=== PATIENT | female | born 1945 | race Caucasian/White ===

== ENCOUNTER → 2016-10-14 | Outpatient (CLI) | payer OTHER ==
[~2016-10-14] MED LIST: ASCO1CAP3 PO; ASPI-435 PO; BUPR200T2 PO; CHOL400C7 PO; MELA3TAB PO; METO-157 PO; OMEG12006 PO; OXYB5TAB74 PO; PANT40TA PO; SIMV10TA5 PO; VITA100C4 PO
--- NOTE | 2016-10-14 16:38 | MAMMOGRAPHY REPORT ---
BILATERAL DIGITAL SCREENING MAMMOGRAM WITH CAD: 10/14/2016 CLINICAL HISTORY: Routine screening. Patient has no complaints. TECHNIQUE: Bilateral CC and MLO views were obtained. Current study was also evaluated with a Comput er Aided Detection (CAD) system. COMPARISON: Comparison is made to exams dated: 10/10/2015 mammogram, 10/07/2014 mammogram, 10/06/2013 mammogram, 10/05/2012 mammogram, 10/02/2011 mammogram, and 10/01/2010 mammogram - [facility] enter. BREAST COMPOSITION: There are scattered areas of fibroglandular density in both breasts. FINDINGS: There are minimal vascular calcifications in the breasts. The parenchymal pattern is unch anged. No developing mass, architectural distortion or cluster of suspicious microcalcifications is seen in either breast. IMPRESSION: ACR BI-RADS CATEGORY 2: BENIGN There is no mammographic evidence of malignancy. A 1 year screening mammogram is recommended. The p atient will receive written notification of the results. Approximately 10% of breast cancers are not detected with mammography. A negative mammographic repor t should not delay biopsy if a clinically suggestive mass is present. Joann Martinez M.D. ay/:10/14/2016 15:32:57 Electric [employer]cker: Sindy Oshea, [facility] letter sent: Normal 1/2 BI-RADS Code: ACR BI-RADS Category 2: Benign
== END | disposition home or self-care (01) ==
LOC: C.MAMM 09:19
PROVIDERS: ATTEND Family Medicine
DX: Z12.31 Encounter for screening mammogram for malignant neoplasm of breast (principal)

== ENCOUNTER → 2017-10-16 | Outpatient (CLI) | payer OTHER ==
[~2017-10-16] MED LIST changes: +DTR/5 PO; -OXYB5TAB74 PO
--- NOTE | 2017-10-16 15:09 | MAMMOGRAPHY REPORT ---
BILATERAL DIGITAL SCREENING MAMMOGRAM TOMOSYNTHESIS WITH CAD: 10/16/2017 CLINICAL HISTORY: Routine screening. Patient has no complaints. TECHNIQUE: Breast tomosynthesis in addition to standard 2D mammography was performed. Current study was also evaluated with a Computer Aided Detection (CAD) system. COMPARISON: Comparison is made to exams dated: 10/10/2015 mammogram, 10/14/2016 mammogram, 10/07/2014 m ammogram, 10/06/2013 mammogram, 10/05/2012 mammogram, and 10/02/2011 mammogram - [facility]ter. BREAST COMPOSITION: There are scattered areas of fibroglandular density in both breasts. FINDINGS: No suspicious masses, calcifications, or areas of architectural distortion are noted in ei ther breast. There has been no significant interval change compared to prior exams. IMPRESSION: ACR BI-RADS CATEGORY 1: NEGATIVE There is no mammographic evidence of malignancy. A 1 year screening mammogram is recommended. The pa tient will receive written notification of the results. Approximately 10% of breast cancers are not detected with mammography. A negative mammographic report should not delay biopsy if a clinically suggestive mass is present. Anali Reynolds M.D. ah/:10/16/2017 14:21:46 [employer]: Sindy CHE(R)(M), [facility] letter sent: Normal 1/2 BI-RADS Code: ACR BI-RADS Category 1: Negative
== END | disposition home or self-care (01) ==
LOC: C.MAMM 09:05
PROVIDERS: ATTEND Family Medicine
DX: Z12.31 Encounter for screening mammogram for malignant neoplasm of breast (principal)

== ENCOUNTER 2019-02-20 11:52 | Inpatient (IN) ==
--- OUTSIDE RECORDS SUMMARY | 2019-02-20 11:54 | External Medical Summary | Continuity of Care Document ---
:1945 Author Name Oliveir Castillo, Provider Address Unavailable Unavailable , Care Team Providers Name Role Phone Olivier Castillo, Urology Unavailable [email or web address] [email or web address], UNKNOWN Unavailable Unavailable Problems Active medical history not documented Allergies and Adverse Reactions Allergy history not documented Medications Medications not documented Procedures Procedures not documented Immunizations Immunizations not documented Plan of Treatment Planned Observations Planned Goals not documented Results No Known Results Results not documented
[2019-02-20] MEDS ORDERED: OPTIRAY 320 125ml IV PRN (12:16)
[2019-02-20 12:27] LABS: Basophils # (auto) 0.04 K/uL (0-0.2); Basophils % (auto) 0.6 %; Eosinophils # (auto) 0.08 K/uL (0-0.5); Eosinophils % (auto) 1.2 %; Hematocrit (blood only) 39.6 % (37-47); Hemoglobin 12.9 g/dL (12.0-16.0); Immature Granulocytes # (auto) 0.01 K/uL (0.00-0.02); Immature Granulocytes % (auto) 0.2 %; Lymphocytes # (auto) 2.25 K/uL (1.2-3.4); Lymphocytes % (auto) 34.5 %; Mean Corpuscular Hgb Conc 32.6 g/dL (32-36); Mean Corpuscular Volume 94.5 fL (80-100); Monocytes % (auto) 7.7 %; Neutrophils # (auto) 3.65 K/uL (1.4-6.5); Neutrophils % (auto) 55.8 %; Platelet Count 241 K/uL (130-400); RDW Coefficient of Variation 14.5 % (11.5-14.5); RDW Standard Deviation 49.8 fL (36.4-46.3); Red Blood Count 4.19 M/uL (4.2-5.4); White Blood Count 6.53 K/uL (4.8-10.8)
--- NOTE | 2019-02-20 12:29 | CT Scan Report ---
HEAD CT NONCONTRAST CT DOSE: HISTORY: stroke symptoms TECHNIQUE: Multiaxial CT images of the head were performed without the use of intravenous contrast. A utomated exposure control was utilized for this study. A dose lowering technique was utilized adheri ng to the principles of ALARA. Comparison: None. Findings: The paranasal sinuses and mastoid air cells are clear. The calvarium and skull base are int act. The ventricles and sulci are within normal limits. There is no mass, hematoma, midline shift, or acute infarct. Impression: No acute intracranial abnormality. Electronically signed by: Dannie Lockwood M.D. 02/20/2019 12:27 PM
--- NOTE | 2019-02-20 12:38 | CT Scan Report ---
HEAD & NECK CTA HISTORY: stroke symptoms TECHNIQUE: Multiaxial CT images of the head were performed following the intravenous administration o f contrast to evaluate the major cerebral vessels. Multiaxial CT images of the neck were also perform ed following the intravenous administration of contrast to evaluate the major cervical vessels. Maxim um intensity projection images were also obtained. A dose lowering technique was utilized adhering to the principles of ALARA. COMPARISON: None. FINDINGS: There is no mass, hematoma, midline shift, or acute infarct. Visualized intracranial internal carotid arteries, distal vertebral arteries, and basilar artery are widely patent. There is no significant s tenosis or occlusion seen within the bilateral ACAs, MCAs, or method consultant. Focal mild fusiform dilatation of the right NASIM at the level of the anterior communicating artery measuring 2.4 mm in diameter. This c ould represent a small fusiform aneurysm. This is best seen on image 100 of 234. The major dural veno us sinuses appear patent. The aortic arch and proximal great vessels are widely patent. There is no significant stenosis, occ lusion, or dissection identified within the bilateral common carotid, internal carotid, or vertebral arteries. IMPRESSION: 1. No significant stenosis or occlusion within the [place]. 2. Focal mild fusiform dilatation of the right NASIM at the level of the anterior communicating artery measuring 2.4 mm in diameter. This could represent a small fusiform aneurysm. Follow-up CTA in six-mo nths to one-year can be performed to ensure stability. 3. No significant stenosis, occlusion, or dissection identified within the carotid or vertebral arter ies. Electronically signed by: Dannie Lockwood M.D. 02/20/2019 12:36 PM
--- NOTE | 2019-02-20 12:38 | CT Scan Report ---
HEAD & NECK CTA HISTORY: stroke symptoms TECHNIQUE: Multiaxial CT images of the head were performed following the intravenous administration o f contrast to evaluate the major cerebral vessels. Multiaxial CT images of the neck were also perform ed following the intravenous administration of contrast to evaluate the major cervical vessels. Maxim um intensity projection images were also obtained. A dose lowering technique was utilized adhering to the principles of ALARA. COMPARISON: None. FINDINGS: There is no mass, hematoma, midline shift, or acute infarct. Visualized intracranial internal carotid arteries, distal vertebral arteries, and basilar artery are widely patent. There is no significant s tenosis or occlusion seen within the bilateral ACAs, MCAs, or dial lathe operator. Focal mild fusiform dilatation of the right NASIM at the level of the anterior communicating artery measuring 2.4 mm in diameter. This c ould represent a small fusiform aneurysm. This is best seen on image 100 of 234. The major dural veno us sinuses appear patent. The aortic arch and proximal great vessels are widely patent. There is no significant stenosis, occ lusion, or dissection identified within the bilateral common carotid, internal carotid, or vertebral arteries. IMPRESSION: 1. No significant stenosis or occlusion within the [place]. 2. Focal mild fusiform dilatation of the right NASIM at the level of the anterior communicating artery measuring 2.4 mm in diameter. This could represent a small fusiform aneurysm. Follow-up CTA in six-mo nths to one-year can be performed to ensure stability. 3. No significant stenosis, occlusion, or dissection identified within the carotid or vertebral arter ies. Electronically signed by: Dannie Lockwood M.D. 02/20/2019 12:36 PM
[2019-02-20 12:42] LABS: Partial Thromboplastin Ratio 0.9; Partial Thromboplastin Time 24.8 Seconds (21.0-31.0)
[2019-02-20 12:50] LABS: Alanine Aminotransferase 20 U/L (12-78); Albumin Globulin Ratio 0.9 (0.9-2); Albumin Level 3.6 gm/dl (3.4-5.0); Alkaline Phosphatase 88 U/L (45-117); Aspartate Aminotransferase 13 U/L (15-37); BUN Creatinine Ratio 25.2 (10-20); Bilirubin,Total 0.2 mg/dl (0.2-1); Blood Urea Nitrogen 22 mg/dl (7-18); Calcium 8.7 mg/dl (8.5-10.1); Carbon Dioxide 27 mmol/L (21-32); Chloride 111 mmol/L (98-107); Creatinine Clr Calc Pharmacy 64.6 ml/min; Est GFR (African American) 77.7; Globulin 3.8 gm/dl (2.5-4.0); Glucose 86 mg/dl (70-99); Magnesium 2.1 mg/dl (1.8-2.4); Potassium 3.6 mmol/L (3.5-5.1); Sodium 142 mmol/L (136-145); Total Protein 7.4 gm/dl (6.4-8.2); Troponin I < 0.015 ng/ml (0-0.045)
[2019-02-20] MEDS: SODIUM CHLORIDE 0.9% 1000ML 1,000 ML IV SCH (12:53)
[2019-02-20] MEDS ORDERED: ASPIRIN CHEW 324 MG PO STA (13:03)
[2019-02-20] MEDS ORDERED: PHARMACIST DISCHARGE MED REC CONSULT PRN (13:56)
[2019-02-20] MEDS ORDERED: ASPIRIN 81 MG ECTAB PO SCH (14:00)
[2019-02-20] MEDS ORDERED: ATORVASTATIN 40 MG TAB PO SCH (14:00)
--- NOTE | 2019-02-20 14:15 | History & Physical Report ---
Date of Service February 20, 2019 Assessment & Plan (1) CVA (cerebral vascular accident): (2) Left-sided weakness: (3) Stroke-like symptom: (4) GERD (gastroesophageal reflux disease): (5) Hyperlipidemia: (6) Lumbar back pain with radiculopathy affecting left lower extremity: Tele-stroke did not recommend TPA, recommends aspirin and fluids, if her symptoms get worse a Plavix load and give him a call back. And he recommends Aggrenox on discharge. I ordered an MRI MRA of the brain, MRA of the head and neck, aspirin, statin, permissive hypertension, IV fluids. Monitor daily labs and continue outpatient medications where appropriate. We will also order MRI of the cervical spine as well. ROS-No Headache, No Visual Changes, No Nausea, No Vomiting, No Fever, No Chills, No Neck Pain or Stiffness, No Chest Pain, No Palpitations, No SOB, No BALLESTEROS, No Cough, No Sputum, No Wheezing, No Abdominal Pain, No Diarrhea, No Hematemesis, No Hemoptysis, No Unexpected Weight Loss, No Flank pain, No Melena, No Hematochezia, No Frequency, No Urgency, No Burning, No Hematuria, No Rashes, No Diaphoresis. Appetite is Normal, complains of left-sided weakness. Physical Exam Gen-AAO x 3, NAD, Afebrile, obese Head-NCAT, EOMI, PERRLA, Anicteric Sclera, No Posterior Pharyngeal Erythema Neck-Supple, No JVD, No Thyromegaly, No Masses, No LAD, No Bruits Lungs-Clear to Auscultation Bilaterally, No Rales, No Rhonchi, No Wheezing, No Crepitus Chest-No S4, +S1, +S2, No S3, No Murmurs, No Rubs, No Gallops, No Ectopy Abdomen-Soft, Bowel Sounds Present, Non Tender, Non Distended, No Hepatomegaly, No Splenomegaly, No Palpable Masses, No Rebound, No Rigidity, No Guarding Musculoskeletal-Full Range of Motion Bilaterally, No CVAT Extremities-No Cyanosis, No Clubbing, No Edema Nuero-Cranial Nerves II-XII grossly intact, decreased motor on the left, DTRs WNL, decreased strength strength on the left, decreased sensation on the left Psych-Normal Mood History of Present Illness 74-year-old female with a past medical history of gastroesophageal reflux disease, hyperlipidemia and chronic leg pain. She had a recent epidural on 02/17 from the neuropathic pain in the left lower extremity. Today she said she woke up at 9:30 AM and was weak on the left side much greater than the right side and she was numb in both arms. She said this is never happened her before. She did not feel quite right so was brought to the emergency room. Past medical historyGERD, hyperlipidemia, leg pain Past surgical historyepidural for left lower extremity pain, hysterectomy, hernia repair, appendectomy Family historymother of old age, Father of diabetes complications, she has 1 brother who is alive and healthy, she has a sister of leukemia, she has 2 sons 1 of which is healthy the other has diabetes, she is a healthy daughter. 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, she is and her is at the bedside Primary Care Provider: Myron Cristobal MD Allergies Allergy/AdvReac Type Severity Reaction Status Date / Time No Known Allergies Allergy Unverified 02/20/19 12:39 Home Medications Home Medications Medication Instructions Recorded Confirmed Type ascorbic acid (vitamin C) [Vitamin 500 mg PO DAILY 02/20/19 02/20/19 History C] aspirin 81 mg PO DAILY 02/20/19 02/20/19 History baclofen 10 mg PO HS 02/20/19 02/20/19 History cholecalciferol (vitamin D3) 5,000 unit PO DAILY 02/20/19 02/20/19 History [Vitamin D3] omega [id number]-fish oil [[place]-3] 1 cap PO DAILY 02/20/19 02/20/19 History pantoprazole [Protonix] 40 mg PO DAILY 02/20/19 02/20/19 History phentermine 37.5 mg PO DAILY 02/20/19 02/20/19 History simvastatin 10 mg PO HS 02/20/19 02/20/19 History Past Med/Surg History Family History Other Family history non-contributory Social History Preferred Language: [place] Communication Ability: Effective Beliefs That Will Affect Care: None Current Living Situation: Spouse Other Information That Helps Us Care for You: No Feels Safe at Home: Yes Safety Concerns: Feels Safe At This Time Smoking Status: Former smoker Hx Alcohol Use: No Hx Substance Use: No Results & Data Vital Signs (Past 12 Hours) Vital Signs Temp Pulse Resp BP Pulse Ox 02/20/19 12:41 77 161/108 H 02/20/19 12:37 91 H 02/20/19 12:34 75 152/98 H 02/20/19 12:27 98 02/20/19 11:54 36.7 C 86 16 98 Allergies No Known Allergies Allergy (Unverified 02/20/19 12:39) Height/Weight/Isolation Height 5 ft 5 in Weight 90.2 kg Chemistry 02/20/19 12:11 Sodium 142 Potassium 3.6 Chloride 111 H Carbon Dioxide 27 Anion Gap 4.0 BUN 22 H Creatinine 0.86 Glucose 86 Code Status & VTE Plan Code Status Full VTE Prophylaxis Plan VTE Prophylaxis will be ordered: Yes
--- NOTE | 2019-02-20 14:43 | Emergency Department Note ---
Entered by Lissette Gardner acting as a scribe for History of Present Illness General Chief complaint: Neuro Symptoms/Deficit Stated complaint: LEFT ARM/NECK NUMBNESS Time Seen by Provider: 02/20/19 11:59 Source: patient History of Present Illness Provider complaint: Neuro symptoms Onset (ago): hour(s) (2.5) Location: upper extremity Pain Consistency: + constant Quality: + constant Associated symptoms: + weakness and + other (Numbness in both arms. thick speech) The patient is a 74 year old female who presents to the ED with complaints of constant neuro symptoms that started 2 and a half hours ago. The patient reports she was having breakfast and both her arms became numb all of a sudden. She notes the numbness radiates to her neck and is worse in the left arm. The patient states she has left arm weakness and her speech was thick when the numbness started. She reports she had a similar episode a month ago and called her doctor who told her if it happened again then she should go to the ED. The patient states she currently does not have any leg pain; however, 2 days ago she received an injection in her spine for leg pain. The patient reports she does not have a history of stroke. Home Medications Home Medications Medication Instructions Recorded Confirmed Type ascorbic acid (vitamin C) [Vitamin 500 mg PO DAILY 02/20/19 02/20/19 History C] aspirin 81 mg PO DAILY 02/20/19 02/20/19 History baclofen 10 mg PO HS 02/20/19 02/20/19 History cholecalciferol (vitamin D3) 5,000 unit PO DAILY 02/20/19 02/20/19 History [Vitamin D3] omega [id number] oil [Savage-3] 1 cap PO DAILY 02/20/19 02/20/19 History pantoprazole [Protonix] 40 mg PO DAILY 02/20/19 02/20/19 History phentermine 37.5 mg PO DAILY 02/20/19 02/20/19 History simvastatin 10 mg PO HS 02/20/19 02/20/19 History Allergies Allergy/AdvReac Type Severity Reaction Status Date / Time No Known Allergies Allergy Unverified 02/20/19 12:39 Past Med/Surg History Medical History Pharyngitis (Acute) Uvulitis (Acute) Family History Other Family history non-contributory Social History Preferred Language: Ch[place] Communication Ability: Effective Beliefs That Will Affect Care: None Current Living Situation: Spouse Other Information That Helps Us Care for You: No Feels Safe at Home: Yes Safety Concerns: Feels Safe At This Time Smoking Status: Former smoker Hx Alcohol Use: No Hx Substance Use: No Review of Systems See HPI for pertinent positives & negatives. and A total of 10 systems reviewed and were otherwise negative Physical Exam Vital Signs Vital Signs - 24 hr 02/20/19 11:54 02/20/19 12:27 02/20/19 12:34 Temperature 36.7 C Temperature Source Oral Sepsis Recent Fever Within 48 Hours No Sepsis Action Taken by Nursing No Action Required Pulse Rate 86 75 Pulse Rate from SpO2 Sensor Pulse Rhythm Regular Pulse Strength Normal Respiratory Rate 16 Respiratory Effort / Characteristics Non-Labored Normal for Patient Respiratory Depth Normal Respiratory Pattern Regular Blood Pressure 152/98 H Blood Pressure Mean 116 Pulse Oximetry 98 98 Oxygen Delivery Method Room Air Room Air 02/20/19 12:37 02/20/19 12:41 02/20/19 12:45 Temperature Temperature Source Sepsis Recent Fever Within 48 Hours Sepsis Action Taken by Nursing Pulse Rate 91 H 77 68 Pulse Rate from SpO2 Sensor Pulse Rhythm Pulse Strength Respiratory Rate Respiratory Effort / Characteristics Respiratory Depth Respiratory Pattern Blood Pressure 161/108 H Blood Pressure Mean 125 Pulse Oximetry Oxygen Delivery Method 02/20/19 12:50 02/20/19 13:00 02/20/19 13:01 Temperature Temperature Source Sepsis Recent Fever Within 48 Hours Sepsis Action Taken by Nursing Pulse Rate 67 67 Pulse Rate from SpO2 Sensor 68 65 Pulse Rhythm Pulse Strength Respiratory Rate Respiratory Effort / Characteristics Respiratory Depth Respiratory Pattern Blood Pressure 167/97 H 166/97 H Blood Pressure Mean 120 120 Pulse Oximetry 100 100 Oxygen Delivery Method Room Air 02/20/19 13:11 02/20/19 13:15 02/20/19 13:30 Temperature Temperature Source Sepsis Recent Fever Within 48 Hours Sepsis Action Taken by Nursing Pulse Rate 63 67 65 Pulse Rate from SpO2 Sensor 65 66 64 Pulse Rhythm Pulse Strength Respiratory Rate Respiratory Effort / Characteristics Respiratory Depth Respiratory Pattern Blood Pressure 159/89 H Blood Pressure Mean 112 Pulse Oximetry 100 99 99 Oxygen Delivery Method 02/20/19 13:31 02/20/19 13:45 02/20/19 14:00 Temperature Temperature Source Sepsis Recent Fever Within 48 Hours Sepsis Action Taken by Nursing Pulse Rate 61 63 62 Pulse Rate from SpO2 Sensor Pulse Rhythm Pulse Strength Respiratory Rate Respiratory Effort / Characteristics Respiratory Depth Respiratory Pattern Blood Pressure 147/85 H Blood Pressure Mean 105 Pulse Oximetry Oxygen Delivery Method 02/20/19 14:01 Temperature Temperature Source Sepsis Recent Fever Within 48 Hours Sepsis Action Taken by Nursing Pulse Rate 62 Pulse Rate from SpO2 Sensor Pulse Rhythm Pulse Strength Respiratory Rate Respiratory Effort / Characteristics Respiratory Depth Respiratory Pattern Blood Pressure 149/94 H Blood Pressure Mean 112 Pulse Oximetry Oxygen Delivery Method GENERAL: Patient is in no acute distress. HEENT: No acute trauma, normocephalic atraumatic, mucous membranes moist, no nasal congestion, no scleral icterus. NECK: No stridor, no adenopathy, no meningismus, trachea is midline. LUNGS: Clear to auscultation bilaterally, no wheeze, no rhonchi, breath sounds equal. HEART: Without murmurs gallops or rubs, regular rate and rhythm. ABDOMEN: Soft, nontender, bowel sounds positive, no hernias, no peritonitis. EXTREMITIES: No cyanosis or edema, full range of motion of all the joints witho ut pain or difficulty, no signs for acute trauma. NEUROLOGIC: Awake and alert. No speech slur. No facial droop. Mild to moderate left upper extremity cerebellar dysfunction. Subtle left upper extremity drift. Left lower extremity drift. Weakness in left arm and left leg noted. SKIN: No rash, no jaundice, no diaphoresis. Course 1200: The patient was evaluated in room A2. A complete history and physical exam was performed. 1213: I discussed the patient's case with Dr. Rodríguez, Stroke Neurology. 1225: I checked on the patient. 1244: I checked on the patient. 1255: I discussed the patient's case with Amaury Johnston PA-C. The patient will be evaluated by Dr. Mckeon for further management. 1257: I discussed the patient's case with Dr. Rodríguez, Stroke Neurology. He said no TPA and to give the patient aspirin and fluids. If the patient's symptoms become worse then he advises to start a load of Plavix and give them a call back at [place]. 1308: I checked on the patient and spoke with Dr. Mckeon about the recommendations. I reviewed old records from the procedure done two days ago on . It was a caudal epidural steroid injection. Administered Medications Atorvastatin Calcium (Lipitor) 40 mg PO QAM JAYLEEN Stop: 03/22/19 13:59 Last Admin: 02/20/19 16:52 Dose: 40 mg Documented by: [id number] Fish Oil (Savage-3 (Purified Fish Oil)) 1 gm PO DAILY JAYLEEN Stop: 03/22/19 17:14 Last Admin: 02/20/19 17:38 Dose: 1 gm Documented by: [id number] Gadobutrol (Gadavist 65ml) 9 ml IV ONCE PRN PRN Reason: Interaction Checking Stop: 02/24/19 16:03 Last Admin: 02/20/19 16:04 Dose: 9 ml Documented by: [id number] Sodium Chloride (Nss 1000ml) 1,000 mls @ 50 mls/hr IV .Q20H JAYLEEN Stop: 03/22/19 12:14 Last Infusion: 02/20/19 14:58 Dose: 0 mls/hr Documented by: [id number] Admin: 02/20/19 12:53 Dose: 50 mls/hr Documented by: [id number] Potassium Chloride/Sodium Chloride (Normal Saline W/20 Meq Kcl) 20 meq in 1,000 mls @ 100 mls/hr IV .Q10H JAYLEEN Stop: 03/22/19 16:59 Last Admin: 02/20/19 17:37 Dose: 100 mls/hr Documented by: [id number] Ioversol (Optiray 320 125ml) 118 ml IV ONCE PRN PRN Reason: Interaction Checking Stop: 02/24/19 12:15 Last Admin: 02/20/19 12:16 Dose: 118 ml Documented by: [id number] Pantoprazole Sodium (Protonix) 40 mg PO DAILY JAYLEEN Stop: 03/22/19 17:14 Last Admin: 02/20/19 17:46 Dose: Not Given Documented by: [id number] Vitamin D (Vitamin D3) 5,000 units PO DAILY JAYLEEN Stop: 03/22/19 17:14 Last Admin: 02/20/19 17:46 Dose: 5,000 units Documented by: [id number] Discontinued Medications Aspirin (Aspirin) 324 mg PO NOW STA Stop: 02/20/19 13:04 Last Admin: 02/20/19 13:22 Dose: 324 mg Documented by: [id number] Diphenhydramine HCl (Benadryl) Confirm Administered Dose 50 mg .ROUTE .STK-MED ONE Stop: 02/20/19 15:18 Last Admin: 02/20/19 15:22 Dose: 50 mg Documented by: [id number] Lorazepam (Ativan) 0.5 mg in 1 mls @ 1 mls/min IV NOW STA Stop: 02/20/19 15:10 Last Admin: 02/20/19 16:53 Dose: Not Given Documented by: [id number] Medical Decision Making Differential Diagnosis Differential Diagnosis: Stroke, intracranial bleeding, infection, dysrhythmia, electrolyte imbalance, anemia, [place], migraine Medical Records Attestation: I reviewed the patient's medical records. Home Medications Current Medication List: was personally reviewed by me Laboratory Data Attestation: I reviewed the patient's lab results. Result diagrams: 02/20/19 12:11 02/20/19 12:11 Lab Results 02/20/19 02/20/19 02/20/19 Range/Units 12:11 12:11 12:11 WBC 6.53 (4.8-10.8) K/uL RBC 4.19 L (4.2-5.4) M/uL Hgb 12.9 (12.0-16.0) g/dL Hct 39.6 (37-47) % MCV 94.5 (80-100) fL MCH 30.8 (25-34) pg MCHC 32.6 (32-36) g/dL RDW Std Deviation 49.8 H (36.4-46.3) fL RDW Coeff of Chen 14.5 (11.5-14.5) % Plt Count 241 (130-400) K/uL MPV 10.0 (7.4-10.4) fL Immature Gran % (Auto) 0.2 % Neut % (Auto) 55.8 % Lymph % (Auto) 34.5 % [place] % (Auto) 7.7 % Eos % (Auto) 1.2 % Baso % (Auto) 0.6 % Immature Gran # (Auto) 0.01 (0.00-0.02) K/uL Neut # (Auto) 3.65 (1.4-6.5) K/uL Lymph # (Auto) 2.25 (1.2-3.4) K/uL [place] # (Auto) 0.50 (0.11-0.59) K/uL Eos # (Auto) 0.08 (0-0.5) K/uL Baso # (Auto) 0.04 (0-0.2) K/uL PT 10.0 (9.0-12.0) Seconds INR 1.0 (0.9-1.1) APTT 24.8 (21.0-31.0) Seconds PTT Ratio 0.9 Sodium 142 (136-145) mmol/L Potassium 3.6 (3.5-5.1) mmol/L Chloride 111 H (98-107) mmol/L Carbon Dioxide 27 (21-32) mmol/L Anion Gap 4.0 (3-11) BUN 22 H (7-18) mg/dl Creatinine 0.86 (0.6-1.2) mg/dl Est Cr Clr Drug Dosing 64.6 ml/min Est GFR ( Amer) 77.7 Est GFR (Non-Af Amer) 67.0 BUN/Creatinine Ratio 25.2 H (10-20) Glucose 86 (70-99) mg/dl POC Glucose (70-99) Calcium 8.7 (8.5-10.1) mg/dl Magnesium 2.1 (1.8-2.4) mg/dl Total Bilirubin 0.2 (0.2-1) mg/dl AST 13 L (15-37) U/L ALT 20 (12-78) U/L Alkaline Phosphatase 88 (45-117) U/L Troponin I < 0.015 (0-0.045) ng/ml Total Protein 7.4 (6.4-8.2) gm/dl Albumin 3.6 (3.4-5.0) gm/dl Globulin 3.8 (2.5-4.0) gm/dl Albumin/Globulin Ratio 0.9 (0.9-2) Blood Type Antibody Screen 02/20/19 02/20/19 Range/Units 12:11 12:31 WBC (4.8-10.8) K/uL RBC (4.2-5.4) M/uL Hgb (12.0-16.0) g/dL Hct (37-47) % MCV (80-100) fL MCH (25-34) pg MCHC (32-36) g/dL RDW Std Deviation (36.4-46.3) fL RDW Coeff of Chen (11.5-14.5) % Plt Count (130-400) K/uL MPV (7.4-10.4) fL Immature Gran % (Auto) % Neut % (Auto) % Lymph % (Auto) % [place] % (Auto) % Eos % (Auto) % Baso % (Auto) % Immature Gran # (Auto) (0.00-0.02) K/uL Neut # (Auto) (1.4-6.5) K/uL Lymph # (Auto) (1.2-3.4) K/uL [place] # (Auto) (0.11-0.59) K/uL Eos # (Auto) (0-0.5) K/uL Baso # (Auto) (0-0.2) K/uL PT (9.0-12.0) Seconds INR (0.9-1.1) APTT (21.0-31.0) Seconds PTT Ratio Sodium (136-145) mmol/L Potassium (3.5-5.1) mmol/L Chloride (98-107) mmol/L Carbon Dioxide (21-32) mmol/L Anion Gap (3-11) BUN (7-18) mg/dl Creatinine (0.6-1.2) mg/dl Est Cr Clr Drug Dosing ml/min Est GFR ( Amer) Est GFR (Non-Af Amer) BUN/Creatinine Ratio (10-20) Glucose (70-99) mg/dl POC Glucose 89 (70-99) Calcium (8.5-10.1) mg/dl Magnesium (1.8-2.4) mg/dl Total Bilirubin (0.2-1) mg/dl AST (15-37) U/L ALT (12-78) U/L Alkaline Phosphatase (45-117) U/L Troponin I (0-0.045) ng/ml Total Protein (6.4-8.2) gm/dl Albumin (3.4-5.0) gm/dl Globulin (2.5-4.0) gm/dl Albumin/Globulin Ratio (0.9-2) Blood Type AB Positive Antibody Screen NEGATIVE Imaging Data Radiologist's Impression: Radiology results as stated below per my review and the radiologist's interpretation: HEAD & NECK CTA HISTORY: stroke symptoms TECHNIQUE: Multiaxial CT images of the head were performed following the intravenous administration of contrast to evaluate the major cerebral vessels. Multiaxial CT images of the neck were also performed following the intravenous administration of contrast to evaluate the major cervical vessels. Maximum intensity projection images were also obtained. A dose lowering technique was utilized adhering to the principles of ALARA. COMPARISON: None. FINDINGS: There is no mass, hematoma, midline shift, or acute infarct. Visualized intracranial internal carotid arteries, distal vertebral arteries, and basilar artery are widely patent. There is no significant stenosis or occlusion seen within the bilateral ACAs, MCAs, or automation clerk. Focal mild fusiform dilatation of the right NASIM at the level of the anterior communicating artery measuring 2.4 mm in diameter. This could represent a small fusiform aneurysm. This is best seen on image 100 of 234. The major dural venous sinuses appear patent. The aortic arch and proximal great vessels are widely patent. There is no significant stenosis, occlusion, or dissection identified within the bilateral common carotid, internal carotid, or vertebral arteries. IMPRESSION: 1. No significant stenosis or occlusion within the [place]. 2. Focal mild fusiform dilatation of the right NASIM at the level of the anterior communicating artery measuring 2.4 mm in diameter. This could represent a small fusiform aneurysm. Follow-up CTA in six-months to one-year can be performed to ensure stability. 3. No significant stenosis, occlusion, or dissection identified within the carotid or vertebral arteries. Electronically signed by: Dannie Lockwood M.D. 02/20/2019 12:36 PM HEAD & NECK CTA HISTORY: stroke symptoms TECHNIQUE: Multiaxial CT images of the head were performed following the intravenous administration of contrast to evaluate the major cerebral vessels. Multiaxial CT images of the neck were also performed following the intravenous administration of contrast to evaluate the major cervical vessels. Maximum intensity projection images were also obtained. A dose lowering technique was utilized adhering to the principles of ALARA. COMPARISON: None. FINDINGS: There is no mass, hematoma, midline shift, or acute infarct. Visualized intracranial internal carotid arteries, distal vertebral arteries, and basilar artery are widely patent. There is no significant stenosis or occlusion seen within the bilateral ACAs, MCAs, or automation clerk. Focal mild fusiform dilatation of the right NASIM at the level of the anterior communicating artery measuring 2.4 mm in diameter. This could represent a small fusiform aneurysm. This is best seen on image 100 of 234. The major dural venous sinuses appear patent. The aortic arch and proximal great vessels are widely patent. There is no significant stenosis, occlusion, or dissection identified within the bilateral common carotid, internal carotid, or vertebral arteries. IMPRESSION: 1. No significant stenosis or occlusion within the [place]. 2. Focal mild fusiform dilatation of the right NASIM at the level of the anterior communicating artery measuring 2.4 mm in diameter. This could represent a small fusiform aneurysm. Follow-up CTA in six-months to one-year can be performed to ensure stability. 3. No significant stenosis, occlusion, or dissection identified within the carotid or vertebral arteries. Electronically signed by: Dannie Lockwood M.D. 02/20/2019 12:[address]AST CT DOSE: HISTORY: stroke symptoms TECHNIQUE: Multiaxial CT images of the head were performed without the use of intravenous contrast. Automated exposure control was utilized for this study. A dose lowering technique was utilized adhering to the principles of ALARA. Comparison: None. Findings: The paranasal sinuses and mastoid air cells are clear. The calvarium and skull base are intact. The ventricles and sulci are within normal limits. There is no mass, hematoma, midline shift, or acute infarct. Impression: No acute intracranial abnormality. Electronically signed by: Dannie Lockwood M.D. 02/20/2019 12:27 PM ECG Data Attestation: I personally reviewed and interpreted this ECG as follows: Indication: other (Neuro symptoms/ stroke symptoms ) Rate (beats per minute): 81 Rhythm: normal sinus Findings: no PVC and no ST elevation Blood Pressure Blood Pressure Findings: Elevated blood pressure Blood Pressure Disposition: further management by hospitalist RHYS Dietz There is no leukocytosis or concerning anemia. No coagulopathy. No significant electrolyte abnormality or kidney failure. No liver enzyme elevations. Blood type was AB+. Brain CT showed no acute bleed or mass-effect. CT angios of the brain and neck were done, a potential small aneurysm was noted, no large clot or significant stenosis was seen. On exam, the patient had some left upper extremity cerebellar dysfunction and some left leg weakness. No speech slur. EKG showed a sinus rhythm, no acute ischemia. The patient received IV saline. She was eventually given a dose of oral aspirin. Upon presentation, a stroke alert was called. The patient was aggressively managed. I spoke with the stroke neurologist straightaway, the patient was evaluated by stroke neurology via telemedicine. After her evaluation, after discussing things with the patient, after taking into account the patient's caudal spinal injection just a few days ago, the decision to hold on TPA was made. The patient did not feel she had any significant deficits and felt she could function well even if she did not continue to improve. The patient has likely had a small stroke. She has minimal deficits. TPA is not being administered. She will be hospitalized for further work-up. I spoke to the case management team, I talked to the patient at length. The on-call hospitalist was consulted. Impression & Plan CVA (cerebral vascular accident), Left-sided weakness, Stroke-like symptom Critical Care Time Critical Care Time: Yes Total Critical Care Time: 35 I have personally spent greater than 35 minutes of critical care time in the direct management of this patient. This includes bedside care, interpretation of diagnostic studies and testing, discussion with consultants, the patient, and family members, and other required patient management activities. This 35 minutes is in excess of all separately billable procedures. Discharge Plan Visit Data *Final* Discharge Date/Time: 02/20/19 15:03 Chief Complaint: Neuro Symptoms/Deficit Stated Complaint: LEFT ARM/NECK NUMBNESS ED Provider: Jose G Ziegler Discharge Problem: CVA (cerebral vascular accident), Left-sided weakness, Stroke-like symptom Patient Disposition: Still a Patient Discharge Instructions Interventions: ED Discharge Assessment Last Done: 02/20/19 15:03 The scribe's documentation has been prepared under my direction and personally reviewed by me in its entirety. I confirm that the note above accurately reflects all work, treatment, procedures, and medical decision making performed by me.
[2019-02-20] MEDS ORDERED: LORazepam 0.5 MG/1 ML VIAL IV STA (15:09)
[2019-02-20] MEDS ORDERED: DiphenhydrAMINE 25 MG in SYRINGE 1 ML IV SCH (15:15)
[2019-02-20] MEDS ORDERED: DiphenhydrAMINE HCL 50 MG/ML VIAL ONE (15:17)
[2019-02-20] MEDS ORDERED: GADOBUTROL 65ML VIAL IV PRN (16:04)
--- NOTE | 2019-02-20 16:26 | Magnetic Resonance Report ---
Brain MRI WITH AND WITHOUT CONTRAST HISTORY: Stroke symptoms. Bilateral upper extremity numbness. TECHNIQUE: Multiplanar multisequence MRI of the brain was performed both before and after the intrave nous administration of contrast. COMPARISON STUDY: None. FINDINGS: There are no areas of restricted diffusion to suggest acute infarction. The midline structu res are intact. The paranasal sinuses are clear. The mastoid air cells are clear. The ventricles and sulci are within normal limits for age. There is no mass, hematoma, midline shift. The major vascular flow-voids at the skull base are well maintained. Postcontrast sequences show no areas of abnormal e nhancement. IMPRESSION: No acute intracranial abnormality. Electronically signed by: Dannie Lockwood M.D. 02/20/2019 4:25 PM
--- NOTE | 2019-02-20 16:27 | Magnetic Resonance Report ---
Brain MRA HISTORY: Stroke symptoms. Bilateral upper extremity numbness. TECHNIQUE: 3-D [id number] MRA of the brain was performed without contrast. COMPARISON STUDY: Head CT 02/20/2019. FINDINGS: Visualized intracranial internal carotid arteries, distal vertebral arteries, and basilar a rtery are widely patent. There is no significant stenosis, occlusion, or aneurysm seen within the rama ateral ACAs, MCAs, or industry operations investigator. IMPRESSION: No significant stenosis, occlusion, or aneurysm within the [place]. Electronically signed by: Dannie Lockwood M.D. 02/20/2019 4:26 PM
[2019-02-20] MEDS ORDERED: POLYETHYLENE (MIRALAX) 17 GM PACK PO PRN (16:28)
[2019-02-20] MEDS ORDERED: ONDANSETRON INJ 2 MG/ML 2 ML VIAL IV PRN (16:28)
[2019-02-20] MEDS ORDERED: ACETAMINOPHEN 325 MG TAB PO PRN (16:28)
[2019-02-20] MEDS ORDERED: ASPIRIN CHEW 324 MG PO SCH (16:28)
--- NOTE | 2019-02-20 16:28 | Magnetic Resonance Report ---
NECK CTA HISTORY: Stroke symptoms. Bilateral upper extremity numbness. cva TECHNIQUE: Multiaxial CT images of the neck were performed following the intravenous administration o f contrast to evaluate the major cervical vessels. Maximum intensity projection images were also obta ined. All measurements were calculated based on NASCET criteria. A dose lowering technique was utili zed adhering to the principles of ALARA. COMPARISON STUDY: Neck CTA 02/20/2019. FINDINGS: The aortic arch and proximal great vessels are widely patent. There is no significant sten osis, occlusion, or dissection identified within the bilateral common carotid, internal carotid, or v ertebral arteries. IMPRESSION: No significant stenosis, occlusion, or dissection identified within the carotid or vertebral arteries . Electronically signed by: Dannie Lockwood M.D. 02/20/2019 4:27 PM
[2019-02-20] MEDS: NSS + 20MEQ KCL 20 MEQ/1,000 ML BAG IV SCH (17:37)
[2019-02-20] MEDS: OMEGA-3 (PURIFIED FISH OIL) 1 GM CAP PO SCH (17:38)
[2019-02-20] MEDS: PANTOprazole 40 MG TAB PO SCH (17:46)
[2019-02-20] MEDS: CHOLECALCIFEROL 1,000 UNITS TAB PO SCH (17:46)
[2019-02-20] MEDS: HEPARIN SOD 5,000 UNIT/0.5 ML VIAL SQ SCH (20:46)
[2019-02-20] MEDS: BACLOFEN 10 MG TAB PO SCH (20:46)
[2019-02-20 21:24] LABS: Appearance Urine Clear (Clear); Bilirubin Urine Negative (Negative); Color Urine Yellow; Glucose Urine UA Negative (Negative); Ketones Urine Negative (Negative); Leukocyte Esterase Urine Negative (Negative); Nitrite Urine Negative (Negative); Protein Urine Negative (Negative); Specific Gravity Urine 1.022 (1.000-1.030); Urobilinogen Urine Negative (Negative)
[2019-02-21] MEDS: NSS + 20MEQ KCL 20 MEQ/1,000 ML BAG IV SCH ×3 (03:39→23:39)
[2019-02-21] MEDS: HEPARIN SOD 5,000 UNIT/0.5 ML VIAL SQ SCH ×3 (06:21→20:39)
[2019-02-21 07:37] LABS: Basophils # (auto) 0.04 K/uL (0-0.2); Basophils % (auto) 0.7 %; Eosinophils # (auto) 0.09 K/uL (0-0.5); Eosinophils % (auto) 1.6 %; Hematocrit (blood only) 36.6 % (37-47); Hemoglobin 11.9 g/dL (12.0-16.0); Immature Granulocytes # (auto) 0.01 K/uL (0.00-0.02); Immature Granulocytes % (auto) 0.2 %; Lymphocytes % (auto) 38.8 %; Mean Corpuscular Hgb Conc 32.5 g/dL (32-36); Mean Corpuscular Volume 94.1 fL (80-100); Monocytes # (auto) 0.39 K/uL (0.11-0.59); Monocytes % (auto) 6.9 %; Neutrophils # (auto) 2.94 K/uL (1.4-6.5); Neutrophils % (auto) 51.8 %; Platelet Count 211 K/uL (130-400); RDW Coefficient of Variation 14.6 % (11.5-14.5); RDW Standard Deviation 49.7 fL (36.4-46.3); Red Blood Count 3.89 M/uL (4.2-5.4); White Blood Count 5.67 K/uL (4.8-10.8)
[2019-02-21 08:04] LABS: BUN Creatinine Ratio 25.2 (10-20); Calcium 8.5 mg/dl (8.5-10.1); Creatinine Clr Calc Pharmacy 83.7 ml/min; Est GFR (African American) 101.6; Est GFR (Non-African American) 87.6; Potassium 3.9 mmol/L (3.5-5.1)
[2019-02-21] MEDS: CHOLECALCIFEROL 1,000 UNITS TAB PO SCH (08:06)
[2019-02-21] MEDS: ASPIRIN 81 MG ECTAB PO SCH (08:06)
[2019-02-21] MEDS: ASCORBIC ACID 500 MG TAB PO SCH (08:06)
[2019-02-21] MEDS: OMEGA-3 (PURIFIED FISH OIL) 1 GM CAP PO SCH (08:06)
[2019-02-21] MEDS: PANTOprazole 40 MG TAB PO SCH (08:07)
[2019-02-21] MEDS ORDERED: Nursing to Pharmacy Communication ONE ×2 (08:10→11:44)
[2019-02-21] MEDS ORDERED: DiphenhydrAMINE HCL 50 MG/ML VIAL ONE (11:30)
[2019-02-21] MEDS: SODIUM CHLORIDE 0.9% 1000ML 1,000 ML IV SCH (11:43)
--- NOTE | 2019-02-21 13:02 | Magnetic Resonance Report ---
MRI OF THE CERVICAL SPINE WITHOUT IV CONTRAST CLINICAL HISTORY: Upper extremity numbness. COMPARISON STUDY: CT of the neck dated 02/20/2019. TECHNIQUE: MRI of the cervical spine is performed utilizing various T1 and T2-weighted sequences in t he axial and sagittal planes. IV contrast was not administered for this examination. FINDINGS: Cervical spine: Vertebral body height and alignment are maintained throughout the cervical spine. The atlantodental articulation appears maintained. The spinous processes appear intact. No destructive b mario alberto lesion is seen. A large hemangioma is noted in the body of T3. Small hemangiomas are seen within the body of T2 and the odontoid process. No destructive osseous lesion is identified. Intervertebral discs: Degenerative disc desiccation is noted throughout the cervical spine. Mild loss of height is noted at C6-C7. Spinal cord: The cervical spinal cord is normal in morphology and signal intensity. C2-C3: There is a small disc osteophyte complex eccentric to the right. The central canal is clear. F acet arthropathy causes minimal bilateral neural foraminal stenosis. C3-C4: Uncovertebral and facet arthropathy cause moderate left and minimal right neural foraminal donald nosis. The central canal is clear. C4-C5: A small posterior disc osteophyte complex abuts the ventral cord. Uncovertebral and facet arth ropathy cause moderate left neural foraminal stenosis. C5-C6: A posterior disc osteophyte complex abuts the ventral cord. Uncovertebral and facet arthropath y cause severe left and moderate right neural foraminal stenosis. C6-C7: A posterior disc osteophyte complex abuts the ventral cord. Uncovertebral and facet arthropath y cause moderate bilateral neural foraminal stenosis. C7-T1: Unremarkable. Soft tissues: The prevertebral and paraspinous soft tissues are normal in appearance. Brain parenchyma: The visualized brain parenchyma at the skull base is normal in appearance. Partiall y empty sella is incidentally noted. IMPRESSION: 1. Multilevel cervical spondylosis as above. See discussion for detailed level by level analysis. 2. The cervical spinal cord is normal in morphology and signal intensity. 3. No destructive bony lesion is seen. Dictated: 02/21/2019 12:24 PM Transcribed: 02/21/2019 12:59 PM Sandi [id number] [facility] Electronically signed by: Jose G Bradley M.D. 02/21/2019 1:01 PM
--- NOTE | 2019-02-21 15:13 | Consultation Report ---
DATE OF CONSULTATION: 02/21/2019 REASON FOR CONSULTATION: Weakness. HISTORY OF PRESENT ILLNESS: The patient is a 74-year-old right-handed female. The patient underwent lumbar epidural steroids which was uncomplicated on 02/18/2019. Yesterday morning while seated, she developed tingling and weakness in the bilateral arms, left greater than right with some slurred speech. There was no accompanying neck pain, headache, change in vision, vertigo, nausea, vomiting, facial droop. The symptoms for the most part lasted approximately 30 minutes, but even today, there is a mild left arm weakness. There was categorically no headache, chest pain, palpitations, shortness of breath. She has not recently been ill. She had a similar episode about a month ago where the left arm felt weak and numb for 1 hour. There were no cranial nerve symptoms or neck pain. Today, there is some mild, nonradiating neck pain. The patient did not feel anxiety. There was no diaphoresis. MRI of the brain and MRA were noncontributory. I reviewed those images. A CTA of the head suggested a focal mild fusiform dilatation of the right NASIM at the level of the right anterior communicating artery measuring 2.4 mm in diameter, possibly representing a small fusiform aneurysm. Electrocardiogram: Normal sinus rhythm. PAST MEDICAL HISTORY: Reflux, hyperlipidemia, left sciatica. PAST SURGICAL HISTORY: Epidural 02/17/2019, hysterectomy, hernia repair, appendectomy. FAMILY HISTORY: Complications of diabetes and leukemia. SOCIAL HISTORY: Nonsmoker, nondrinker. 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 ALLERGIES: No allergies. MEDICATIONS: Prior to admission, ascorbic acid, aspirin 162 daily, baclofen 10 mg at bedtime, although she is rarely taking that, vitamin D3, fish oil, Protonix and simvastatin. PHYSICAL EXAMINATION: VITAL SIGNS: 143/90, 67, 18, 36.6, 100% O2 sat. GENERAL: The patient is awake and alert. There is normal speech and language. Affect is appropriate. She is oriented. NECK: There are no carotid, subclavian or supraclavicular bruits. EXTREMITIES: Radial pulses are intact and symmetric. No calf swelling or tenderness is noted. Posterior tibial pulses are intact. NEUROLOGIC: Pupils are postsurgical. Optic nerves are grossly normal. There are normal thacker, motility, facial symmetry, facial sensation. Tongue is midline. Motor: Normal bulk and tone. Strength is full in the right upper and bilateral lower. There is mild reduction of left ceramic coater machine and mild weakness of the left APB. Spurling's maneuver is negative. There is a drift on the left without pronation. Rapid alternating movements are symmetric. Reflexes are symmetric. Ankle jerks are absent. Toes are downgoing. There is intact light touch, temperature and vibration in bilateral upper and lowers. [id number] and [id number]-[id number] are normal. Gait and tandem are normal. IMPRESSION: Episode of dysarthria as well as numbness and tingling in the arms and weakness, residual left arm weakness, not explained by MRI brain. Would recommend an MRI of the cervical spine, although certainly nothing in the cervical spine would explain dysarthria. If the MRI of the cervical spine is noncontributory, would operate on the assumption that this represented a transient ischemic attack, poorly localized. Would add Plavix to 81 mg of aspirin, using dual antiplatelet therapy for 21 days and then discontinuing aspirin. Regarding the possible aneurysm seen on CTA, recommend followup CTA of the head in 6 months. If that was negative, I would not recommend any additional followup. Agree with cardiology workup including echo, telemetric monitoring. The patient will need a Zio patch as an outpatient. We will follow with you.
--- NOTE | 2019-02-21 15:31 | Hospitalist Progress Note ---
Date of Service February 21, 2019 Assessment & Plan (1) TIA (transient ischemic attack): 74-year-old who underwent lumbar epidural steroids which was uncomplicated on 02/18/2019. On 02/20/19 while seated, she developed tingling and weakness in the bilateral arms, left greater than right with some slurred speech. There was no accompanying neck pain, headache, change in vision, vertigo, nausea, vomiting, facial droop. The symptoms for the most part lasted approximately 30 minutes, but even today, there is a mild left arm weakness. TIA (transient ishemic attack) -stroke evaluation started in the ED on 02/20/19; Tele-stroke consult did not recommend TPA -Head CT without contrast/Brain and Head MRI/MRA: No acute intracranial abnormality -HEAD & NECK CTA: No significant stenosis or occlusion within the [place]. Focal mild fusiform dilatation of the right NASIM at the level of the anterior communicating artery measuring 2.4 mm in diameter. This could represent a small fusiform aneurysm. Follow-up CTA in six-months to one-year can be performed to ensure stability. No significant stenosis, occlusion, or dissection identified within the carotid or vertebral arteries. -Cervical spine MRI 02/21/19: Multilevel cervical spondylosis. The cervical spinal cord is normal in morphology and signal intensity. No destructive bony lesion is seen. -as per neurology 02/21/19 assessed that patient's initial episode prior to hospital presentation of dysarthria as well as numbness and tingling in the arms and weakness, residual left arm weakness, not explained by head imaging. and a noncontribuatory MRI of the cervical spine that patient's symptoms were from a transient ischemic attack that is poorly localized on head imaging -as per neurology 02/21/19 add Plavix to 81 mg of aspirin, using dual antiplatelet therapy for 21 days and then discontinuing aspirin Aneurysm of the anterior communicating artery -Focal mild fusiform dilatation of the right NASIM at the level of the anterior communicating artery measuring 2.4 mm in diameter. This could represent a small fusiform aneurysm. 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 The atrial septum is aneurysmal. EF 65 to 70% -antiplatelet therapy as above Lumbar back pain with radiculopathy affecting left lower extremity -The patient underwent lumbar epidural steroids which was uncomplicated on 02/18/2019 -PT/OT evaluations GERD (gastroesophageal reflux disease) -continue pantoprazole daily especially while on dual antiplatelets Hyperlipidemia -patient's lipid profiles appears controlled on 10 mg simvastatin. would continue current dose DVT ppx: heparin subc q8 hours Full Code Subjective Patient reports left arm still feels a little weak. otherwise patient is doing well and moving well. denies problems with eating. no chest pain. no palpitations. no dizziness. no lightheadedness. Physical Exam Constitutional: WD/WN, vitals as above Eyes: PERRL, conjunctivae normal, anicteric sclerae EOM intact bilaterally ENMT: external ear and nose normal, oropharynx normal Neck: normal visual inspection Respiratory: normal respiratory effort, lungs clear to auscultation Cardiovascular: RRR, no murmur, no edema Gastrointestinal (Abdomen): normal bowel sounds, soft, nontender, no hepatosplenomegaly Musculoskeletal: Head/Neck/Chest: normocephalic and head atraumatic Neurologic: PERRL, EOMI, accommodation nl, no face palsy, no dysarthria CN's II-XI intact bilaterally (mild left upper extremity weakness) Psychiatric: A+Ox3, euthymic affect Results & Data Vital Signs (Past 12 Hours) Vital Signs Temp Pulse Resp BP Pulse Ox 02/21/19 14:56 36.7 C 77 19 140/81 99 02/21/19 11:22 36.6 C 67 18 143/90 H 100 02/21/19 07:25 36.6 C 72 18 138/85 98
[2019-02-21] MEDS ORDERED: CLOPIDOGREL BISULFATE 75 MG TAB PO ONE (15:33)
[2019-02-21] MEDS: BACLOFEN 10 MG TAB PO SCH (20:39)
[2019-02-21] MEDS ORDERED: ATORVASTATIN 40 MG TAB PO SCH (21:00)
[2019-02-22] MEDS: HEPARIN SOD 5,000 UNIT/0.5 ML VIAL SQ SCH ×2 (06:14→13:53)
[2019-02-22 06:35] LABS: Estimated Average Glucose 108 mg/dl
[2019-02-22 07:27] LABS: Basophils # (auto) 0.03 K/uL (0-0.2); Basophils % (auto) 0.5 %; Eosinophils % (auto) 3.6 %; Hematocrit (blood only) 37.2 % (37-47); Hemoglobin 11.9 g/dL (12.0-16.0); Immature Granulocytes # (auto) 0.01 K/uL (0.00-0.02); Immature Granulocytes % (auto) 0.2 %; Lymphocytes # (auto) 2.33 K/uL (1.2-3.4); Lymphocytes % (auto) 41.5 %; Mean Corpuscular Volume 94.4 fL (80-100); Mean Platelet Volume 9.9 fL (7.4-10.4); Monocytes # (auto) 0.35 K/uL (0.11-0.59); Monocytes % (auto) 6.2 %; Platelet Count 217 K/uL (130-400); RDW Coefficient of Variation 14.5 % (11.5-14.5); RDW Standard Deviation 49.7 fL (36.4-46.3); Red Blood Count 3.94 M/uL (4.2-5.4); White Blood Count 5.62 K/uL (4.8-10.8)
[2019-02-22 07:55] LABS: BUN Creatinine Ratio 20.6 (10-20); Calcium 8.8 mg/dl (8.5-10.1); Creatinine Clr Calc Pharmacy 78.4 ml/min; Est GFR (African American) 97.9; Est GFR (Non-African American) 84.5; Potassium 4.1 mmol/L (3.5-5.1)
[2019-02-22] MEDS: PANTOprazole 40 MG TAB PO SCH (08:06)
[2019-02-22] MEDS: CHOLECALCIFEROL 1,000 UNITS TAB PO SCH (08:06)
[2019-02-22] MEDS: OMEGA-3 (PURIFIED FISH OIL) 1 GM CAP PO SCH (08:06)
[2019-02-22] MEDS: ASPIRIN 81 MG ECTAB PO SCH (08:06)
[2019-02-22] MEDS: ASCORBIC ACID 500 MG TAB PO SCH (08:06)
[2019-02-22] MEDS: NSS + 20MEQ KCL 20 MEQ/1,000 ML BAG IV SCH (08:10)
[2019-02-22] MEDS ORDERED: CLOPIDOGREL BISULFATE 75 MG TAB PO SCH (09:00)
[2019-02-22] MEDS ORDERED: DiphenhydrAMINE HCL 50 MG/ML VIAL IV SCH (09:30)
[2019-02-22] MEDS ORDERED: FUROSEMIDE 20 MG in SYRINGE 0 ML IV ONE (13:19)
[2019-02-22 13:49] LABS: BUN Creatinine Ratio 17.3 (10-20); Calcium 9.3 mg/dl (8.5-10.1); Creatinine Clr Calc Pharmacy 61.9 ml/min; Est GFR (African American) 73.5; Est GFR (Non-African American) 63.4; Potassium 4.1 mmol/L (3.5-5.1)
--- NOTE | 2019-02-22 13:57 | Neurology Progress Note ---
Date of Service February 22, 2019 Assessment & Plan (1) TIA (transient ischemic attack): 1. added plavix 75 mg daily to aspirin 81 mg daily will continue for 21 days then stop aspirin continue plavix for a lifetime 2. TTE- trivial PFO - should have cardiology opinion 3. PT/OT speech for any discharge needs 4. optimize HTN, DM, HLD LDL < 70 5. short run of afib - will order ZIO as outpatiient for assessment- cardiology if needed follow up with neurology 4-6 weeks Bre Bhat PAC, schedule Supervising Physician Co-Signing Physician Notes I have seen and discussed above patient with Dr Bre Wiggins, neurology. Pt seen and examined. Echo small PFO. Pt had a run of afib. MRI spine noncontributory in terms of pt sx. L arm weakness has resolved.. Exam is nonfocal. Presumed TIA related to afib. Agree with anticoagulation, defer to hospitalist team regarding agent. Continue risk factor mod. Pt should see us in follow-up post discharge. JEFE Wiggins MD Joceline Singh is a 74 year old female with a PMH-reflux, hyperlipidemia, TIA. She had a recent epidural on 02/17 from the neuropathic pain in the left lower extremity. She woke up at 9:30 AM and was weak on the left side much greater than the right side and she was numb in both arms. She said this is never happened her before. She did not feel quite right so was brought to the emergency room. Stroke alert was called but no tPa was given. She was already on aspirin 81 mg daily and plavix 75 mg was started. Over night she had a short run of afib. denies CP, SOB, abdominal pain, one sided weakness, numbness tingling N, V, vision changes, headaches. 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 biceps triceps 5/5 rises from bed with no assistance tandem gait normal arm swing Results & Data Vital Signs (Past 12 Hours) Vital Signs Temp Pulse Resp BP Pulse Ox 02/22/19 11:41 36.6 C 75 22 146/91 H 99 02/22/19 06:52 36.6 C 70 16 137/86 97 02/22/19 03:11 36.6 C 64 20 144/87 H 99 Laboratory Results Abnormal lab results 02/22/19 02/22/19 02/22/19 Range/Units 06:57 06:57 13:21 RBC 3.94 L (4.2-5.4) M/uL Hgb 11.9 L (12.0-16.0) g/dL RDW Std Deviation 49.7 H (36.4-46.3) fL Chloride 113 H 111 H (98-107) mmol/L BUN/Creatinine Ratio 20.6 H (10-20) Diagnostic Findings TTE- EF 65-70 % trival PFO R-L shunt
--- NOTE | 2019-02-22 14:09 | XRay Report ---
XR chest 1V portable CLINICAL HISTORY: rule out lung congestion dyspnea COMPARISON STUDY: No previous studies for comparison. FINDINGS: Minimal atelectatic change left mid lung. Fixed hiatal hernia. Diaphragms are smooth. Lungs otherwise appear clear. IMPRESSION: 1. Minimal atelectatic changes left mid lung. 2. Fixed hiatal hernia. 3. Otherwise negative study. The above report was generated using voice recognition software. It may contain grammatical, syntax or spelling errors. Electronically signed by: David Capellan M.D. 02/22/2019 2:08 PM
--- NOTE | 2019-02-22 15:00 | Hospitalist Progress Note ---
Date of Service February 22, 2019 Assessment & Plan (1) TIA (transient ischemic attack): 74-year-old who underwent lumbar epidural steroids which was uncomplicated on 02/18/2019. On 02/20/19 while seated, she developed tingling and weakness in the bilateral arms, left greater than right with some slurred speech. There was no accompanying neck pain, headache, change in vision, vertigo, nausea, vomiting, facial droop. The symptoms for the most part lasted approximately 30 minutes, but even today, there is a mild left arm weakness. TIA (transient ishemic attack) -stroke evaluation started in the ED on 02/20/19; Tele-stroke consult did not recommend TPA -Head CT without contrast/Brain and Head MRI/MRA: No acute intracranial abnormality -HEAD & NECK CTA: No significant stenosis or occlusion within the [place]. Focal mild fusiform dilatation of the right NASIM at the level of the anterior communicating artery measuring 2.4 mm in diameter. This could represent a small fusiform aneurysm. Follow-up CTA in six-months to one-year can be performed to ensure stability. No significant stenosis, occlusion, or dissection identified within the carotid or vertebral arteries. -Cervical spine MRI 02/21/19: Multilevel cervical spondylosis. The cervical spinal cord is normal in morphology and signal intensity. No destructive bony lesion is seen. -as per neurology 02/21/19 assessed that patient's initial episode prior to hospital presentation of dysarthria as well as numbness and tingling in the arms and weakness, residual left arm weakness, not explained by head imaging. and a noncontribuatory MRI of the cervical spine that patient's symptoms were from a transient ischemic attack that is poorly localized on head imaging -as per neurology recommendations 02/21/19 add clopidogrel to 81 mg of aspirin, using dual antiplatelet therapy for 21 days and then discontinuing aspirin -However since patient has foramen ovale with right to left shunt even though this was only a trivial flow and because patient had an episode of 7 seconds of atrial fibrillation recorded at night of 02/21/19, patient agrees to start coumadin (warfarin) 5 mg on 02/22/19 and advised to be on both aspirin 81 mg daily and clopidogrel 75 mg daily for now until coumadin level is therapeutic between INR level of 2 to 3. Patient has primary care appointment with 02/25/2019 9:40 AM Provider Obey Basurto MD [facility] and should have INR checked. When INR level is between 2 to 3, the aspirin and clopidogrel can be stopped and patient should continue coumadin. Primary care can coordinate Zio patch as an outpatient as recommended by neurology. [facility] appointment line was called to help patient obtain neurology clinic follow up in 4 to 6 weeks at [facility] Address: [address] [place] [address], [place] [address] . Patient has generally good lipid and cholesterol profiles but to better prevent stroke, patient should stop home dose simvastatin and take 40 mg atorvastatin daily. 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 The atrial septum is aneurysmal. EF 65 to 70% -antiplatelet therapy as above Aneurysm of the anterior communicating artery -Focal mild fusiform dilatation of the right NASIM at the level of the anterior communicating artery measuring 2.4 mm in diameter. This could represent a small fusiform aneurysm. -followup CTA of the head in 6 months as per neurology Lumbar back pain with radiculopathy affecting left lower extremity -The patient underwent lumbar epidural steroids which was uncomplicated on 02/18/2019 -PT/OT evaluations GERD (gastroesophageal reflux disease) -continue pantoprazole daily especially while on dual antiplatelets dyslipidemia - Patient has generally good lipid and cholesterol profiles but to better prevent stroke, patient should stop home dose simvastatin and take 40 mg atorvastatin daily. 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 continues to be in sinus rhythm. Patient doing well. she feels she is moving her arms and legs at baseline. She denies chest pain. no palpitations. no abdomen pain. no vomiting Physical Exam Constitutional: WD/WN, vitals as above Eyes: PERRL, conjunctivae normal, anicteric sclerae EOM intact bilaterally ENMT: external ear and nose normal, oropharynx normal Neck: normal visual inspection Respiratory: normal respiratory effort, lungs clear to auscultation Cardiovascular: RRR, no murmur, no edema Gastrointestinal (Abdomen): normal bowel sounds, soft, nontender, no hepatosplenomegaly Musculoskeletal: Head/Neck/Chest: normocephalic and head atraumatic Neurologic: PERRL, EOMI, accommodation nl, no face palsy, no dysarthria CN's II-XI intact bilaterally Psychiatric: A+Ox3, euthymic affect Results & Data Vital Signs (Past 12 Hours) Vital Signs Temp Pulse Resp BP Pulse Ox 02/22/19 11:41 36.6 C 75 22 146/91 H 99 02/22/19 06:52 36.6 C 70 16 137/86 97 02/22/19 03:11 36.6 C 64 20 144/87 H 99
[2019-02-22] MEDS ORDERED: WARFARIN SOD 5 MG TAB PO ONE (15:30)
[2019-02-22] MEDS ORDERED: STROKE PATIENT DISCHARGE STA (15:43)
--- NOTE | 2019-02-22 15:44 | Discharge Summary ---
Date of Service February 22, 2019 Admission HPI Per Admitting Provider 74-year-old female with a past medical history of gastroesophageal reflux disease, hyperlipidemia and chronic leg pain. She had a recent epidural on 02/17 from the neuropathic pain in the left lower extremity. Today she said she woke up at 9:30 AM and was weak on the left side much greater than the right side and she was numb in both arms. She said this is never happened her before. She did not feel quite right so was brought to the emergency room. Past medical historyGERD, hyperlipidemia, leg pain Past surgical historyepidural for left lower extremity pain, hysterectomy, hernia repair, appendectomy Family historymother of old age, Father of diabetes complications, she has 1 brother who is alive and healthy, she has a sister of leukemia, she has 2 sons 1 of which is healthy the other has diabetes, she is a healthy daughter. 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, she is and her is at the bedside Admission Exam Per Admitting Provider Physical Exam Gen-AAO x 3, NAD, Afebrile, obese Head-NCAT, EOMI, PERRLA, Anicteric Sclera, No Posterior Pharyngeal Erythema Neck-Supple, No JVD, No Thyromegaly, No Masses, No LAD, No Bruits Lungs-Clear to Auscultation Bilaterally, No Rales, No Rhonchi, No Wheezing, No Crepitus Chest-No S4, +S1, +S2, No S3, No Murmurs, No Rubs, No Gallops, No Ectopy Abdomen-Soft, Bowel Sounds Present, Non Tender, Non Distended, No Hepatomegaly, No Splenomegaly, No Palpable Masses, No Rebound, No Rigidity, No Guarding Musculoskeletal-Full Range of Motion Bilaterally, No CVAT Extremities-No Cyanosis, No Clubbing, No Edema Nuero-Cranial Nerves II-XII grossly intact, decreased motor on the left, DTRs WNL, decreased strength strength on the left, decreased sensation on the left Psych-Normal Mood Principal Diagnosis TIA (transient ischemic attack); Aneurysm of the anterior communicating artery, 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), Paroxysmal Atrial Fibrillation Discharge Exam Constitutional WD/WN, vitals as above Eyes PERRL, conjunctivae normal, anicteric sclerae EOM intact bilaterally ENMT external ear and nose normal, oropharynx normal Neck normal visual inspection Respiratory normal respiratory effort, lungs clear to auscultation Cardiovascular RRR, no murmur, no edema Gastrointestinal (Abdomen) normal bowel sounds, soft, nontender, no hepatosplenomegaly Musculoskeletal Head/Neck/Chest: normocephalic and head atraumatic Neurologic PERRL, EOMI, accommodation nl, no face palsy, no dysarthria CN's II-XI intact bilaterally Psychiatric A+Ox3, euthymic affect Discharge Data Allergies Allergy/AdvReac Type Severity Reaction Status Date / Time No Known Allergies Allergy Unverified 02/20/19 12:39 Consultations 02/20/19 13:01 ED Decision to Admit Stat 02/20/19 13:56 Consult Case Management - Discharge Planning Routine Consult Neurology Routine Ordered Studies 02/20/19 12:07 CT angio head w con Stat CT angio neck with con Stat CT head/brain wo con Stat 02/20/19 13:56 MR angio neck wo/w con Routine MR brain wo/w con Routine 02/20/19 13:59 MR angio head wo con Urgent 02/21/19 09:12 MR cervical spine wo con Stat Hospital Course (1) TIA (transient ischemic attack): 74-year-old who underwent lumbar epidural steroids which was uncomplicated on 02/18/2019. On 02/20/19 while seated, she developed tingling and weakness in the bilateral arms, left greater than right with some slurred speech. There was no accompanying neck pain, headache, change in vision, vertigo, nausea, vomiting, facial droop. The symptoms for the most part lasted approximately 30 minutes, but even today, there is a mild left arm weakness. TIA (transient ishemic attack) -stroke evaluation started in the ED on 02/20/19; Tele-stroke consult did not recommend TPA -Head CT without contrast/Brain and Head MRI/MRA: No acute intracranial abnormality -HEAD & NECK CTA: No significant stenosis or occlusion within the che[place]ga of [place]. Focal mild fusiform dilatation of the right NASIM at the level of the anterior communicating artery measuring 2.4 mm in diameter. This could represent a small fusiform aneurysm. Follow-up CTA in six-months to one-year can be performed to ensure stability. No significant stenosis, occlusion, or dissection identified within the carotid or vertebral arteries. -Cervical spine MRI 02/21/19: Multilevel cervical spondylosis. The cervical spinal cord is normal in morphology and signal intensity. No destructive bony lesion is seen. -as per neurology 02/21/19 assessed that patient's initial episode prior to hospital presentation of dysarthria as well as numbness and tingling in the arms and weakness, residual left arm weakness, not explained by head imaging. and a noncontribuatory MRI of the cervical spine that patient's symptoms were from a transient ischemic attack that is poorly localized on head imaging -as per neurology recommendations 02/21/19 add clopidogrel to 81 mg of aspirin, using dual antiplatelet therapy for 21 days and then discontinuing aspirin -However since patient has foramen ovale with right to left shunt even though this was only a trivial flow and because patient had an episode of 7 seconds of atrial fibrillation recorded at night of 02/21/19, patient agrees to start coumadin (warfarin) 5 mg on 02/22/19 and advised to be on both aspirin 81 mg daily and clopidogrel 75 mg daily for now until coumadin level is therapeutic between INR level of 2 to 3. Patient has primary care appointment with 02/25/2019 9:40 AM Provider Obey Basurto MD Department [facility] and should have INR checked. When INR level is between 2 to 3, the aspirin and clopidogrel can be stopped and patient should continue coumadin. Primary care can coordinate Zio patch as an outpatient as recommended by neurology. [facility] appointment line was called to help patient obtain neurology clinic follow up in 4 to 6 weeks at [facility] Address: [address] [place] [address] , [place] [address] . Patient has generally good lipid and cholesterol profiles but to better prevent stroke, patient should stop home dose simvastatin and take 40 mg atorvastatin daily. Discharge medications sent electronically to [facility] pharmacy on [address] [place] [address] Paroxysmal Atrial Fibrillation -an episode of 7 seconds of atrial fibrillation recorded at night of 02/21/19 but generally patient has been in sinus rhythm -management as above Patent Schreiber Ovale with right to left shunt -echocardiogram: Valsalva maneuver demonstrated a TRIVIAL patent schreiber ovale with right to left shunt. The atrial septum is aneurysmal. EF 65 to 70% -antiplatelet therapy as above Aneurysm of the anterior communicating artery -Focal mild fusiform dilatation of the right NASIM at the level of the anterior communicating artery measuring 2.4 mm in diameter. This could represent a small fusiform aneurysm. -followup CTA of the head in 6 months as per neurology Lumbar back pain with radiculopathy affecting left lower extremity -The patient underwent lumbar epidural steroids which was uncomplicated on 02/18/2019 -PT/OT evaluations GERD (gastroesophageal reflux disease) -continue pantoprazole daily especially while on dual antiplatelets dyslipidemia - Patient has generally good lipid and cholesterol profiles but to better prevent stroke, patient should stop home dose simvastatin and take 40 mg atorvastatin daily. DVT ppx: heparin subc q8 hours Full Code Discharge Diagnosis TIA (transient ischemic attack); Aneurysm of the anterior communicating artery, 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), Paroxysmal Atrial Fibrillation Total Time Total Time Spent Total Time Spent (In Minutes): 40 minutes Total Time Includes: Examination of the Patient, Discharge Planning, Medication Reconciliation and Communication With Other Providers Discharge Plan Discharge Items Patient Disposition: Home - Self-Care Reason For Visit: CVA Discharge Diagnosis: TIA (transient ischemic attack); Aneurysm of the anterior communicating artery, 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), Paroxysmal atrial fibrillation Condition: Good Discharge Goals: Improve disease control Activity: Resume your previous activity Non-emergency contact: Primary Care Provider and Neurologist Call non-emergency contact if: you have any medication questions Follow-up/Referrals: Myron Cristobal MD [Primary Care Provider] - Diet: Regular Addtl Provider Instructions: patient's symptoms were from a transient ischemic attack that is poorly localized on head imaging given patient has foramen ovale with right to left shunt even though this was only a trivial flow and because patient had an episode of 7 seconds of atrial fibrillation recorded at night of 02/21/19, patient agrees to start coumadin (warfarin) 5 mg on 02/22/19 and advised to be on both aspirin 81 mg daily and clopidogrel 75 mg daily for now until coumadin level is therapeutic between INR level of 2 to 3. Patient has primary care appointment with 02/25/2019 9:40 AM Provider Obey Basurto MD [facility] and should have INR checked. When INR level is between 2 to 3, the aspirin and clopidogrel can be stopped and patient should continue coumadin. Primary care can coordinate Zio patch as an outpatient as recommended by neurology. [facility] appointment line was called to help patient obtain neurology clinic follow up in 4 to 6 weeks at [facility] Address: [address] , [place] [address] . Patient has generally good lipid and cholesterol profiles but to better prevent stroke, patient should stop home dose simvastatin and take 40 mg atorvastatin daily. Discharge medications sent electronically to [facility] pharmacy on [address] [place] [address] Focal mild fusiform dilatation of the right NASIM at the level of the anterior communicating artery measuring 2.4 mm in diameter. This could represent a small fusiform aneurysm. -followup CTA of the head in 6 months as per neurology Prescriptions: New clopidogrel 75 mg Tablet 75 mg PO QAM 30 Days Qty: 30 RF: 0 atorvastatin 40 mg Tablet 40 mg PO PM 30 Days Qty: 30 RF: 0 warfarin [Coumadin] 5 mg Tablet 5 mg PO DAILY@1600 30 Days Qty: 30 RF: 0 Continued Protonix [address] For Susp In Packet 40 mg PO DAILY RF: 0 phentermine 37.5 mg tablet 37.5 mg PO DAILY RF: 0 baclofen 10 mg Tablet 10 mg PO HS RF: 0 ascorbic acid (vitamin C) [Vitamin C] 500 mg Capsule, Extended Release 500 mg PO DAILY RF: 0 aspirin 81 mg Tablet,Chewable 81 mg PO DAILY RF: 0 cholecalciferol (vitamin D3) [Vitamin D3] 5,000 unit Tablet 5,000 unit PO DAILY RF: 0 [place]-3 350 mg-235 mg- 90 mg-597 mg Capsule,Delayed Release(Dr/Ec) 1 cap PO DAILY RF: 0 Discontinued simvastatin 10 mg Tablet 10 mg PO HS RF: 0 Stand-Alone Forms: [facility] Discharge Orders: Discharge Order (Routine); Ordered 02/22/19 Ordered By: Jason Perales Admission Data Admit Date/Time: 02/20/19 14:06 Attending Provider: Jason Perales Admit Provider: Breezy Schuster Primary Care Provider: Myron Cristobal Other Providers: Jason Mckeon ; Denny Hendricks Service: Telemetry
--- NOTE | 2019-02-22 16:14 | Pharmacy Report ---
Pharmacist Stroke Counseling - Date of Service February 22, 2019 - Scope: Pharmacy has been consulted to provide medication discharge counseling for this patient admitted with ischemic stroke as per the Pharmacist Discharge Counseling for Stroke Patients Protocol. - Medications on Discharge: Home Medications Medication Instructions Recorded Confirmed [place]-3 1 cap PO DAILY 02/20/19 02/20/19 Protonix 40 mg PO DAILY 02/20/19 02/20/19 ascorbic acid (vitamin C) [Vitamin 500 mg PO DAILY 02/20/19 02/20/19 C] aspirin 81 mg PO DAILY 02/20/19 02/20/19 baclofen 10 mg PO HS 02/20/19 02/20/19 cholecalciferol (vitamin D3) 5,000 unit PO DAILY 02/20/19 02/20/19 [Vitamin D3] (patient no longer takes) New Rx's Medication Instructions Recorded atorvastatin 40 mg PO PM 30 Days #30 tab 02/22/19 clopidogrel 75 mg PO QAM 30 Days #30 tab 02/22/19 warfarin [Coumadin] 5 mg PO DAILY@1600 30 Days #30 tab 02/22/19 - Action: The above medications, specifically ones for stroke treatment/prophylaxis, have been reviewed in detail with the patient and/or patient textile designs sales representative(s) prior to discharge. This includes indication, common adverse reactions, drug interactions, and medication administration. Medication counseling has been employed using the teach-back method to ensure understanding. - Outcome: The patient and/or patient textile designs sales representative(s) have demonstrated understanding of the medications. Please note, they are aware that the pharmacist will call them within 72 hours post-discharge to confirm that the appropriate medications are being taken and answer any further medication related questions the patient might have at that time. Contact information Individual to be contacted: Patient Relationship to patient (if applicable): Phone number: [phone] Best time to call: anytime Additional comments: * 74 y/o female with discharge diagnosis of TIA, PFO and paroxysmal A fib * Patient was going to be discharged on dual antiplatelet therapy but with PFO and run of A fib, warfarin is now being initiated. * Reviewed new medications in detail. Also provided Coumadin booklet and reviewed goal INR, drug interactions, importance of consistency with greens and important side effects to watch out for. * Patient aware that INR to be checked at [facility] on 02/25. She'll receive her 1st dose of warfarin 5 mg prior to discharge today. * Patient also aware that ASA and Plavix will be continued only until INR therapeutic * I asked her to discuss w/ PCP about continued need for fish oil since this can increase bleeding risk. She will f/u. * She has not taken phentermine for quite some time so I have removed this from her med list. * Samantha also noted that the baclofen was started just recently for her legs but this was prior to the epidural injection. She will f/u with PCP to see if this is necessary to continue. Thank you for allowing pharmacy to be involved in the care of this patient. Nelly mata call [phone] or [phone] with any additional questions
[2019-02-23] MEDS ORDERED: WARFARIN SOD 5 MG TAB PO SCH (16:00)
--- NOTE | 2019-02-26 13:48 | Pharmacy Report ---
Pharmacist Post D/C Phone Note - Phone Note: Date of phone call: February 26, 2019. The patient and/or patient access services representative(s) were unable to be reached for a follow-up phone call within the 72 hour time frame. Answering machine 02/24, 02/25, 02/26. Discharge counseling pharmacist contact information has already been provided to the patient should questions arise. Thank you for allowing us to be involved in the care of this patient. - Home Medications: Home Medications Medication Instructions Recorded Confirmed [place]-3 1 cap PO DAILY 02/20/19 02/20/19 Protonix 40 mg PO DAILY 02/20/19 02/20/19 ascorbic acid (vitamin C) [Vitamin 500 mg PO DAILY 02/20/19 02/20/19 C] aspirin 81 mg PO DAILY 02/20/19 02/20/19 baclofen 10 mg PO HS 02/20/19 02/20/19 cholecalciferol (vitamin D3) 5,000 unit PO DAILY 02/20/19 02/20/19 [Vitamin D3] New Rx's Medication Instructions Recorded atorvastatin 40 mg PO PM 30 Days #30 tab 02/22/19 clopidogrel 75 mg PO QAM 30 Days #30 tab 02/22/19 warfarin [Coumadin] 5 mg PO DAILY@1600 30 Days #30 tab 02/22/19
== END 2019-02-22 17:53 | disposition home or self-care (01) | DRG 69 ==
LOC: ED 11:52 → 2S 14:06 → SUATTDRO 14:06 → 2S 15:03

== ENCOUNTER 2021-05-07 14:56 | Inpatient (IN) ==
[2021-05-07] MEDS ORDERED: SODIUM CHLORIDE 0.9% 500 ML IV STA (19:45)
[2021-05-07] MEDS ORDERED: MoRPHine SULFATE 4 MG/ML 1 ML CARP\\VIAL IV PRN (19:45)
[2021-05-07] MEDS ORDERED: ONDANSETRON INJ 2 MG/ML 2 ML VIAL IV STA (19:45)
--- NOTE | 2021-05-07 19:50 | Emergency Department Note ---
Impression & Plan Lumbar back pain with radiculopathy affecting right lower extremity ED Provider Note NAME: MATT VARGAS AGE: 76 SEX: F : 1945 ARRIVES VIA: Walk-In INFORMANT: Patient, ED PROVIDER(S): Rodolfo Bartholomew DO CHIEF COMPLAINT: Leg pain HPI: The patient is a 76-year-old female who presented to emergency department for an evaluation of leg pain. The patient has had ongoing leg pain over the course the last several months. She was seen and evaluated for the leg pain and had an MRI which revealed lumbar disc disease which could be explaining the patient's pain. She had injections. The patient had uncontrollable pain and was sent to see Dr. Infante. She was established with Dr. Infante with orthopedic spine before. She had to have a change in her appointment that was scheduled for tomorrow and she became very unhappy. She was instructed to go to the emergency department and have the ER contact Dr. Infante. She denies having any new trauma. She denies having any fever. She has been compliant with all of her usual outpatient medications. She did have an MRI in March. She denies having any recent imaging. The patient states her pain is moderate to severe. She has been taking her usual outpatient medication without relief. ROS: See above HPI for pertinent positives & negatives. A total of 10 systems reviewed and were otherwise negative. PAST MEDICAL HISTORY: See Below PAST SURGICAL HISTORY: See Below FAMILY HISTORY: See Below SOCIAL HISTORY: See Below HOME MEDICATIONS: See Below ALLERGIES: See Below VITALS: See Below PHYSICAL EXAMINATION: GENERAL: Patient is awake alert in no acute distress patient is resting comfortably and showing no signs of anxiety EYES: The conjunctivae are clear. The pupils are round and reactive. EARS, NOSE, MOUTH AND THROAT: The nose is without any evidence of any deformity. NECK: The neck is nontender and supple. RESPIRATORY: Normal respiratory effort is noted there is no evidence of wheezing rhonchi or rales CARDIOVASCULAR: Regular rate and rhythm noted there no murmurs rubs or gallops normal S1 normal S2. GASTROINTESTINAL: The abdomen is soft. Abdomen is nontender. PELVIS: The Pelvis is stable. No tenderness to palpation is noted. BACK: No midline tenderness or or step-off noted range of motion in flexion extension as well as rotation no signs of muscle spasm noted MUSCULOSKELETAL/EXTREMITIES: There is no evidence of gross deformity full range of motion is noted in the hips and shoulders. SKIN: There is no obvious evidence of any rash. There are no petechiae, pallor or cyanosis noted. NEUROLOGIC: Patient is awake alert and oriented x3 strength is symmetric patellar reflexes are 2+ bilaterally MEDICAL DECISION MAKING: The patient is a 76-year-old female who presented to the emergency department for an evaluation of lower extremity pain. The patient has known lumbar disc disease which has been giving her radicular symptoms into her right leg. The pain is slowly been worsening. She tried to see her outpatient orthopedic spinal specialist. She was unable to but was felt to be a good candidate for inpatient management so she was sent to the emergency department for further evaluation. I discussed her condition with the patient's primary orthopedic spinal specialist. At this time he would prefer to keep the patient in the hospital to do further work-up and treatment given the patient's degree of pain. The patient was agreeable to this plan. Triage Nursing notes reviewed. Prior medical records reviewed Vital Signs: reviewed and remarkable for elevated blood pressure. Differential diagnosis: Musculoskeletal, disc herniation, fracture, metastatic disease, cord compression, discitis, sciatica, cauda equina, infection, aortic disease, renal colic, gastrointestinal, as well as other pathologies. ER treatment provided: See below Diagnostics interpreted by me: ECG: none Laboratory studies: As stated above and show below. Imaging studies: See below Consultation(s): I discussed this case with Dr. Infante who is on-call for his own practice. He is agreed to evaluate the patient for inpatient management. Past Med/Surg History Medical History Anxiety Arthritis Atrial fibrillation Follows with [facility] cardio, on coumadin GERD (gastroesophageal reflux disease) History of COVID-19 Dx 07/2020, no current issues History of depression Hyperlipidemia Overactive bladder hx botox injections (not successful) TIA (transient ischemic attack) 2018 Surgical History H/O foot surgery Left x2 History of appendectomy History of cataract surgery R/L History of colonoscopy History of esophagogastroduodenoscopy (EGD) History of herniorrhaphy History of hysterectomy History of tooth extraction Family History Father Family history of diabetes mellitus Brother Family history of diabetes mellitus Other Family history non-contributory No family history of adverse response to anesthesia Social History Smoking Status: Never smoker Tobacco Type: Cigarettes Second Hand Exposure: Yes (IN THE PAST); Hx Alcohol Use: Yes Hx Substance Use: No Preferred Language: Comoran Communication Ability: Effective Shovel Logger Required: No Beliefs That Will Affect Care: None Current Living Situation: Spouse Feels Safe at Home: Yes Assistive Devices: Glasses Allergies Allergies Allergy/AdvReac Type Severity Reaction Status Date / Time Sulfa (Sulfonamide Allergy Unknown Unknown Verified 05/07/21 20:00 Antibiotics) buspirone [From BuSpar] AdvReac Mild Vomiting Verified 05/07/21 20:00 Home Meds Home Medications Medication Instructions Recorded Confirmed baclofen 10 mg tablet 10 mg PO HS PRN 02/20/19 05/07/21 cholecalciferol (vitamin D3) 125 5,000 unit PO QAM 02/20/19 05/07/21 mcg (5,000 unit) tablet (Vitamin D3) acetaminophen 500 mg tablet 1,000 mg PO Q8H PRN 05/01/20 05/07/21 (Tylenol Extra Strength) aspirin 81 mg tablet,delayed 162 mg PO QAM 05/01/20 05/07/21 release (Aspirin Low Dose) atorvastatin 40 mg tablet 40 mg PO HS 05/01/20 05/07/21 ferrous sulfate 325 mg (65 mg 325 mg PO QAM 05/01/20 05/07/21 iron) tablet fluticasone propionate 50 2 spray INTRANASAL DAILY PRN 05/01/20 05/07/21 mcg/actuation nasal spray,suspension warfarin 5 mg tablet 2.5 - 5 mg PO UD 05/01/20 05/07/21 furosemide 20 mg tablet 20 mg PO BID 07/30/20 05/07/21 pantoprazole 40 mg tablet,delayed 40 mg PO QAM 07/30/20 05/07/21 release naltrexone 50 mg tablet 25 mg PO BID 02/25/21 05/07/21 bupropion HCl 150 mg tablet,12 hr 150 mg PO BID 03/18/21 05/07/21 sustained-release gabapentin 300 mg capsule 300 mg PO TID 04/19/21 05/07/21 ascorbic acid (vitamin C) 500 mg 500 mg PO DAILY 05/07/21 05/07/21 tablet (Vitamin C) enoxaparin 100 mg/mL subcutaneous 0 mg SUBCUT BID 05/07/21 05/07/21 syringe lorazepam 0.5 mg tablet 0.5 mg PO DIRECTED PRN 05/07/21 05/07/21 vitamin E 100 unit capsule 100 unit PO DAILY 05/07/21 05/07/21 Previous Rx's Medication Instructions Recorded dicyclomine 10 mg capsule 10 mg PO TID PRN #30 cap 01/25/21 Results & Data (ED) Vital Signs Vital Signs - 24 hr 05/07/21 15:01 05/07/21 20:11 05/07/21 20:13 Temperature 36.8 C Temperature Source Temporal Artery Scan Pulse Rate 89 69 Pulse Rate from SpO2 Sensor Pulse Rhythm Regular Respiratory Rate 20 19 Respiratory Effort / Characteristics Non-Labored Spontaneous Respiratory Depth Normal Respiratory Pattern Regular Blood Pressure 166/100 H Blood Pressure Mean 122 Pulse Oximetry 96 Oxygen Delivery Method Room Air Room Air Sepsis Recent Fever Within 48 Hours No Sepsis New/Unexplained Change in Mental Status No Sepsis Action Taken by Nursing No Action Required 05/07/21 20:20 05/07/21 20:30 05/07/21 20:40 Temperature Temperature Source Pulse Rate 66 78 72 Pulse Rate from SpO2 Sensor 62 73 71 Pulse Rhythm Respiratory Rate 19 16 24 Respiratory Effort / Characteristics Respiratory Depth Respiratory Pattern Blood Pressure 148/111 H Blood Pressure Mean 123 Pulse Oximetry 87 L 96 98 Oxygen Delivery Method Sepsis Recent Fever Within 48 Hours Sepsis New/Unexplained Change in Mental Status Sepsis Action Taken by Nursing 05/07/21 20:50 05/07/21 21:00 05/07/21 21:10 Temperature Temperature Source Pulse Rate 69 66 100 H Pulse Rate from SpO2 Sensor 69 71 Pulse Rhythm Respiratory Rate 31 H 15 24 Respiratory Effort / Characteristics Respiratory Depth Respiratory Pattern Blood Pressure Blood Pressure Mean Pulse Oximetry 99 99 Oxygen Delivery Method Sepsis Recent Fever Within 48 Hours Sepsis New/Unexplained Change in Mental Status Sepsis Action Taken by Nursing 05/07/21 21:20 05/07/21 21:30 Temperature Temperature Source Pulse Rate 62 Pulse Rate from SpO2 Sensor 79 63 Pulse Rhythm Respiratory Rate 18 18 Respiratory Effort / Characteristics Respiratory Depth Respiratory Pattern Blood Pressure Blood Pressure Mean Pulse Oximetry 93 96 Oxygen Delivery Method Sepsis Recent Fever Within 48 Hours Sepsis New/Unexplained Change in Mental Status Sepsis Action Taken by [facility] Medications Current Medication List: was personally reviewed by me Laboratory Data Attestation: I reviewed the patient's lab results. Result diagrams: 05/07/21 21:33 05/07/21 21:33 Lab Results 05/07/21 05/07/21 05/07/21 Range/Units 20:04 20:04 20:05 WBC (4.8-10.8) K/uL RBC (4.2-5.4) M/uL Hgb (12.0-16.0) g/dL Hct (37-47) % MCV (80-100) fL MCH (25-34) pg MCHC (32-36) g/dL RDW Std Deviation (36.4-46.3) fL RDW Coeff of Chen (11.5-14.5) % Plt Count (130-400) K/uL MPV (7.4-10.4) fL Immature Gran % (Auto) % Neut % (Auto) % Lymph % (Auto) % [place] % (Auto) % Eos % (Auto) % Baso % (Auto) % Neut # (Auto) (1.4-6.5) K/uL Lymph # (Auto) (1.2-3.4) K/uL [place] # (Auto) (0.11-0.59) K/uL Eos # (Auto) (0-0.5) K/uL Baso # (Auto) (0-0.2) K/uL Immature Gran # (Auto) (0.00-0.02) K/uL PT (9.0-12.0) Seconds INR (0.9-1.1) APTT (21.0-31.0) Seconds PTT Ratio Sodium (136-145) mmol/L Potassium (3.5-5.1) mmol/L Chloride (98-107) mmol/L Carbon Dioxide (21-32) mmol/L Anion Gap (3-11) BUN (7-18) mg/dl Creatinine (0.6-1.2) mg/dl Est Cr Clr Drug Dosing Est GFR ( Amer) ml/min Est GFR (Non-Af Amer) ml/min BUN/Creatinine Ratio (10-20) Glucose (70-99) mg/dl Calcium (8.5-10.1) mg/dl Total Bilirubin (0.2-1) mg/dl AST (15-37) U/L ALT (12-78) U/L Alkaline Phosphatase (45-117) U/L Total Protein (6.4-8.2) gm/dl Albumin (3.4-5.0) gm/dl Globulin (2.5-4.0) gm/dl Albumin/Globulin Ratio (0.9-2) Lipase (73-393) U/L Urine Color Yellow Urine Appearance Clear (Clear) Urine pH 5.5 (4.5-7.5) Ur Specific [place] 1.018 (1.000-1.030) Urine Protein Negative (Negative) Urine Glucose (UA) Negative (Negative) Urine Ketones Negative (Negative) Urine Blood Negative (Negative) Urine Nitrite Negative (Negative) Urine Bilirubin Negative (Negative) Urine Urobilinogen Negative (Negative) Ur Leukocyte Esterase Negative (Negative) COVID-19 Eval Order Covid19 at [facility] SARS-CoV-2 (PCR) NEGATIVE (Negative) 05/07/21 05/07/21 05/07/21 Range/Units 21:33 21:33 21:33 WBC 3.97 L (4.8-10.8) K/uL RBC 4.11 L (4.2-5.4) M/uL Hgb 13.2 (12.0-16.0) g/dL Hct 40.2 (37-47) % MCV 97.8 (80-100) fL MCH 32.1 (25-34) pg MCHC 32.8 (32-36) g/dL RDW Std Deviation 52.3 H (36.4-46.3) fL RDW Coeff of Chen 14.7 H (11.5-14.5) % Plt Count 215 (130-400) K/uL MPV 9.0 (7.4-10.4) fL Immature Gran % (Auto) 0.3 % Neut % (Auto) 51.3 % Lymph % (Auto) 35.5 % [place] % (Auto) 10.1 % Eos % (Auto) 2.5 % Baso % (Auto) 0.3 % Neut # (Auto) 2.04 (1.4-6.5) K/uL Lymph # (Auto) 1.41 (1.2-3.4) K/uL [place] # (Auto) 0.40 (0.11-0.59) K/uL Eos # (Auto) 0.10 (0-0.5) K/uL Baso # (Auto) 0.01 (0-0.2) K/uL Immature Gran # (Auto) 0.01 (0.00-0.02) K/uL PT 10.3 (9.0-12.0) Seconds INR 1.0 (0.9-1.1) APTT 34.1 H (21.0-31.0) Seconds PTT Ratio 1.3 Sodium 144 (136-145) mmol/L Potassium 3.8 (3.5-5.1) mmol/L Chloride 112 H (98-107) mmol/L Carbon Dioxide 26 (21-32) mmol/L Anion Gap 6.0 (3-11) BUN 16 (7-18) mg/dl Creatinine 0.72 (0.6-1.2) mg/dl Est Cr Clr Drug Dosing Not Reportable Est GFR ( Amer) 94.9 ml/min Est GFR (Non-Af Amer) 81.9 ml/min BUN/Creatinine Ratio 21.6 H (10-20) Glucose 88 (70-99) mg/dl Calcium 8.9 (8.5-10.1) mg/dl Total Bilirubin 0.3 (0.2-1) mg/dl AST 21 (15-37) U/L ALT 31 (12-78) U/L Alkaline Phosphatase 96 (45-117) U/L Total Protein 6.9 (6.4-8.2) gm/dl Albumin 3.4 (3.4-5.0) gm/dl Globulin 3.5 (2.5-4.0) gm/dl Albumin/Globulin Ratio 1.0 (0.9-2) Lipase 139 (73-393) U/L Urine Color Urine Appearance (Clear) Urine pH (4.5-7.5) Ur Specific [place] (1.000-1.030) Urine Protein (Negative) Urine Glucose (UA) (Negative) Urine Ketones (Negative) Urine Blood (Negative) Urine Nitrite (Negative) Urine Bilirubin (Negative) Urine Urobilinogen (Negative) Ur Leukocyte Esterase (Negative) COVID-19 Eval Order SARS-CoV-2 (PCR) (Negative) Administered Medications Morphine Sulfate (Morphine Sulfate 4 Mg/Ml 1 Ml Carp\Vial) 4 mg IV Q15M PRN PRN Reason: Pain Stop: 05/21/21 19:44 Last Admin: 05/07/21 20:44 Dose: 4 mg Documented by: [id number] Discontinued Medications Sodium Chloride (Nss) 500 mls @ 999 mls/hr IV .Q31M STA Stop: 05/07/21 20:15 Last Infusion: 05/07/21 21:52 Dose: 0 mls/hr Documented by: [id number] Admin: 05/07/21 20:44 Dose: 999 mls/hr Documented by: [id number] Ondansetron HCl (Ondansetron Inj 2 Mg/Ml 2 Ml Vial) 4 mg IV NOW STA Stop: 05/07/21 19:46 Last Admin: 05/07/21 20:44 Dose: 4 mg Documented by: [id number] Discharge Plan Visit Data Chief Complaint: Leg Injury/Pain Stated Complaint: SEVERE LEG PAIN,RIGHT THIGH ED Provider: Rodolfo Bartholomew Discharge Problem: Lumbar back pain with radiculopathy affecting right lower extremity Patient Disposition: Being Evaluated by Surgeon Forms Stand Alone Forms: [facility] [place] [facility] Prescriptions Prescriptions: No Action pantoprazole 40 mg tablet,delayed release (DR/EC) 40 mg PO QAM RF: 0 furosemide 20 mg tablet 20 mg PO BID RF: 0 baclofen 10 mg Tablet 10 mg PO HS PRN (Reason: Pain) RF: 0 cholecalciferol (vitamin D3) [Vitamin D3] 5,000 unit Tablet 5,000 unit PO QAM RF: 0 atorvastatin 40 mg tablet 40 mg PO HS RF: 0 aspirin [Aspirin Low Dose] 81 mg Tablet,Delayed Release (Dr/Ec) 162 mg PO QAM RF: 0 acetaminophen [Tylenol Extra Strength] 500 mg Tablet 1,000 mg PO Q8H PRN (Reason: FEVER/PAIN) RF: 0 ferrous sulfate 325 mg (65 mg iron) tablet 325 mg PO QAM RF: 0 warfarin 5 mg tablet 2.5 - 5 mg PO UD RF: 0 fluticasone propionate 50 mcg/actuation spray,suspension 2 spray INTRANASAL DAILY PRN (Reason: Allergy Symptoms) RF: 0 dicyclomine 10 mg capsule 10 mg PO TID PRN (Reason: abdominal cramping) Qty: 30 RF: 0 naltrexone 50 mg tablet 25 mg PO BID RF: 0 bupropion HCl 150 mg tablet sustained-release 12 hr 150 mg PO BID RF: 0 gabapentin 300 mg Capsule 300 mg PO TID RF: 0 vitamin E 100 unit Capsule 100 unit PO DAILY RF: 0 lorazepam 0.5 mg tablet 0.5 mg PO DIRECTED PRN (Reason: PRIOR TO PROCEDURES) RF: 0 ascorbic acid (vitamin C) [Vitamin C] 500 mg Tablet 500 mg PO DAILY RF: 0 enoxaparin 100 mg/mL syringe 0 mg subcut BID RF: 0 Referrals Referrals: Myron Cristobal MD [Primary Care Provider] -
[2021-05-07 20:27] LABS: Appearance Urine Clear (Clear); Bilirubin Urine Negative (Negative); Blood Urine Negative (Negative); Color Urine Yellow; Glucose Urine UA Negative (Negative); Ketones Urine Negative (Negative); Leukocyte Esterase Urine Negative (Negative); Nitrite Urine Negative (Negative); Protein Urine Negative (Negative); Specific Gravity Urine 1.018 (1.000-1.030); Urobilinogen Urine Negative (Negative); pH Urine 5.5 (4.5-7.5)
[2021-05-07 21:44] LABS: Basophils # (auto) 0.01 K/uL (0-0.2); Basophils % (auto) 0.3 %; Eosinophils % (auto) 2.5 %; Hematocrit (blood only) 40.2 % (37-47); Hemoglobin 13.2 g/dL (12.0-16.0); Immature Granulocytes # (auto) 0.01 K/uL (0.00-0.02); Immature Granulocytes % (auto) 0.3 %; Lymphocytes # (auto) 1.41 K/uL (1.2-3.4); Lymphocytes % (auto) 35.5 %; Mean Corpuscular Hemoglobin 32.1 pg (25-34); Mean Corpuscular Hgb Conc 32.8 g/dL (32-36); Mean Corpuscular Volume 97.8 fL (80-100); Monocytes % (auto) 10.1 %; Neutrophils # (auto) 2.04 K/uL (1.4-6.5); Neutrophils % (auto) 51.3 %; Platelet Count 215 K/uL (130-400); RDW Coefficient of Variation 14.7 % (11.5-14.5); RDW Standard Deviation 52.3 fL (36.4-46.3); Red Blood Count 4.11 M/uL (4.2-5.4); White Blood Count 3.97 K/uL (4.8-10.8)
[2021-05-07 22:00] LABS: Partial Thromboplastin Ratio 1.3; Partial Thromboplastin Time 34.1 Seconds (21.0-31.0); Prothrombin Time 10.3 Seconds (9.0-12.0)
[2021-05-07 22:10] LABS: Alanine Aminotransferase 31 U/L (12-78); Albumin Level 3.4 gm/dl (3.4-5.0); Aspartate Aminotransferase 21 U/L (15-37); BUN Creatinine Ratio 21.6 (10-20); Blood Urea Nitrogen 16 mg/dl (7-18); Calcium 8.9 mg/dl (8.5-10.1); Carbon Dioxide 26 mmol/L (21-32); Chloride 112 mmol/L (98-107); Est GFR (African American) 94.9 ml/min; Est GFR (Non-African American) 81.9 ml/min; Glucose 88 mg/dl (70-99); Lipase 139 U/L (73-393); Potassium 3.8 mmol/L (3.5-5.1); Sodium 144 mmol/L (136-145)
[2021-05-07 22:13] LABS: Alkaline Phosphatase 96 U/L (45-117); Bilirubin,Total 0.3 mg/dl (0.2-1); Globulin 3.5 gm/dl (2.5-4.0); Total Protein 6.9 gm/dl (6.4-8.2)
[2021-05-08] MEDS ORDERED: NALOXONE HCL 0.4 MG/1 ML VIAL/CARP IV PRN (00:45)
[2021-05-08] MEDS ORDERED: ONDANSETRON 4 MG OD TAB PO PRN (00:45)
[2021-05-08] MEDS ORDERED: ONDANSETRON INJ 2 MG/ML 2 ML VIAL IV PRN (00:45)
[2021-05-08] MEDS ORDERED: LORazepam 0.5 MG TAB PO PRN (00:45)
[2021-05-08] MEDS ORDERED: METOCLOPRAMIDE HCL INJ 5 MG/ML 2 ML VIAL IV PRN (00:45)
[2021-05-08] MEDS ORDERED: LORazepam 0.5 MG/1 ML VIAL IV PRN (00:45)
[2021-05-08] MEDS ORDERED: traMADol HCL 50 MG TABLET PO PRN (00:45)
[2021-05-08] MEDS ORDERED: HYDROmorphone INJ 1 MG/ML SYRINGE IV PRN (00:45)
[2021-05-08] MEDS ORDERED: DICYCLOMINE HCL 10 MG CAP PO PRN (00:45)
[2021-05-08] MEDS ORDERED: ALUMINUM/MAGNESIUM SUSP 30 ML UDC PO PRN (00:45)
[2021-05-08] MEDS ORDERED: PROMETHAZINE HCL 12.5 MG in SODIUM CHLORIDE 0.9% 50 ML IV PRN (00:45)
[2021-05-08] MEDS ORDERED: HYDROmorphone INJ 0.5 MG/0.5 ML SYR IV PRN (00:45)
[2021-05-08] MEDS ORDERED: hydrOXYzine HCl 25 MG TAB PO PRN (00:45)
[2021-05-08] MEDS ORDERED: diphenhydrAMINE Capsule 25 MG CAP PO PRN (00:45)
[2021-05-08] MEDS: FUROSEMIDE 20 MG TAB PO SCH ×3 (03:01→17:41)
[2021-05-08] MEDS: LACTATED RINGER'S 1,000 ML IV SCH ×2 (03:01→14:39)
[2021-05-08] MEDS: GABAPENTIN 300 MG CAP PO SCH ×4 (03:02→19:50)
[2021-05-08] MEDS: buPROPion SR 150 MG TABCR PO SCH ×3 (03:02→17:41)
[2021-05-08] MEDS: ATORVASTATIN 40 MG TAB PO SCH ×2 (03:02→19:50)
--- NOTE | 2021-05-08 04:24 | Consultation Report ---
DATE OF CONSULTATION: 05/08/2021. CHIEF COMPLAINT: Back pain and right lower extremity pain. Plan for L3-L4 decompression. HISTORY OF PRESENT ILLNESS: The patient is currently resting comfortably and hemodynamically stable. Denies any headache, no blurred visions, no earache, no runny nose, no sore throat, no cough, no dysphagia. No chest pain. Once in a while, she gets short of breath. Once in a while, she gets cough. No fevers, no nausea, no abdominal pain, normal bowel and bladder movements. Ambulates okay. She says she can walk a block, has some difficulty climbing steps. She has planned for elective lumbar decompression surgery. She says she is on Coumadin, which is held for the last several days. Currently, she is on Lovenox shots for bridging therapy. ALLERGIES: SULFA ANTIBIOTICS, BUSPIRONE PAST MEDICAL HISTORY: As mentioned above. PAST SURGICAL HISTORY: Arthrocentesis, colonoscopy, EGD, EGD with transendoscopic dilatation, ventral hernia repair, lumbosacral spinal injections, total hysterectomy. MEDICATIONS: The patient is on Tylenol Extra Strength 1000 mg p.o. q. 8 hours p.r.n., vitamin C 500 mg p.o. daily, aspirin 162 mg p.o. a.m., atorvastatin 40 mg p.o. at bedtime, baclofen 10 mg p.o. at bedtime p.r.n., bupropion 150 mg p.o. b.i.d., vitamin D 5000 units p.o. a.m., dicyclomine 10 mg p.o. t.i.d. p.r.n., Lovenox 100 mg subcutaneous b.i.d., ferrous sulfate 325 mg p.o. a.m., Flonase 2 sprays intranasal daily p.r.n., furosemide 20 mg p.o. b.i.d., gabapentin 300 mg p.o. t.i.d., Ativan 0.5 mg p.o. p.r.n., naltrexone 25 mg p.o. b.i.d., Protonix 40 mg p.o. a.m., vitamin E 100 units p.o. daily, warfarin 2.5-5 mg as directed. FAMILY HISTORY: Significant for family history of diabetes. SOCIAL HISTORY: No smoking. No drug use. REVIEW OF SYSTEMS: As per HPI. Rest of the review of systems is negative. PHYSICAL EXAMINATION: GENERAL: The patient is of moderate build, not in acute distress. VITAL SIGNS: Temperature 36.8, pulse 68, respiratory rate 18, blood pressure 115/100, oxygen 95% on room air. HEENT: Pupils equal and reactive to light. Oral mucosa moist. NECK: No JVD or neck masses. CARDIOVASCULAR: S1 and S2 heard, regular rate and rhythm. No murmur, no gallop. RESPIRATORY SYSTEM: Normal AP diameter. No accessory muscle use. No wheezing, no crackles. ABDOMEN: Soft, bowel sounds present, nontender, no distention. CENTRAL NERVOUS SYSTEM: Cranial nerves II-XII grossly intact, nonfocal. MUSCULOSKELETAL: Bilateral straight leg raise test negative. EXTREMITIES: No edema, no erythema. LABORATORY DATA: WBC 3.9, hemoglobin 13.2, hematocrit 40.2, platelets 215. PT 10.3, INR 1, APTT 34.1. Sodium 144, potassium 3.8, chloride 112, bicarbonate 26, BUN 16, creatinine 0.7, serum glucose 88, calcium 8.9, total bilirubin 0.3, AST 21, ALT 31, alkaline phosphatase 96, total protein 6.9. Lipase 139. Urinalysis negative. SARS-CoV-2 PCR negative. ASSESSMENT AND PLAN: This is a 76-year-old female who presents with elective surgery for right lower extremity pain, for lumbar decompression. 1. Right lower extremity pain: Plan for lumbar decompressive surgery, elective, cleared for surgery. Preoperative and postoperative management as per orthopedics. 2. History of paroxysmal atrial fibrillation: Currently Coumadin on hold. Last shot of Lovenox was received yesterday morning. Restart Coumadin as soon as possible after surgery. The patient is not on any rate controlling medication. 3. Hyperlipidemia: On statin. 4. Depression: On bupropion. 5. Gastroesophageal reflux disease: On Protonix. 6. Deep venous thrombosis prophylaxis and disposition as per orthopedics. Job ID: [id number] [facility]
[2021-05-08] MEDS ORDERED: ceFAZolin 2000MG 2,000 MG/15 ML SYR IV SCH (06:00)
--- NOTE | 2021-05-08 07:45 | Orthopedic Consultation ---
Date of Consultation May 08, 2021 Assessment & Plan (1) Lumbar back pain with radiculopathy affecting right lower extremity: Assessment right leg lumbar radiculopathy with motor deficit. Plan at this time patient has evidence of severe spinal stenosis with facet cyst at L3- L4 on the right with significant neural compression. She is declined progressively over the past several weeks exhibiting neurologic deficit. Subsequently recommending urgent decompression fusion L3-4 L4-L5 to avoid permanent neurologic deficit. Response was consulted on his bilateral detail. History of Present Illness Reason for Consultation: Back and right leg pain Attending Physician: Minh Infante DO History of Present Illness This is a 76-year-old female presents with significant decline in status precluded from the right leg with progressive weakness and inability to ambulate and pain uncontrolled with oral medications. Allergies Allergy/AdvReac Type Severity Reaction Status Date / Time Sulfa (Sulfonamide Allergy Unknown Unknown Verified 05/07/21 20:00 Antibiotics) buspirone [From BuSpar] AdvReac Mild Vomiting Verified 05/07/21 20:00 Home Medications Medication Instructions Recorded Confirmed Type baclofen 10 mg tablet 10 mg PO HS PRN 02/20/19 05/07/21 History cholecalciferol (vitamin D3) 125 5,000 unit PO QAM 02/20/19 05/07/21 History mcg (5,000 unit) tablet (Vitamin D3) acetaminophen 500 mg tablet 1,000 mg PO Q8H PRN 05/01/20 05/07/21 History (Tylenol Extra Strength) aspirin 81 mg tablet,delayed 162 mg PO QAM 05/01/20 05/07/21 History release (Aspirin Low Dose) atorvastatin 40 mg tablet 40 mg PO HS 05/01/20 05/07/21 History ferrous sulfate 325 mg (65 mg 325 mg PO QAM 05/01/20 05/07/21 History iron) tablet fluticasone propionate 50 2 spray INTRANASAL DAILY PRN 05/01/20 05/07/21 History mcg/actuation nasal spray,suspension warfarin 5 mg tablet 2.5 - 5 mg PO UD 05/01/20 05/07/21 History furosemide 20 mg tablet 20 mg PO BID 07/30/20 05/07/21 History pantoprazole 40 mg tablet,delayed 40 mg PO QAM 07/30/20 05/07/21 History release dicyclomine 10 mg capsule 10 mg PO TID PRN #30 cap 01/25/21 05/07/21 Rx naltrexone 50 mg tablet 25 mg PO BID 02/25/21 05/07/21 History bupropion HCl 150 mg tablet,12 hr 150 mg PO BID 03/18/21 05/07/21 History sustained-release gabapentin 300 mg capsule 300 mg PO TID 04/19/21 05/07/21 History ascorbic acid (vitamin C) 500 mg 500 mg PO DAILY 05/07/21 05/07/21 History tablet (Vitamin C) enoxaparin 100 mg/mL subcutaneous 0 mg SUBCUT BID 05/07/21 05/07/21 History syringe lorazepam 0.5 mg tablet 0.5 mg PO DIRECTED PRN 05/07/21 05/07/21 History vitamin E 100 unit capsule 100 unit PO DAILY 05/07/21 05/07/21 History Patient History Medical History Anxiety Arthritis Atrial fibrillation Follows with [facility], on coumadin GERD (gastroesophageal reflux disease) History of COVID-19 Dx 07/2020, no current issues History of depression Hyperlipidemia Overactive bladder hx botox injections (not successful) TIA (transient ischemic attack) 2018 Surgical History H/O foot surgery Left x2 History of appendectomy History of cataract surgery R/L History of colonoscopy History of esophagogastroduodenoscopy (EGD) History of herniorrhaphy History of hysterectomy History of tooth extraction Family History Father Family history of diabetes mellitus Brother Family history of diabetes mellitus Other Family history non-contributory No family history of adverse response to anesthesia Social History Smoking Status: Former smoker Tobacco Type: Cigarettes Second Hand Exposure: No; Do You Dip or Chew Tobacco: No; Tobacco Cessation Education Requested by Patient: No Hx Alcohol Use: No Hx Substance Use: No Preferred Language: Moldovan Communication Ability: Effective Fountain Roller Assembler Required: No Beliefs That Will Affect Care: None Current Living Situation: Spouse Other Information That Helps Us Care for You: No Feels Safe at Home: Yes Safety Concerns: Feels Safe At This Time Assistive Devices: None Physical Exam Physical Exam: Patient is alert and oriented in obvious distress Heart regular in rhythm Lungs clear She exhibits significant quad deficit at 3+/5 on the right 2055 on the left. Dorsiflexion is a 4-/5 on the right 5 or 5 on the left. There is hypersensitivity to the right lower extremity. Deep tendon reflexes absent. Results & Data ([facility]) Vital Signs (Past 12 Hours) Vital Signs Temp Pulse Pulse Resp BP BP Pulse Ox 05/08/21 03:20 61 16 133/84 05/08/21 03:10 68 21 05/08/21 03:00 74 19 05/08/21 02:50 72 16 05/08/21 02:40 62 15 05/08/21 02:30 63 15 05/08/21 02:20 63 17 05/08/21 02:10 64 17 05/08/21 02:00 73 20 05/08/21 01:50 73 20 05/08/21 01:40 81 24 05/08/21 01:30 91 H 26 H 05/08/21 01:20 70 20 05/08/21 01:12 36.8 C 68 18 159/100 H 95 05/08/21 01:10 76 14 05/08/21 01:02 76 26 H 05/08/21 00:50 82 21 97 05/08/21 00:40 74 23 95 05/08/21 00:37 71 13 98 05/08/21 00:20 75 19 98 05/08/21 00:10 89 20 94 05/08/21 00:00 60 24 129/88 98 05/07/21 23:50 62 18 90 05/07/21 23:40 27 H 98 05/07/21 23:30 72 21 96 05/07/21 23:20 97 H 24 96 05/07/21 21:30 62 18 96 05/07/21 21:20 18 93 05/07/21 21:10 100 H 24 99 05/07/21 21:00 66 15 05/07/21 20:50 69 31 H 99 05/07/21 20:40 72 24 98 05/07/21 20:30 78 16 148/111 H 96 05/07/21 20:20 66 19 87 L 05/07/21 20:11 69 19
[2021-05-08] MEDS: ASPIRIN 81 MG ECTAB PO SCH (08:49)
[2021-05-08] MEDS: PANTOprazole 40 MG TAB PO SCH (08:49)
[2021-05-08] MEDS: FERROUS SULFATE 325 MG TAB PO SCH (08:49)
[2021-05-08] MEDS: ASCORBIC ACID 500 MG TAB PO SCH (08:50)
[2021-05-08] MEDS: ACETAMINOPHEN 1,000 MG/100 ML VIAL IV PRN (08:50)
[2021-05-08] MEDS ORDERED: ENOXAPARIN INJ 60 MG/0.6 ML SYR SQ ONE (12:55)
--- NOTE | 2021-05-08 12:59 | Orthopedic Progress Note ---
Date of Service May 08, 2021 Assessment & Plan (1) Lumbar back pain with radiculopathy affecting right lower extremity: Plan: Assessment lumbar spinal stenosis with facet cyst and radiculopathy. Plan at this time we are still waiting authorization for surgery. I will give her a dose of Lovenox now make her n.p.o. after midnight and plan for surgery tomorrow morning. Patient understands agrees with this plan. Admission and Anticipated Discharge Date Admission Date: May 07, 2021 Subjective Patient continues to have severe right leg pain with any standing and ambulation. Physical Exam Physical Exam: On exam she has to lean towards left side of her bed. She continues to Exhibit 3+/5 right quadricep compared to 5 or 5 on the left. Plantar flexion is symmetric and intact bilaterally. She is hypersensitive to palpation of the right thigh. She is unable to stand without the right leg giving way. Results & Data ([facility]) Vital Signs (Past 12 Hours) Vital Signs Temp Pulse Pulse Resp BP BP Pulse Ox 05/08/21 03:20 61 16 133/84 05/08/21 03:10 68 21 05/08/21 03:00 74 19 05/08/21 02:50 72 16 05/08/21 02:40 62 15 05/08/21 02:30 63 15 05/08/21 02:20 63 17 05/08/21 02:10 64 17 05/08/21 02:00 73 20 05/08/21 01:50 73 20 05/08/21 01:40 81 24 05/08/21 01:30 91 H 26 H 05/08/21 01:20 70 20 05/08/21 01:12 36.8 C 68 18 159/100 H 95 05/08/21 01:10 76 14 05/08/21 01:02 76 26 H
--- NOTE | 2021-05-08 13:58 | Hospitalist Progress Note ---
Date of Service May 08, 2021 Assessment & Plan (1) Lumbar back pain with radiculopathy affecting right lower extremity: (2) Neurogenic claudication due to lumbar spinal stenosis: (3) Atrial fibrillation: (4) Chronic diastolic CHF (congestive heart failure): Plan: This is a 76-year-old female who has significant past medical history of PAF chronically anticoagulated on warfarin, chronic diastolic CHF, aortic valve sclerosis, ascending aortic enlargement, anterior communicating artery aneurysm, history of TIA, anxiety, GERD, RLS who presents to ED secondary to lumbar spinal stenosis with neurogenic claudication requiring urgent lumbar decompression fusi on at L3-L5. Lumbar spinal stenosis with neurogenic claudication Patient to be admitted to [facility] Patient to undergo a lumbar decompression fusion L3-L5 when insurance approval. NPO after midnight Lovenox ordered x1 today PAF warfarin on hold, home regimen 2.5mg MoWeThSa and 5mg all other day Lovenox x 1 today, will need to resume post op @ 100mg Q12hr when cleared by Dr. Infante She is not on any beta neha therapy Chronic Diastolic CHF/HFpEF Aortic Valve sclerosis daily weights, strict intake and output heart healthy, low sodium diet will hold lasix starting tomorrow, assess daily need to resume Elevated blood pressure reading BP 156/99, not on any antihypertensives labile continue to monitor, likely in setting of pain Hx of TIA continue ASA 162mg daily and statin DVT ppx: SCD/TEDs, lovenox x 1 today Dispo: med/surg PCP: Levar FULL CODE Pt was seen and examined in collaboration with Dr. Che, please see addendum Thank you for this consultation. We will follow the patient with you during their hospital stay. You can reach a member of the [facility] Hospitalist Team 17/02 via hospitalist role on tiger text. Admission and Anticipated Discharge Date Admission Date: May 07, 2021 Supervising Physician Co-Signing Physician Notes Patient is seen and examined at bedside. States having back pain radiating to right lower extremity. Offers no other complaints. Denies any chest pain, shortness of breath, dizziness, nausea, abdominal pain. On exam patient is moderately built and nourished, no apparent distress, normocephalic atraumatic, lungs are clear to auscultation, normal bowel sounds, soft and S2, no murmur, no pedal edema, abdomen soft, nontender, normal bowel sounds, alert, awake, oriented, grossly no focal deficits. Lumbar spinal stenosis with radiculopathy. Patient is admitted for management of intractable lower back pain with radiculopathy. Plan for lumbar decompression fusion surgery by Dr. Infante. Paroxysmal A. fib. Warfarin on hold for surgery. Pain control. History of CHF. Volume status seem to be at baseline. I personally reviewed the record. Patient is interviewed and examined at bedside. Patient's care is coordinated with Silvina Roger PA-C. Please refer to the documentation above for details of patient's presentation and for discussion of other issues. Subjective Patient was seen and examined in room C 11B as an ER hold at 8 AM. Follow-up low back pain with right lower extremity radiculopathy, PAF. Patient was admitted on 05/07/2021 secondary to lumbar spinal stenosis with neurogenic claudication of the right lower extremity. She was to undergo surgery today on 05/08 electively. However, due to uncontrolled symptoms presented to ER on 05/07. Overall last night she did not have a good night. She elicits this due to having a headache and unable to have anything to eat or drink. At rest she currently denies any radicular symptoms, but states even getting up to the bathroom is a difficult task. She currently denies any fever, chills, sweats, lightheadedness, dizziness, chest pain, shortness with, cough, nausea, vomiting, abdominal pain. She does have a mild headache, diffuse, described as throbbing, denies any change in vision or hearing or phono or photophobia. She denies any history of migraines. She is requesting analgesia. Review of Systems Review of Systems: All systems reviewed & are unremarkable except as noted in HPI & below Physical Exam Physical Exam: Gen: WD/WN, female, NAD, A&O x3 HEENT: Normocephalic, atraumatic, conjunctivae moist, sclerae anicteric, mucous membranes moist. Lung: Clear to Auscultation bilaterally, no wheezes/rales/rhonchi Heart: Regular rate, regular rhythm, no murmurs, rubs, or gallops Abdomen: Soft, NT, ND +BS x 4 Extremities: No edema Skin: Warm, no rash, negative turgor. Results & Data Results & Data ([facility]) Vital Signs (Past 12 Hours) Vital Signs Temp Pulse Pulse Resp BP BP Pulse Ox 05/08/21 03:20 61 16 133/84 05/08/21 03:10 68 21 05/08/21 03:00 74 19 05/08/21 02:50 72 16 05/08/21 02:40 62 15 05/08/21 02:30 63 15 05/08/21 02:20 63 17 05/08/21 02:10 64 17 05/08/21 02:00 73 20 05/08/21 01:50 73 20 05/08/21 01:40 81 24 05/08/21 01:30 91 H 26 H 05/08/21 01:20 70 20 05/08/21 01:12 36.8 C 68 18 159/100 H 95 05/08/21 01:10 76 14 05/08/21 01:02 76 26 H 05/08/21 00:50 82 21 97 05/08/21 00:40 74 23 95 05/08/21 00:37 71 13 98 05/08/21 00:20 75 19 98 05/08/21 00:10 89 20 94 Laboratory Results Short CBC 05/07/21 Range/Units 21:33 WBC 3.97 L (4.8-10.8) K/uL Hgb 13.2 (12.0-16.0) g/dL Hct 40.2 (37-47) % Plt Count 215 (130-400) K/uL BMP 05/07/21 21:33 Sodium 144 Potassium 3.8 Chloride 112 H Carbon Dioxide 26 BUN 16 Creatinine 0.72 Glucose 88 Calcium 8.9 Liver Function 05/07/21 Range/Units 21:33 Total Bilirubin 0.3 (0.2-1) mg/dl AST 21 (15-37) U/L ALT 31 (12-78) U/L Alkaline Phosphatase 96 (45-117) U/L Albumin 3.4 (3.4-5.0) gm/dl Urine 05/07/21 Range/Units 20:05 Urine Color Yellow Urine Appearance Clear (Clear) Urine pH 5.5 (4.5-7.5) Ur Specific [place] 1.018 (1.000-1.030) Urine Protein Negative (Negative) Urine Glucose (UA) Negative (Negative) Medications Administered Current Inpatient Medications Acetaminophen (Acetaminophen 500 Mg Tab) 1,000 mg PO Q8H PRN PRN Reason: MILD Pain Scale 1,2,3 & Pre PT Stop: 06/07/21 00:44 Al Hydrox/Mg Hydrox/Simethicone (Aluminum/Magnesium Susp 30 Ml Udc) 30 ml PO Q6H PRN PRN Reason: Dyspepsia Stop: 06/07/21 00:44 Ascorbic Acid (Ascorbic Acid 500 Mg Tab) 500 mg PO DAILY [facility] Stop: 06/07/21 08:59 Last Admin: 05/08/21 08:50 Dose: 500 mg Documented by: Aspirin (Aspirin 81 Mg Ectab) 162 mg PO QAM [facility] Stop: 06/07/21 08:59 Last Admin: 05/08/21 08:49 Dose: 162 mg Documented by: Atorvastatin Calcium (Atorvastatin 40 Mg Tab) 40 mg PO HS [facility] Stop: 06/07/21 00:44 Last Admin: 05/08/21 03:02 Dose: 40 mg Documented by: Bupropion HCl (Bupropion Sr 150 Mg Tabcr) 150 mg PO BID@0900,1600 [facility] Stop: 06/07/21 00:44 Last Admin: 05/08/21 08:48 Dose: 150 mg Documented by: Dicyclomine HCl (Dicyclomine Hcl 10 Mg Cap) 10 mg PO TID PRN PRN Reason: abdominal cramping Stop: 06/07/21 00:44 Diphenhydramine HCl (Diphenhydramine Capsule 25 Mg Cap) 25 mg PO Q6H PRN PRN Reason: Allergic Rhinitis/Insomnia Stop: 06/07/21 00:44 Ferrous Sulfate (Ferrous Sulfate 325 Mg Tab) 325 mg PO QAM [facility] Stop: 06/07/21 08:59 Last Admin: 05/08/21 08:49 Dose: 325 mg Documented by: Furosemide (Furosemide 20 Mg Tab) 20 mg PO BID17 [facility] Stop: 06/07/21 00:44 Last Admin: 05/08/21 08:49 Dose: 20 mg Documented by: Gabapentin (Gabapentin 300 Mg Cap) 300 mg PO TID [facility] Stop: 06/07/21 00:44 Last Admin: 05/08/21 08:48 Dose: 300 mg Documented by: Hydromorphone HCl (Hydromorphone Inj 0.5 Mg/0.5 Ml Syr) 0.5 mg IV Q3H PRN PRN Reason: MOD pain (scale 4-6) & Pre PT Stop: 05/22/21 00:44 Hydromorphone HCl (Hydromorphone Inj 1 Mg/Ml Syringe) 1 mg IV Q3H PRN PRN Reason: severe pain (scale 7-10) Stop: 05/22/21 00:44 Hydroxyzine HCl (Hydroxyzine Hcl 25 Mg Tab) 25 mg PO Q8H PRN PRN Reason: Anxiety Stop: 06/07/21 00:44 Cefazolin Sodium (Ancef 2000mg) 2,000 mg in 15 mls @ 3.75 mls/min IV PREOP JAYLEEN; Protocol Stop: 05/09/21 05:59 Lactated Ringer's (Lr) 1,000 mls @ 75 mls/hr IV .[id number] JAYLEEN Stop: 06/07/21 00:44 Last Admin: 05/08/21 03:01 Dose: 75 mls/hr Documented by: Promethazine HCl 12.5 mg/ (Sodium Chloride) 50.5 mls @ 202 mls/hr IV Q6H PRN PRN Reason: Nausea &/or Vomiting Stop: 06/07/21 00:44 Acetaminophen (Ofirmev) 1,000 mg in 100 mls @ 400 mls/hr IV Q8H PRN PRN Reason: Pain Rating 1-3 & Pre PT Stop: 05/11/21 00:44 Last Infusion: 05/08/21 09:59 Dose: Infused Documented by: Lorazepam (Ativan) 0.5 mg in 1 mls @ 1 mls/min IV Q8H PRN PRN Reason: Sedation/Anxiety Stop: 06/07/21 00:44 Lorazepam (Lorazepam 0.5 Mg Tab) 0.5 mg PO Q8H PRN PRN Reason: sedation/anxiety Stop: 06/07/21 00:44 Metoclopramide HCl (Metoclopramide Hcl Inj 5 Mg/Ml 2 Ml Vial) 10 mg IV Q6H PRN PRN Reason: Nausea &/or Vomiting Stop: 06/07/21 00:44 Naloxone HCl (Naloxone Hcl 0.4 Mg/1 Ml Vial/Carp) 0.1 mg IV Q5M PRN PRN Reason: Oversedation/respiratory dep Stop: 06/07/21 00:44 Ondansetron HCl (Ondansetron Inj 2 Mg/Ml 2 Ml Vial) 4 mg IV Q6H PRN PRN Reason: Nausea &/or Vomiting Stop: 06/07/21 00:44 Ondansetron HCl (Ondansetron 4 Mg Od Tab) 4 mg PO Q6H PRN PRN Reason: Nausea Stop: 06/07/21 00:44 Oxycodone HCl (Oxycodone Hcl Ir 5 Mg Tab (Immediate Release)) 5 - 10 mg PO Q4H PRN PRN Reason: mod to severe pain Stop: 05/22/21 00:44 Pantoprazole Sodium (Pantoprazole 40 Mg Tab) [facility] Stop: 06/07/21 08:59 Last Admin: 05/08/21 08:49 Dose: 40 mg Documented by: Tramadol HCl (Tramadol Hcl 50 Mg Tablet) 50 - 100 mg PO Q4H PRN PRN Reason: Moderate-Severe pain & Pre PT Stop: 06/07/21 00:44 ECG Indication: other (pre op) Rate (beats per minute): 70 Rhythm: normal sinus
[2021-05-08] MEDS: ACETAMINOPHEN 500 MG TAB PO PRN (21:16)
[2021-05-09] MEDS: LACTATED RINGER'S 1,000 ML IV SCH ×3 (03:10→22:50)
[2021-05-09] MEDS ORDERED: ceFAZolin 2000MG 2,000 MG/15 ML SYR IV SCH (06:00)
[2021-05-09 06:17] LABS: Basophils # (auto) 0.03 K/uL (0-0.2); Basophils % (auto) 0.7 %; Eosinophils # (auto) 0.17 K/uL (0-0.5); Eosinophils % (auto) 4.2 %; Hematocrit (blood only) 40.8 % (37-47); Hemoglobin 13.5 g/dL (12.0-16.0); Lymphocytes # (auto) 1.49 K/uL (1.2-3.4); Lymphocytes % (auto) 36.8 %; Mean Corpuscular Hgb Conc 33.1 g/dL (32-36); Mean Corpuscular Volume 96.7 fL (80-100); Mean Platelet Volume 9.2 fL (7.4-10.4); Monocytes # (auto) 0.35 K/uL (0.11-0.59); Monocytes % (auto) 8.6 %; Neutrophils # (auto) 2.01 K/uL (1.4-6.5); Neutrophils % (auto) 49.7 %; Platelet Count 226 K/uL (130-400); RDW Coefficient of Variation 14.6 % (11.5-14.5); RDW Standard Deviation 52.6 fL (36.4-46.3); Red Blood Count 4.22 M/uL (4.2-5.4); White Blood Count 4.05 K/uL (4.8-10.8)
[2021-05-09 06:54] LABS: BUN Creatinine Ratio 17.3 (10-20); Calcium 9.2 mg/dl (8.5-10.1); Creatinine Clr Calc Pharmacy 77.8 ml/min; Est GFR (African American) 93.4 ml/min; Est GFR (Non-African American) 80.6 ml/min; Magnesium 2.2 mg/dl (1.8-2.4); Potassium 4.1 mmol/L (3.5-5.1)
[2021-05-09] MEDS: ASPIRIN 81 MG ECTAB PO SCH (07:27)
[2021-05-09] MEDS: ASCORBIC ACID 500 MG TAB PO SCH (07:27)
[2021-05-09] MEDS: GABAPENTIN 300 MG CAP PO SCH ×3 (07:27→20:11)
[2021-05-09] MEDS: FERROUS SULFATE 325 MG TAB PO SCH (07:27)
[2021-05-09] MEDS: PANTOprazole 40 MG TAB PO SCH (07:27)
[2021-05-09] MEDS: buPROPion SR 150 MG TABCR PO SCH ×2 (07:27→15:57)
[2021-05-09] MEDS ORDERED: EPINEPHrine INJ 1 MG/ML AMP ONE (08:44)
[2021-05-09] MEDS ORDERED: BUPIVACAINE 0.5 % 5 MG/1 ML MPF 30ML VIAL ONE (08:44)
--- NOTE | 2021-05-09 09:07 | Anesthesiology Consultation ---
Date of Service May 09, 2021 Assessment & Plan (1) Encounter for pre-operative examination: Chart Review Chart Review: Acceptable Risk for Surgery History Surgery Operation Date: 05/09/21 07:00 Proposed Procedures p L3-L5 Decompression Fusion, SPINAL CORD MONITORING - Minh Infante DO Addendum - Nuclear stress test (09/26/20): Myocardial perfusion imaging is normal. LVEF greater than 70%. Overall left ventricular systolic function was normal without regional wall motion abnormalities. 106% MPHR. - Cardiology office visit (04/25/21): "She is considered moderate risk for perioperative cardiac complications based on her history and comorbidities. Further cardiac testing would not improve/reduce her surgical risks. She is understanding of her surgical risks and wishing to proceed. However she is questioning that her symptoms have improved over the last few days, and I encouraged her to reach out to orthopedic surgeon regarding her surgery/pain issues. She will hold coumadin and use Lovenox bridge due to history of PAF and CVA. CHF tools discussed including daily weights, salt/sodium/fluid restriction, and use of diuretic protocol." Height/Weight Height: 5 ft 6 in Weight: 96 kg Allergies Allergy/AdvReac Type Severity Reaction Status Date / Time Sulfa (Sulfonamide Allergy Unknown Unknown Verified 05/07/21 20:00 Antibiotics) buspirone [From BuSpar] AdvReac Mild Vomiting Verified 05/07/21 20:00 Medications Home Medications Medication Instructions Recorded Confirmed Last Taken baclofen 10 mg tablet 10 mg PO HS PRN 02/20/19 05/07/21 12/19/20 cholecalciferol (vitamin D3) 125 5,000 unit PO QAM 02/20/19 05/07/21 05/07/21 mcg (5,000 unit) tablet (Vitamin D3) acetaminophen 500 mg tablet 1,000 mg PO Q8H PRN 05/01/20 05/07/21 03/17/21 (Tylenol Extra Strength) aspirin 81 mg tablet,delayed 162 mg PO QAM 05/01/20 05/07/21 05/07/21 release (Aspirin Low Dose) atorvastatin 40 mg tablet 40 mg PO HS 05/01/20 05/07/21 05/06/21 ferrous sulfate 325 mg (65 mg 325 mg PO QAM 05/01/20 05/07/21 05/07/21 iron) tablet fluticasone propionate 50 2 spray INTRANASAL DAILY PRN 05/01/20 05/07/21 07/29/20 mcg/actuation nasal spray,suspension warfarin 5 mg tablet 2.5 - 5 mg PO UD 05/01/20 05/07/21 05/03/21 furosemide 20 mg tablet 20 mg PO BID 07/30/20 05/07/21 05/07/21 08:00 pantoprazole 40 mg tablet,delayed 40 mg PO QAM 07/30/20 05/07/21 05/07/21 release dicyclomine 10 mg capsule 10 mg PO TID PRN #30 cap 01/25/21 05/07/21 Unknown naltrexone 50 mg tablet 25 mg PO BID 02/25/21 05/07/21 05/07/21 08:00 bupropion HCl 150 mg tablet,12 hr 150 mg PO BID 03/18/21 05/07/21 05/07/21 sustained-release gabapentin 300 mg capsule 300 mg PO TID 04/19/21 05/07/21 05/07/21 12:00 ascorbic acid (vitamin C) 500 mg 500 mg PO DAILY 05/07/21 05/07/21 05/07/21 tablet (Vitamin C) enoxaparin 100 mg/mL subcutaneous 0 mg SUBCUT BID 05/07/21 05/07/21 05/07/21 08:00 syringe lorazepam 0.5 mg tablet 0.5 mg PO DIRECTED PRN 05/07/21 05/07/21 Unknown vitamin E 100 unit capsule 100 unit PO DAILY 05/07/21 05/07/21 05/07/21 Active Medications Generic Name Dose Route Start Last Admin Trade Name Cecilia PRN Reason Stop Dose Admin Acetaminophen 1,000 mg 05/08/21 00:45 05/08/21 21:16 Acetaminophen 500 Mg Tab PO 06/07/21 00:44 1,000 mg Q8H PRN Administration MILD Pain Scale 1,2,3 & Pre PT Ascorbic Acid 500 mg 05/08/21 09:00 05/09/21 07:27 Ascorbic Acid 500 Mg Tab PO 06/07/21 08:59 Not Given DAILY JAYLEEN Aspirin 162 mg 05/08/21 09:00 05/09/21 07:27 Aspirin 81 Mg Ectab PO 06/07/21 08:59 Not Given QAM [facility] Atorvastatin Calcium 40 mg 05/08/21 00:45 05/08/21 19:50 Atorvastatin 40 Mg Tab PO 06/07/21 00:44 40 mg HS JAYLEEN Administration Bupropion HCl 150 mg 05/08/21 00:45 05/09/21 07:27 Bupropion Sr 150 Mg Tabcr PO 06/07/21 00:44 150 mg BID@0900,1600 JAYLEEN Administration Ferrous Sulfate 325 mg 05/08/21 09:00 05/09/21 07:27 Ferrous Sulfate 325 Mg Tab PO 06/07/21 08:59 Not Given QAM JAYLEEN Furosemide 20 mg 05/08/21 00:45 05/08/21 17:41 Furosemide 20 Mg Tab PO 06/07/21 00:44 Not Given BID17 JAYLEEN Gabapentin 300 mg 05/08/21 00:45 05/09/21 07:27 Gabapentin 300 Mg Cap PO 06/07/21 00:44 300 mg TID JAYLEEN Administration Lactated Ringer's 1,000 mls @ 75 mls/hr 05/08/21 00:45 05/09/21 03:10 Lr IV 06/07/21 00:44 75 mls/hr .[id number] JAYLEEN Administration Acetaminophen 1,000 mg in 100 mls @ 400 mls/hr 05/08/21 00:45 05/08/21 09:59 Ofirmev IV 05/11/21 00:44 Infused Q8H PRN Infusion Pain Rating 1-3 & Pre PT Pantoprazole Sodium 40 mg 05/08/21 09:00 05/09/21 07:27 Pantoprazole 40 Mg Tab PO 06/07/21 08:59 40 mg QAM JAYLEEN Administration NPO Date Last Intake of Fluids: 05/08/21 Time Last Intake of Fluids: 21:00 Last Intake of Fluids Comment: sip of water 0730 w/meds Date Last Intake of Solids: 05/08/21 Time Last Intake of Solids: 18:00 Past Medical History Medical History Anxiety Arthritis Atrial fibrillation Follows with S cardio, on coumadin Chronic diastolic CHF (congestive heart failure) GERD (gastroesophageal reflux disease) History of COVID-19 Dx 07/2020, no current issues History of depression Hyperlipidemia Overactive bladder hx botox injections (not successful) TIA (transient ischemic attack) 2019 Past Family History Family History Father Family history of diabetes mellitus Brother Family history of diabetes mellitus Other Family history non-contributory No family history of adverse response to anesthesia Past Surgical History Surgical History H/O foot surgery Left x2 History of appendectomy History of cataract surgery R/L History of colonoscopy History of esophagogastroduodenoscopy (EGD) History of herniorrhaphy History of hysterectomy History of tooth extraction Social History Smoking Status: Former smoker Do You Dip or Chew Tobacco: No Hx Alcohol Use: No alcohol intake frequency: holidays/special occasions only Hx Substance Use: No substance use type: does not use Physical Exam Vital Signs Last Vital Signs Temp 36.9 C 05/09/21 08:53 Pulse 96 H 05/09/21 08:53 Resp 24 05/09/21 08:53 BP 164/92 H 05/09/21 08:53 Pulse Ox 95 05/09/21 08:53 Testing Laboratory Results 05/09/21 05:57 05/09/21 05:57 PT 10.3 Seconds (9.0-12.0) 05/07/21 21:33 INR 1.0 (0.9-1.1) 05/07/21 21:33 APTT 34.1 Seconds (21.0-31.0) H 05/07/21 21:33 Urine Color Yellow 05/07/21 20:05 Urine Appearance Clear (Clear) 05/07/21 20:05 Urine pH 5.5 (4.5-7.5) 05/07/21 20:05 Ur Specific [place] 1.018 (1.000-1.030) 05/07/21 20:05 Urine Protein Negative (Negative) 05/07/21 20:05 Urine Glucose (UA) Negative (Negative) 05/07/21 20:05 Urine Ketones Negative (Negative) 05/07/21 20:05 Urine Nitrite Negative (Negative) 05/07/21 20:05 Ur Leukocyte Esterase Negative (Negative) 05/07/21 20:05 Blood Type AB Positive 05/08/21 16:26 Antibody Screen NEGATIVE 05/08/21 16:26 Electrocardiogram Date: 02/25/21 Findings: + NSR @ (82) and + poor R wave progression Chest X-Ray Date: 04/20/21 Findings: + NAD Echocardiogram Date: 01/10/21 EF: 65% LV Function: normal Other Findings: + diastolic dysfunction moderate TR mild AR
[2021-05-09] MEDS ORDERED: ONDANSETRON INJ 2 MG/ML 2 ML VIAL IV PRN ×2 (09:09→14:00)
[2021-05-09] MEDS ORDERED: HYDROmorphone INJ 1 MG/ML SYRINGE IV PRN (09:09)
[2021-05-09] MEDS ORDERED: ATROPINE SULFATE 0.1 MG/ML 10ML SYR IV PRN (09:09)
[2021-05-09] MEDS ORDERED: PROMETHAZINE HCL 6.25 MG in SODIUM CHLORIDE 0.9% 50 ML IV PRN (09:09)
[2021-05-09] MEDS ORDERED: LABETALOL HCL IV 5 MG/ML 20ML IV PRN (09:09)
--- NOTE | 2021-05-09 09:24 | History & Physical Bridge Note ---
Date of Service May 09, 2021 History & Physical Bridge Note I have examined the patient, reviewed the History & Physical and in the interval since the performance of the History & Physical I have noted the following changes of clinical significance: no changes noted L3-L5 decompression fusion
--- NOTE | 2021-05-09 11:11 | Hospitalist Progress Note ---
Date of Service May 09, 2021 Assessment & Plan (1) Lumbar back pain with radiculopathy affecting right lower extremity: (2) Neurogenic claudication due to lumbar spinal stenosis: (3) Atrial fibrillation: (4) Chronic diastolic CHF (congestive heart failure): Plan: This is a 76-year-old female who has significant past medical history of PAF chronically anticoagulated on warfarin, chronic diastolic CHF, aortic valve sclerosis, ascending aortic enlargement, anterior communicating artery aneurysm, history of TIA, anxiety, GERD, RLS who presents to ED secondary to lumbar spinal stenosis with neurogenic claudication requiring urgent lumbar decompression fusi on at L3-L5. Lumbar spinal stenosis with neurogenic claudication Patient to be admitted to [facility] Patient to undergo a lumbar decompression fusion L3-L5 today PAF warfarin on hold, home regimen 2.5mg MoWeThSa and 5mg all other day Lovenox x 1 on 05/08, will need to resume post op @ 100mg Q12hr when cleared by Dr. Infante Will discuss with MTM clinic regarding post op bridging instructions She is not on any beta neha therapy Chronic Diastolic CHF/HFpEF Aortic Valve sclerosis daily weights, strict intake and output heart healthy, low sodium diet will hold lasix starting tomorrow, assess daily need to resume Elevated blood pressure reading BP 164/92, not on any antihypertensives labile, clinic readings controlled continue to monitor, likely in setting of pain, anxiety, situation consider low dose lisinopril if continues Hx of TIA continue ASA 162mg daily and statin DVT ppx: SCD/TEDs await for post op clearance to resume warfarin Dispo: med/surg PCP: Levar FULL CODE Pt was seen and examined in collaboration with Dr. Milian, please see addendum Thank you for this consultation. We will follow the patient with you during their hospital stay. You can reach a member of the [facility] Hospitalist Team 17/02 via hospitalist role on tiger text. Admission and Anticipated Discharge Date Admission Date: May 07, 2021 Supervising Physician Co-Signing Physician Notes I have seen and examined the patient and have discussed the case with the provider above. I agree with the assessment and plan as stated. My physical exam reflects that noted above. Ms. Hendrickson experienced a resolution of her intense pain with the morphine she was given. Will cont this PRN for now. Will work with Ortho regarding anticoagulation which is contraindicated at this point post-operatively. Cont with other recommendations as above. Thank you for this consultation. We will continue to follow her throughout her hospital stay. DO Joceline Milian Patient was seen and examined in room 300-1 Follow-up low back pain with right lower extremity radiculopathy, PAF. Patient was admitted on 05/07/2021 secondary to lumbar spinal stenosis with neurogenic claudication of the right lower extremity. Patient overall had a much better night. Currently pain is under control. She denies fever, chills, sweats, lightheadedness, dizziness, chest pain, shortness breath, cough, nausea, vomiting, abdominal pain. She tolerated her diet yesterday. She is currently n.p.o. and undergo surgery this morning. Spoke with nurse Sue who states that patient was very anxious this morning in setting of procedure and blood pressure was mildly elevated. Otherwise no concerns. Review of Systems Review of Systems: All systems reviewed & are unremarkable except as noted in HPI & below Physical Exam Physical Exam: Gen: WD/WN, female, NAD, A&O x3 HEENT: Normocephalic, atraumatic, conjunctivae moist, sclerae anicteric, mucous membranes moist. Lung: Clear to Auscultation bilaterally, no wheezes/rales/rhonchi Heart: Regular rate, regular rhythm, no murmurs, rubs, or gallops Abdomen: Soft, NT, ND +BS x 4 Extremities: No edema Skin: Warm, no rash, negative turgor. Results & Data Results & Data ([facility]) Vital Signs (Past 12 Hours) Vital Signs Temp Pulse Resp BP Pulse Ox 05/09/21 08:53 36.9 C 96 H 24 164/92 H 95 05/09/21 07:43 36.7 C 86 18 144/91 H 93 05/09/21 06:06 36.5 C 81 18 146/88 H 99 05/08/21 23:38 36 C L 81 20 147/89 H 96 Laboratory Results Short CBC 05/09/21 Range/Units 05:57 WBC 4.05 L (4.8-10.8) K/uL Hgb 13.5 (12.0-16.0) g/dL Hct 40.8 (37-47) % Plt Count 226 (130-400) K/uL BMP 05/09/21 05:57 Sodium 141 Potassium 4.1 Chloride 110 H Carbon Dioxide 27 BUN 13 Creatinine 0.73 Glucose 92 Calcium 9.2 Medications Administered Medication List Acetaminophen (Acetaminophen 500 Mg Tab) 1,000 mg PO Q8H PRN PRN Reason: MILD Pain Scale 1,2,3 & Pre PT Stop: 06/07/21 00:44 Last Admin: 05/08/21 21:16 Dose: 1,000 mg Documented by: [id number] Ascorbic Acid (Ascorbic Acid 500 Mg Tab) 500 mg PO DAILY [facility] Stop: 06/07/21 08:59 Last Admin: 05/09/21 07:27 Dose: Not Given Documented by: [id number] Admin: 05/08/21 08:50 Dose: 500 mg Documented by: [id number] Aspirin (Aspirin 81 Mg Ectab) 162 mg PO QAM [facility] Stop: 06/07/21 08:59 Last Admin: 05/09/21 07:27 Dose: Not Given Documented by: [id number] Admin: 05/08/21 08:49 Dose: 162 mg Documented by: [id number] Atorvastatin Calcium (Atorvastatin 40 Mg Tab) 40 mg PO HS [facility] Stop: 06/07/21 00:44 Last Admin: 05/08/21 19:50 Dose: 40 mg Documented by: [id number] Admin: 05/08/21 03:02 Dose: 40 mg Documented by: [id number] Bupropion HCl (Bupropion Sr 150 Mg Tabcr) 150 mg PO BID@0900,1600 [facility] Stop: 06/07/21 00:44 Last Admin: 05/09/21 07:27 Dose: 150 mg Documented by: [id number] Admin: 05/08/21 17:41 Dose: 150 mg Documented by: [id number] Admin: 05/08/21 08:48 Dose: 150 mg Documented by: [id number] Admin: 05/08/21 03:02 Dose: 150 mg Documented by: [id number] Ferrous Sulfate (Ferrous Sulfate 325 Mg Tab) 325 mg PO QAM [facility] Stop: 06/07/21 08:59 Last Admin: 05/09/21 07:27 Dose: Not Given Documented by: [id number] Admin: 05/08/21 08:49 Dose: 325 mg Documented by: [id number] Furosemide (Furosemide 20 Mg Tab) 20 mg PO [id number] [facility] Stop: 06/07/21 00:44 Last Admin: 05/08/21 17:41 Dose: Not Given Documented by: [id number] Admin: 05/08/21 08:49 Dose: 20 mg Documented by: [id number] Admin: 05/08/21 03:01 Dose: Not Given Documented by: [id number] Gabapentin (Gabapentin 300 Mg Cap) 300 mg PO TID [facility] Stop: 06/07/21 00:44 Last Admin: 05/09/21 07:27 Dose: 300 mg Documented by: [id number] Admin: 05/08/21 19:50 Dose: 300 mg Documented by: [id number] Admin: 05/08/21 14:52 Dose: 300 mg Documented by: [id number] Admin: 05/08/21 08:48 Dose: 300 mg Documented by: [id number] Admin: 05/08/21 03:02 Dose: 300 mg Documented by: [id number] Lactated Ringer's (Lr) 1,000 mls @ 75 mls/hr IV .[id number] [facility]AYLEEN Stop: 06/07/21 00:44 Last Admin: 05/09/21 03:10 Dose: 75 mls/hr Documented by: [id number] Infusion: 05/09/21 03:10 Dose: 75 mls/hr Documented by: [id number] Admin: 05/08/21 14:39 Dose: 75 mls/hr Documented by: [id number] Infusion: 05/08/21 14:39 Dose: 75 mls/hr Documented by: [id number] Admin: 05/08/21 03:01 Dose: 75 mls/hr Documented by: [id number] Acetaminophen (Ofirmev) 1,000 mg in 100 mls @ 400 mls/hr IV Q8H PRN PRN Reason: Pain Rating 1-3 & Pre PT Stop: 05/11/21 00:44 Last Infusion: 05/08/21 09:59 Dose: 0 mls/hr Documented by: [id number] Admin: 05/08/21 08:50 Dose: 400 mls/hr Documented by: [id number] Cefazolin Sodium (Ancef 2000mg) 2,000 mg in 15 mls @ 3.75 mls/min IV PREOP JAYLEEN; Protocol Stop: 05/10/21 05:59 Last Admin: 05/09/21 09:31 Dose: 3.75 mls/min Documented by: [id number] Pantoprazole Sodium (Pantoprazole 40 Mg Tab) 40 mg PO QAM [facility] Stop: 06/07/21 08:59 Last Admin: 05/09/21 07:27 Dose: 40 mg Documented by: [id number] Admin: 05/08/21 08:49 Dose: 40 mg Documented by: [id number] Discontinued Medications Bupivacaine HCl (Bupivacaine 0.5 % 5 Mg/1 Ml Mpf 30ml Vial) Confirm Administered Dose 30 ml .ROUTE .STK-MED ONE Stop: 05/09/21 08:45 Last Admin: 05/09/21 10:17 Dose: 30 ml Documented by: [id number] Cefazolin Sodium (Cefazolin 250 Mg/Ml 1 Gm Vial) Confirm Administered Dose 1,000 mg .ROUTE .STK-MED ONE Stop: 05/09/21 09:08 Last Admin: 05/09/21 10:18 Dose: 1,000 mg Documented by: [id number] Enoxaparin Sodium (Enoxaparin Inj 60 Mg/0.6 Ml Syr) 60 mg SQ NOW ONE Stop: 05/08/21 12:56 Last Admin: 05/08/21 14:52 Dose: 60 mg Documented by: [id number] Epinephrine HCl (Epinephrine Inj 1 Mg/Ml Amp) Confirm Administered Dose 1 mg .ROUTE .STK-MED ONE Stop: 05/09/21 08:45 Last Admin: 05/09/21 10:17 Dose: 0.15 mg Documented by: [id number] Sodium Chloride (Nss) 500 mls @ 999 mls/hr IV .Q31M STA Stop: 05/07/21 20:15 Last Infusion: 05/07/21 21:52 Dose: 0 mls/hr Documented by: [id number] Admin: 05/07/21 20:44 Dose: 999 mls/hr Documented by: [id number] Cefazolin Sodium (Ancef 2000mg) 2,000 mg in 15 mls @ 3.75 mls/min IV PREOP JAYLEEN; Protocol Stop: 05/09/21 05:59 Last Admin: 05/08/21 20:19 Dose: Not Given Documented by: [id number] Morphine Sulfate (Morphine Sulfate 4 Mg/Ml 1 Ml Carp\Vial) 4 mg IV Q15M PRN PRN Reason: Pain Stop: 05/21/21 19:44 Last Admin: 05/07/21 20:44 Dose: 4 mg Documented by: [id number] Ondansetron HCl (Ondansetron Inj 2 Mg/Ml 2 Ml Vial) 4 mg IV NOW STA Stop: 05/07/21 19:46 Last Admin: 05/07/21 20:44 Dose: 4 mg Documented by: [id number]
[2021-05-09] MEDS ORDERED: FLOSEAL HEMOSTATIC MATRIX 10ML TOP ONE (11:20)
--- NOTE | 2021-05-09 11:54 | Operative Report ---
Post Operative Report Pre & Post Diagnosis Operation Date: 05/09/21 07:00 Pre-Op Diagnosis: Lumbar spinal stenosis with radiculopathy Post-Op Diagnosis: Same I identified the patient and participated in the time-out.: Yes Procedure Operation Date: 05/09/21 07:00 Actual Procedures #1 lumbar decompression bilateral medial facetectomies and foraminotomies L2-L3, L3-L4 and L4-L5. #2 posterior spinal fusion L3-4 L4-L5. #3 placed posterior instrumentation L2-3 L4 L4-L5. #4 interbody fusion L3-L4 L4-L5. #5 placed a peek cage 10 x 22 mm at L3-L4 and 11 x 22 mm at all for L5. #6 placement locally harvested morselized autograft in the posterior gutters per #7 placement infuse collagen sponge master graft in the posterior gutters and I factor inter body space. Surgeon Minh Infante, DO Jeweler Apprentice None Estimated Blood Loss 100 Findings See Below Patient is 5 foot 6 weighing 96 kg with a BMI in excess of 34. The patient's body habitus did create significant technical difficulty requiring her to place retractors longus instruments in order to perform her procedure. This had at least 50% increase to the operative time. Specimens None Indications This is a 76-year-old female with a presents with marked decline in status and leg weakness and is here for urgent decompression fusion. Description of Procedure Patient was met with identified informed consent obtained patient was then taken to the operative suite underwent a patient placed in a prone position the Prospect table top Jose frame. All bony prominences well-padded eyes inspected to ensure no external pressure placed upon them. This point lumbar spine was prepped and draped in a sterile fashion. Sharp dissection with the assistance of Bovie cautery performed down to and exposing the lamina and transverse processes of L3-L4-L5. From caudal cephalad fashion complete laminectomy of L4 L3 and partial laminectomy L2 was performed occluding bilateral medial facetectomies and foraminotomies. I did identify massive bouts of facet cyst and facet hypertrophy at the 3 4 level on the right with severe compression of the exiting nerve root. After complete decompression pedicle screws were placed at L3-L4-L5 bilaterally with assistance of fluoroscopy and the proper sized carlos placed. By way of a transforaminal approach on the right complete discectomy of L4-5 was performed endplates curetted to subcortically bone and 11 x 22 mm peek cage filled I factor tapped in position. Then proceeded to L3-L4 and again by way of a transforaminal portion right complete discectomy performed endplates curetted to subcortically bone and a 10 x 22 mm peek cage filled with I factor tapped in position. The rods and locked in final position bilaterally. The transverse processes of L3 L4-5. To subcortically bone. Infuse collagen sponge master graft local autograft was placed in the posterior gutters. 15 round JOSE drain inserted. The incision was then closed with 1 Vicryl the fascia 2-0 Vicryl subcutaneously and 4 Monocryl for final skin closure. Steri-Strip sterile dressings placed. Patient will continue PACU stable condition. Please note spinal cord monitoring was utilized at the procedure no changes noted. I attest to the content of the Intraoperative Record and any orders documented therein. Any exceptions are noted below.
--- NOTE | 2021-05-09 12:22 | Fluoroscopy Report ---
FL lumbar spine 2-3V CLINICAL HISTORY: L3-L5 DECOMPRESSION AND FUSION COMPARISON STUDY: Lumbar spine MRI April 12, 2021. FLUOROSCOPY TIME: 32 seconds. FLUOROSCOPIC IMAGES: 2 FINDINGS: Note is made of L3-L4 and L4-L5 discectomies with interbody spacer placement. Posterior dec ompression is noted. There are bilateral pedicle screws at the L3, L4 and L5 levels. Interconnecting rods are present. Hardware is intact. IMPRESSION: Fluoroscopy provided during L3-L5 discectomies, posterior decompression and bilateral pe dicle screw fusion. ACT 112: Negative or not required by law. Electronically signed by: Nitin Bhagat M.D. 05/09/2021 12:21 PM
--- NOTE | 2021-05-09 13:32 | Anesthesiology Progress Note ---
Date of Service May 09, 2021 Anesthesia Post Procedure Vital Signs Vital Signs: Temp Pulse Pulse Resp BP BP Pulse Ox 05/09/21 13:15 72 24 122/73 98 05/09/21 13:05 68 21 106/90 98 05/09/21 12:55 70 21 134/88 94 05/09/21 12:45 86 21 124/75 98 05/09/21 12:35 72 20 141/87 H 93 05/09/21 12:25 85 24 122/75 95 05/09/21 12:15 71 19 128/62 100 05/09/21 12:05 76 23 123/86 99 05/09/21 11:58 36.1 C L 81 20 126/80 98 05/09/21 08:53 36.9 C 96 H 24 164/92 H 95 05/09/21 07:43 36.7 C 86 18 144/91 H 93 05/09/21 06:06 36.5 C 81 18 146/88 H 99 05/08/21 23:38 36 C L 81 20 147/89 H 96 05/08/21 13:57 36.8 C 95 H 18 156/99 H 95 Pain Intensity Right Hip: Pain Intensity: 3 Back: Pain Intensity: 5 Transfer of Care Handoff Completed per policy Notes Mental Status: alert / awake / arousable Patient Amnestic to Procedure: Yes Nausea / Vomiting: adequately controlled Pain: adequately controlled Airway Patency, RR, SpO2: stable & adequate BP & HR: stable & adequate Hydration State: stable & adequate Anesthetic Complications: no major complications apparent
[2021-05-09] MEDS ORDERED: ACETAMINOPHEN 500 MG TAB PO PRN (14:00)
[2021-05-09] MEDS ORDERED: NALOXONE HCL 0.4 MG/1 ML VIAL/CARP IV PRN (14:00)
[2021-05-09] MEDS ORDERED: LORazepam 0.5 MG TAB PO PRN (14:00)
[2021-05-09] MEDS ORDERED: FAMOTIDINE 20 MG TAB PO PRN (14:00)
[2021-05-09] MEDS ORDERED: ONDANSETRON 4 MG OD TAB PO PRN (14:00)
[2021-05-09] MEDS ORDERED: DO NOT ADMINISTER FLU VACCINE PRN (14:00)
[2021-05-09] MEDS ORDERED: ALUMINUM/MAGNESIUM SUSP 30 ML UDC PO PRN (14:00)
[2021-05-09] MEDS ORDERED: PROMETHAZINE HCL 12.5 MG in SODIUM CHLORIDE 0.9% 50 ML IV PRN (14:00)
[2021-05-09] MEDS ORDERED: DO NOT ADMINISTER PNEUMOCOCCAL VACCINE PRN (14:00)
[2021-05-09] MEDS ORDERED: LORazepam 0.5 MG/1 ML VIAL IV PRN (14:00)
[2021-05-09] MEDS ORDERED: diphenhydrAMINE Capsule 25 MG CAP PO PRN (14:00)
[2021-05-09] MEDS ORDERED: ACETAMINOPHEN 1,000 MG/100 ML VIAL IV PRN (14:00)
[2021-05-09] MEDS ORDERED: METOCLOPRAMIDE HCL INJ 5 MG/ML 2 ML VIAL IV PRN (14:00)
[2021-05-09] MEDS ORDERED: MAGNESIUM HYDROXIDE SUSP 30 ML UDC PO PRN (14:00)
[2021-05-09] MEDS ORDERED: LACTATED RINGER'S 1,000 ML IV SCH (14:00)
[2021-05-09] MEDS ORDERED: SOD PHOSPHATE/SOD BIPHOSPHATE ENEMA 132 ML BTL PR PRN (14:00)
[2021-05-09] MEDS ORDERED: hydrOXYzine HCl 25 MG TAB PO PRN (14:00)
[2021-05-09] MEDS ORDERED: bisacodyL 10 MG SUPP PR PRN (14:00)
[2021-05-09] MEDS: oxyCODONE HCL IR 5 MG TAB (IMMEDIATE RELEASE) PO PRN (14:25)
[2021-05-09] MEDS ORDERED: KETOROLAC TROMETHAMINE 15 MG/ML VIAL IV ONE (16:55)
[2021-05-09] MEDS: ceFAZolin 2000MG 2,000 MG/15 ML SYR IV SCH (17:39)
[2021-05-09] MEDS ORDERED: MoRPHine SULFATE 2 MG/ML CARP IV STA (18:18)
[2021-05-09] MEDS: ATORVASTATIN 40 MG TAB PO SCH (20:11)
[2021-05-09] MEDS: DOCUSATE SODIUM/SENNA 50/8.6MG TAB PO SCH (20:20)
[2021-05-09] MEDS: MoRPHine SULFATE 2 MG/ML CARP IV PRN (22:22)
[2021-05-09] MEDS ORDERED: MoRPHine SULFATE 4 MG/ML 1 ML CARP\\VIAL IV STA (22:59)
[2021-05-10] MEDS: ceFAZolin 2000MG 2,000 MG/15 ML SYR IV SCH (02:01)
[2021-05-10] MEDS: POLYETHYLENE (MIRALAX) 17 GM PACK PO SCH ×3 (06:13→17:37)
[2021-05-10 07:00] LABS: Basophils # (auto) 0.01 K/uL (0-0.2); Basophils % (auto) 0.1 %; Eosinophils # (auto) 0.01 K/uL (0-0.5); Eosinophils % (auto) 0.1 %; Hematocrit (blood only) 35.9 % (37-47); Hemoglobin 11.6 g/dL (12.0-16.0); Immature Granulocytes # (auto) 0.01 K/uL (0.00-0.02); Immature Granulocytes % (auto) 0.1 %; Lymphocytes % (auto) 16.3 %; Mean Corpuscular Hemoglobin 31.2 pg (25-34); Mean Corpuscular Hgb Conc 32.3 g/dL (32-36); Mean Corpuscular Volume 96.5 fL (80-100); Mean Platelet Volume 9.3 fL (7.4-10.4); Monocytes # (auto) 0.64 K/uL (0.11-0.59); Monocytes % (auto) 8.7 %; Neutrophils % (auto) 74.7 %; Platelet Count 227 K/uL (130-400); RDW Coefficient of Variation 14.9 % (11.5-14.5); RDW Standard Deviation 53.2 fL (36.4-46.3); Red Blood Count 3.72 M/uL (4.2-5.4); White Blood Count 7.37 K/uL (4.8-10.8)
[2021-05-10 07:37] LABS: BUN Creatinine Ratio 15.4 (10-20); Calcium 8.9 mg/dl (8.5-10.1); Creatinine Clr Calc Pharmacy 66.9 ml/min; Est GFR (African American) 79.9 ml/min; Potassium 3.9 mmol/L (3.5-5.1)
[2021-05-10] MEDS: MoRPHine SULFATE 2 MG/ML CARP IV PRN ×2 (07:50→12:13)
[2021-05-10] MEDS: ACETAMINOPHEN 1,000 MG/100 ML VIAL IV PRN (08:34)
[2021-05-10] MEDS: GABAPENTIN 300 MG CAP PO SCH ×2 (08:37→14:47)
[2021-05-10] MEDS: FERROUS SULFATE 325 MG TAB PO SCH (08:38)
[2021-05-10] MEDS: ASCORBIC ACID 500 MG TAB PO SCH (08:38)
[2021-05-10] MEDS: buPROPion SR 150 MG TABCR PO SCH ×2 (08:38→17:00)
[2021-05-10] MEDS: PANTOprazole 40 MG TAB PO SCH (08:38)
[2021-05-10] MEDS: ASPIRIN 81 MG ECTAB PO SCH (08:38)
[2021-05-10] MEDS ORDERED: MoRPHine SULFATE 2 MG/ML CARP IV STA (08:56)
--- NOTE | 2021-05-10 09:26 | Orthopedic Progress Note ---
Date of Service May 10, 2021 Assessment & Plan (1) Lumbar back pain with radiculopathy affecting right lower extremity: Plan: At this time initiate physical therapy monitor JOSE operatively discharge home next few days. Admission and Anticipated Discharge Date Admission Date: May 07, 2021 Subjective Back pain controlled leg symptoms markedly improved Physical Exam Physical Exam: On exam she is obvious distress with back pain. But she has ex cellent strength testing lower extremities. Results & Data ([facility]) Vital Signs (Past 12 Hours) Vital Signs Temp Pulse Resp BP Pulse Ox 05/10/21 03:56 36.7 C 88 20 105/74 96 05/10/21 03:39 36.6 C 76 17 116/75 97 05/09/21 23:03 36.5 C 81 20 128/86 99
--- NOTE | 2021-05-10 09:54 | Hospitalist Progress Note ---
Date of Service May 10, 2021 Assessment & Plan (1) Lumbar back pain with radiculopathy affecting right lower extremity: (2) Neurogenic claudication due to lumbar spinal stenosis: (3) Atrial fibrillation: (4) Chronic diastolic CHF (congestive heart failure): Plan: This is a 76-year-old female who has significant past medical history of PAF chronically anticoagulated on warfarin, chronic diastolic CHF, aortic valve sclerosis, ascending aortic enlargement, anterior communicating artery aneurysm, history of TIA, anxiety, GERD, RLS who presents to ED secondary to lumbar spinal stenosis with neurogenic claudication requiring urgent lumbar decompression fusi on at L3-L5. POD # 1 lumbar decompression fusion L3-L5 by Dr. Infante Per ortho for pain control, wound care, anticoagulation and activities Monitor H&H (hgb 11.6 today, 13.5 pre-op) Continue incentive spirometry, PT/OT when appropriate PAF Warfarin on hold, home regimen 2.5mg MoWeThSa and 5mg all other day Lovenox x 1 on 05/08, will need to resume post op @ 100mg Q12hr when cleared by Dr. Infante Chadvasc2 score of 6, with history of PAF and TIA so will plan on bridging post procedure Will discuss with MTM clinic tomorrow regarding specific post op bridging instructions Not on any beta neha therapy Chronic Diastolic CHF/HFpEF Aortic Valve sclerosis daily weights, strict intake and output heart healthy, low sodium diet will hold lasix starting tomorrow, assess daily need to resume Elevated blood pressure reading Initially elevated likely situational, now normotensive Continue to monitor Hx of TIA continue ASA 162mg daily and statin DVT ppx: SCD/TEDs await for post op clearance to resume warfarin Dispo: med/surg PCP: Levar FULL CODE Pt was seen and examined in collaboration with Dr. Milian, please see addendum Thank you for this consultation. We will follow the patient with you during their hospital stay. You can reach a member of the [facility] Hospitalist Team 17/02 via hospitalist role on tiger text. Admission and Anticipated Discharge Date Admission Date: May 07, 2021 Supervising Physician Co-Signing Physician Notes I have seen and examined the patient and have discussed the case with the provider above. I agree with the assessment and plan as stated with the following exception. When I went to see her she had just eaten dinner and got a bolus of food stuck mid esophagus. She reported substernal chest pain. An EKG was performed by the nurses revealing NSR without evidence of ischemia. She received a bryson galdino and was sat up. She received Ativan. We then tried glucagon, however, this didn't help and she required disimpaction of the food bolus by Dr. Nguyễn in the OR. Physical at the time I saw her revealed a woman in moderate distress who had clear lungs to ausculatation and who was slightly tachycardic. Agree with management as above. dO Maicol Subjective Seen and examined in 300-1. In increased pain this morning despite 1gm tylenol and given dose of morphine. Tolerating diet without issue. No fever, chills, CP, SOB, N/V. No post op bowel movement yet. Review of Systems Review of Systems: At least ten systems reviewed and negative except as noted in the HPI. Physical Exam Physical Exam: General Appearance: WD/WN, vitals as above, sitting up in bed, in distress from pain, conversing without issue Head: normocephalic, atraumatic Eyes: normal inspection, PERRL, conjunctivae normal, anicteric sclerae ENT: external ear and nose normal, oropharynx normal Neck: normal visual inspection, trachea midline, no thyromegaly Respiratory: normal respiratory effort, lungs clear to auscultation, no wheeze, rales, rhonchi. No accessory muscle use Cardiovascular: regular rate, rhythm, no murmur, normal peripheral pulses, no BLE edema. Vessels: no JVD Abdomen/GI: normal bowel sounds, soft, nontender, no hepatosplenomegaly Extremities/Musculoskeletal: Spinal dressing c/d/i. JOSE drain visualized. No cyanosis or clubbing, extremities motor strength 5/5 Neurologic: PERRL, CN's II-XI intact bilaterally and moves all extremities Psychiatric: A+Ox3, euthymic affect Skin: no rashes, normal color, warm/dry Results & Data Results & Data ([facility]) Vital Signs (Past 12 Hours) Vital Signs Temp Pulse Resp BP BP Pulse Ox 05/10/21 09:28 114/75 05/10/21 09:26 36.6 C 83 24 99/66 L 95 05/10/21 03:56 36.7 C 88 20 105/74 96 05/10/21 03:39 36.6 C 76 17 116/75 97 05/09/21 23:03 36.5 C 81 20 128/86 99 Laboratory Results Short CBC 05/10/21 Range/Units 06:11 WBC 7.37 (4.8-10.8) K/uL Hgb 11.6 L (12.0-16.0) g/dL Hct 35.9 L (37-47) % Plt Count 227 (130-400) K/uL BMP 05/10/21 06:11 Sodium 140 Potassium 3.9 Chloride 108 H Carbon Dioxide 25 BUN 13 Creatinine 0.83 Glucose 103 H Calcium 8.9 Diagnostic Findings Lumbar Spine X-Ray 05/09/21 00:00 FL lumbar spine 2-3V CLINICAL HISTORY: L3-L5 DECOMPRESSION AND FUSION COMPARISON STUDY: Lumbar spine MRI April 12, 2021. FLUOROSCOPY TIME: 32 seconds. FLUOROSCOPIC IMAGES: 2 FINDINGS: Note is made of L3-L4 and L4-L5 discectomies with interbody spacer placement. Posterior decompression is noted. There are bilateral pedicle screws at the L3, L4 and L5 levels. Interconnecting rods are present. Hardware is intact. IMPRESSION: Fluoroscopy provided during L3-L5 discectomies, posterior decompression and bilateral pedicle screw fusion. ACT 112: Negative or not required by law. Electronically signed by: Nitin Bhagat M.D. 05/09/2021 12:21 PM
[2021-05-10] MEDS: dexAMETHasone 8 MG in SYRINGE 0 ML IV SCH (10:57)
[2021-05-10] MEDS ORDERED: GLUCAGON 1 MG in SYRINGE 0 ML IV ONE (20:30)
--- NOTE | 2021-05-10 21:17 | Gastrointestinal Consultation ---
Date of Consultation May 10, 2021 Assessment & Plan (1) Food impaction of esophagus: (2) Dysphagia: steak food impaction persistent despite glucagon and ativan recs: NPO EGD to remove obstruction supportive care Thank you for allowing me to participate in the care of this patient History of Present Illness Attending Physician: Minh Infante DO History of Present Illness 76 yo female here after elective back surgery with a food bolus. She was eating dinner upstairs in the hospital in her room and notes steak got stuck in her throat, and she has had persistent dysphagia since then. She was given glucagon and ativan with no improvement. labs reviewed. Allergies Allergy/AdvReac Type Severity Reaction Status Date / Time Sulfa (Sulfonamide Allergy Unknown Unknown Verified 05/07/21 20:00 Antibiotics) buspirone [From BuSpar] AdvReac Mild Vomiting Verified 05/07/21 20:00 Home Medications Medication Instructions Recorded Confirmed Type baclofen 10 mg tablet 10 mg PO HS PRN 02/20/19 05/07/21 History cholecalciferol (vitamin D3) 125 5,000 unit PO QAM 02/20/19 05/07/21 History mcg (5,000 unit) tablet (Vitamin D3) acetaminophen 500 mg tablet 1,000 mg PO Q8H PRN 05/01/20 05/07/21 History (Tylenol Extra Strength) aspirin 81 mg tablet,delayed 162 mg PO QAM 05/01/20 05/07/21 History release (Aspirin Low Dose) atorvastatin 40 mg tablet 40 mg PO HS 05/01/20 05/07/21 History ferrous sulfate 325 mg (65 mg 325 mg PO QAM 05/01/20 05/07/21 History iron) tablet fluticasone propionate 50 2 spray INTRANASAL DAILY PRN 05/01/20 05/07/21 History mcg/actuation nasal spray,suspension warfarin 5 mg tablet 2.5 - 5 mg PO UD 05/01/20 05/07/21 History furosemide 20 mg tablet 20 mg PO BID 07/30/20 05/07/21 History pantoprazole 40 mg tablet,delayed 40 mg PO QAM 07/30/20 05/07/21 History release dicyclomine 10 mg capsule 10 mg PO TID PRN #30 cap 01/25/21 05/07/21 Rx naltrexone 50 mg tablet 25 mg PO BID 02/25/21 05/07/21 History bupropion HCl 150 mg tablet,12 hr 150 mg PO BID 03/18/21 05/07/21 History sustained-release gabapentin 300 mg capsule 300 mg PO TID 04/19/21 05/07/21 History ascorbic acid (vitamin C) 500 mg 500 mg PO DAILY 05/07/21 05/07/21 History tablet (Vitamin C) enoxaparin 100 mg/mL subcutaneous 0 mg SUBCUT BID 05/07/21 05/07/21 History syringe lorazepam 0.5 mg tablet 0.5 mg PO DIRECTED PRN 05/07/21 05/07/21 History vitamin E 100 unit capsule 100 unit PO DAILY 05/07/21 05/07/21 History oxycodone 5 mg tablet 5 mg PO Q6H PRN #30 tab 05/10/21 Rx tramadol 50 mg tablet 50 mg PO Q6H PRN #30 tab 05/10/21 Rx Patient History Medical History Anxiety Arthritis Atrial fibrillation Follows with [facility] cardio, on coumadin Chronic diastolic CHF (congestive heart failure) GERD (gastroesophageal reflux disease) History of COVID-19 Dx 07/2020, no current issues History of depression Hyperlipidemia Overactive bladder hx botox injections (not successful) TIA (transient ischemic attack) 2018 Surgical History H/O foot surgery Left x2 History of appendectomy History of cataract surgery R/L History of colonoscopy History of esophagogastroduodenoscopy (EGD) History of herniorrhaphy History of hysterectomy History of tooth extraction Family History Father Family history of diabetes mellitus Brother Family history of diabetes mellitus Other Family history non-contributory No family history of adverse response to anesthesia Social History Smoking Status: Former smoker Tobacco Type: Cigarettes Second Hand Exposure: No; Do You Dip or Chew Tobacco: No; Tobacco Cessation Education Requested by Patient: No Hx Alcohol Use: No Hx Substance Use: No Preferred Language: Mosotho Communication Ability: Effective General Inspector Required: No Beliefs That Will Affect Care: None Current Living Situation: Spouse Other Information That Helps Us Care for You: No Feels Safe at Home: Yes Safety Concerns: Feels Safe At This Time Assistive Devices: Denture - Upper, Denture - Lower, Glasses and Walker Review of Systems Constitutional: no fever, no chills and no weight loss Eyes: as per Subjective / HPI Ear, Nose, Mouth, Throat: as per Subjective / HPI Respiratory: no dyspnea and no dyspnea on exertion Cardiovascular: no chest pain and no palpitations Gastrointestinal: as per Subjective / HPI Musculoskeletal: no joint pain and no swelling Integumentary: no rash and no lesions Neurologic: no numbness and no paresthesia Psychiatric: no depression and no anxiety Endocrine: no fatigue Hematologic / Lymphatic: no easy bleeding and no easy bruising Physical Exam Constitutional: WD/WN, vitals as above Eyes: EOM intact bilaterally Neck: normal visual inspection Respiratory: normal respiratory effort, lungs clear to auscultation Cardiovascular: RRR, no murmur, no edema Gastrointestinal (Abdomen): Inspection/Auscultation: abdomen normal to inspection; abdomen not distended Percussion/Palpation: abdomen soft; abdomen nontender and no hepatosplenomegaly Musculoskeletal: Head/Neck/Chest: head normal to inspection Extremities: no cyanosis Skin: no rashes, warm and dry Neurologic: moves all extremities Psychiatric: A+Ox3, euthymic affect Results & Data ([facility]) Vital Signs (Past 12 Hours) Vital Signs Temp Pulse Resp BP BP Pulse Ox Pulse Ox 05/10/21 19:03 104 H 160/93 H 05/10/21 18:55 97 H 18 142/90 H 94 05/10/21 14:33 36.7 C 79 16 101/76 97 05/10/21 11:30 100 05/10/21 09:28 114/75 05/10/21 09:26 36.6 C 83 24 99/66 L 95 PG Care Time/CCT Total # of Minutes Spent Total Time Spent with Patient: Total time spent is greater than 50% in coordination of care (as documented) at patient's floor/unit and/or counseling patient: Coding Level of Care Code 22380 Initial Inpt Care Lvl 3 Diagnoses Food impaction of esophagus T18.128A Dysphagia R13.10
[2021-05-10] MEDS ORDERED: SUCCINYLCHOLINE CHLORIDE 20 MG/ML 10 ML VIAL IV ONE (21:28)
[2021-05-10] MEDS ORDERED: PROPOFOL IV EMULSION 10 MG/ML 20 ML VIAL IV ONE (21:28)
[2021-05-10] MEDS ORDERED: fentaNYL citrate 100 MCG/2 ML VIAL ONE (21:30)
[2021-05-10] MEDS ORDERED: ePHEDrine sulfate 50 MG/ML AMP IV PRN (21:46)
[2021-05-10] MEDS ORDERED: ATROPINE SULFATE 0.1 MG/ML 10ML SYR IV PRN (21:46)
[2021-05-10] MEDS ORDERED: fentaNYL citrate 100 MCG/2 ML VIAL IV PRN (21:46)
[2021-05-10] MEDS ORDERED: ONDANSETRON INJ 2 MG/ML 2 ML VIAL IV PRN (21:46)
--- NOTE | 2021-05-10 21:46 | Anesthesiology Consultation ---
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 History Surgery Operation Date: 05/09/21 07:00 Proposed Procedures p L3-L5 Decompression Fusion, SPINAL CORD MONITORING - Minh Infante DO Operation Date: 05/10/21 22:00 Proposed Procedures p Esophagogastroduodenoscopy, Food Bolus(Not Applicable) - Yousif Nguyễn MD Height/Weight Height: 5 ft 6 in Weight: 92 kg Allergies Allergy/AdvReac Type Severity Reaction Status Date / Time Sulfa (Sulfonamide Allergy Unknown Unknown Verified 05/07/21 20:00 Antibiotics) buspirone [From BuSpar] AdvReac Mild Vomiting Verified 05/07/21 20:00 Medications Home Medications Medication Instructions Recorded Confirmed Last Taken baclofen 10 mg tablet 10 mg PO HS PRN 02/20/19 05/07/21 12/19/20 cholecalciferol (vitamin D3) 125 5,000 unit PO QAM 02/20/19 05/07/21 05/07/21 mcg (5,000 unit) tablet (Vitamin D3) acetaminophen 500 mg tablet 1,000 mg PO Q8H PRN 05/01/20 05/07/21 03/17/21 (Tylenol Extra Strength) aspirin 81 mg tablet,delayed 162 mg PO QAM 05/01/20 05/07/21 05/07/21 release (Aspirin Low Dose) atorvastatin 40 mg tablet 40 mg PO HS 05/01/20 05/07/21 05/06/21 ferrous sulfate 325 mg (65 mg 325 mg PO QAM 05/01/20 05/07/21 05/07/21 iron) tablet fluticasone propionate 50 2 spray INTRANASAL DAILY PRN 05/01/20 05/07/21 07/29/20 mcg/actuation nasal spray,suspension warfarin 5 mg tablet 2.5 - 5 mg PO UD 05/01/20 05/07/21 05/03/21 furosemide 20 mg tablet 20 mg PO BID 07/30/20 05/07/21 05/07/21 08:00 pantoprazole 40 mg tablet,delayed 40 mg PO QAM 07/30/20 05/07/21 05/07/21 release dicyclomine 10 mg capsule 10 mg PO TID PRN #30 cap 01/25/21 05/07/21 Unknown naltrexone 50 mg tablet 25 mg PO BID 02/25/21 05/07/21 05/07/21 08:00 bupropion HCl 150 mg tablet,12 hr 150 mg PO BID 03/18/21 05/07/21 05/07/21 sustained-release gabapentin 300 mg capsule 300 mg PO TID 04/19/21 05/07/21 05/07/21 12:00 ascorbic acid (vitamin C) 500 mg 500 mg PO DAILY 05/07/21 05/07/21 05/07/21 tablet (Vitamin C) enoxaparin 100 mg/mL subcutaneous 0 mg SUBCUT BID 05/07/21 05/07/21 05/07/21 08:00 syringe lorazepam 0.5 mg tablet 0.5 mg PO DIRECTED PRN 05/07/21 05/07/21 Unknown vitamin E 100 unit capsule 100 unit PO DAILY 05/07/21 05/07/21 05/07/21 oxycodone 5 mg tablet 5 mg PO Q6H PRN #30 tab 05/10/21 Unknown tramadol 50 mg tablet 50 mg PO Q6H PRN #30 tab 05/10/21 Unknown Active Medications Generic Name Dose Route Start Last Admin Trade Name Freq PRN Reason Stop Dose Admin Acetaminophen 1,000 mg 05/08/21 00:45 05/08/21 21:16 Acetaminophen 500 Mg Tab PO 06/07/21 00:44 1,000 mg Q8H PRN Administration MILD Pain Scale 1,2,3 & Pre PT Ascorbic Acid 500 mg 05/08/21 09:00 05/10/21 08:38 Ascorbic Acid 500 Mg Tab PO 06/07/21 08:59 500 mg DAILY JAYLEEN Administration Aspirin 162 mg 05/08/21 09:00 05/10/21 08:38 Aspirin 81 Mg Ectab PO 06/07/21 08:59 162 mg QAM JAYLEEN Administration Atorvastatin Calcium 40 mg 05/08/21 00:45 05/09/21 20:11 Atorvastatin 40 Mg Tab PO 06/07/21 00:44 40 mg HS JAYLEEN Administration Bupropion HCl 150 mg 05/08/21 00:45 05/10/21 17:00 Bupropion Sr 150 Mg Tabcr PO 06/07/21 00:44 150 mg BID@0900,1600 JAYLEEN Administration Ferrous Sulfate 325 mg 05/08/21 09:00 05/10/21 08:38 Ferrous Sulfate 325 Mg Tab PO 06/07/21 08:59 325 mg QAM JAYLEEN Administration Gabapentin 300 mg 05/08/21 00:45 05/10/21 14:47 Gabapentin 300 Mg Cap PO 06/07/21 00:44 300 mg TID JAYLEEN Administration Acetaminophen 1,000 mg in 100 mls @ 400 mls/hr 05/08/21 00:45 05/10/21 08:55 Ofirmev IV 05/11/21 00:44 Infused Q8H PRN Infusion Pain Rating 1-3 & Pre PT Lorazepam 0.5 mg in 1 mls @ 1 mls/min 05/08/21 00:45 05/10/21 19:13 Ativan IV 06/07/21 00:44 1 mls/min Q8H PRN Administration Sedation/Anxiety Dexamethasone 8 mg/ Syringe 2 mls @ 1 mls/min 05/10/21 10:00 05/10/21 10:57 IV 06/09/21 09:59 1 mls/min DAILY JAYLEEN Administration Morphine Sulfate 2 mg 05/09/21 22:05 05/10/21 12:13 Morphine Sulfate 2 Mg/Ml Carp IV 05/23/21 22:04 2 mg Q4H PRN Administration Pain Ondansetron HCl 4 mg 05/08/21 00:45 05/09/21 14:12 Ondansetron Inj 2 Mg/Ml 2 Ml Vial IV 06/07/21 00:44 4 mg Q6H PRN Administration Nausea &/or Vomiting Oxycodone HCl 5 - 10 mg 05/08/21 00:45 05/09/21 14:25 Oxycodone Hcl Ir 5 Mg Tab (Immediate Release) PO 05/22/21 00:44 5 mg Q4H PRN Administration mod to severe pain Pantoprazole Sodium 40 mg 05/08/21 09:00 05/10/21 08:38 Pantoprazole 40 Mg Tab PO 06/07/21 08:59 40 mg QAM JAYLEEN Administration Polyethylene Glycol 17 gm 05/10/21 06:00 05/10/21 17:37 Polyethylene (Miralax) 17 Gm Pack PO 06/09/21 05:59 17 gm Q6 JAYLEEN Administration Senna/Docusate Sodium 2 tab 05/09/21 21:00 05/09/21 20:20 Docusate Sodium/Senna 50/8.6mg Tab PO 06/08/21 20:59 2 tab HS JAYLEEN Administration Tramadol HCl 50 - 100 mg 05/08/21 00:45 05/09/21 15:57 Tramadol Hcl 50 Mg Tablet PO 06/07/21 00:44 100 mg Q4H PRN Administration Moderate-Severe pain & Pre PT NPO Date Last Intake of Fluids: 05/08/21 Time Last Intake of Fluids: 21:00 Last Intake of Fluids Comment: sip of water 0730 w/meds Date Last Intake of Solids: 05/08/21 Time Last Intake of Solids: 18:00 Past Medical History Medical History Anxiety Arthritis Atrial fibrillation Follows with [facility], on coumadin Chronic diastolic CHF (congestive heart failure) GERD (gastroesophageal reflux disease) History of COVID-19 Dx 07/2020, no current issues History of depression Hyperlipidemia Overactive bladder hx botox injections (not successful) TIA (transient ischemic attack) 2018 Past Family History Family History Father Family history of diabetes mellitus Brother Family history of diabetes mellitus Other Family history non-contributory No family history of adverse response to anesthesia Past Surgical History Surgical History H/O foot surgery Left x2 History of appendectomy History of cataract surgery R/L History of colonoscopy History of esophagogastroduodenoscopy (EGD) History of herniorrhaphy History of hysterectomy History of tooth extraction Social History Smoking Status: Former smoker Do You Dip or Chew Tobacco: No Hx Alcohol Use: No alcohol intake frequency: holidays/special occasions only Hx Substance Use: No substance use type: does not use Physical Exam Vital Signs Last Vital Signs Temp 98.1 F 05/10/21 14:33 Pulse 104 H 05/10/21 19:03 Resp 18 05/10/21 18:55 BP 160/93 H 05/10/21 19:03 Pulse Ox 94 05/10/21 18:55 Testing Laboratory Results 05/10/21 06:11 05/10/21 06:11 PT 10.3 Seconds (9.0-12.0) 05/07/21 21:33 INR 1.0 (0.9-1.1) 05/07/21 21:33 APTT 34.1 Seconds (21.0-31.0) H 05/07/21 21:33 Urine Color Yellow 05/07/21 20: Urine Appearance Clear (Clear) 05/07/21 20: Urine pH 5.5 (4.5-7.5) 05/07/21 20:05 Ur Specific [place] 1.018 (1.000-1.030) 05/07/21 20:05 Urine Protein Negative (Negative) 05/07/21 20:05 Urine Glucose (UA) Negative (Negative) 05/07/21 20: Urine Ketones Negative (Negative) 05/07/21 20:05 Urine Nitrite Negative (Negative) 05/07/21 20:05 Ur Leukocyte Esterase Negative (Negative) 05/07/21 20:05 Blood Type AB Positive 05/08/21 16:26 Antibody Screen NEGATIVE 05/08/21 16:26 Electrocardiogram Date: 02/25/21 Findings: + NSR @ (82) and + poor R wave progression Chest X-Ray Date: 04/20/21 Findings: + NAD Echocardiogram Date: 01/10/21 EF: 65% LV Function: normal Other Findings: + diastolic dysfunction moderate TR mild AR
[2021-05-10] MEDS ORDERED: ONDANSETRON INJ 2 MG/ML 2 ML VIAL ONE (22:17)
--- NOTE | 2021-05-10 23:19 | GI REPORT ---
Patient Name: Samantha Hendrickson Procedure Date: 05/10/2021 10:00 PM Date of : 1945 Admit Type: Inpatient Age: 76 Gender: Female Attending MD: Yousif Nguyễn MD Procedure: Upper GI endoscopy Providers: Yousif Nguyễn MD Referring MD: Minh Infante Indications: Dysphagia, Foreign body in the esophagus Medicines: Monitored Anesthesia Care Complications: No immediate complications. Estimated blood loss: None. Estimated Blood Loss: Estimated blood loss: none. Procedure: Pre-Anesthesia Assessment: - Prior Anticoagulants: The patient has taken no previous anticoagulant or antiplatelet agents. - ASA Grade Assessment: II - A patient with mild systemic disease. After obtaining informed consent, the endoscope was passed under direct vision. Throughout the procedure, the patient's blood pressure, pulse, and oxygen saturations were monitored continuously. The Endoscope was introduced through the mouth, and advanced to the second part of duodenum. The upper GI endoscopy was accomplished without difficulty. The patient tolerated the procedure well. Findings: Food was found in the entire esophagus including steak and potatoes. Removal of food was accomplished using cap suction. Estimated blood loss: none. The mid esophagus and distal esophagus were moderately tortuous. A TTS dilator was passed through the scope. Dilation with a 15-16.5-18 mm balloon dilator was performed to 18 mm with improved narrowing post dilation. Estimated blood loss: none. A large amount of food (residue) was found in the gastric fundus and in the gastric body. The duodenal bulb and second portion of the duodenum were normal. Impression: - Food in the esophagus. Removal was successful. - Tortuous esophagus. - A large amount of food (residue) in the stomach. - Normal duodenal bulb and second portion of the duodenum. Recommendation: - Return patient to hospital [facility] for ongoing care. - NPO today. -speech and swallow evaluation tomorrow morning to further evaluate -barium swallow tomorrow to further evaluate -supportive care, IVFs Yousif Nguyễn MD 05/10/2021 11:18:43 PM This report has been signed electronically. Note Initiated On: 05/10/2021 10:00 PM Number of Addenda: 0 I attest to the content of the Intraoperative Record and orders documented therein, exceptions below {[id number]}
--- NOTE | 2021-05-10 23:23 | Procedure Note ---
Procedure Note Date of Service May 10, 2021 Note GI procedure note/ post op note EGD findings: large amounts of steak and potatoes in the entire esophagus, removed with cap suction. Esophagus was tortuous in mid and distal esophagus moderately, dilated with balloon dilator to 18 mm with improved narrowing. large amount of food in stomach, normal duodenum. Recs: NPO tonight speech and swallow eval in the morning barium swallow xray tomorrow morning supportive care, IVFs rest as per primary team Yousif Nguyễn MD Gastroenterology Coding
--- NOTE | 2021-05-10 23:25 | Anesthesiology Progress Note ---
Date of Service May 10, 2021 Anesthesia Post Procedure Vital Signs Vital Signs: Temp Pulse Resp BP BP Pulse Ox Pulse Ox 05/10/21 19:03 104 H 160/93 H 05/10/21 18:55 97 H 18 142/90 H 94 05/10/21 14:33 98.1 F 79 16 101/76 97 05/10/21 11:30 100 05/10/21 09:28 114/75 05/10/21 09:26 97.9 F 83 24 99/66 L 95 05/10/21 03:56 98.1 F 88 20 105/74 96 05/10/21 03:39 97.9 F 76 17 116/75 97 Pain Intensity Right Hip: Pain Intensity: 3 Back: Pain Intensity: 6 Transfer of Care Handoff Completed per policy Notes Mental Status: alert / awake / arousable and participated in evaluation Patient Amnestic to Procedure: Yes Nausea / Vomiting: adequately controlled Pain: adequately controlled Airway Patency, RR, SpO2: stable & adequate BP & HR: stable & adequate Hydration State: stable & adequate Anesthetic Complications: no major complications apparent and Pt Satisfied with anesthetic care
[2021-05-11] MEDS: GABAPENTIN 300 MG CAP PO SCH ×4 (00:28→20:22)
[2021-05-11] MEDS: POLYETHYLENE (MIRALAX) 17 GM PACK PO SCH ×5 (00:28→22:17)
[2021-05-11] MEDS: ATORVASTATIN 40 MG TAB PO SCH ×2 (00:28→20:21)
[2021-05-11] MEDS: DOCUSATE SODIUM/SENNA 50/8.6MG TAB PO SCH ×2 (00:28→20:21)
[2021-05-11 05:34] LABS: Hematocrit (blood only) 31.7 % (37-47); Hemoglobin 10.5 g/dL (12.0-16.0); Mean Corpuscular Hemoglobin 31.9 pg (25-34); Mean Corpuscular Hgb Conc 33.1 g/dL (32-36); Mean Corpuscular Volume 96.4 fL (80-100); Platelet Count 197 K/uL (130-400); RDW Coefficient of Variation 15.1 % (11.5-14.5); RDW Standard Deviation 53.1 fL (36.4-46.3); Red Blood Count 3.29 M/uL (4.2-5.4); White Blood Count 7.59 K/uL (4.8-10.8)
[2021-05-11 05:43] LABS: Prothrombin Time 10.2 Seconds (9.0-12.0)
[2021-05-11 06:08] LABS: BUN Creatinine Ratio 18.8 (10-20); Calcium 8.5 mg/dl (8.5-10.1); Creatinine Clr Calc Pharmacy 76.1 ml/min; Est GFR (African American) 93.4 ml/min; Est GFR (Non-African American) 80.6 ml/min; Potassium 3.8 mmol/L (3.5-5.1)
--- NOTE | 2021-05-11 09:13 | Orthopedic Progress Note ---
Date of Service May 11, 2021 Assessment & Plan (1) Lumbar back pain with radiculopathy affecting right lower extremity: Plan: At this time we will continue with physical therapy occupational therapy assess her progress of the week and hopefully she will be fit to return home Friday or Friday. Admission and Anticipated Discharge Date Admission Date: May 07, 2021 Subjective Patient is having some discomfort with swallowing. Her throat is still sore after the scope but is overall is improved. Her back pain is controlled. Leg symptoms are markedly improved. Physical Exam Physical Exam: On exam she is resting comfortably. She does exhibit good strength testing to the lower extremities. Results & Data ([facility]) Vital Signs (Past 12 Hours) Vital Signs Temp Pulse Pulse Resp BP Pulse Ox Pulse Ox 05/11/21 06:19 37.3 C 101 H 20 105/66 95 05/11/21 02:22 36.8 C 94 H 14 122/78 99 05/11/21 01:20 36.8 C 89 16 105/72 97 05/11/21 00:50 37 C 87 18 127/84 99 05/11/21 00:20 36.8 C 91 H 20 123/81 93 99 05/11/21 00:10 89 20 110/80 99 05/11/21 00:00 36.7 C 73 20 111/74 98 05/10/21 23:50 81 16 117/76 99 05/10/21 23:40 89 20 118/69 99 05/10/21 23:30 83 18 111/75 99 05/10/21 23:20 94 H 22 123/86 99 05/10/21 23:19 36.2 C L 98 H 18 126/86 98
[2021-05-11] MEDS: dexAMETHasone 8 MG in SYRINGE 0 ML IV SCH (09:35)
[2021-05-11] MEDS: ASCORBIC ACID 500 MG TAB PO SCH (09:35)
[2021-05-11] MEDS: PANTOprazole 40 MG TAB PO SCH (09:35)
[2021-05-11] MEDS: FERROUS SULFATE 325 MG TAB PO SCH (09:35)
[2021-05-11] MEDS: ASPIRIN 81 MG ECTAB PO SCH (09:35)
[2021-05-11] MEDS: buPROPion SR 150 MG TABCR PO SCH ×2 (09:35→16:54)
[2021-05-11] MEDS: MoRPHine SULFATE 2 MG/ML CARP IV PRN ×2 (09:46→13:59)
--- NOTE | 2021-05-11 10:00 | Gastroenterology Progress Note ---
Date of Service May 11, 2021 Assessment & Plan (1) Food impaction of esophagus: (2) Dysphagia: Plan: steak food impaction persistent despite glucagon and Ativan recs: NPO until video swallow/CLAIM PROCESSOR evaluation. If no aspiration, recommend barium swallow as well. Continue supportive care. Thank you for allowing me to participate in the care of this patient Admission and Anticipated Discharge Date Admission Date: May 07, 2021 Subjective Patient remains NPO. Reports she is very thirsty. She has been ordered CLAIM PROCESSOR evaluation. No chest pain but reports mild sore throat since procedure last night. Review of Systems Cardiovascular: as per Subjective / HPI Gastrointestinal: no abdominal pain, no nausea, no vomiting, no blood in stools and no melena Physical Exam Constitutional: well developed and well nourished Eyes: EOM intact bilaterally Neck: normal visual inspection Respiratory: normal respiratory effort Skin: normal color Psychiatric: A+Ox3, euthymic affect Results & Data Results & Data ([facility]) Vital Signs (Past 12 Hours) Vital Signs Temp Pulse Pulse Resp BP Pulse Ox Pulse Ox 05/11/21 06:19 37.3 C 101 H 20 105/66 95 05/11/21 02:22 36.8 C 94 H 14 122/78 99 05/11/21 01:20 36.8 C 89 16 105/72 97 05/11/21 00:50 37 C 87 18 127/84 99 05/11/21 00:20 36.8 C 91 H 20 123/81 93 99 05/11/21 00:10 89 20 110/80 99 05/11/21 00:00 36.7 C 73 20 111/74 98 05/10/21 23:50 81 16 117/76 99 05/10/21 23:40 89 20 118/69 99 05/10/21 23:30 83 18 111/75 99 05/10/21 23:20 94 H 22 123/86 99 05/10/21 23:19 36.2 C L 98 H 18 126/86 98 PG Care Time/CCT Total # of Minutes Spent Total Time Spent with Patient: Total time spent is greater than 50% in coordination of care (as documented) at patient's floor/unit and/or counseling patient: Coding Level of Care Code 10746 Subseq Hosp Care Lvl 3 Diagnoses Food impaction of esophagus T18.128A Dysphagia R13.10
--- NOTE | 2021-05-11 13:36 | Fluoroscopy Report ---
FL barium swallow CLINICAL HISTORY: 76 years-old Female with food bolus. Hiatal hernia with food bolus TECHNIQUE: Barium contrast and effervescent crystals were administered to the patient under fluorosco pic examination. Barium tablet also administered. Multiple images were obtained and submitted for rev iew. FLUOROSCOPY TIME: 1.0 minutes COMPARISON: CT abdomen and pelvis 01/25/2021 FINDINGS: During deglutition, contrast material flowed freely through the cervical esophagus. No filling defec t or mucosal abnormality is identified. No abnormal stricturing or mass effect is seen. The mid to distal esophagus is well coated and distended. No abnormal stricturing or mucosal abnormality is pio ntified. The barium tablet passed from the esophagus into the stomach. No significant reflux. Mild to moderate distal esophageal tertiary contractions. Large hiatal hernia redemonstrated. Limited study secondary to patient condition with limited mobility. IMPRESSION: 1. Large hiatal hernia with distal esophageal dysmotility. 2. No gastroesophageal reflux. ACT 112: Negative or not required by law. The above report was generated using voice recognition software. It may contain grammatical, syntax o r spelling errors. Electronically signed by: Arya German M.D. 05/11/2021 1:35 PM
--- NOTE | 2021-05-11 17:13 | Hospitalist Progress Note ---
Date of Service May 11, 2021 Assessment & Plan (1) Lumbar back pain with radiculopathy affecting right lower extremity: (2) Neurogenic claudication due to lumbar spinal stenosis: (3) Atrial fibrillation: (4) Chronic diastolic CHF (congestive heart failure): Plan: This is a 76-year-old female who has significant past medical history of PAF chronically anticoagulated on warfarin, chronic diastolic CHF, aortic valve sclerosis, ascending aortic enlargement, anterior communicating artery aneurysm, history of TIA, anxiety, GERD, RLS who presents to ED secondary to lumbar spinal stenosis with neurogenic claudication requiring urgent lumbar decompression fusi on at L3-L5. POD # 2 lumbar decompression fusion L3-L5 by Dr. Infante Per ortho for pain control, wound care, anticoagulation and activities Monitor H&H (hgb 10.5 today, 11.6 yesterday) Continue incentive spirometry, PT/OT when appropriate Food impaction s/p EGD removal Impaction of steak in esophagus during dinner last evening causing difficulty swallowing despite glucagon and ativan Underwent EGD by Dr. Nguyễn to remove obstruction Remained NPO today until barium swallow study by speech therapy with recommendations to resume easy to chew diet with slippery liquids, HOB at or above 30 degrees at all times PAF Warfarin on hold, home regimen 2.5mg MoWeThSa and 5mg all other day Lovenox x 1 on 05/08, will need to resume post op @ 100mg Q12hr when cleared by Dr. Infante Chadvasc2 score of 6, with history of PAF and TIA so will plan on bridging post procedure Dr. Infante okay to resume coumadin and Lovenox bridge today - will resume this evening Not on any beta neha therapy Chronic Diastolic CHF/HFpEF Aortic Valve sclerosis daily weights, strict intake and output heart healthy, low sodium diet will hold lasix starting tomorrow, assess daily need to resume Elevated blood pressure reading Initially elevated likely situational, now normotensive Continue to monitor Hx of TIA continue ASA 162mg daily and statin DVT ppx: Resuming coumadin and lovenox bridge this evening Dispo: med/surg PCP: Levar FULL CODE Pt was seen and examined in collaboration with Dr. Milian, please see addendum Thank you for this consultation. We will follow the patient with you during their hospital stay. You can reach a member of the [facility] Hospitalist Team 17/02 via hospitalist role on tiger text. Admission and Anticipated Discharge Date Admission Date: May 07, 2021 Supervising Physician Co-Signing Physician Notes I have seen and examined the patient and have discussed the case with the provider above. I agree with the assessment and plan as stated. She is improved today s/p EGD overnight. Some hesitation to eat food but feeling well overall. Physical exam as above, drain in place, álvarez still in place-will remove now. Starting bridging therapy with anticoagulation tonight. Otherwise, agree with recommendations listed above. Maicol, Subjective Patient seen and examined in 300-1. Last evening, patient was eating dinner and had impaction of steak in esophagus causing difficulty swallowing despite glucagon and ativan. Underwent EGD by Dr. Nguyễn to remove obstruction. Remained NPO today until barium swallow study by speech therapy with recommendations to resume easy to chew diet with slippery liquids. Otherwise patient is doing well. Surgical site pain controlled. No fever, chills, CP, SOB, N/V/D. Review of Systems Review of Systems: At least ten systems reviewed and negative except as noted in the HPI. Physical Exam Physical Exam: Gen: WD/WN, NAD, sitting in bed, A&Ox3 HEENT: Normocephalic, atraumatic, conjunctivae moist, sclerae anicteric Lung: Clear to Auscultation bilaterally, no wheezes/rales/rhonchi Heart: Regular rate, regular rhythm, no murmurs, rubs, or gallops Abdomen: Soft, NT, ND +BS x 4 Extremities: + spinal dressing c/d/i. JOSE drain with minimal output. No edema Skin: Warm, no rash Results & Data Results & Data ([facility]) Vital Signs (Past 12 Hours) Vital Signs Temp Pulse Resp BP Pulse Ox 05/11/21 14:07 36.7 C 83 18 105/71 98 05/11/21 06:19 37.3 C 101 H 20 105/66 95 Laboratory Results Short CBC 05/11/21 Range/Units 05:23 WBC 7.59 (4.8-10.8) K/uL Hgb 10.5 L (12.0-16.0) g/dL Hct 31.7 L (37-47) % Plt Count 197 (130-400) K/uL BMP 05/11/21 05:23 Sodium 140 Potassium 3.8 Chloride 112 H Carbon Dioxide 26 BUN 14 Creatinine 0.73 Glucose 98 Calcium 8.5 Diagnostic Findings Lumbar Spine X-Ray 05/09/21 00:00 FL lumbar spine 2-3V CLINICAL HISTORY: L3-L5 DECOMPRESSION AND FUSION COMPARISON STUDY: Lumbar spine MRI April 12, 2021. FLUOROSCOPY TIME: 32 seconds. FLUOROSCOPIC IMAGES: 2 FINDINGS: Note is made of L3-L4 and L4-L5 discectomies with interbody spacer placement. Posterior decompression is noted. There are bilateral pedicle screws at the L3, L4 and L5 levels. Interconnecting rods are present. Hardware is intact. IMPRESSION: Fluoroscopy provided during L3-L5 discectomies, posterior decompression and bilateral pedicle screw fusion. ACT 112: Negative or not required by law. Electronically signed by: Nitin Bhagat M.D. 05/09/2021 12:21 PM Barium Swallow X-Ray 05/11/21 08:49 FL barium swallow CLINICAL HISTORY: 76 years-old Female with food bolus. Hiatal hernia with food bolus TECHNIQUE: Barium contrast and effervescent crystals were administered to the patient under fluoroscopic examination. Barium tablet also administered. Multiple images were obtained and submitted for review. FLUOROSCOPY TIME: 1.0 minutes COMPARISON: CT abdomen and pelvis 01/25/2021 FINDINGS: During deglutition, contrast material flowed freely through the cervical esophagus. No filling defect or mucosal abnormality is identified. No abnormal stricturing or mass effect is seen. The mid to distal esophagus is well coated and distended. No abnormal stricturing or mucosal abnormality is identified. The barium tablet passed from the esophagus into the stomach. No significant reflux. Mild to moderate distal esophageal tertiary contractions. Large hiatal hernia redemonstrated. Limited study secondary to patient condition with limited mobility. IMPRESSION: 1. Large hiatal hernia with distal esophageal dysmotility. 2. No gastroesophageal reflux. ACT 112: Negative or not required by law. The above report was generated using voice recognition software. It may contain grammatical, syntax or spelling errors. Electronically signed by: Arya German M.D. 05/11/2021 1:35 PM
[2021-05-11] MEDS ORDERED: WARFARIN SOD 5 MG TAB PO STA (17:14)
[2021-05-11] MEDS: ENOXAPARIN 100 MG/1ML SYR SQ SCH (21:03)
[2021-05-11] MEDS: oxyCODONE HCL IR 5 MG TAB (IMMEDIATE RELEASE) PO PRN (22:16)
[2021-05-12] MEDS: oxyCODONE HCL IR 5 MG TAB (IMMEDIATE RELEASE) PO PRN ×3 (02:52→20:02)
[2021-05-12 06:14] LABS: Hematocrit (blood only) 31.2 % (37-47); Hemoglobin 10.1 g/dL (12.0-16.0); Mean Corpuscular Hemoglobin 31.9 pg (25-34); Mean Corpuscular Hgb Conc 32.4 g/dL (32-36); Mean Corpuscular Volume 98.4 fL (80-100); Mean Platelet Volume 9.4 fL (7.4-10.4); Platelet Count 218 K/uL (130-400); RDW Coefficient of Variation 14.8 % (11.5-14.5); RDW Standard Deviation 53.2 fL (36.4-46.3); Red Blood Count 3.17 M/uL (4.2-5.4); White Blood Count 7.02 K/uL (4.8-10.8)
[2021-05-12 06:27] LABS: INR 1.1 (0.9-1.1); Prothrombin Time 10.7 Seconds (9.0-12.0)
[2021-05-12] MEDS: POLYETHYLENE (MIRALAX) 17 GM PACK PO SCH ×5 (06:33→23:12)
[2021-05-12 06:53] LABS: BUN Creatinine Ratio 23.3 (10-20); Calcium 8.8 mg/dl (8.5-10.1); Creatinine Clr Calc Pharmacy 89.6 ml/min; Est GFR (African American) 102.2 ml/min; Est GFR (Non-African American) 88.2 ml/min; Potassium 3.8 mmol/L (3.5-5.1)
[2021-05-12] MEDS ORDERED: GLYCERIN ADULT 12 SUPP/BOX SUPP PR ONE (07:13)
[2021-05-12] MEDS ORDERED: ALUMINUM/MAGNESIUM SUSP 72 ML, LIDOCAINE VISCOUS 2% SOLN 24 ML, BARCODE IDENTIFIER 1 EA PO PRN (07:13)
[2021-05-12] MEDS: ASPIRIN 81 MG ECTAB PO SCH (07:56)
[2021-05-12] MEDS: GABAPENTIN 300 MG CAP PO SCH ×3 (07:56→21:21)
[2021-05-12] MEDS: ASCORBIC ACID 500 MG TAB PO SCH (07:56)
[2021-05-12] MEDS: dexAMETHasone 8 MG in SYRINGE 0 ML IV SCH (07:56)
[2021-05-12] MEDS: FERROUS SULFATE 325 MG TAB PO SCH (07:56)
[2021-05-12] MEDS: buPROPion SR 150 MG TABCR PO SCH ×2 (07:56→17:07)
[2021-05-12] MEDS: PANTOprazole 40 MG TAB PO SCH (07:56)
[2021-05-12] MEDS: ENOXAPARIN 100 MG/1ML SYR SQ SCH ×2 (07:58→21:21)
--- NOTE | 2021-05-12 08:25 | Hospitalist Progress Note ---
Date of Service May 12, 2021 Assessment & Plan (1) Lumbar back pain with radiculopathy affecting right lower extremity: (2) Neurogenic claudication due to lumbar spinal stenosis: (3) Atrial fibrillation: (4) Chronic diastolic CHF (congestive heart failure): (5) Post-operative state: Plan: This is a 76-year-old female who has significant past medical history of PAF chronically anticoagulated on warfarin, chronic diastolic CHF, aortic valve sclerosis, ascending aortic enlargement, anterior communicating artery aneurysm, history of TIA, anxiety, GERD, RLS who presents to ED secondary to lumbar spinal stenosis with neurogenic claudication requiring urgent lumbar decompression fusion at L3-L5. POD # 3 lumbar decompression fusion L3-L5 by Dr. Infante Per ortho for pain control, wound care, anticoagulation and activities Monitor H&H (hgb 10.5 today, 11.6 yesterday) Continue incentive spirometry, PT/OT when appropriate Food impaction s/p EGD removal Impaction of steak in esophagus during dinner causing difficulty swallowing despite glucagon and ativan Underwent EGD by Dr. Nguyễn to remove obstruction on 05/10 Remained NPO until barium swallow study by speech therapy with recommendations to resume easy to chew diet with slippery liquids, HOB at or above 30 degrees at all times Did well with food but some nausea today. Possible etiologies include but not limited to constipation, ileus, post-op state, medications. PAF Warfarin on hold, home regimen 2.5mg MoWeThSa and 5mg all other day Chadvasc2 score of 6, with history of PAF and TIA so will plan on bridging post procedure Resumed coumadin and Lovenox bridge 05/11 Not on any beta neha therapy at baseline. Chronic Diastolic CHF/HFpEF Aortic Valve sclerosis daily weights, strict intake and output heart healthy, low sodium diet will hold lasix starting tomorrow, assess daily need to resume Hx of TIA continue ASA 162mg daily and statin DVT ppx: Lovenox, coumadin Dispo: med/surg PCP: Levar FULL CODE Admission and Anticipated Discharge Date Admission Date: May 07, 2021 Subjective 76 yo F s/p back surgery and s/p EGD for food bolus extraction after accidental impaction post-operatively. Today she woke up very nauseous. She also states she hasn't had a BM in several days and this may be contributing in her opinion. Throat is sore-she is concerned about vomiting as she doesn't want this to hurt more with recent events. Back pain is manageable Drain in place No bleeding, chest pain or SOB Review of Systems Review of Systems: At least ten systems were reviewed and negative except as indicated in HPI above. Physical Exam Physical Exam: CONSTITUTIONAL: WNWD, vitals as above, generally ill-appearing EYES: normal conjunctivae, no scleral icterus ENT: external ear and nose normal, MMM NECK: trachea midline RESPIRATORY: clear to auscultation bilaterally, no crackles, rales or wheezes, normal respiratory effort CARDIOVASCULAR: regular rate and rhythm, S1 and 2 heard without murmurs, gallops or rubs, no JVD, no peripheral edema GASTROINTESTINAL: soft, nontender, ND, no guarding. MUSCULOSKELETAL: strength 5/5 throughout, head is normocephalic and atraumatic SKIN: warm and dry NEUROLOGIC: CN 2-12 grossly intact, normal cognition, normal speech, no tremor. No gross focal deficits. PSYCHIATRIC: alert cooperative and oriented to person, place and time. Results & Data Results & Data ([facility]) Vital Signs (Past 12 Hours) Vital Signs Temp Pulse Resp BP Pulse Ox 05/12/21 07:54 36.7 C 72 18 108/74 97 05/11/21 22:18 36.7 C 86 18 128/84 94 Laboratory Results Short CBC 05/12/21 Range/Units 05:45 WBC 7.02 (4.8-10.8) K/uL Hgb 10.1 L (12.0-16.0) g/dL Hct 31.2 L (37-47) % Plt Count 218 (130-400) K/uL BMP 05/12/21 05:45 Sodium 140 Potassium 3.8 Chloride 110 H Carbon Dioxide 25 BUN 14 Creatinine 0.62 Glucose 101 H Calcium 8.8 Medications Administered Current Inpatient Medications Acetaminophen (Acetaminophen 500 Mg Tab) 1,000 mg PO Q8H PRN PRN Reason: MILD Pain Scale 1,2,3 & Pre PT Stop: 06/07/21 00:44 Last Admin: 05/08/21 21:16 Dose: 1,000 mg Documented by: Al Hydrox/Mg Hydrox/Simethicone (Aluminum/Magnesium Susp 30 Ml Udc) 30 ml PO Q6H PRN PRN Reason: Dyspepsia Stop: 06/08/21 13:59 Ascorbic Acid (Ascorbic Acid 500 Mg Tab) 500 mg PO DAILY [facility] Stop: 06/07/21 08:59 Last Admin: 05/12/21 07:56 Dose: 500 mg Documented by: Aspirin (Aspirin 81 Mg Ectab) 162 mg PO QAM [facility] Stop: 06/07/21 08:59 Last Admin: 05/12/21 07:56 Dose: 162 mg Documented by: Atorvastatin Calcium (Atorvastatin 40 Mg Tab) 40 mg PO HS [facility] Stop: 06/07/21 00:44 Last Admin: 05/11/21 20:21 Dose: 40 mg Documented by: Bisacodyl (Bisacodyl 10 Mg Supp) 10 mg NM DAILY PRN PRN Reason: Constipation Stop: 06/08/21 13:59 Bupropion HCl (Bupropion Sr 150 Mg Tabcr) 150 mg PO BID@0900,1600 [facility] Stop: 06/07/21 00:44 Last Admin: 05/12/21 07:56 Dose: 150 mg Documented by: Al Hydrox/Mg Hydrox/Simethicone 72 ml/ Lidocaine HCl 24 ml/ BARCODE IDENTIFIER 1 ea 0 ml PO Q12H PRN PRN Reason: upset stomach Stop: 06/11/21 07:12 Dicyclomine HCl (Dicyclomine Hcl 10 Mg Cap) 10 mg PO TID PRN PRN Reason: abdominal cramping Stop: 06/07/21 00:44 Diphenhydramine HCl (Diphenhydramine Capsule 25 Mg Cap) 25 mg PO Q6H PRN PRN Reason: Allergic Rhinitis/Insomnia Stop: 06/07/21 00:44 Enoxaparin Sodium (Enoxaparin 100 Mg/1ml Syr) 100 mg SQ BID [facility] Stop: 06/10/21 20:59 Last Admin: 05/12/21 07:58 Dose: 100 mg Documented by: Famotidine (Famotidine 20 Mg Tab) 20 mg PO Q12H PRN PRN Reason: Dyspepsia Stop: 06/08/21 13:59 Ferrous Sulfate (Ferrous Sulfate 325 Mg Tab) 325 mg PO QAM [facility] Stop: 06/07/21 08:59 Last Admin: 05/12/21 07:56 Dose: 325 mg Documented by: Gabapentin (Gabapentin 300 Mg Cap) 300 mg PO TID [facility] Stop: 06/07/21 00:44 Last Admin: 05/12/21 07:56 Dose: 300 mg Documented by: Hydroxyzine HCl (Hydroxyzine Hcl 25 Mg Tab) 25 mg PO Q8H PRN PRN Reason: Anxiety Stop: 06/07/21 00:44 Promethazine HCl 12.5 mg/ (Sodium Chloride) 50.5 mls @ 202 mls/hr IV Q6H PRN PRN Reason: Nausea &/or Vomiting Stop: 06/07/21 00:44 Last Infusion: 05/12/21 07:06 Dose: Infused Documented by: Lorazepam (Ativan) 0.5 mg in 1 mls @ 1 mls/min IV Q8H PRN PRN Reason: Sedation/Anxiety Stop: 06/07/21 00:44 Last Admin: 05/10/21 19:13 Dose: 1 mls/min Documented by: Dexamethasone 8 mg/ Syringe 2 mls @ 1 mls/min IV DAILY JAYLEEN Stop: 06/09/21 09:59 Last Admin: 05/12/21 07:56 Dose: 1 mls/min Documented by: Influenza Virus Vaccine Quadrival (Do Not Administer Flu Vaccine) 1 ea N/A PRN PRN PRN Reason: Notification Stop: 06/08/21 13:59 Lorazepam (Lorazepam 0.5 Mg Tab) 0.5 mg PO Q8H PRN PRN Reason: sedation/anxiety Stop: 06/07/21 00:44 Magnesium Hydroxide (Magnesium Hydroxide Susp 30 Ml Udc) 30 ml PO Q24H PRN PRN Reason: Constipation Stop: 06/08/21 13:59 Metoclopramide HCl (Metoclopramide Hcl Inj 5 Mg/Ml 2 Ml Vial) 10 mg IV Q6H PRN PRN Reason: Nausea &/or Vomiting Stop: 06/07/21 00:44 Morphine Sulfate (Morphine Sulfate 2 Mg/Ml Carp) 2 mg IV Q4H PRN PRN Reason: Pain Stop: 05/23/21 22:04 Last Admin: 05/11/21 13:59 Dose: 2 mg Documented by: Naloxone HCl (Naloxone Hcl 0.4 Mg/1 Ml Vial/Carp) 0.1 mg IV Q5M PRN PRN Reason: Oversedation/respiratory dep Stop: 06/07/21 00:44 Ondansetron HCl (Ondansetron Inj 2 Mg/Ml 2 Ml Vial) 4 mg IV Q6H PRN PRN Reason: Nausea &/or Vomiting Stop: 06/07/21 00:44 Last Admin: 05/09/21 14:12 Dose: 4 mg Documented by: Ondansetron HCl (Ondansetron 4 Mg Od Tab) 4 mg PO Q6H PRN PRN Reason: Nausea Stop: 06/07/21 00:44 Last Admin: 05/12/21 05:51 Dose: 4 mg Documented by: Oxycodone HCl (Oxycodone Hcl Ir 5 Mg Tab (Immediate Release)) 5 - 10 mg PO Q4H PRN PRN Reason: mod to severe pain Stop: 05/22/21 00:44 Last Admin: 05/12/21 02:52 Dose: 10 mg Documented by: Pantoprazole Sodium (Pantoprazole 40 Mg Tab) 40 mg PO QAM [facility] Stop: 06/07/21 08:59 Last Admin: 05/12/21 07:56 Dose: 40 mg Documented by: Pneumococcal Polyvalent Vaccine (Do Not Administer Pneumococcal Vaccine) 1 ea N/A PRN PRN PRN Reason: Notification Stop: 06/08/21 13:59 Polyethylene Glycol (Polyethylene (Miralax) 17 Gm Pack) 17 gm PO Q6 JAYLEEN Stop: 06/09/21 05:59 Last Admin: 05/12/21 06:33 Dose: Not Given Documented by: Senna/Docusate Sodium (Docusate Sodium/Senna 50/8.6mg Tab) 2 tab PO HS JAYLEEN Stop: 06/08/21 20:59 Last Admin: 05/11/21 20:21 Dose: 2 tab Documented by: Sodium Biphosphate/Sodium Phosphate (Sod Phosphate/Sod Biphosphate Enema 132 Ml Btl) 132 ml NM ONE PRN PRN Reason: Constipation Stop: 06/08/21 13:59 Tramadol HCl (Tramadol Hcl 50 Mg Tablet) 50 - 100 mg PO Q4H PRN PRN Reason: Moderate-Severe pain & Pre PT Stop: 06/07/21 00:44 Last Admin: 05/09/21 15:57 Dose: 100 mg Documented by: Warfarin Sodium (Warfarin Sod 5 Mg Tab) 5 mg PO DAILY@1600 JAYLEEN Stop: 06/11/21 15:59
--- NOTE | 2021-05-12 09:52 | Orthopedic Progress Note ---
Date of Service May 12, 2021 Assessment & Plan (1) Lumbar back pain with radiculopathy affecting right lower extremity: Plan: This time continue physical therapy. We will have social worker clinical see if we can arrange rehab placement Friday or Friday. Most likely be able to discontinue her drain in the a.m. Admission and Anticipated Discharge Date Admission Date: May 07, 2021 Subjective Patient is noting steady improvement. Has complete resolution of her leg pain. Back pain is controlled. Swallowing steadily improving. She is tolerating therapy. Physical Exam Physical Exam: Patient is sitting up at bedside. Has good strength testing. Results & Data ([facility]) Vital Signs (Past 12 Hours) Vital Signs Temp Pulse Resp BP Pulse Ox 05/12/21 07:54 36.7 C 72 18 108/74 97 05/11/21 22:18 36.7 C 86 18 128/84 94
[2021-05-12] MEDS ORDERED: WARFARIN SOD 2.5 MG TAB PO SCH (16:00)
[2021-05-12] MEDS: WARFARIN SOD 5 MG TAB PO SCH (17:07)
[2021-05-12] MEDS: DOCUSATE SODIUM/SENNA 50/8.6MG TAB PO SCH (20:04)
[2021-05-12] MEDS: ATORVASTATIN 40 MG TAB PO SCH (21:21)
[2021-05-12] MEDS: ACETAMINOPHEN 500 MG TAB PO PRN (21:22)
[2021-05-13] MEDS: oxyCODONE HCL IR 5 MG TAB (IMMEDIATE RELEASE) PO PRN ×5 (01:13→19:39)
[2021-05-13] MEDS: MoRPHine SULFATE 2 MG/ML CARP IV PRN ×2 (01:17→23:04)
[2021-05-13 06:08] LABS: INR 1.2 (0.9-1.1); Prothrombin Time 12.4 Seconds (9.0-12.0)
[2021-05-13] MEDS: PANTOprazole 40 MG TAB PO SCH (07:28)
[2021-05-13] MEDS: dexAMETHasone 8 MG in SYRINGE 0 ML IV SCH (07:28)
[2021-05-13] MEDS: buPROPion SR 150 MG TABCR PO SCH ×2 (07:28→15:14)
[2021-05-13] MEDS: ASPIRIN 81 MG ECTAB PO SCH (07:28)
[2021-05-13] MEDS: ASCORBIC ACID 500 MG TAB PO SCH (07:28)
[2021-05-13] MEDS: ENOXAPARIN 100 MG/1ML SYR SQ SCH ×2 (07:28→19:39)
[2021-05-13] MEDS: FERROUS SULFATE 325 MG TAB PO SCH (07:28)
[2021-05-13] MEDS: GABAPENTIN 300 MG CAP PO SCH ×3 (07:29→19:39)
--- NOTE | 2021-05-13 10:49 | Orthopedic Progress Note ---
Date of Service May 13, 2021 Assessment & Plan (1) Lumbar back pain with radiculopathy affecting right lower extremity: Plan: We will continue physical therapy today. We will DC her drain today. We will consider possible rehab versus home with home health tomorrow. Admission and Anticipated Discharge Date Admission Date: May 07, 2021 Subjective Patient feeling much better today. Back pain controlled. Leg pain markedly improved. Physical Exam Physical Exam: Patient appears comfortable. She has good strength testing. Results & Data ([facility]) Vital Signs (Past 12 Hours) Vital Signs Temp Pulse Resp BP Pulse Ox 05/13/21 06:56 36.8 C 63 16 106/70 94
--- NOTE | 2021-05-13 12:03 | Hospitalist Progress Note ---
Date of Service May 13, 2021 Assessment & Plan (1) Lumbar back pain with radiculopathy affecting right lower extremity: (2) Neurogenic claudication due to lumbar spinal stenosis: (3) Atrial fibrillation: (4) Chronic diastolic CHF (congestive heart failure): (5) Post-operative state: Plan: This is a 76-year-old female who has significant past medical history of PAF chronically anticoagulated on warfarin, chronic diastolic CHF, aortic valve sclerosis, ascending aortic enlargement, anterior communicating artery aneurysm, history of TIA, anxiety, GERD, RLS who presents to ED secondary to lumbar spinal stenosis with neurogenic claudication requiring urgent lumbar decompression fusion at L3-L5. POD # 4 lumbar decompression fusion L3-L5 by Dr. Infante Per ortho for pain control, wound care, anticoagulation and activities H/H stable Continue incentive spirometry, PT/OT Food impaction s/p EGD removal on 05/10 Impaction of steak in esophagus during dinner causing difficulty swallowing despite glucagon and ativan Underwent EGD by Dr. Nguyễn to remove obstruction on 05/10 Remained NPO until barium swallow study by speech therapy with recommendations to resume easy to chew diet with slippery liquids Nausea yesterday but this resolved., Doing well PAF Resumed coumadin and Lovenox bridge 05/11 Not on any beta neha therapy at baseline. Chronic Diastolic CHF/HFpEF Aortic Valve sclerosis daily weights, strict intake and output heart healthy, low sodium diet will hold lasix starting tomorrow, assess daily need to resume Hx of TIA continue ASA 162mg daily and statin DVT ppx: Lovenox, coumadin Dispo: med/surg PCP: Levar FULL CODE Rena Milian DO [facility] Hospitalist Admission and Anticipated Discharge Date Admission Date: May 07, 2021 Subjective 76 yo F s/p back surgery and s/p EGD for food bolus extraction after accidental impaction post-operatively. Nausea resolved yesterday afternoon, tolerating PO and no issues since removal of food bolus lower back pain managed with current medications. Drain in place No bleeding, chest pain or SOB Doing well overall-questioning rehab Review of Systems Review of Systems: At least ten systems were reviewed and negative except as indicated in HPI above. Physical Exam Physical Exam: CONSTITUTIONAL: WNWD, vitals as above, NAD EYES: normal conjunctivae, no scleral icterus ENT: external ear and nose normal, MMM NECK: trachea midline RESPIRATORY: clear to auscultation bilaterally, no crackles, rales or wheezes, normal respiratory effort CARDIOVASCULAR: regular rate and rhythm, S1 and 2 heard without murmurs, gallops or rubs, no JVD, no peripheral edema GASTROINTESTINAL: soft, nontender, ND, no guarding. MUSCULOSKELETAL: strength 5/5 throughout, head is normocephalic and atraumatic SKIN: warm and dry, +JOSE drain in place NEUROLOGIC: CN 2-12 grossly intact, normal cognition, normal speech, no tremor. No gross focal deficits. PSYCHIATRIC: alert cooperative and oriented to person, place and time. Results & Data Results & Data ([facility]) Vital Signs (Past 12 Hours) Vital Signs Temp Pulse Resp BP Pulse Ox 05/13/21 06:56 36.8 C 63 16 106/70 94 Medications Administered Current Inpatient Medications Acetaminophen (Acetaminophen 500 Mg Tab) 1,000 mg PO Q8H PRN PRN Reason: MILD Pain Scale 1,2,3 & Pre PT Stop: 06/07/21 00:44 Last Admin: 05/12/21 21:22 Dose: 1,000 mg Documented by: Al Hydrox/Mg Hydrox/Simethicone (Aluminum/Magnesium Susp 30 Ml Udc) 30 ml PO Q6H PRN PRN Reason: Dyspepsia Stop: 06/08/21 13:59 Ascorbic Acid (Ascorbic Acid 500 Mg Tab) 500 mg PO DAILY [facility] Stop: 06/07/21 08:59 Last Admin: 05/13/21 07:28 Dose: 500 mg Documented by: Aspirin (Aspirin 81 Mg Ectab) 162 mg PO QAM [facility] Stop: 06/07/21 08:59 Last Admin: 05/13/21 07:28 Dose: 162 mg Documented by: Atorvastatin Calcium (Atorvastatin 40 Mg Tab) 40 mg PO HS [facility] Stop: 06/07/21 00:44 Last Admin: 05/12/21 21:21 Dose: 40 mg Documented by: Bisacodyl (Bisacodyl 10 Mg Supp) 10 mg MA DAILY PRN PRN Reason: Constipation Stop: 06/08/21 13:59 Bupropion HCl (Bupropion Sr 150 Mg Tabcr) 150 mg PO BID@0900,1600 [facility] Stop: 06/07/21 00:44 Last Admin: 05/13/21 07:28 Dose: 150 mg Documented by: Al Hydrox/Mg Hydrox/Simethicone 72 ml/ Lidocaine HCl 24 ml/ BARCODE IDENTIFIER 1 ea 0 ml PO Q12H PRN PRN Reason: upset stomach Stop: 06/11/21 07:12 Dicyclomine HCl (Dicyclomine Hcl 10 Mg Cap) 10 mg PO TID PRN PRN Reason: abdominal cramping Stop: 06/07/21 00:44 Diphenhydramine HCl (Diphenhydramine Capsule 25 Mg Cap) 25 mg PO Q6H PRN PRN Reason: Allergic Rhinitis/Insomnia Stop: 06/07/21 00:44 Enoxaparin Sodium (Enoxaparin 100 Mg/1ml Syr) 90 mg SQ BID [facility] Stop: 06/11/21 20:59 Last Admin: 05/13/21 07:28 Dose: 90 mg Documented by: Famotidine (Famotidine 20 Mg Tab) 20 mg PO Q12H PRN PRN Reason: Dyspepsia Stop: 06/08/21 13:59 Ferrous Sulfate (Ferrous Sulfate 325 Mg Tab) 325 mg PO QAM [facility] Stop: 06/07/21 08:59 Last Admin: 05/13/21 07:28 Dose: 325 mg Documented by: Gabapentin (Gabapentin 300 Mg Cap) 300 mg PO TID [facility] Stop: 06/07/21 00:44 Last Admin: 05/13/21 07:29 Dose: 300 mg Documented by: Hydroxyzine HCl (Hydroxyzine Hcl 25 Mg Tab) 25 mg PO Q8H PRN PRN Reason: Anxiety Stop: 06/07/21 00:44 Promethazine HCl 12.5 mg/ (Sodium Chloride) 50.5 mls @ 202 mls/hr IV Q6H PRN PRN Reason: Nausea &/or Vomiting Stop: 06/07/21 00:44 Last Infusion: 05/12/21 07:06 Dose: Infused Documented by: Lorazepam (Ativan) 0.5 mg in 1 mls @ 1 mls/min IV Q8H PRN PRN Reason: Sedation/Anxiety Stop: 06/07/21 00:44 Last Admin: 05/10/21 19:13 Dose: 1 mls/min Documented by: Dexamethasone 8 mg/ Syringe 2 mls @ 1 mls/min IV DAILY [facility] Stop: 06/09/21 09:59 Last Admin: 05/13/21 07:28 Dose: 1 mls/min Documented by: Influenza Virus Vaccine Quadrival (Do Not Administer Flu Vaccine) 1 ea N/A PRN PRN PRN Reason: Notification Stop: 06/08/21 13:59 Lorazepam (Lorazepam 0.5 Mg Tab) 0.5 mg PO Q8H PRN PRN Reason: sedation/anxiety Stop: 06/07/21 00:44 Magnesium Hydroxide (Magnesium Hydroxide Susp 30 Ml Udc) 30 ml PO Q24H PRN PRN Reason: Constipation Stop: 06/08/21 13:59 Metoclopramide HCl (Metoclopramide Hcl Inj 5 Mg/Ml 2 Ml Vial) 10 mg IV Q6H PRN PRN Reason: Nausea &/or Vomiting Stop: 06/07/21 00:44 Morphine Sulfate (Morphine Sulfate 2 Mg/Ml Carp) 2 mg IV Q4H PRN PRN Reason: Pain Stop: 05/23/21 22:04 Last Admin: 05/13/21 01:17 Dose: 2 mg Documented by: Naloxone HCl (Naloxone Hcl 0.4 Mg/1 Ml Vial/Carp) 0.1 mg IV Q5M PRN PRN Reason: Oversedation/respiratory dep Stop: 06/07/21 00:44 Ondansetron HCl (Ondansetron Inj 2 Mg/Ml 2 Ml Vial) 4 mg IV Q6H PRN PRN Reason: Nausea &/or Vomiting Stop: 06/07/21 00:44 Last Admin: 05/09/21 14:12 Dose: 4 mg Documented by: Ondansetron HCl (Ondansetron 4 Mg Od Tab) 4 mg PO Q6H PRN PRN Reason: Nausea Stop: 06/07/21 00:44 Last Admin: 05/12/21 05:51 Dose: 4 mg Documented by: Oxycodone HCl (Oxycodone Hcl Ir 5 Mg Tab (Immediate Release)) 5 - 10 mg PO Q4H PRN PRN Reason: mod to severe pain Stop: 05/22/21 00:44 Last Admin: 05/13/21 10:46 Dose: 10 mg Documented by: Pantoprazole Sodium (Pantoprazole 40 Mg Tab) 40 mg PO QAM [facility] Stop: 06/07/21 08:59 Last Admin: 05/13/21 07:28 Dose: 40 mg Documented by: Pneumococcal Polyvalent Vaccine (Do Not Administer Pneumococcal Vaccine) 1 ea N/A PRN PRN PRN Reason: Notification Stop: 06/08/21 13:59 Senna/Docusate Sodium (Docusate Sodium/Senna 50/8.6mg Tab) 2 tab PO HS [facility] Stop: 06/08/21 20:59 Last Admin: 05/12/21 20:04 Dose: Not Given Documented by: Sodium Biphosphate/Sodium Phosphate (Sod Phosphate/Sod Biphosphate Enema 132 Ml Btl) 132 ml MA ONE PRN PRN Reason: Constipation Stop: 06/08/21 13:59 Tramadol HCl (Tramadol Hcl 50 Mg Tablet) 50 - 100 mg PO Q4H PRN PRN Reason: Moderate-Severe pain & Pre PT Stop: 06/07/21 00:44 Last Admin: 05/09/21 15:57 Dose: 100 mg Documented by: Warfarin Sodium (Warfarin Sod 5 Mg Tab) 5 mg PO DAILY@1600 [facility] Stop: 06/11/21 15:59 Last Admin: 05/12/21 17:07 Dose: 5 mg Documented by:
[2021-05-13] MEDS: WARFARIN SOD 5 MG TAB PO SCH (15:14)
[2021-05-13] MEDS: DOCUSATE SODIUM/SENNA 50/8.6MG TAB PO SCH (19:39)
[2021-05-13] MEDS: ATORVASTATIN 40 MG TAB PO SCH (19:39)
[2021-05-14] MEDS: ACETAMINOPHEN 500 MG TAB PO PRN ×2 (03:54→07:47)
[2021-05-14] MEDS: dexAMETHasone 8 MG in SYRINGE 0 ML IV SCH (07:49)
[2021-05-14] MEDS: ASCORBIC ACID 500 MG TAB PO SCH (08:56)
[2021-05-14] MEDS: ASPIRIN 81 MG ECTAB PO SCH (08:56)
[2021-05-14] MEDS: buPROPion SR 150 MG TABCR PO SCH (08:56)
[2021-05-14] MEDS: ENOXAPARIN 100 MG/1ML SYR SQ SCH (08:57)
[2021-05-14] MEDS: PANTOprazole 40 MG TAB PO SCH (08:58)
[2021-05-14] MEDS: FERROUS SULFATE 325 MG TAB PO SCH (08:58)
[2021-05-14] MEDS: GABAPENTIN 300 MG CAP PO SCH ×2 (08:58→13:13)
--- NOTE | 2021-05-14 08:58 | Hospitalist Progress Note ---
Date of Service May 14, 2021 Assessment & Plan (1) Lumbar back pain with radiculopathy affecting right lower extremity: (2) Neurogenic claudication due to lumbar spinal stenosis: (3) Atrial fibrillation: (4) Chronic diastolic CHF (congestive heart failure): (5) Post-operative state: Plan: This is a 76-year-old female who has significant past medical history of PAF chronically anticoagulated on warfarin, chronic diastolic CHF, aortic valve sclerosis, ascending aortic enlargement, anterior communicating artery aneurysm, history of TIA, anxiety, GERD, RLS who presents to ED secondary to lumbar spinal stenosis with neurogenic claudication requiring urgent lumbar decompression fusion at L3-L5. POD # 5 lumbar decompression fusion L3-L5 by Dr. Infante Per ortho for pain control, wound care, anticoagulation and activities H/H stable at 05/01 Continue incentive spirometry, PT/OT Food impaction s/p EGD removal on 05/10 Impaction of steak in esophagus during dinner causing difficulty swallowing despite glucagon and ativan Underwent EGD by Dr. Nguyễn to remove obstruction on 05/10 Remained NPO until barium swallow study by speech therapy with recommendations to resume easy to chew diet with slippery liquids PAF Resumed coumadin and Lovenox bridge 05/11 INR 1.8 - patient to continue Lovenox 100mg BID and Couamdin 2.5 mg MoWeFr, 5mg SuTuTh. [facility] pharmacist notified and will be reaching out to the patient for follow up. Patient comfortable with doing home Lovenox injections for bridge. Not on any beta neha therapy at baseline. Chronic Diastolic CHF/HFpEF Aortic Valve sclerosis daily weights, strict intake and output heart healthy, low sodium diet Lasix initially held and has been resumed. Appears euvolemic. Hx of TIA continue ASA 162mg daily and statin Lovenox/Coumadin as above DVT ppx: Lovenox, coumadin Dispo: d/c home today by ortho PCP: Levar FULL CODE Admission and Anticipated Discharge Date Admission Date: May 07, 2021 Supervising Physician Co-Signing Physician Notes I have seen and examined the patient and have discussed the case with the provider above. I agree with the assessment and plan as stated. Pt feeling well today. Ready to go home. INR 1.8, recommend continuing with Lovenox bridge today and repeat INR tomorrow with her anticoagulation clinic. She needs walker with wheels-script for DME prior to discharge. My physical exam reflects that above. Follow-up in one week with PCP recommended. DO Maicol Subjective Patient seen and examined. Sitting up in the chair, offers no complaints. Eager to be discharged. Reports pain is well controlled with Tylenol. Last BM 2 days ago. Denies abdominal pain and nausea. No urinary symptoms. Ambulating in her room and serrano without difficulty. Physical Exam Constitutional: WD/WN, vitals as above no acute distress sitting up in the chair Respiratory: normal respiratory effort, lungs clear to auscultation Cardiovascular: Rate/Rhythm: regular rate and regular rhythm Vessels: normal peripheral pulses Extremities: + edema (trace edema BLE) Gastrointestinal (Abdomen): Percussion/Palpation: abdomen soft; abdomen nont sam Musculoskeletal: s/p back surgery, dressing CDI, strength strong and equal BLE Skin: no rashes, warm and dry Psychiatric: Orientation: alert and oriented x 3 Results & Data Results & Data ([facility]) Vital Signs (Past 12 Hours) Vital Signs Temp Pulse Resp BP Pulse Ox 05/14/21 07:12 36.7 C 65 16 113/76 96 05/13/21 22:06 36.7 C 79 18 113/74 95
[2021-05-14] MEDS ORDERED: FUROSEMIDE 20 MG TAB PO SCH (09:00)
[2021-05-14 09:34] LABS: Hematocrit (blood only) 32.3 % (37-47); Hemoglobin 10.5 g/dL (12.0-16.0); Mean Corpuscular Hemoglobin 32.1 pg (25-34); Mean Corpuscular Hgb Conc 32.5 g/dL (32-36); Mean Corpuscular Volume 98.8 fL (80-100); Mean Platelet Volume 9.7 fL (7.4-10.4); Platelet Count 278 K/uL (130-400); RDW Coefficient of Variation 14.7 % (11.5-14.5); Red Blood Count 3.27 M/uL (4.2-5.4); White Blood Count 5.72 K/uL (4.8-10.8)
[2021-05-14 09:35] LABS: INR 1.8 (0.9-1.1); Prothrombin Time 17.5 Seconds (9.0-12.0)
[2021-05-14 09:57] LABS: BUN Creatinine Ratio 22.1 (10-20); Calcium 9.1 mg/dl (8.5-10.1); Creatinine Clr Calc Pharmacy 66.9 ml/min; Est GFR (African American) 79.9 ml/min; Potassium 3.8 mmol/L (3.5-5.1)
--- NOTE | 2021-05-14 10:29 | Discharge Summary ---
Date of Service May 14, 2021 Principal Diagnosis Lumbar spinal stenosis with radiculopathy Discharge Data Allergies Allergy/AdvReac Type Severity Reaction Status Date / Time Sulfa (Sulfonamide Allergy Unknown Unknown Verified 05/07/21 20:00 Antibiotics) buspirone [From BuSpar] AdvReac Mild Vomiting Verified 05/07/21 20:00 Consultations 05/07/21 19:45 ED Decision to Admit Stat 05/08/21 00:45 Consult Internal Medicine Routine Procedures Performed Operation Date: 05/09/21 07:00 Actual Procedures p L3-L5 Decompression and Fusion with Interbody Cages, Spinal Cord Monitoring, Application of Bone Morphogenetic Protein(Not Applicable) - Minh Infante DO Operation Date: 05/10/21 22:00 Actual Procedures p Esophagogastroduodenoscopy, Food Bolus; Foreign body removal(Not Applicable) - Yousif Nguyễn MD Ordered Studies 05/09/21 FL lumbar spine 2-3V Routine 05/11/21 08:49 FL barium swallow Urgent Hospital Course (1) Lumbar back pain with radiculopathy affecting right lower extremity: Patient was admitted to the hospital with severe right leg pain weakness underwent surgery the following day. Postoperatively she progressed daily on a steady consistent fashion. We did consider possible rehab but she continue to improve become more more independent. She demonstrates excellent strength and subsequently discharged home. Discharge orders instructions from the chart for further review. Total Time Total Time Spent Total Time Spent (In Minutes): 20 minutes Discharge Plan Discharge Items Patient Disposition: Home - Self-Care Reason For Visit: LUMBAR STENOSIS Discharge Diagnosis: Lumbar spinal stenosis with radiculopathy Activity: As commented below Non-emergency contact: Primary Care Provider Call non-emergency contact if: you have any medication questions Follow-up/Referrals: Myron Cristobal MD [Primary Care Provider] - Diet: Regular Addtl Attending Provider Instructions: ACTIVITY RECOMMENDATIONS: SELF CARE INSTRUCTIONS AFTER THORACIC/LUMBAR FUSIONS 1. You may walk to your tolerance. It is good exercise for your legs and back. Expect some back and intermittent leg aches and pains. 2. You may perform "counter-top" level activities (make a sandwich, wei with a project, etc.). 3. No bending or lifting of more than 10 pounds or back twisting of any nature (roll like a log when turning in bed). 4. You may ride in a car for 20-30 minutes at a time. No driving until after your first visit with your doctor. 5. Frequent changes of position and restricting sitting to 30 minutes at a time will help limit the amount of back spasms and stiffness you may experience. 6. You may discontinue the use of ambulatory aids (cane, crutches, etc.) once your strength and confidence allow. 7. You may hospice admitting clerk the shower and let water strike your incision when you arrive home at least once daily. Do not take a tub bath, sit in a hot tub or go into a swimming pool until after your first recheck in the office. SPECIAL CARE INSTRUCTIONS: VERY IMPORTANT TO READ AND REVIEW A. Your surgical incision has been closed with a cosmetic suture under the skin that will dissolve in about 6 weeks. In 14 days, you can use a pair of clean scissors and cut the suture that is left outside of the skin at the ends of your incision. 1. The small skin tapes can be removed 7 days after surgery if they have not fallen off by that point. 2. You may keep the wound open to air as much as possible to promote healing after post-op day number 5 unless told otherwise by your doctor. 3. If you think the wound looks like it is becoming infected (redness or worsening drainage) and/or you are experiencing fever, chill or worsening back pain and muscle spasms, contact the office so that we may evaluate you as soon as possible. B. Complications are uncommon, but please contact us if you have any signs or symptoms of: 1. wound infection (fever higher than 102.5 degrees F, redness, separation of wound, drainage, or increasing pain from the incision) 2. blood clots in legs (pain, swelling, redness and warmth in legs) 3. urinary tract infection (fever higher than 102.5 degrees F, burning upon urination or increased frequency of urination) 4. nerve problems (inability to walk on your toes or heels, numbness, loss of bowel or bladder control) 5. any other symptoms that concern you C. Please call the office at if you have any concerns or questions about your operation or recovery. D. No smoking! Smoking drastically decreases the chance of a solid fusion. E. Do not take any anti-inflammatory medications (Indocin, Advil, Motrin, Aspirin, Naprosyn, etc.) as these may inhibit the chance of a solid fusion. Tylenol is okay to take for pain. MANAGING PAIN AFTER SPINAL SURGERY 1. Narcotic medication is intended for short-term use and will be provided for surgical pain. Surgical pain usually lasts for a period of 4-6 weeks. Narcotic medication includes Percocet, Vicodin, Darvocet, Tylenol #3 or Lortab. 2. Longer-term pain is more appropriately treated with non-narcotic medication such as Tylenol ES. 3. Muscle spasm is not appropriately treated with narcotics. Muscle relaxers such as Soma, Flexeril or Skelaxin can be used along with Tylenol ES. 4. Remember that we all live with some "aches and pains". This is not unusual or uncommon after an injury or as we get older. a. Back pain is expected and may include muscle spasms for 4 to 6 weeks after surgery. The pain should gradually improve. If the pain worsens for no apparent reason, please contact the office. b. Intermittent leg pain may also be experienced and should not be concerned about unless it worsens for no apparent reason. If so, please contact the office. 5. We will provide appropriate medication within the normal guidelines of their prescribed use. We will also be very cautious and aware of potential abuse and extended duration of patients' medication needs. a. Pain medications are for your comfort and to assist with sleep and rest so that the tissue can heal. They are not provided in order to return to normal activity and should not be used through the day. To do so or worsening pain at night can result from ongoing tissue damage and development of tolerance to the prescribed medicine. 6. Please allow 2-3 days to process refills. Prescriptions will not be mailed but must be picked up at the office. FOLLOW UP VISIT: Keep your scheduled follow-up appointment. Any questions, please call the office at . Pending Studies at Discharge: No Stand-Alone Forms: My Postcard & Tag, Smoking Cessation Medications and DC Order Prescriptions: New tramadol 50 mg tablet 50 mg PO Q6H PRN (Reason: pain, moderate) Qty: 30 RF: 0 oxycodone 5 mg tablet 5 mg PO Q6H PRN (Reason: pain, severe) Qty: 30 RF: 0 Continued pantoprazole 40 mg tablet,delayed release (DR/EC) 40 mg PO QAM RF: 0 furosemide 20 mg tablet 20 mg PO BID RF: 0 baclofen 10 mg Tablet 10 mg PO HS PRN (Reason: Pain) RF: 0 cholecalciferol (vitamin D3) [Vitamin D3] 5,000 unit Tablet 5,000 unit PO QAM RF: 0 atorvastatin 40 mg tablet 40 mg PO HS RF: 0 aspirin [Aspirin Low Dose] 81 mg Tablet,Delayed Release (Dr/Ec) 162 mg PO QAM RF: 0 acetaminophen [Tylenol Extra Strength] 500 mg Tablet 1,000 mg PO Q8H PRN (Reason: FEVER/PAIN) RF: 0 ferrous sulfate 325 mg (65 mg iron) tablet 325 mg PO QAM RF: 0 warfarin 5 mg tablet 5 mg PO SUTUFR@1600 RF: 0 fluticasone propionate 50 mcg/actuation spray,suspension 2 spray INTRANASAL DAILY PRN (Reason: Allergy Symptoms) RF: 0 dicyclomine 10 mg capsule 10 mg PO TID PRN (Reason: abdominal cramping) Qty: 30 RF: 0 naltrexone 50 mg tablet 25 mg PO BID RF: 0 bupropion HCl 150 mg tablet sustained-release 12 hr 150 mg PO BID RF: 0 gabapentin 300 mg Capsule 300 mg PO TID RF: 0 vitamin E 100 unit Capsule 100 unit PO DAILY RF: 0 lorazepam 0.5 mg tablet 0.5 mg PO DIRECTED PRN (Reason: PRIOR TO PROCEDURES) RF: 0 ascorbic acid (vitamin C) [Vitamin C] 500 mg Tablet 500 mg PO DAILY RF: 0 enoxaparin 100 mg/mL syringe 0 mg subcut BID RF: 0 warfarin 5 mg Tablet 2.5 mg PO MOWETHSA@1600 RF: 0 Discharge Orders: Discharge Order (Routine); Ordered 05/14/21 Ordered By: Minh Infante Admission Data Admit Date/Time: 05/07/21 19:53 Attending Provider: Minh Infante Admit Provider: Minh Infante Primary Care Provider: Myron Cristobal Other Providers: Teo Che ; Silvina Roger ; Viktoria Mcnair ; Minh Infante ; Rena Milian ; [facility]
== END 2021-05-14 14:47 | disposition home or self-care (01) | DRG 454 ==
LOC: ED 14:56 → EDINP 19:53 → 3E 05-08 13:55

== ENCOUNTER 2021-06-21 20:04 | Observation (INO) ==
[2021-06-21] MEDS ORDERED: GLUCAGON 1 ML IV ONE (21:06)
[2021-06-21] MEDS ORDERED: ONDANSETRON INJ 2 MG/ML 2 ML VIAL IV STA (21:10)
[2021-06-21] MEDS ORDERED: SODIUM CHLORIDE 0.9% 250 ML IV ONE (21:12)
[2021-06-21] MEDS ORDERED: ACETAMINOPHEN 1,000 MG/100 ML VIAL IV STA (21:27)
[2021-06-21 21:33] LABS: Basophils # (auto) 0.04 K/uL (0-0.2); Basophils % (auto) 0.6 %; Eosinophils # (auto) 0.13 K/uL (0-0.5); Hematocrit (blood only) 38.5 % (37-47); Hemoglobin 12.2 g/dL (12.0-16.0); Immature Granulocytes # (auto) 0.02 K/uL (0.00-0.02); Immature Granulocytes % (auto) 0.3 %; Lymphocytes # (auto) 1.26 K/uL (1.2-3.4); Mean Corpuscular Hgb Conc 31.7 g/dL (32-36); Mean Corpuscular Volume 97.7 fL (80-100); Monocytes # (auto) 0.52 K/uL (0.11-0.59); Monocytes % (auto) 7.9 %; Neutrophils # (auto) 4.65 K/uL (1.4-6.5); Neutrophils % (auto) 70.2 %; Platelet Count 305 K/uL (130-400); RDW Coefficient of Variation 14.3 % (11.5-14.5); RDW Standard Deviation 51.5 fL (36.4-46.3); Red Blood Count 3.94 M/uL (4.2-5.4); White Blood Count 6.62 K/uL (4.8-10.8)
--- NOTE | 2021-06-21 21:50 | Communication Note ---
Date of Service: June 21, 2021 Yvette Victor M.D. personally saw and evaluated this patient, and participated in their management and care under the supervision of Dr. Ziegler. Resident Activity Tracking Resident Involvement: Resident Care Provided Care Provided: Adult ED
[2021-06-21 21:55] LABS: Alanine Aminotransferase 28 U/L (12-78); Albumin Level 3.5 gm/dl (3.4-5.0); Aspartate Aminotransferase 21 U/L (15-37); BUN Creatinine Ratio 21.9 (10-20); Blood Urea Nitrogen 19 mg/dl (7-18); Carbon Dioxide 28 mmol/L (21-32); Chloride 108 mmol/L (98-107); Est GFR (African American) 75.5 ml/min; Est GFR (Non-African American) 65.2 ml/min; Glucose 113 mg/dl (70-99); Potassium 4.1 mmol/L (3.5-5.1); Sodium 142 mmol/L (136-145)
[2021-06-21] MEDS ORDERED: GI COCKTAIL ED USE PO ONE (21:58)
[2021-06-21 21:59] LABS: Albumin Globulin Ratio 0.9 (0.9-2); Alkaline Phosphatase 201 U/L (45-117); Bilirubin,Total 0.2 mg/dl (0.2-1); Globulin 4.1 gm/dl (2.5-4.0); Total Protein 7.6 gm/dl (6.4-8.2); Troponin I < 0.015 ng/ml (0-0.045)
--- NOTE | 2021-06-21 22:14 | Emergency Department Note ---
Impression & Plan Precordial chest pain, Hypertension, Vomiting, Hiatal hernia ED Provider Note NAME: MATT VARGAS AGE: 76 SEX: F : 1945 ARRIVES VIA: Walk-In INFORMANT: [Patient] ED PROVIDER(S): [Jose G Ziegler MD] CHIEF COMPLAINT: Food bolus HISTORY OF PRESENT ILLNESS: The patient is a 76-year-old female who has had some difficulty with swallowing. She does have a large hiatal hernia. She states that 4 hours ago, just after Thanksgiving dinner, she was eating some fruit when something got caught in her esophagus. She vomited a few times. She developed some pain in the lower sternum/chest that went to her left shoulder. The pain was a 7/10. The patient presents for evaluation. The patient states that she thinks the object may have passed. She is now able to swallow her secretions. There has been no shortness of breath or cough. She has not suffered any recent trauma. There has been no fever. She states that she has had to have an endoscopy before because of a food bolus. REVIEW OF SYSTEMS: See HPI for pertinent positives and negatives. A total of ten systems were reviewed and were otherwise negative. PMHx/PSHx: See Below SOCIAL HISTORY: See Below. PHYSICAL EXAM: GENERAL: Patient is in no acute distress. HEENT: No acute trauma, normocephalic atraumatic, mucous membranes moist, no nasal congestion, no scleral icterus. NECK: No stridor, no adenopathy, no meningismus, trachea is midline. LUNGS: Clear to auscultation bilaterally, no wheeze, no rhonchi, breath sounds equal. HEART: Without murmurs gallops or rubs, regular rate and rhythm. ABDOMEN: Soft, moderately tender in the epigastrium, bowel sounds positive, no hernias, no peritonitis. EXTREMITIES: No cyanosis or edema, full range of motion of all the joints without pain or difficulty, no signs for acute trauma. NEUROLOGIC: Oriented x 3, no acute motor or sensory deficits, no focal weakness. SKIN: No rash, no jaundice, no diaphoresis. DIFFERENTIAL DIAGNOSIS: Cardiac ischemia, food bolus, esophageal perforation or rupture, aortic dissection, pulmonary embolism, pneumothorax, pneumonia, pericarditis, myocarditis, esophageal rupture, GERD, cholecystitis, pancreatitis, musculoskeletal, as well as other pathologies. EMERGENCY DEPARTMENT COURSE/PROCEDURES: ECG: Indication was chest pain. The ECG shows a normal sinus rhythm with a rate of 93. There is no ST elevation, no PVCs. There is some baseline artifact. The QTc is 440. Continuous Cardiac Monitoring: An order was placed for continuous cardiac monitoring. The monitor shows a rate of 86 with normal sinus rhythm. Observation Note: The patient has a family history of diabetes. Patient was fi rst seen at 2120 and observation began at 2120 and was necessary in order to evaluate for cardiac ischemia. Upon reevaluation, around 4 hours of observation revealed that the patient should be admitted. Admitted at 06/22/2021, 0125. MEDICAL DECISION MAKING: There is no leukocytosis or concerning anemia. There is a normal platelet count. No significant electrolyte abnormality or kidney failure. Alk phos slightly elevated, the remaining liver enzymes were unremarkable. ECG shows a sinus rhythm, no acute ischemia. Cardiac enzyme testing x2 is not not consistent with acute cardiac injury. Chest x-ray shows a large hiatal hernia with some left lung infiltrate or atelectasis. No pneumothorax, no free air. Chest CT does not show any esophageal rupture. A large hiatal hernia with some atelectasis was noted. On exam, the patient was hypertensive and appeared unco mfortable. The patient received IV saline, 500 cc. She received IV Zofran, IV hydralazine and IV glucagon. She was given IV Tylenol. She eventually received a GI cocktail. She received a dose of IV labetalol and then a second dose of IV hydralazine. The patient is now able to swallow her secretions. The chest discomfort seems to be dissipating. The shoulder discomfort is gone. She remains hypertensive though despite numerous IV meds to control her blood pressure. Given the presentation, given her chest pain and left shoulder pain, given the persistent hypertension, given the large hiatal hernia and the possibility of esophageal damage, I do think a hospital stay is warranted. I spoke to the patient and case management. The on-call hospitalist was consulted. Past Med/Surg History Medical History Anxiety Arthritis Atrial fibrillation Follows with [facility] cardio, on coumadin Chronic diastolic CHF (congestive heart failure) GERD (gastroesophageal reflux disease) History of COVID-19 Dx 07/2020, no current issues History of depression Hyperlipidemia Overactive bladder hx botox injections (not successful) TIA (transient ischemic attack) 2019 Surgical History H/O foot surgery Left x2 History of appendectomy History of cataract surgery R/L History of colonoscopy History of esophagogastroduodenoscopy (EGD) History of herniorrhaphy History of hysterectomy History of tooth extraction Family History Father Family history of diabetes mellitus Brother Family history of diabetes mellitus Other Family history non-contributory No family history of adverse response to anesthesia Social History Smoking Status: Never smoker Tobacco Type: Cigarettes Second Hand Exposure: No; Hx Alcohol Use: No Hx Substance Use: No Preferred Language: Martiniquais Communication Ability: Effective Physical Therapy Supervisor Required: No Beliefs That Will Affect Care: None Current Living Situation: Spouse Feels Safe at Home: Yes Assistive Devices: Walker Allergies Allergies Allergy/AdvReac Type Severity Reaction Status Date / Time Sulfa (Sulfonamide Allergy Unknown Unknown Verified 06/21/21 22:10 Antibiotics) buspirone [From BuSpar] AdvReac Mild Vomiting Verified 06/21/21 22:10 Home Meds Home Medications Medication Instructions Recorded Confirmed baclofen 10 mg tablet 10 mg PO HS PRN 02/20/19 06/21/21 cholecalciferol (vitamin D3) 125 5,000 unit PO QAM 02/20/19 06/21/21 mcg (5,000 unit) tablet (Vitamin D3) acetaminophen 500 mg tablet 1,000 mg PO Q8H PRN 05/01/20 06/21/21 (Tylenol Extra Strength) aspirin 81 mg tablet,delayed 162 mg PO QAM 05/01/20 06/21/21 release (Aspirin Low Dose) atorvastatin 40 mg tablet 40 mg PO HS 05/01/20 06/21/21 fluticasone propionate 50 2 spray INTRANASAL DAILY PRN 05/01/20 06/21/21 mcg/actuation nasal spray,suspension furosemide 20 mg tablet 20 mg PO BID 07/30/20 06/21/21 pantoprazole 40 mg tablet,delayed 40 mg PO QAM 07/30/20 06/21/21 release gabapentin 300 mg capsule 300 mg PO TID 04/19/21 06/21/21 ascorbic acid (vitamin C) 500 mg 500 mg PO DAILY 05/07/21 06/21/21 tablet (Vitamin C) lorazepam 0.5 mg tablet 0.5 mg PO UD PRN 05/07/21 06/21/21 vitamin E 100 unit capsule 100 unit PO DAILY 05/07/21 06/21/21 Previous Rx's Medication Instructions Recorded tramadol 50 mg tablet 50 mg PO Q6H PRN #30 tab 05/10/21 warfarin 5 mg tablet 2.5 mg PO MOWEFRSA #0 tab 05/14/21 warfarin 5 mg tablet 5 mg PO SUTUTH #0 tab 05/14/21 Results & Data (ED) Vital Signs Vital Signs - 24 hr 06/21/21 20:05 06/21/21 20:07 06/21/21 22:05 Temperature 36.8 C Temperature Source Temporal Artery Scan Pulse Rate 86 Pulse Rate [Right Finger] 80 91 H Pulse Rhythm Regular Pulse Rhythm [Right Finger] Regular Regular Pulse Strength Normal Pulse Strength [Right Finger] Normal Normal Respiratory Rate 20 21 18 Respiratory Effort / Characteristics Spontaneous Non-Labored Spontaneous Non-Labored Respiratory Depth Normal Normal Normal Respiratory Pattern Regular Regular Blood Pressure 189/118 H Blood Pressure [Right Arm] 190/118 H 190/104 H Blood Pressure Mean 141 Blood Pressure Mean [Right Arm] 142 132 Blood Pressure Position Sitting Blood Pressure Position [Right Arm] Lying Lying Pulse Oximetry 98 90 96 Oxygen Delivery Method Room Air Room Air Room Air Sepsis Recent Fever Within 48 Hours No Sepsis New/Unexplained Change in Mental Status N/A Sepsis Action Taken by Nursing No Action Required 06/22/21 00:07 06/22/21 01:00 Temperature Temperature Source Pulse Rate Pulse Rate [Right Finger] 79 84 Pulse Rhythm Pulse Rhythm [Right Finger] Regular Pulse Strength Pulse Strength [Right Finger] Normal Respiratory Rate 21 18 Respiratory Effort / Characteristics Non-Labored Respiratory Depth Normal Normal Respiratory Pattern Regular Blood Pressure Blood Pressure [Right Arm] 170/110 H 174/105 H Blood Pressure Mean Blood Pressure Mean [Right Arm] 130 128 Blood Pressure Position Blood Pressure Position [Right Arm] Lying Pulse Oximetry 97 95 Oxygen Delivery Method Room Air Room Air Sepsis Recent Fever Within 48 Hours Sepsis New/Unexplained Change in Mental Status Sepsis Action Taken by Half-Way Medications Current Medication List: was personally reviewed by me Laboratory Data Attestation: I reviewed the patient's lab results. Result diagrams: 06/21/21 21:25 06/21/21 21:25 Lab Results 06/21/21 06/21/21 06/21/21 Range/Units 21:25 21:25 23:12 WBC 6.62 (4.8-10.8) K/uL RBC 3.94 L (4.2-5.4) M/uL Hgb 12.2 (12.0-16.0) g/dL Hct 38.5 (37-47) % MCV 97.7 (80-100) fL MCH 31.0 (25-34) pg MCHC 31.7 L (32-36) g/dL RDW Std Deviation 51.5 H (36.4-46.3) fL RDW Coeff of Chen 14.3 (11.5-14.5) % Plt Count 305 (130-400) K/uL MPV 9.0 (7.4-10.4) fL Immature Gran % (Auto) 0.3 % Neut % (Auto) 70.2 % Lymph % (Auto) 19.0 % [place] % (Auto) 7.9 % Eos % (Auto) 2.0 % Baso % (Auto) 0.6 % Neut # (Auto) 4.65 (1.4-6.5) K/uL Lymph # (Auto) 1.26 (1.2-3.4) K/uL [place] # (Auto) 0.52 (0.11-0.59) K/uL Eos # (Auto) 0.13 (0-0.5) K/uL Baso # (Auto) 0.04 (0-0.2) K/uL Immature Gran # (Auto) 0.02 (0.00-0.02) K/uL Sodium 142 (136-145) mmol/L Potassium 4.1 (3.5-5.1) mmol/L Chloride 108 H (98-107) mmol/L Carbon Dioxide 28 (21-32) mmol/L Anion Gap 6.0 (3-11) BUN 19 H (7-18) mg/dl Creatinine 0.87 (0.6-1.2) mg/dl Est Cr Clr Drug Dosing 67.0 ml/min Est GFR ( Amer) 75.5 ml/min Est GFR (Non-Af Amer) 65.2 ml/min BUN/Creatinine Ratio 21.9 H (10-20) Glucose 113 H (70-99) mg/dl POC Glucose 140 H (70-99) mg/dl Calcium 9.0 (8.5-10.1) mg/dl Total Bilirubin 0.2 (0.2-1) mg/dl AST 21 (15-37) U/L ALT 28 (12-78) U/L Alkaline Phosphatase 201 H (45-117) U/L Troponin I < 0.015 (0-0.045) ng/ml Total Protein 7.6 (6.4-8.2) gm/dl Albumin 3.5 (3.4-5.0) gm/dl Globulin 4.1 H (2.5-4.0) gm/dl Albumin/Globulin Ratio 0.9 (0.9-2) 06/22/21 Range/Units 00:09 WBC (4.8-10.8) K/uL RBC (4.2-5.4) M/uL Hgb (12.0-16.0) g/dL Hct (37-47) % MCV (80-100) fL MCH (25-34) pg MCHC (32-36) g/dL RDW Std Deviation (36.4-46.3) fL RDW Coeff of Chen (11.5-14.5) % Plt Count (130-400) K/uL MPV (7.4-10.4) fL Immature Gran % (Auto) % Neut % (Auto) % Lymph % (Auto) % [place] % (Auto) % Eos % (Auto) % Baso % (Auto) % Neut # (Auto) (1.4-6.5) K/uL Lymph # (Auto) (1.2-3.4) K/uL [place] # (Auto) (0.11-0.59) K/uL Eos # (Auto) (0-0.5) K/uL Baso # (Auto) (0-0.2) K/uL Immature Gran # (Auto) (0.00-0.02) K/uL Sodium (136-145) mmol/L Potassium (3.5-5.1) mmol/L Chloride (98-107) mmol/L Carbon Dioxide (21-32) mmol/L Anion Gap (3-11) BUN (7-18) mg/dl Creatinine (0.6-1.2) mg/dl Est Cr Clr Drug Dosing ml/min Est GFR ( Amer) ml/min Est GFR (Non-Af Amer) ml/min BUN/Creatinine Ratio (10-20) Glucose (70-99) mg/dl POC Glucose (70-99) mg/dl Calcium (8.5-10.1) mg/dl Total Bilirubin (0.2-1) mg/dl AST (15-37) U/L ALT (12-78) U/L Alkaline Phosphatase (45-117) U/L Troponin I < 0.015 (0-0.045) ng/ml Total Protein (6.4-8.2) gm/dl Albumin (3.4-5.0) gm/dl Globulin (2.5-4.0) gm/dl Albumin/Globulin Ratio (0.9-2) Administered Medications Discontinued Medications Al Hydrox/Mg Hydrox/Simethicone (Gi Cocktail Ed Use) 1 dose PO ONE ONE Stop: 06/21/21 21:59 Last Admin: 06/21/21 22:11 Dose: 1 dose Documented by: [id number] Hydralazine HCl (Hydralazine Hcl 20 Mg/Ml Vial) 5 mg IV NOW ONE Stop: 06/21/21 22:41 Last Admin: 06/21/21 23:14 Dose: 5 mg Documented by: [id number] Hydralazine HCl (Hydralazine Hcl 20 Mg/Ml Vial) 10 mg IV NOW STA Stop: 06/22/21 01:04 Last Admin: 06/22/21 01:17 Dose: 10 mg Documented by: [id number] Glucagon (Glucagen) 1 mls @ 2 mls/min IV ONE ONE Stop: 06/21/21 21:07 Last Admin: 06/21/21 21:32 Dose: 2 mls/min Documented by: [id number] Sodium Chloride (Nss) 250 mls @ 999 mls/hr IV .Q16M ONE Stop: 06/21/21 21:27 Last Infusion: 06/21/21 22:03 Dose: 0 mls/hr Documented by: [id number] Admin: 06/21/21 21:32 Dose: 999 mls/hr Documented by: [id number] Acetaminophen (Ofirmev) 1,000 mg in 100 mls @ 400 mls/hr IV NOW STA Stop: 06/21/21 21:41 Last Infusion: 06/21/21 22:02 Dose: 0 mls/hr Documented by: [id number] Admin: 06/21/21 21:32 Dose: 400 mls/hr Documented by: [id number] Labetalol HCl (Labetalol Hcl Iv 5 Mg/Ml 20ml) 10 mg IV NOW STA Stop: 06/22/21 00:00 Last Admin: 06/22/21 00:06 Dose: 10 mg Documented by: [id number] Cosigned by: [id number] Ondansetron HCl (Ondansetron Inj 2 Mg/Ml 2 Ml Vial) 4 mg IV NOW STA Stop: 06/21/21 21:11 Last Admin: 06/21/21 21:31 Dose: 4 mg Documented by: [id number] Imaging Data Attestation: I personally reviewed and interpreted this imaging study as follows: My Impression: Chest x-ray: There is a large hiatal hernia. There appears to be some potential atelectasis versus infiltrate to the left lower lung. There is no pneumothorax. No free air. Radiologist's Impression: Chest CT without contrast: There is a large hiatal hernia measuring 14.4 cm. Most of the stomach is actually the hiatal hernia. The esophagus is nondilated. No mediastinum seen. The thoracic aorta is mildly calcified but not dilated. Mild coronary calcifications were seen. The lungs are well-inflated. There was compressive atelectasis adjacent to the hiatal hernia. No airspace infiltrate or pneumothorax or effusion was seen. Discharge Plan Visit Data Chief Complaint: Food Bolus Stated Complaint: FOOD STUCK IN THROAT - CHEST PAIN - VOMITING ED Provider: Jose G Ziegler ED Midlevel Provider: Yvette Calvin Discharge Problem: Precordial chest pain, Hypertension, Vomiting, Hiatal hernia Patient Disposition: Admitted As Inpatient Condition: Fair Forms Stand Alone Forms: My [facility] Prescriptions Prescriptions: No Action pantoprazole 40 mg tablet,delayed release (DR/EC) 40 mg PO QAM RF: 0 furosemide 20 mg tablet 20 mg PO BID RF: 0 baclofen 10 mg Tablet 10 mg PO HS PRN (Reason: Pain) RF: 0 cholecalciferol (vitamin D3) [Vitamin D3] 5,000 unit Tablet 5,000 unit PO QAM RF: 0 atorvastatin 40 mg tablet 40 mg PO HS RF: 0 aspirin [Aspirin Low Dose] 81 mg Tablet,Delayed Release (Dr/Ec) 162 mg PO QAM RF: 0 acetaminophen [Tylenol Extra Strength] 500 mg Tablet 1,000 mg PO Q8H PRN (Reason: FEVER/PAIN) RF: 0 fluticasone propionate 50 mcg/actuation spray,suspension 2 spray INTRANASAL DAILY PRN (Reason: Allergy Symptoms) RF: 0 gabapentin 300 mg Capsule 300 mg PO TID RF: 0 vitamin E 100 unit Capsule 100 unit PO DAILY RF: 0 lorazepam 0.5 mg tablet 0.5 mg PO UD PRN (Reason: Anxiety) RF: 0 ascorbic acid (vitamin C) [Vitamin C] 500 mg Tablet 500 mg PO DAILY RF: 0 tramadol 50 mg tablet 50 mg PO Q6H PRN (Reason: pain, moderate) Qty: 30 RF: 0 warfarin 5 mg Tablet 2.5 mg PO MOWEFRSA Qty: 0 RF: 0 warfarin 5 mg tablet 5 mg PO SUTUTH Qty: 0 RF: 0 Referrals Referrals: Myron Cristobal MD [Primary Care Provider] -
[2021-06-21] MEDS ORDERED: hydrALAZINE HCL 20 MG/ML VIAL IV ONE (22:40)
[2021-06-21] MEDS ORDERED: LABETALOL HCL IV 5 MG/ML 20ML IV STA (23:59)
[2021-06-22] MEDS ORDERED: hydrALAZINE HCL 20 MG/ML VIAL IV STA (01:03)
[2021-06-22] MEDS ORDERED: ONDANSETRON INJ 2 MG/ML 2 ML VIAL IV PRN (03:16)
[2021-06-22] MEDS ORDERED: ACETAMINOPHEN 325 MG TAB PO PRN (03:16)
[2021-06-22] MEDS ORDERED: BACLOFEN 10 MG TAB PO PRN (03:16)
[2021-06-22] MEDS ORDERED: LORazepam 0.5 MG TAB PO PRN (03:16)
[2021-06-22] MEDS ORDERED: FLUTICASONE PROPIONATE NA SPR 16 GM BTL PRN (03:16)
[2021-06-22] MEDS ORDERED: hydrALAZINE HCL 20 MG/ML VIAL IV PRN (03:16)
[2021-06-22] MEDS: D5W AND NSS 1,000 ML IV SCH ×2 (03:27→14:34)
[2021-06-22] MEDS ORDERED: traMADol HCL 50 MG TABLET ONE (03:30)
[2021-06-22] MEDS: traMADol HCL 50 MG TABLET PO PRN ×2 (03:33→11:03)
--- NOTE | 2021-06-22 04:52 | History and Physical Report ---
DATE OF ADMISSION: 06/22/2021. CHIEF COMPLAINT: Food bolus. HISTORY OF PRESENT ILLNESS: This is a 76-year-old female with past medical history significant for hyperlipidemia, paroxysmal atrial fibrillation, history of ascending aortic enlargement, chronic diastolic CHF, aortic valve sclerosis, history of anterior communicating artery aneurysm, history of non-rheumatic mitral valve regurgitation, tricuspid valve regurgitation and mitral valve insufficiency, GERD, Schatzki ring , B12 deficiency, urge incontinence of urine, stress incontinence, restless legs syndrome, generalized osteoarthrosis, degenerative disk disease, generalized anxiety, insomnia, history of TIA, who lives at home with her , comes because of food bolus. The patient after eating Thanksgiving dinner and after eating a fruit, fruit got stuck in her esophagus. She vomited a lot and in the ER also she vomited a lot, now patient thinks food obstruction has passed. She is able to swallow water in the ER okay. On presentation she had chest pain radiating to left shoulder that is resolved now and her blood pressure was high in the ER, received couple a dose of hydralazine and a dose of labetalol. Currently blood pressure is okay. Currently, resting comfortably and hemodynamically stable. CAT scan of the chest was done in the ER showing on preliminary report, no acute findings. Shows large hiatal hernia measuring 4.4 cm and her esophagus is nondilated. No pneumomediastinum seen. Denies any headache. No blurred vision, no earache, no runny nose, no sore throat, no cough, no abdominal pain, normal bowel and bladder movements. Ambulates okay at home. She was in the hospital for back surgery in April. At that time, she had food bolus and was removed by the EGD. She is supposed to be on slipper diet diet and patient says she is following the recommendations. Recently she was also started on Reglan. She states she is taking it. ALLERGIES: SULFA ANTIBIOTICS, BUSPIRONE. PAST MEDICAL HISTORY: As mentioned above. PAST SURGICAL HISTORY: Arthrocentesis, colonoscopy, EGD, lumbosacral spine injection, ventral hernia repair, total hysterectomy. MEDICATIONS: The patient is on Tylenol 1000 mg p.o. q. 8 hours p.r.n., vitamin C 500 mg p.o. daily, aspirin 162 mg p.o. a.m., atorvastatin 40 mg p.o. at bedtime, baclofen 10 mg p.o. at bedtime p.r.n., bupropion 150 mg p.o. b.i.d., vitamin D 5000 units p.o. a.m., Flonase 2 sprays intranasal daily p.r.n., Lasix 20 mg p.o. b.i.d., gabapentin 300 mg p.o. t.i.d., Ativan 0.5 mg p.r.n., Reglan 10 mg p.o. b.i.d., Protonix 40 mg p.o. a.m., tramadol 50 mg p.o. 6 hours p.r.n., Coumadin 2.5 mg on Mondays, Wednesdays, Fridays and Saturdays and 5 mg on Sundays, Tuesdays and . FAMILY HISTORY: Significant for mother has arthritis and lung cancer; father has diabetes. Aunt has diabetes; maternal grandmother had ovarian cancer. Sister has leukemia. SOCIAL HISTORY: , no smoking, no alcohol, no drug use. REVIEW OF SYSTEMS: As per HPI. Rest of the review of systems is negative. PHYSICAL EXAMINATION: GENERAL: The patient is of moderate build, not in acute distress. VITAL SIGNS: Temperature 36.8, pulse 84, respiratory rate 18, blood pressure 174/105, oxygen 95% on room air. HEENT: Pupils equal, round and reactive to light. Oral mucosa moist. NECK: No JVD or neck masses. CARDIOVASCULAR: S1 and S2 heard. Regular rate and rhythm. No murmur, no gallop. RESPIRATORY SYSTEM: Normal AP diameter. No accessory muscle use. No wheezing, no crackles. ABDOMEN: Soft, bowel sounds present, nontender, no distention. CENTRAL NERVOUS SYSTEM: Cranial nerves II-XII grossly intact, nonfocal. EXTREMITIES: No edema, no erythema. LABORATORY DATA: WBC 6.6, hemoglobin 12.2, hematocrit 38.5, platelets 305. Sodium 142, potassium 4.1, chloride 108, bicarbonate 28, BUN 19, creatinine 0.8, serum glucose 113, calcium 9, total bilirubin 0.2, AST 21, ALT 28, alkaline phosphatase 201. Troponin I less than 0.015. SARS-CoV-[address], preliminary report unremarkable. Chest x-ray, no acute findings. EKG: Normal sinus rhythm at a rate of 93, nonspecific T-wave abnormality, no significant change was found. ASSESSMENT AND PLAN: This is a 76-year-old female who presents with food bolus. 1. Food bolus: The patient has a large hiatal hernia, history of food bolus in the past. Happened after Thanksgiving dinner and after eating fruit. She has food stuck in the esophagus, but she is able to vomit out. Currently, she is able to drink water, she is feeling better. We are going to observe in the hospital. GI to see her, keep her n.p.o. until seen by GI. Continue home Reglan. Found to have some chest discomfort radiating to left shoulder, possibly from the food bolus, currently resolved. EKG and troponins is negative x2. We will follow the repeat troponin in a.m. 2. Hypertension, situational. The patient has no history of hypertension. Blood pressure was high in the ER given couple of dose of hydralazine and labetalol, currently improved. We will place on IV hydralazine p.r.n. and monitor. 3. History of generalized anxiety. Continue home medication. 4. History of transient ischemic attack on aspirin and statin. 5. History of paroxysmal atrial fibrillation, on Coumadin. Follow INR. Hold Coumadin for now. Restart if no procedures planned. The patient is not on any rate-limiting medications. 6. Gastroesophageal reflux disease: Continue PPI. 7. Chronic diastolic congestive heart failure, chronic valvular heart disease: Continue home Lasix. Getting fluids. Monitor for any volume overload. 8. Hyperlipidemia, on statin. 9. Deep venous thrombosis prophylaxis: On Coumadin. Follow PT/INR. If INR is low will place her on heparin subcutaneous. DISPOSITION: Admit to medical floor. PT/OT prior to discharge. Social service to help with discharge planning. Level 1 full code. Job ID: [id number] MTDD
--- NOTE | 2021-06-22 07:43 | Electrocardiogram Report ---
Test Reason : Blood Pressure : / mmHG Vent. Rate : 093 BPM Atrial Rate : 093 BPM P-R Int : 120 ms QRS Dur : 074 ms QT Int : 354 ms P-R-T Axes : 007 011 040 degrees QTc Int : 440 ms Poor data quality, interpretation may be adversely affected Normal sinus rhythm Nonspecific T wave abnormality Abnormal ECG When compared with ECG of 10-MAY-2021 19:07, No significant change was found Confirmed by Abisai Pereyra ([id number]) on 06/22/2021 7:42:40 AM Referred By: REFERRED SELF Confirmed By:Keyon Pereyra
[2021-06-22 08:31] LABS: Basophils # (auto) 0.03 K/uL (0-0.2); Basophils % (auto) 0.5 %; Eosinophils # (auto) 0.17 K/uL (0-0.5); Eosinophils % (auto) 2.9 %; Hematocrit (blood only) 34.8 % (37-47); Immature Granulocytes # (auto) 0.01 K/uL (0.00-0.02); Immature Granulocytes % (auto) 0.2 %; Lymphocytes # (auto) 1.45 K/uL (1.2-3.4); Lymphocytes % (auto) 24.6 %; Mean Corpuscular Hemoglobin 30.8 pg (25-34); Mean Corpuscular Hgb Conc 31.6 g/dL (32-36); Mean Corpuscular Volume 97.5 fL (80-100); Mean Platelet Volume 8.9 fL (7.4-10.4); Monocytes # (auto) 0.51 K/uL (0.11-0.59); Monocytes % (auto) 8.7 %; Neutrophils # (auto) 3.72 K/uL (1.4-6.5); Neutrophils % (auto) 63.1 %; Platelet Count 309 K/uL (130-400); RDW Coefficient of Variation 14.7 % (11.5-14.5); RDW Standard Deviation 52.8 fL (36.4-46.3); Red Blood Count 3.57 M/uL (4.2-5.4); White Blood Count 5.89 K/uL (4.8-10.8)
[2021-06-22 08:38] LABS: Prothrombin Time 19.2 Seconds (9.0-12.0)
--- NOTE | 2021-06-22 08:57 | XRay Report ---
XR chest 1V portable HISTORY: Midsternal chest pain COMPARISON: Chest 04/20/2021. FINDINGS: No pneumothorax. No pleural effusions. The heart is normal in size. As a large hiatus herni a which is slightly increased in size. No new focal lung consolidations to suggest pneumonia. No evid ence for pulmonary edema. IMPRESSION: Large hiatus hernia which has slightly increased in size. ACT 112: Negative or not required by law. Electronically signed by: Dannie Lockwood M.D. 06/22/2021 8:55 AM
[2021-06-22] MEDS ORDERED: CHOLECALCIFEROL 1,000 UNITS 25 MCG TAB PO SCH (09:00)
[2021-06-22] MEDS ORDERED: PANTOprazole 40 MG TAB PO SCH ×2 (09:00→21:00)
[2021-06-22] MEDS ORDERED: METOCLOPRAMIDE HCL 10 MG TABLET PO SCH (09:00)
[2021-06-22] MEDS ORDERED: FUROSEMIDE 20 MG TAB PO SCH (09:00)
[2021-06-22] MEDS ORDERED: ASPIRIN 81 MG ECTAB PO SCH (09:00)
[2021-06-22] MEDS ORDERED: buPROPion SR 150 MG TABCR PO SCH (09:00)
--- NOTE | 2021-06-22 09:08 | CT Scan Report ---
CT chest diagnostic wo con CT DOSE: 519.40 mGy.cm CLINICAL HISTORY: 76 years-old Female with poss esoph perforation. Acute chest pain with possible es ophageal perforation TECHNIQUE: Multiaxial CT images of the chest were performed without contrast. A dose lowering techni que was utilized adhering to the principles of ALARA. COMPARISON: Barium swallow 05/11/2021, CT abdomen and pelvis 01/25/2021, chest CT 04/30/2020 FINDINGS: The heart is upper limits of normal in size. Mild coronary artery calcifications. Mild fusi form dilation of the ascending thoracic aorta measures 4.1 x 4.1 cm. Calcified left hilar lymph nodes . Calcified granuloma of the basal left lower lobe. Trace left pleural effusion. No pneumothorax or o vert pulmonary edema. Subsegmental bibasilar atelectasis/scarring. 4 mm solid nodule of the right low er lobe on image 161 of series 4 is unchanged and likely benign. Mild intralobular septal thickening. The central airways are patent. Large hiatal hernia with majority of the stomach present present wit hin the thorax. Calcified granulomata of the spleen. Unchanged thickening of the adrenal glands sugge sts hyperplasia. Probable cyst of the left hepatic lobe measures 8 mm. Unremarkable soft tissues. The re is no acute fracture. Degenerative changes of the shoulders and spine. T3 vertebral body hemangiom a. Mid thoracic dextroscoliosis. IMPRESSION: 1. No acute intrathoracic abnormality. 2. Large hiatal hernia within the majority of the stomach present within the thoracic cavity redemons trated. 3. Unchanged trace left pleural effusion. 4. Prior granulomatous disease 5. Fusiform dilation of the ascending thoracic aorta, 4.1 x 4.1 cm. ACT 112: Negative or not required by law. Electronically signed by: Arya German M.D. 06/22/2021 9:07 AM
[2021-06-22 09:12] LABS: BUN Creatinine Ratio 23.4 (10-20); Blood Urea Nitrogen 15 mg/dl (7-18); Calcium 8.9 mg/dl (8.5-10.1); Carbon Dioxide 22 mmol/L (21-32); Chloride 114 mmol/L (98-107); Creatinine Clr Calc Pharmacy 91.5 ml/min; Est GFR (African American) 101.7 ml/min; Est GFR (Non-African American) 87.7 ml/min; Glucose 97 mg/dl (70-99); Magnesium 2.4 mg/dl (1.8-2.4); Potassium 4.2 mmol/L (3.5-5.1); Sodium 145 mmol/L (136-145); Troponin I < 0.015 ng/ml (0-0.045)
--- NOTE | 2021-06-22 09:26 | Gastrointestinal Consultation ---
Date of Consultation June 22, 2021 Assessment & Plan (1) Food impaction of esophagus: Pt is a 76 y/o female w hx of GERD, gastroparesis, large hiatal hernia (majority of stomach in thoracic cavity), who presented with food impaction in esophagus last night, seems to have resolved after she vomited the food. On exam today she denies esophageal pain, and able to drink water well. She would like to be DC'd home today - CL diet - PPI PO BID - Outpt GI surgery referral for possible hernia repair - Soft, slippery diet - GI to sign off; pls recall prn Supervising Physician Co-Signing Physician Notes I have personally seen and examined the patient with CHINO Barillas. Her note reflects my exam and findings. I agree with her impression and plan. Tolerating PO. Patient needs to chew food well and eat slowly. Jesus Padilla M.D. History of Present Illness Reason for Consultation: Food bolus Requesting Physician: Dr. Shay Bell Attending Physician: Dr. Jesus Padilla History of Present Illness Pt is a 76 y/o female w hx of GERD, hiatal hernia, gastroparesis, who presented yesterday w food impaction in esophagus last night after having thanksgiving dinner. She had hx of food bolus about 1 month ago needing disimpaction via endoscopy and dilation. She reports after arrival to hospital she had vomited large amount of the food. She wasn't able to swallow any water before but able to now. Her CXR and CT chest showed large hiatal hernia with majority of stomach in thoracic cavity Allergies Allergy/AdvReac Type Severity Reaction Status Date / Time Sulfa (Sulfonamide Allergy Unknown Unknown Verified 06/21/21 22:10 Antibiotics) buspirone [From BuSpar] AdvReac Mild Vomiting Verified 06/21/21 22:10 Home Medications Medication Instructions Recorded Confirmed Type baclofen 10 mg tablet 10 mg PO HS PRN 02/20/19 06/21/21 History cholecalciferol (vitamin D3) 125 5,000 unit PO QAM 02/20/19 06/21/21 History mcg (5,000 unit) tablet (Vitamin D3) acetaminophen 500 mg tablet 1,000 mg PO Q8H PRN 05/01/20 06/21/21 History (Tylenol Extra Strength) aspirin 81 mg tablet,delayed 162 mg PO QAM 05/01/20 06/21/21 History release (Aspirin Low Dose) atorvastatin 40 mg tablet 40 mg PO HS 05/01/20 06/21/21 History fluticasone propionate 50 2 spray INTRANASAL DAILY PRN 05/01/20 06/21/21 History mcg/actuation nasal spray,suspension furosemide 20 mg tablet 20 mg PO BID 07/30/20 06/21/21 History pantoprazole 40 mg tablet,delayed 40 mg PO QAM 07/30/20 06/21/21 History release gabapentin 300 mg capsule 300 mg PO TID 04/19/21 06/21/21 History ascorbic acid (vitamin C) 500 mg 500 mg PO DAILY 05/07/21 06/21/21 History tablet (Vitamin C) lorazepam 0.5 mg tablet 0.5 mg PO UD PRN 05/07/21 06/21/21 History vitamin E 100 unit capsule 100 unit PO DAILY 05/07/21 06/21/21 History tramadol 50 mg tablet 50 mg PO Q6H PRN #30 tab 05/10/21 06/21/21 Rx warfarin 5 mg tablet 2.5 mg PO MOWEFRSA #0 tab 05/14/21 06/21/21 Rx warfarin 5 mg tablet 5 mg PO SUTUTH #0 tab 05/14/21 06/21/21 Rx bupropion HCl 150 mg tablet,12 hr 150 mg PO BID 06/22/21 06/22/21 History sustained-release metoclopramide HCl 10 mg tablet 10 mg PO BID 06/22/21 06/22/21 History Patient History Medical History Anxiety Arthritis Atrial fibrillation Follows with [facility] cardio, on coumadin Chronic diastolic CHF (congestive heart failure) GERD (gastroesophageal reflux disease) History of COVID-19 Dx 07/2020, no current issues History of depression Hyperlipidemia Overactive bladder hx botox injections (not successful) TIA (transient ischemic attack) 2019 Surgical History H/O foot surgery Left x2 History of appendectomy History of cataract surgery R/L History of colonoscopy History of esophagogastroduodenoscopy (EGD) History of herniorrhaphy History of hysterectomy History of tooth extraction Family History Father Family history of diabetes mellitus Brother Family history of diabetes mellitus Other Family history non-contributory No family history of adverse response to anesthesia Social History Smoking Status: Former smoker Tobacco Type: Cigarettes Second Hand Exposure: No; Do You Dip or Chew Tobacco: No; Tobacco Cessation Education Requested by Patient: No Hx Alcohol Use: No Hx Substance Use: No Preferred Language: Ethiopian Communication Ability: Effective Multisensor Intelligence Officer Required: No Beliefs That Will Affect Care: None Current Living Situation: Spouse Other Information That Helps Us Care for You: No Feels Safe at Home: Yes Safety Concerns: Feels Safe At This Time Assistive Devices: Cane Review of Systems Review of Systems: All systems reviewed & are unremarkable except as noted in HPI & below Physical Exam Constitutional: WD/WN, vitals as above well groomed, cooperative and comfortable Eyes: PERRL, conjunctivae normal, anicteric sclerae ENMT: external ear and nose normal, oropharynx normal Respiratory: normal respiratory effort, lungs clear to auscultation Cardiovascular: RRR, no murmur, no edema Gastrointestinal (Abdomen): normal bowel sounds, soft, nontender, no hepatosplenomegaly Skin: no rashes, warm and dry no jaundice Psychiatric: A+Ox3, euthymic affect Lymphatic: no lymphedema Results & Data ([facility]) Vital Signs (Past 12 Hours) Vital Signs Temp Pulse Pulse Resp BP BP BP 06/22/21 07:46 36.9 C 86 16 134/76 06/22/21 03:39 36.4 C L 88 18 132/84 06/22/21 02:46 36.8 C 80 20 128/80 06/22/21 01:00 84 18 174/105 H 06/22/21 00:07 79 21 170/110 H 06/21/21 22:05 91 H 18 190/104 H Pulse Ox 06/22/21 07:46 97 06/22/21 03:39 97 06/22/21 02:46 94 06/22/21 01:00 95 06/22/21 00:07 97 06/21/21 22:05 96
[2021-06-22] MEDS: GABAPENTIN 300 MG CAP PO SCH ×2 (09:48→14:34)
[2021-06-22] MEDS ORDERED: PANTOprazole 40 MG TAB PO ONE (10:45)
--- NOTE | 2021-06-22 14:27 | Discharge Summary ---
Date of Service June 22, 2021 Admission HPI Per Admitting Provider HISTORY OF PRESENT ILLNESS: This is a 76-year-old female with past medical history significant for hyperlipidemia, paroxysmal atrial fibrillation, history of ascending aortic enlargement, chronic diastolic CHF, aortic valve sclerosis, history of anterior communicating artery aneurysm, history of non-rheumatic mitral valve regurgitation, tricuspid valve regurgitation and mitral valve insufficiency, GERD, Schatzki ring , B12 deficiency, urge incontinence of urine, stress incontinence, restless legs syndrome, generalized osteoarthrosis, degenerative disk disease, generalized anxiety, insomnia, history of TIA, who lives at home with her , comes because of food bolus. The patient after eating Thanksgiving dinner and after eating a fruit, fruit got stuck in her esophagus. She vomited a lot and in the ER also she vomited a lot, now patient thinks food obstruction has passed. She is able to swallow water in the ER okay. On presentation she had chest pain radiating to left shoulder that is resolved now and her blood pressure was high in the ER, received couple a dose of hydralazine and a dose of labetalol. Currently blood pressure is okay. Currently, resting comfortably and hemodynamically stable. CAT scan of the chest was done in the ER showing on preliminary report, no acute findings. Shows large hiatal hernia measuring 4.4 cm and her esophagus is nondilated. No pneumomediastinum seen. Denies any headache. No blurred vision, no earache, no runny nose, no sore throat, no cough, no abdominal pain, normal bowel and bladder movements. Ambulates okay at home. She was in the hospital for back surgery in April. At that time, she had food bolus and was removed by the EGD. She is supposed to be on slipper diet diet and patient says she is following the recommendations. Recently she was also started on Reglan. She states she is taking it. Admission Exam Per Admitting Provider PHYSICAL EXAMINATION: GENERAL: The patient is of moderate build, not in acute distress. VITAL SIGNS: Temperature 36.8, pulse 84, respiratory rate 18, blood pressure 174/105, oxygen 95% on room air. HEENT: Pupils equal, round and reactive to light. Oral mucosa moist. NECK: No JVD or neck masses. CARDIOVASCULAR: S1 and S2 heard. Regular rate and rhythm. No murmur, no gallop. RESPIRATORY SYSTEM: Normal AP diameter. No accessory muscle use. No wheezing, no crackles. ABDOMEN: Soft, bowel sounds present, nontender, no distention. CENTRAL NERVOUS SYSTEM: Cranial nerves II-XII grossly intact, nonfocal. EXTREMITIES: No edema, no erythema. Principal Diagnosis Food impaction in esophagus Hiatal hernia Discharge Exam CONSTITUTIONAL: WNWD, VSS, generally well-appearing EYES: normal conjunctivae, no scleral icterus ENT: external ear and nose normal NECK: trachea midline RESPIRATORY: clear to auscultation bilaterally, no crackles, rales or wheezes, normal respiratory effort CARDIOVASCULAR: regular rate and rhythm, S1 and 2 heard without murmurs, gallops or rubs, no JVD, no peripheral edema GASTROINTESTINAL: soft, nontender, no guarding, ND. MUSCULOSKELETAL: strength 5/5 throughout, head is normocephalic and atraumatic,ambulating independently SKIN: warm and dry NEUROLOGIC: CN 2-12 grossly intact, normal cognition, normal speech, no tremor, no gross focal deficits. PSYCHIATRIC: alert cooperative and oriented to person, place and time. Discharge Data Allergies Allergy/AdvReac Type Severity Reaction Status Date / Time Sulfa (Sulfonamide Allergy Unknown Unknown Verified 06/21/21 22:10 Antibiotics) buspirone [From BuSpar] AdvReac Mild Vomiting Verified 06/21/21 22:10 Consultations 06/22/21 01:08 ED Decision to Admit Stat 06/22/21 08:00 Consult Gastroenterology Routine Ordered Studies Laboratory Results WBC 5.89 K/uL (4.8-10.8) 06/22/21 08:09 RBC 3.57 M/uL (4.2-5.4) L 06/22/21 08:09 Hgb 11.0 g/dL (12.0-16.0) L 06/22/21 08:09 Hct 34.8 % (37-47) L 06/22/21 08:09 MCV 97.5 fL (80-100) 06/22/21 08:09 MCH 30.8 pg (25-34) 06/22/21 08:09 MCHC 31.6 g/dL (32-36) L 06/22/21 08:09 RDW Std Deviation 52.8 fL (36.4-46.3) H 06/22/21 08:09 RDW Coeff of Chen 14.7 % (11.5-14.5) H 06/22/21 08:09 Plt Count 309 K/uL (130-400) 06/22/21 08:09 MPV 8.9 fL (7.4-10.4) 06/22/21 08:09 Immature Gran % (Auto) 0.2 % 06/22/21 08:09 Neut % (Auto) 63.1 % 06/22/21 08:09 Lymph % (Auto) 24.6 % 06/22/21 08:09 [place] % (Auto) 8.7 % 06/22/21 08:09 Eos % (Auto) 2.9 % 06/22/21 08:09 Baso % (Auto) 0.5 % 06/22/21 08:09 Neut # (Auto) 3.72 K/uL (1.4-6.5) 06/22/21 08:09 Lymph # (Auto) 1.45 K/uL (1.2-3.4) 06/22/21 08:09 [place] # (Auto) 0.51 K/uL (0.11-0.59) 06/22/21 08:09 Eos # (Auto) 0.17 K/uL (0-0.5) 06/22/21 08:09 Baso # (Auto) 0.03 K/uL (0-0.2) 06/22/21 08:09 Immature Gran # (Auto) 0.01 K/uL (0.00-0.02) 06/22/21 08:09 PT 19.2 Seconds (9.0-12.0) H 06/22/21 08:09 INR 2.0 (0.9-1.1) H 06/22/21 08:09 Sodium 145 mmol/L (136-145) 06/22/21 08:09 Potassium 4.2 mmol/L (3.5-5.1) 06/22/21 08:09 Chloride 114 mmol/L (98-107) H 06/22/21 08:09 Carbon Dioxide 22 mmol/L (21-32) 06/22/21 08:09 Anion Gap 9.0 (3-11) 06/22/21 08:09 BUN 15 mg/dl (7-18) 06/22/21 08:09 Creatinine 0.63 mg/dl (0.6-1.2) 06/22/21 08:09 Est Cr Clr Drug Dosing 91.5 ml/min 06/22/21 08:09 Est GFR ( Amer) 101.7 ml/min 06/22/21 08:09 Est GFR (Non-Af Amer) 87.7 ml/min 06/22/21 08:09 BUN/Creatinine Ratio 23.4 (10-20) H 06/22/21 08:09 Glucose 97 mg/dl (70-99) 06/22/21 08:09 POC Glucose 140 mg/dl (70-99) H 06/21/21 23:12 Calcium 8.9 mg/dl (8.5-10.1) 06/22/21 08:09 Magnesium 2.4 mg/dl (1.8-2.4) 06/22/21 08:09 Total Bilirubin 0.2 mg/dl (0.2-1) 06/21/21 21:25 AST 21 U/L (15-37) 06/21/21 21:25 ALT 28 U/L (12-78) 06/21/21 21:25 Alkaline Phosphatase 201 U/L (45-117) H 06/21/21 21:25 Troponin I < 0.015 ng/ml (0-0.045) 06/22/21 08:09 Total Protein 7.6 gm/dl (6.4-8.2) 06/21/21 21:25 Albumin 3.5 gm/dl (3.4-5.0) 06/21/21 21:25 Globulin 4.1 gm/dl (2.5-4.0) H 06/21/21 21:25 Albumin/Globulin Ratio 0.9 (0.9-2) 06/21/21 21:25 SARS-CoV-2, RNA, NAAT NEGATIVE (NEGATIVE) 06/22/21 01:33 Impressions Chest X-Ray 06/21/21 21:06 XR chest 1V portable HISTORY: Midsternal chest pain COMPARISON: Chest 04/20/2021. FINDINGS: No pneumothorax. No pleural effusions. The heart is normal in size. As a large hiatus hernia which is slightly increased in size. No new focal lung consolidations to suggest pneumonia. No evidence for pulmonary edema. IMPRESSION: Large hiatus hernia which has slightly increased in size. ACT 112: Negative or not required by law. Electronically signed by: Dannie Lockwood M.D. 06/22/2021 8:[address] 06/21/21 22:35 CT chest diagnostic wo con CT DOSE: 519.40 mGy.cm CLINICAL HISTORY: 76 years-old Female with poss esoph perforation. Acute chest pain with possible esophageal perforation TECHNIQUE: Multiaxial CT images of the chest were performed without contrast. A dose lowering technique was utilized adhering to the principles of ALARA. COMPARISON: Barium swallow 05/11/2021, CT abdomen and pelvis 01/25/2021, chest CT 04/30/2020 FINDINGS: The heart is upper limits of normal in size. Mild coronary artery calcifications. Mild fusiform dilation of the ascending thoracic aorta measures 4.1 x 4.1 cm. Calcified left hilar lymph nodes. Calcified granuloma of the basal left lower lobe. Trace left pleural effusion. No pneumothorax or overt pulmonary edema. Subsegmental bibasilar atelectasis/scarring. 4 mm solid nodule of the right lower lobe on image 161 of series 4 is unchanged and likely benign. Mild intralobular septal thickening. The central airways are patent. Large hiatal hernia with majority of the stomach present present within the thorax. Calcified granulomata of the spleen. Unchanged thickening of the adrenal glands suggests hyperplasia. Probable cyst of the left hepatic lobe measures 8 mm. Unremarkable soft tissues. There is no acute fracture. Degenerative changes of the shoulders and spine. T3 vertebral body hemangioma. Mid thoracic dextroscoliosis. IMPRESSION: 1. No acute intrathoracic abnormality. 2. Large hiatal hernia within the majority of the stomach present within the thoracic cavity redemonstrated. 3. Unchanged trace left pleural effusion. 4. Prior granulomatous disease 5. Fusiform dilation of the ascending thoracic aorta, 4.1 x 4.1 cm. ACT 112: Negative or not required by law. Electronically signed by: Arya German M.D. 06/22/2021 9:07 AM Hospital Course (1) Food impaction of esophagus: (2) Hiatal hernia: 76 yo F with a history of esophageal food impaction and a large hiatal hernia presented with another food bolus impaction in her esophagus. Shortly after arriving to the hospital, she vomited up the food. She was admitted for observation and gastroenterology was consulted. She did well with a clear liquid diet and was placed on BID oral PPI therapy. Her diet was advanced witho ut issue and she was sent home in stable condition the following day. An outpatient GI surgery evaluation was recommended with the recurrent food impaction. Total Time Total Time Spent Total Time Spent (In Minutes): 60 Discharge Plan Discharge Items Patient Disposition: Home - Self-Care Reason For Visit: FOOD BOLUS Discharge Diagnosis: Food bolus impaction Condition on Discharge: Good Activity: Resume your previous activity Non-emergency contact: Primary Care Provider Call non-emergency contact if: you have any medication questions and your symptoms worsen Follow-up/Referrals: Myron Cristobal MD [Primary Care Provider] - Diet: Regular Diet Texture: Dental soft (bite-sized) Addtl Attending Provider Instructions: Please take Protonix twice daily per GI recommendations and consider discussing repair of your hiatal hernia with a specialist. A soft diet with easy to chew foods is recommended. It was a pleasure taking care of you! Please call if you have any questions or problems. You can reach a [facility] [address] hospitalist on duty at [facility] 24 hours a day by calling [phone]. Take care of yourself. Rena Milian, [facility] Center[facility] Pending Studies at Discharge: No Stand-Alone Forms: My [facility] Medications and DC Order Prescriptions: Continued pantoprazole 40 mg tablet,delayed release (DR/EC) 40 mg PO QAM RF: 0 furosemide 20 mg tablet 20 mg PO BID RF: 0 baclofen 10 mg Tablet 10 mg PO HS PRN (Reason: Pain) RF: 0 cholecalciferol (vitamin D3) [Vitamin D3] 5,000 unit Tablet 5,000 unit PO QAM RF: 0 atorvastatin 40 mg tablet 40 mg PO HS RF: 0 aspirin [Aspirin Low Dose] 81 mg Tablet,Delayed Release (Dr/Ec) 162 mg PO QAM RF: 0 acetaminophen [Tylenol Extra Strength] 500 mg Tablet 1,000 mg PO Q8H PRN (Reason: FEVER/PAIN) RF: 0 fluticasone propionate 50 mcg/actuation spray,suspension 2 spray INTRANASAL DAILY PRN (Reason: Allergy Symptoms) RF: 0 gabapentin 300 mg Capsule 300 mg PO TID RF: 0 vitamin E 100 unit Capsule 100 unit PO DAILY RF: 0 lorazepam 0.5 mg tablet 0.5 mg PO UD PRN (Reason: Anxiety) RF: 0 ascorbic acid (vitamin C) [Vitamin C] 500 mg Tablet 500 mg PO DAILY RF: 0 tramadol 50 mg tablet 50 mg PO Q6H PRN (Reason: pain, moderate) Qty: 30 RF: 0 warfarin 5 mg Tablet 2.5 mg PO MOWEFRSA Qty: 0 RF: 0 warfarin 5 mg tablet 5 mg PO SUTUTH Qty: 0 RF: 0 bupropion HCl 150 mg tablet sustained-release 12 hr 150 mg PO BID RF: 0 metoclopramide HCl 10 mg tablet 10 mg PO BID RF: 0 Discharge Orders: Discharge Order (Routine); Ordered 06/22/21 Ordered By: Rena Milian Admission Data Admit Date/Time: 06/22/21 02:14 Attending Provider: Rena Milian Admit Provider: Shay Bell Primary Care Provider: Myron Cristobal Other Providers: Shay Bell ; Douglas Caraballo Other Interventions: Discharge Summary Assessment (RN) Last Done: 06/22/21 14:54
--- NOTE | 2021-06-22 17:19 | Electrocardiogram Report ---
Test Reason : Blood Pressure : / mmHG Vent. Rate : 082 BPM Atrial Rate : 082 BPM P-R Int : 150 ms QRS Dur : 078 ms QT Int : 392 ms P-R-T Axes : 038 028 057 degrees QTc Int : 457 ms Normal sinus rhythm Normal ECG When compared with ECG of 21-JUN-2021 20:24, No significant change was found Confirmed by Abisai Pereyra ([id number]) on 06/22/2021 5:19:37 PM Referred By: REFERRED SELF Confirmed By:Keyon Pereyra
[2021-06-22] MEDS ORDERED: ATORVASTATIN 40 MG TAB PO SCH (21:00)
== END 2021-06-22 15:44 | disposition home or self-care (01) ==
LOC: 3W 20:04 → ED 20:04 → SUATTDRO 06-22 02:14 → 3W 06-22 02:46

== ENCOUNTER 2022-07-28 10:30 | Observation (INO) ==
[2022-07-28] MEDS ORDERED: OPTIRAY 320 500ml IV ONE ×2 (11:09→20:40)
[2022-07-28 11:16] LABS: Basophils # (auto) 0.05 K/uL (0-0.2); Basophils % (auto) 0.9 %; Eosinophils # (auto) 0.12 K/uL (0-0.50); Eosinophils % (auto) 2.2 %; Hematocrit (blood only) 36.8 % (34.1-44.9); Hemoglobin 11.6 g/dl (12.0-16.0); Immature Granulocytes # (auto) 0.01 K/uL (0.00-0.02); Immature Granulocytes % (auto) 0.2 %; Lymphocytes # (auto) 1.08 K/uL (1.2-3.4); Lymphocytes % (auto) 19.8 %; Mean Corpuscular Hemoglobin 26.9 pg (25.0-34.0); Mean Corpuscular Hgb Conc 31.5 g/dL (32.0-36.0); Mean Corpuscular Volume 85.4 fL (80.0-100.0); Mean Platelet Volume 9.9 fL (9.4-12.3); Monocytes % (auto) 7.3 %; Neutrophils % (auto) 69.6 %; Platelet Count 282 K/uL (130-400); RDW Coefficient of Variation 15.5 % (11.5-14.5); RDW Standard Deviation 48.6 fL (36.4-46.3); Red Blood Count 4.31 M/uL (3.93-5.22); White Blood Count 5.46 K/ul (4.8-10.8)
[2022-07-28 11:37] LABS: Albumin Globulin Ratio 1.3 (0.9-2); Albumin Level 4.2 gm/dl (3.4-5.0); BUN Creatinine Ratio 34.6 (10-20); Bilirubin,Total 0.3 mg/dl (0.2-1.0); Calcium 9.6 mg/dl (8.5-10.1); Creatinine Clr Calc Pharmacy 75.1 ml/min; Est GFR (African American) 81.8 ml/min; Est GFR (Non-African American) 70.5 ml/min; Globulin 3.2 gm/dl (2.5-4.0); INR 1.6 (0.9-1.1); Magnesium 2.2 mg/dl (1.7-2.4); Partial Thromboplastin Ratio 1.1; Partial Thromboplastin Time 29.9 Seconds (21.0-31.0); Potassium 4.3 mmol/L (3.5-5.1); Prothrombin Time 16.3 Seconds (9.0-12.0); Total Protein 7.4 gm/dl (6.0-8.3)
[2022-07-28 11:43] LABS: Troponin I High Sensitivity 4.3 pg/ml (0-14)
--- NOTE | 2022-07-28 11:49 | CT Scan Report ---
HEAD CT NONCONTRAST CT DOSE: HISTORY: Left arm weakness. neuro deficit, acute stroke suspected TECHNIQUE: Multiaxial CT images of the head were performed without the use of intravenous contrast. A utomated exposure control was utilized for this study. A dose lowering technique was utilized adheri ng to the principles of ALARA. Comparison: Brain MRI 02/20/2019. Findings: The paranasal sinuses and mastoid air cells are clear. The calvarium and skull base are int act. The ventricles and sulci are within normal limits. There is no mass, hematoma, midline shift, or acute infarct. Impression: No acute intracranial abnormality. ACT 112: Negative or not required by law. Electronically signed by: Dannie Lockwood M.D. 07/28/2022 11:47 AM
--- NOTE | 2022-07-28 11:54 | CT Scan Report ---
HEAD & NECK CTA HISTORY: Left arm weakness. neuro deficit, acute stroke suspected TECHNIQUE: Multiaxial CT images of the head were performed following the intravenous administration o f contrast to evaluate the major cerebral vessels. Multiaxial CT images of the neck were also perform ed following the intravenous administration of contrast to evaluate the major cervical vessels. Maxim um intensity projection images were also obtained. A dose lowering technique was utilized adhering to the principles of ALARA. COMPARISON: MRA head and neck 02/20/2019. FINDINGS: There is no mass, hematoma, midline shift, or acute infarct. Visualized intracranial internal carotid arteries, distal vertebral arteries, and basilar artery are widely patent. There is no significant s tenosis, occlusion, or aneurysm seen within the bilateral ACAs, MCAs, or title clerk. The major dural venous sinuses are patent. The aortic arch and proximal great vessels are widely patent. There is no significant stenosis, occ lusion, or dissection identified within the bilateral common carotid, internal carotid, or vertebral arteries. IMPRESSION: 1. No significant stenosis, occlusion, or aneurysm within the [place]. 2. No significant stenosis, occlusion, or dissection identified within the carotid or vertebral arter ies. ACT 112: Negative or not required by law. Electronically signed by: Dannie Lockwood M.D. 07/28/2022 11:52 AM
--- NOTE | 2022-07-28 11:54 | CT Scan Report ---
HEAD & NECK CTA HISTORY: Left arm weakness. neuro deficit, acute stroke suspected TECHNIQUE: Multiaxial CT images of the head were performed following the intravenous administration o f contrast to evaluate the major cerebral vessels. Multiaxial CT images of the neck were also perform ed following the intravenous administration of contrast to evaluate the major cervical vessels. Maxim um intensity projection images were also obtained. A dose lowering technique was utilized adhering to the principles of ALARA. COMPARISON: MRA head and neck 02/20/2019. FINDINGS: There is no mass, hematoma, midline shift, or acute infarct. Visualized intracranial internal carotid arteries, distal vertebral arteries, and basilar artery are widely patent. There is no significant s tenosis, occlusion, or aneurysm seen within the bilateral ACAs, MCAs, or implementation specialist. The major dural venous sinuses are patent. The aortic arch and proximal great vessels are widely patent. There is no significant stenosis, occ lusion, or dissection identified within the bilateral common carotid, internal carotid, or vertebral arteries. IMPRESSION: 1. No significant stenosis, occlusion, or aneurysm within the [place]. 2. No significant stenosis, occlusion, or dissection identified within the carotid or vertebral arter ies. ACT 112: Negative or not required by law. Electronically signed by: Dannie Lockwood M.D. 07/28/2022 11:52 AM
--- NOTE | 2022-07-28 11:59 | XRay Report ---
XR chest 1V portable HISTORY: Left arm weakness. neuro deficit, acute stroke suspected COMPARISON: Chest 10/28/2021. FINDINGS: The lungs are clear. Cardiac silhouette is normal in size. No pleural effusions. No pneumot horax. IMPRESSION: No acute process. ACT 112: Negative or not required by law. Electronically signed by: Dannie Lockwood M.D. 07/28/2022 11:57 AM
--- NOTE | 2022-07-28 12:21 | Emergency Department Note ---
Impression & Plan Stroke-like symptoms, Generalized weakness, Near syncope ED Provider Note INFORMANT: Patient and ED PROVIDER(S): Denny Baez MD CHIEF COMPLAINT: Strokelike symptoms PLAN: Disposition: Admitted Condition: Good Outpatient prescription management: none Referral: None MEDICAL DECISION MAKING: Patient presented to emergency department because of strokelike symptoms. She was made a stroke alert after I evaluated her given her history and symptoms. She was already improving which was ideal. Telestroke was not initially contacted given the patient's anticoagulation and contraindication for thrombolytics. Patient was sent emergently for CT and CT angiography. Thankfully these did not reveal any acute problems. The patient returned she was reassessed and was actually feeling much better with resolution of her strokelike symptoms, however she was still generally weak. She was nonfocal. Patient's twelve-lead ECG showing sinus rhythm. Her CBC and chemistry panels were unremarkable. Patient's INR is slightly subtherapeutic. In light of her strokelike symptoms further management in the hospital will be necessary. [facility] and discussed the case with Dr. Milian. Patient's history, presentation diagnostics were reviewed. Patient was evaluated in the emergency department and admitted for further management Triage Nursing notes reviewed and agree them. Vital Signs: reviewed and remarkable for no significant abnormalities Prior /Outside records reviewed: none Differential diagnosis: CVA, TIA, infection, dehydration, metabolic abnormality, hypo/hyperglycemia, electrolyte disturbance, anemia, cardiac sources, intracerebral event, toxicologic, as well as other pathologies. Diagnostics, as interpreted by me: EC Lead ECG performed and revealed Normal sinus rhythm at 75, normal Sage, QRS normal. No elevation or depression. No PACs or PVCs Cardiac Monitoring: Cardiac monitoring ordered by me: The patient was placed on continuous cardiac monitoring and observed. It revealed a normal sinus rhythm at 66 beats per minute without ectopy or evidence of dysrhythmia. Medical decision rules: none Imaging studies: Chest x-ray. Findings: A chest x-ray was performed and revealed no pneumothorax, effusion, infiltrate, pulmonary edema, free air under the diaphragm, or wide mediastinum. Impression: No acute disease. CT head and CT angiography of head and neck were negative for acute process. I refer you to the EMR for further details. HPI: The patient is a 77 year old female who presents to the Emergency Room with complaints of strokelike symptoms. This started around 930 this morning and is improving. The patient also notes the following associated symptoms, generalized weakness, heaviness and numbness in the left upper extremity which has improved, near syncope. The patient has taken no medication for relieving factors. Current pain is rated as 0/10. Patient has a history of TIA. Patient does note she is on Coumadin because of A. fib. Pt denies LOC, headache, fevers, chills, diaphoresis, visual changes, neck pain, chest pain, breathing difficulties, nausea, vomiting, abdominal pain, back pain, melena, hematochezia, urinary symptoms, lymphadenopathy, rash, or other complaints. PAST MEDICAL HISTORY: See Below, anticoagulated, A. fib, GERD PAST SURGICAL HISTORY: See Below, SOCIAL HISTORY:, see below HOME MEDICATIONS: See Below ALLERGIES: See Below VITALS: See Below PHYSICAL EXAMINATION: GENERAL: Awake, alert, anxious-appearing, in no distress HENT: Normocephalic, atraumatic. Oropharynx unremarkable. EYES: Normal conjunctiva. Sclera non-icteric. NECK: Inspection normal. Non-tender. Supple. No nuchal rigidity. FROM. No masses. RESPIRATORY: Clear to auscultation. No wheezes. No rales. Normal respiratory effort. CARDIAC: Normal rate. Normal rhythm. No murmurs. No rubs. Extremities warm and well perfused. Pulses equal. No JVD. GI: Soft, non-distended. No tenderness to palpation. No rebound or guarding. No masses. RECTAL: Deferred. MUSCULOSKELETAL: Atraumatic. Chest examination reveals no tenderness. The back is symmetrical on inspection without obvious abnormality. There is no CVA tenderness to palpation. No joint edema. LOWER EXTREMITIES: Calves are equal size bilaterally and non-tender. No edema. No discoloration. NEURO: Normal sensorium. No sensory or motor deficits noted except for subjective tingling in the left upper extremity. Speech normal. Cranial nerves II through XII intact. SKIN: No rash or jaundice noted. Past Med/Surg History Medical History Anterior communicating artery aneurysm Anxiety Aortic valve sclerosis Arthritis Ascending aorta enlargement Atrial fibrillation Follows with S cardio, on coumadin B12 deficiency Chronic diastolic CHF (congestive heart failure) GERD (gastroesophageal reflux disease) Hiatal hernia History of COVID-19 Dx 07/2020, no current issues History of depression Hyperlipidemia Hypertension Nonrheumatic aortic (valve) insufficiency Nonrheumatic mitral valve regurgitation Nonrheumatic tricuspid (valve) insufficiency Overactive bladder hx botox injections (not successful) PAF (paroxysmal atrial fibrillation) Precordial chest pain RLS (restless legs syndrome) Schatzki's ring Senile osteoporosis Stress incontinence TIA (transient ischemic attack) 2019 Urge incontinence of urine Warfarin anticoagulation Surgical History H/O foot surgery Left x2 History of appendectomy History of cataract surgery R/L History of colonoscopy History of esophagogastroduodenoscopy (EGD) History of herniorrhaphy History of hysterectomy History of tooth extraction Family History Father Family history of diabetes mellitus Brother Family history of diabetes mellitus Other Family history non-contributory No family history of adverse response to anesthesia Social History Smoking Status: Never smoker Tobacco Type: Cigarettes Second Hand Exposure: No; Hx Alcohol Use: No Hx Substance Use: No Preferred Language: Indonesian Communication Ability: Effective Representative Personal Service Required: No Beliefs That Will Affect Care: None marital status: Current Living Situation: Spouse How many Children do You have: 1 Feels Safe at Home: Yes Safety Concerns: Feels Safe At This Time Assistive Devices: None Allergies Allergies Allergy/AdvReac Type Severity Reaction Status Date / Time Sulfa (Sulfonamide Allergy Unknown CAN'T Verified 10/28/21 18:51 Antibiotics) REMEMBER-LONG AGO. buspirone [From BuSpar] AdvReac Mild Vomiting Verified 10/28/21 18:51 Home Meds Home Medications Medication Instructions Recorded Confirmed acetaminophen 500 mg tablet 1,000 mg PO Q8H PRN Pain 07/28/22 07/28/22 (Acetaminophen Extra Strength) ascorbic acid (vitamin C) 500 mg 500 mg PO DAILY 07/28/22 07/28/22 tablet aspirin 162 mg tablet,delayed 162 mg PO DAILY 07/28/22 07/28/22 release atorvastatin 40 mg tablet 40 mg PO DAILY 07/28/22 07/28/22 cholecalciferol (vitamin D3) 125 125 mcg PO DAILY 07/28/22 07/28/22 mcg (5,000 unit) tablet ferrous sulfate 324 mg (65 mg 324 mg PO DAILY 07/28/22 07/28/22 iron) tablet,delayed release fluticasone propionate 50 2 spray intranasal DAILY PRN 07/28/22 07/28/22 mcg/actuation nasal Allergy Symptoms spray,suspension furosemide 20 mg tablet (Lasix) 20 mg PO BID 07/28/22 07/28/22 metoclopramide HCl 10 mg tablet 10 mg PO BID 07/28/22 07/28/22 metoprolol succinate 25 mg 25 mg PO QAM 07/28/22 07/28/22 tablet,extended release 24 hr pantoprazole 40 mg tablet,delayed 40 mg PO QAM 07/28/22 07/28/22 release sucralfate 1 gram tablet 1 g PO TID 07/28/22 07/28/22 topiramate 25 mg tablet 25 mg PO DAILY 07/28/22 07/28/22 warfarin 5 mg tablet 2.5 mg PO MOWEFRSA@1600 07/28/22 07/28/22 warfarin 5 mg tablet 5 mg PO SUTUTH@1600 07/28/22 07/28/22 Results & Data (ED) Vital Signs Vital Signs - 24 hr 07/28/22 10:39 07/28/22 11:32 07/28/22 11:42 Temperature 36.8 C Temperature Source Temporal Artery Scan Pulse Rate 78 Pulse Rate [Left Apical] 71 Pulse Rate from SpO2 Sensor Pulse Rhythm Regular Pulse Rhythm [Left Apical] Pulse Strength Normal Pulse Strength [Left Apical] Respiratory Rate 20 20 Respiratory Effort / Characteristics Non-Labored Spontaneous Non-Labored Spontaneous Respiratory Depth Normal Normal Respiratory Pattern Regular Blood Pressure 139/95 Blood Pressure [Right Arm] 156/87 H Blood Pressure Mean 109 Blood Pressure Mean [Right Arm] 110 Blood Pressure Position Sitting Pulse Oximetry 98 97 Oxygen Delivery Method Room Air Room Air Room Air Sepsis Recent Fever Within 48 Hours No Sepsis New/Unexplained Change in Mental Status No Sepsis Action Taken by Nursing No Action Required 07/28/22 11:22 07/28/22 11:30 07/28/22 11:31 Temperature Temperature Source Pulse Rate 76 69 83 Pulse Rate [Left Apical] Pulse Rate from SpO2 Sensor Pulse Rhythm Pulse Rhythm [Left Apical] Pulse Strength Pulse Strength [Left Apical] Respiratory Rate 23 20 22 Respiratory Effort / Characteristics Respiratory Depth Respiratory Pattern Blood Pressure Blood Pressure [Right Arm] Blood Pressure Mean Blood Pressure Mean [Right Arm] Blood Pressure Position Pulse Oximetry 99 99 Oxygen Delivery Method Room Air Room Air Sepsis Recent Fever Within 48 Hours Sepsis New/Unexplained Change in Mental Status Sepsis Action Taken by Nursing 07/28/22 11:31 07/28/22 12:00 07/28/22 12:01 Temperature Temperature Source Pulse Rate 66 Pulse Rate [Left Apical] Pulse Rate from SpO2 Sensor Pulse Rhythm Pulse Rhythm [Left Apical] Pulse Strength Pulse Strength [Left Apical] Respiratory Rate 21 Respiratory Effort / Characteristics Respiratory Depth Respiratory Pattern Blood Pressure 165/92 H 141/85 H Blood Pressure [Right Arm] Blood Pressure Mean 116 103 Blood Pressure Mean [Right Arm] Blood Pressure Position Pulse Oximetry 99 Oxygen Delivery Method Room Air Sepsis Recent Fever Within 48 Hours Sepsis New/Unexplained Change in Mental Status Sepsis Action Taken by Nursing 07/28/22 12:01 07/28/22 12:30 07/28/22 12:31 Temperature Temperature Source Pulse Rate 71 73 Pulse Rate [Left Apical] Pulse Rate from SpO2 Sensor 64 69 Pulse Rhythm Pulse Rhythm [Left Apical] Pulse Strength Pulse Strength [Left Apical] Respiratory Rate 21 25 H Respiratory Effort / Characteristics Respiratory Depth Respiratory Pattern Blood Pressure 131/92 Blood Pressure [Right Arm] Blood Pressure Mean 105 Blood Pressure Mean [Right Arm] Blood Pressure Position Pulse Oximetry 100 99 Oxygen Delivery Method Sepsis Recent Fever Within 48 Hours Sepsis New/Unexplained Change in Mental Status Sepsis Action Taken by Nursing 07/28/22 12:31 07/28/22 13:00 07/28/22 13:01 Temperature Temperature Source Pulse Rate 67 69 72 Pulse Rate [Left Apical] Pulse Rate from SpO2 Sensor 66 Pulse Rhythm Pulse Rhythm [Left Apical] Pulse Strength Pulse Strength [Left Apical] Respiratory Rate 20 21 33 H Respiratory Effort / Characteristics Respiratory Depth Respiratory Pattern Blood Pressure Blood Pressure [Right Arm] Blood Pressure Mean Blood Pressure Mean [Right Arm] Blood Pressure Position Pulse Oximetry 100 Oxygen Delivery Method Sepsis Recent Fever Within 48 Hours Sepsis New/Unexplained Change in Mental Status Sepsis Action Taken by Nursing 07/28/22 13:01 07/28/22 13:00 Temperature Temperature Source Pulse Rate Pulse Rate [Left Apical] 78 Pulse Rate from SpO2 Sensor Pulse Rhythm Pulse Rhythm [Left Apical] Regular Pulse Strength Pulse Strength [Left Apical] Normal Respiratory Rate 16 Respiratory Effort / Characteristics Non-Labored Spontaneous Respiratory Depth Normal Respiratory Pattern Blood Pressure 190/112 H Blood Pressure [Right Arm] Blood Pressure Mean 138 Blood Pressure Mean [Right Arm] Blood Pressure Position Pulse Oximetry Oxygen Delivery Method Sepsis Recent Fever Within 48 Hours Sepsis New/Unexplained Change in Mental Status Sepsis Action Taken by Nursing Laboratory Data Result diagrams: 07/28/22 10:16 07/28/22 10:16 Lab Results 07/28/22 07/28/22 07/28/22 Range/Units 10:16 10:16 10:16 WBC 5.46 (4.8-10.8) K/ul RBC 4.31 (3.93-5.22) M/uL Hgb 11.6 L (12.0-16.0) g/dl Hct 36.8 (34.1-44.9) % MCV 85.4 (80.0-100.0) fL MCH 26.9 (25.0-34.0) pg MCHC 31.5 L (32.0-36.0) g/dL RDW Std Deviation 48.6 H (36.4-46.3) fL RDW Coeff of Chen 15.5 H (11.5-14.5) % Plt Count 282 (130-400) K/uL MPV 9.9 (9.4-12.3) fL Immature Gran % (Auto) 0.2 % Neut % (Auto) 69.6 % Lymph % (Auto) 19.8 % Steele % (Auto) 7.3 % Eos % (Auto) 2.2 % Baso % (Auto) 0.9 % Neut # (Auto) 3.80 (1.4-6.5) K/uL Lymph # (Auto) 1.08 L (1.2-3.4) K/uL Steele # (Auto) 0.40 (0.24-0.82) K/uL Eos # (Auto) 0.12 (0-0.50) K/uL Baso # (Auto) 0.05 (0-0.2) K/uL Immature Gran # (Auto) 0.01 (0.00-0.02) K/uL PT 16.3 H (9.0-12.0) Seconds INR 1.6 H (0.9-1.1) APTT 29.9 (21.0-31.0) Seconds PTT Ratio 1.1 Sodium 142 (136-145) mmol/L Potassium 4.3 (3.5-5.1) mmol/L Chloride 109 H (98-107) mmol/L Carbon Dioxide 24 (21-32) mmol/L Anion Gap 9 (3-11) BUN 28 H (6-23) mg/dl Creatinine 0.81 (0.6-1.2) mg/dl Est Cr Clr Drug Dosing 75.1 ml/min Est GFR ( Amer) 81.8 ml/min Est GFR (Non-Af Amer) 70.5 ml/min BUN/Creatinine Ratio 34.6 H (10-20) Glucose 122 H (70-99(Fasting)) mg/dl Calcium 9.6 (8.5-10.1) mg/dl Magnesium 2.2 (1.7-2.4) mg/dl Total Bilirubin 0.3 (0.2-1.0) mg/dl AST 19 (13-39) U/L ALT 19 (7-52) U/L Alkaline Phosphatase 170 H (34-104) U/L Troponin I High Sens 4.3 (0-14) pg/ml Total Protein 7.4 (6.0-8.3) gm/dl Albumin 4.2 (3.4-5.0) gm/dl Globulin 3.2 (2.5-4.0) gm/dl Albumin/Globulin Ratio 1.3 (0.9-2) Vitamin B12 (180-914) pg/ml TSH (0.300-4.500) uIu/ml SARS-CoV-2, RNA, NAAT (NEGATIVE) Blood Type Antibody Screen 07/28/22 07/28/22 07/28/22 Range/Units 10:56 10:56 11:22 WBC (4.8-10.8) K/ul RBC (3.93-5.22) M/uL Hgb (12.0-16.0) g/dl Hct (34.1-44.9) % MCV (80.0-100.0) fL MCH (25.0-34.0) pg MCHC (32.0-36.0) g/dL RDW Std Deviation (36.4-46.3) fL RDW Coeff of Chen (11.5-14.5) % Plt Count (130-400) K/uL MPV (9.4-12.3) fL Immature Gran % (Auto) % Neut % (Auto) % Lymph % (Auto) % Steele % (Auto) % Eos % (Auto) % Baso % (Auto) % Neut # (Auto) (1.4-6.5) K/uL Lymph # (Auto) (1.2-3.4) K/uL Steele # (Auto) (0.24-0.82) K/uL Eos # (Auto) (0-0.50) K/uL Baso # (Auto) (0-0.2) K/uL Immature Gran # (Auto) (0.00-0.02) K/uL PT (9.0-12.0) Seconds INR (0.9-1.1) APTT (21.0-31.0) Seconds PTT Ratio Sodium (136-145) mmol/L Potassium (3.5-5.1) mmol/L Chloride (98-107) mmol/L Carbon Dioxide (21-32) mmol/L Anion Gap (3-11) BUN (6-23) mg/dl Creatinine (0.6-1.2) mg/dl Est Cr Clr Drug Dosing ml/min Est GFR ( Amer) ml/min Est GFR (Non-Af Amer) ml/min BUN/Creatinine Ratio (10-20) Glucose (70-99(Fasting)) mg/dl Calcium (8.5-10.1) mg/dl Magnesium (1.7-2.4) mg/dl Total Bilirubin (0.2-1.0) mg/dl AST (13-39) U/L ALT (7-52) U/L Alkaline Phosphatase (34-104) U/L Troponin I High Sens (0-14) pg/ml Total Protein (6.0-8.3) gm/dl Albumin (3.4-5.0) gm/dl Globulin (2.5-4.0) gm/dl Albumin/Globulin Ratio (0.9-2) Vitamin B12 > 1500 H (180-914) pg/ml TSH 1.247 (0.300-4.500) uIu/ml SARS-CoV-2, RNA, NAAT (NEGATIVE) Blood Type AB Positive Antibody Screen NEGATIVE 07/28/22 Range/Units 12:30 WBC (4.8-10.8) K/ul RBC (3.93-5.22) M/uL Hgb (12.0-16.0) g/dl Hct (34.1-44.9) % MCV (80.0-100.0) fL MCH (25.0-34.0) pg MCHC (32.0-36.0) g/dL RDW Std Deviation (36.4-46.3) fL RDW Coeff of Chen (11.5-14.5) % Plt Count (130-400) K/uL MPV (9.4-12.3) fL Immature Gran % (Auto) % Neut % (Auto) % Lymph % (Auto) % Steele % (Auto) % Eos % (Auto) % Baso % (Auto) % Neut # (Auto) (1.4-6.5) K/uL Lymph # (Auto) (1.2-3.4) K/uL Steele # (Auto) (0.24-0.82) K/uL Eos # (Auto) (0-0.50) K/uL Baso # (Auto) (0-0.2) K/uL Immature Gran # (Auto) (0.00-0.02) K/uL PT (9.0-12.0) Seconds INR (0.9-1.1) APTT (21.0-31.0) Seconds PTT Ratio Sodium (136-145) mmol/L Potassium (3.5-5.1) mmol/L Chloride (98-107) mmol/L Carbon Dioxide (21-32) mmol/L Anion Gap (3-11) BUN (6-23) mg/dl Creatinine (0.6-1.2) mg/dl Est Cr Clr Drug Dosing ml/min Est GFR ( Amer) ml/min Est GFR (Non-Af Amer) ml/min BUN/Creatinine Ratio (10-20) Glucose (70-99(Fasting)) mg/dl Calcium (8.5-10.1) mg/dl Magnesium (1.7-2.4) mg/dl Total Bilirubin (0.2-1.0) mg/dl AST (13-39) U/L ALT (7-52) U/L Alkaline Phosphatase (34-104) U/L Troponin I High Sens (0-14) pg/ml Total Protein (6.0-8.3) gm/dl Albumin (3.4-5.0) gm/dl Globulin (2.5-4.0) gm/dl Albumin/Globulin Ratio (0.9-2) Vitamin B12 (180-914) pg/ml TSH (0.300-4.500) uIu/ml SARS-CoV-2, RNA, NAAT NEGATIVE (NEGATIVE) Blood Type Antibody Screen Administered Medications Warfarin Sodium (Warfarin Sod 5 Mg Tab) 5 mg PO SUTUTH@1600 JAYLEEN Stop: 08/27/22 15:59 Last Admin: 07/28/22 16:03 Dose: 5 mg Documented By: MARLY Discontinued Medications Ioversol (Optiray 320 500ml) 117 ml IV ONCE ONE Stop: 07/28/22 11:10 Last Admin: 07/28/22 11:10 Dose: 117 ml Documented By: STEFANO Lorazepam (Lorazepam 0.5 Mg Tab) 0.5 mg PO NOW STA Stop: 07/28/22 14:32 Last Admin: 07/28/22 16:03 Dose: 0.5 mg Documented By: MARLY Imaging Data Radiologist's Impression: Chest X-Ray 07/28/22 10:59 XR chest 1V portable HISTORY: Left arm weakness. neuro deficit, acute stroke suspected COMPARISON: Chest 10/28/2021. FINDINGS: The lungs are clear. Cardiac silhouette is normal in size. No pleural effusions. No pneumothorax. IMPRESSION: No acute process. ACT 112: Negative or not required by law. Electronically signed by: Dannie Lockwood M.D. 07/28/2022 11:[address] 07/28/22 10:[address] DOSE: HISTORY: Left arm weakness. neuro deficit, acute stroke suspected TECHNIQUE: Multiaxial CT images of the head were performed without the use of intravenous contrast. Automated exposure control was utilized for this study. A dose lowering technique was utilized adhering to the principles of ALARA. Comparison: Brain MRI 02/20/2019. Findings: The paranasal sinuses and mastoid air cells are clear. The calvarium and skull base are intact. The ventricles and sulci are within normal limits. Th ere is no mass, hematoma, midline shift, or acute infarct. Impression: No acute intracranial abnormality. ACT 112: Negative or not required by law. Electronically signed by: Dannie Lockwood M.D. 07/28/2022 11:47 AM Head CTA 07/28/22 10:59 HEAD & NECK CTA HISTORY: Left arm weakness. neuro deficit, acute stroke suspected TECHNIQUE: Multiaxial CT images of the head were performed following the intravenous administration of contrast to evaluate the major cerebral vessels. Multiaxial CT images of the neck were also performed following the intravenous administration of contrast to evaluate the major cervical vessels. Maximum intensity projection images were also obtained. A dose lowering technique was utilized adhering to the principles of ALARA. COMPARISON: MRA head and neck 02/20/2019. FINDINGS: There is no mass, hematoma, midline shift, or acute infarct. Visualized intracranial internal carotid arteries, distal vertebral arteries, and basilar artery are widely patent. There is no significant stenosis, occlusion, or aneurysm seen within the bilateral ACAs, MCAs, or manufacturing technologist. The major dural venous sinuses are patent. The aortic arch and proximal great vessels are widely patent. There is no significant stenosis, occlusion, or dissection identified within the bilateral common carotid, internal carotid, or vertebral arteries. IMPRESSION: 1. No significant stenosis, occlusion, or aneurysm within the [place]. 2. No significant stenosis, occlusion, or dissection identified within the carotid or vertebral arteries. ACT 112: Negative or not required by law. Electronically signed by: Dannie Lockwood M.D. 07/28/2022 11:52 AM Neck CTA 07/28/22 10:59 HEAD & NECK CTA HISTORY: Left arm weakness. neuro deficit, acute stroke suspected TECHNIQUE: Multiaxial CT images of the head were performed following the intravenous administration of contrast to evaluate the major cerebral vessels. Multiaxial CT images of the neck were also performed following the intravenous administration of contrast to evaluate the major cervical vessels. Maximum in tensity projection images were also obtained. A dose lowering technique was utilized adhering to the principles of ALARA. COMPARISON: MRA head and neck 02/20/2019. FINDINGS: There is no mass, hematoma, midline shift, or acute infarct. Visualized intracranial internal carotid arteries, distal vertebral arteries, and basilar artery are widely patent. There is no significant stenosis, occlusion, or aneurysm seen within the bilateral ACAs, MCAs, or manufacturing technologist. The major dural venous sinuses are patent. The aortic arch and proximal great vessels are widely patent. There is no significant stenosis, occlusion, or dissection identified within the bilateral common carotid, internal carotid, or vertebral arteries. IMPRESSION: 1. No significant stenosis, occlusion, or aneurysm within the [place]. 2. No significant stenosis, occlusion, or dissection identified within the carotid or vertebral arteries. ACT 112: Negative or not required by law. Electronically signed by: Dannie Lockwood M.D. 07/28/2022 11:52 AM Discharge Plan Visit Data Chief Complaint: Neuro Symptoms/Deficit Stated Complaint: NEAR SYNCOPE, NUMBNESS ON LEFT SIDE ED Provider: Denny Baez Discharge Problem: Stroke-like symptoms, Generalized weakness, Near syncope Patient Disposition: Admitted As Inpatient Discharge Instructions Interventions: ED Discharge Assessment Last Done: 07/28/22 14:29
--- NOTE | 2022-07-28 13:32 | History & Physical Report ---
Date of Service July 28, 2022 Assessment & Plan (1) TIA (transient ischemic attack): Plan: h/o TIA in 2019 and received DAPT with plavix and ASA x 21 days, then continued on aspirin. Given Zio patch results showing PAF, warfarin was added. Today her symptoms are not exactly like those previous symptoms, but she is describing feeling warm, flushed, presyncopal and with some numbness and weakness. Has also been describing worsening SOB with exertion as described above. Per record review, she has a history of valvular heart disease and ascending aortic enlargement. Worsening valvular disease may be present, order echo. Aortic dissection also possible, CTA for dissection rule out ordered. EKG is nonischemic and HS trop was negative. She does have some weight gain and noncompliance with diuretics noted in history. Cont workup based on findings and clinical progress. Neurology consulted. For now will cont ASA and warfarin. (2) Generalized weakness: Plan: Generalized fatigue and weakness associated with symptoms today. Uncertain cause with possibilities noted above and rule out B12/folate def, thyroid abnormalities (TSH in 03/18 was 1.16), UTI (no symptoms, UA pending), no respiratory infection and no current symptoms, will screen for vasculitis with ESR/CRP, should consider MS or other cause of neuromuscular weakness such as Guillain Brooks (latest vaccine was TdAP in Jun 18, no recent illnesses, unable to elicit knee reflexes on exam today), (3) Near syncope: Plan: no overt syncope, seems unusual for TIA. Rule out aortic dissection. Echo as above. (4) PAF (paroxysmal atrial fibrillation): Plan: In sinus rhythm today. cont warfarin, metoprolol, asa (5) Dyspnea on exertion: Plan: workup as above. (6) Obesity: Plan: lifestyle modifications recommended. DVT proph-warfarin Full Code Dispo-to telemetry Rena Milian DO [facility] Hospitalist History of Present Illness Chief Complaint: malaise, LUE numbness Primary Care Provider: Myron Cristobal MD 77 yo F with h/o TIA who is on coumadin for atrial fibrillation presents with new RUE numbness. Started feeling generalized malaise, then felt discomfort spread across her shoulders. Moved into her left arm with a sense of numbness-"it was not like I felt with my last TIA." Got nauseous when she went to the CT scan. No vomiting. Chandler overwhelmingly warm-better when removd coat and sweater while at [place] when symptoms began. [place] presyncopal, and "I just don't feel right." Chandler fine yesterday and last night Had a strange, horrible pain in her right head last night that was sharp and lasted only seconds. INR is 1.6 today +constipation new for over 1 week-has been taking miralax Had surgery in October for a hiatal hernia-had come to [facility] and was lifeflighted at that time. Follows with GI after this and for severe GERD, on carafate, protonix, etc. Today both legs feel very heavy and she is having trouble moving them around She had significant difficulty moving around, and became very winded with just moving to the bedside reports she gets very winded easily with just a few steps Pt states that just standing to apply her makeup will cause her to need to go lay down. Can barely climb a flight of stairs Very tough to walk into [place] today; she has modified her like so she doesn't have to walk very far these days. This has likely become worse since just after the surgery this spring. Allergies Allergy/AdvReac Type Severity Reaction Status Date / Time Sulfa (Sulfonamide Allergy Unknown CAN'T Verified 10/28/21 18:51 Antibiotics) REMEMBER-LONG AGO. buspirone [From BuSpar] AdvReac Mild Vomiting Verified 10/28/21 18:51 Home Medications Medication Instructions Recorded Confirmed Type acetaminophen 500 mg tablet 1,000 mg PO Q8H PRN Pain 07/28/22 07/28/22 History (Acetaminophen Extra Strength) ascorbic acid (vitamin C) 500 mg 500 mg PO DAILY 07/28/22 07/28/22 History tablet aspirin 162 mg tablet,delayed 162 mg PO DAILY 07/28/22 07/28/22 History release atorvastatin 40 mg tablet 40 mg PO DAILY 07/28/22 07/28/22 History cholecalciferol (vitamin D3) 125 125 mcg PO DAILY 07/28/22 07/28/22 History mcg (5,000 unit) tablet ferrous sulfate 324 mg (65 mg 324 mg PO DAILY 07/28/22 07/28/22 History iron) tablet,delayed release fluticasone propionate 50 2 spray intranasal DAILY PRN 07/28/22 07/28/22 History mcg/actuation nasal Allergy Symptoms spray,suspension furosemide 20 mg tablet (Lasix) 20 mg PO BID 07/28/22 07/28/22 History metoclopramide HCl 10 mg tablet 10 mg PO BID 07/28/22 07/28/22 History metoprolol succinate 25 mg 25 mg PO QAM 07/28/22 07/28/22 History tablet,extended release 24 hr pantoprazole 40 mg tablet,delayed 40 mg PO QAM 07/28/22 07/28/22 History release sucralfate 1 gram tablet 1 g PO TID 07/28/22 07/28/22 History topiramate 25 mg tablet 25 mg PO DAILY 07/28/22 07/28/22 History warfarin 5 mg tablet 2.5 mg PO MOWEFRSA@1600 07/28/22 07/28/22 History warfarin 5 mg tablet 5 mg PO SUTUTH@1600 07/28/22 07/28/22 History Past Med/Surg History Medical History Anterior communicating artery aneurysm Anxiety Aortic valve sclerosis Arthritis Ascending aorta enlargement Atrial fibrillation Follows with [facility] cardio, on coumadin B12 deficiency Chronic diastolic CHF (congestive heart failure) GERD (gastroesophageal reflux disease) Hiatal hernia History of COVID-19 Dx 07/2020, no current issues History of depression Hyperlipidemia Hypertension Nonrheumatic aortic (valve) insufficiency Nonrheumatic mitral valve regurgitation Nonrheumatic tricuspid (valve) insufficiency Overactive bladder hx botox injections (not successful) PAF (paroxysmal atrial fibrillation) Precordial chest pain RLS (restless legs syndrome) Schatzki's ring Senile osteoporosis Stress incontinence TIA (transient ischemic attack) 2019 Urge incontinence of urine Warfarin anticoagulation Surgical History H/O foot surgery Left x2 History of appendectomy History of cataract surgery R/L History of colonoscopy History of esophagogastroduodenoscopy (EGD) History of herniorrhaphy History of hysterectomy History of tooth extraction Family History Father Family history of diabetes mellitus Brother Family history of diabetes mellitus Other Family history non-contributory No family history of adverse response to anesthesia Social History Smoking Status: Never smoker Tobacco Type: Cigarettes Second Hand Exposure: No; Hx Alcohol Use: No Hx Substance Use: No Preferred Language: Tamazight Communication Ability: Effective Die Casting Supervisor Required: No Beliefs That Will Affect Care: None marital status: Current Living Situation: Spouse How many Children do You have: 1 Feels Safe at Home: Yes Safety Concerns: Feels Safe At This Time Assistive Devices: None Review of Systems Review of Systems: All systems were reviewed and negative except as indicated in HPI above. Physical Exam Physical Exam: CONSTITUTIONAL: WNWD, vitals as above, generally appears anxious/uncomfortable. EYES: normal conjunctivae, no scleral icterus ENT: external ear and nose normal, MMM NECK: trachea midline RESPIRATORY: clear to auscultation bilaterally, no crackles, rales or wheezes, normal respiratory effort CARDIOVASCULAR: regular rate and rhythm, S1 and 2 heard without murmurs, gallops or rubs, no JVD, no peripheral edema CHEST: inspection of chest was normal GASTROINTESTINAL: normal bowel sounds, soft, nontender, ND, no guarding MUSCULOSKELETAL: strength 5/5 throughout, head is normocephalic and atraumatic SKIN: warm and dry NEUROLOGIC: DTRs could not be elicited bilaterally in patellar tendons. CN 2- 12 grossly intact, no sensory deficit, normal cognition, normal speech, no tremor. She had some difficulty performing finger to nose test and Prasanna test with both hands. Did not walk her as she is a fall risk. Notably very winded when she maneuvered back into bed just after sitting on the bedside for a few moments. PSYCHIATRIC: alert cooperative and oriented to person, place and time. Results & Data Results & Data ([facility]) Vital Signs (Past 12 Hours) Vital Signs Temp Pulse Pulse Resp BP BP Pulse Ox 07/28/22 13:01 190/112 H 07/28/22 13:01 72 33 H 07/28/22 13:00 69 21 07/28/22 12:31 67 20 100 07/28/22 12:31 131/92 07/28/22 12:30 73 25 H 99 07/28/22 12:01 71 21 100 07/28/22 12:01 141/85 H 07/28/22 12:00 66 21 99 07/28/22 11:31 165/92 H 07/28/22 11:31 83 22 99 07/28/22 11:30 69 20 99 07/28/22 11:22 76 23 07/28/22 11:42 71 20 156/87 H 97 07/28/22 11:32 07/28/22 10:39 36.8 C 78 20 139/95 98 O2 Del Method 07/28/22 13:01 07/28/22 13:01 07/28/22 13:00 07/28/22 12:31 07/28/22 12:31 07/28/22 12:30 07/28/22 12:01 07/28/22 12:01 07/28/22 12:00 Room Air 07/28/22 11:31 07/28/22 11:31 Room Air 07/28/22 11:30 Room Air 07/28/22 11:22 07/28/22 11:42 Room Air 07/28/22 11:32 Room Air 07/28/22 10:39 Room Air Laboratory Results Short CBC 07/28/22 Range/Units 10:16 WBC 5.46 (4.8-10.8) K/ul Hgb 11.6 L (12.0-16.0) g/dl Hct 36.8 (34.1-44.9) % Plt Count 282 (130-400) K/uL BMP 07/28/22 10:16 Sodium 142 Potassium 4.3 Chloride 109 H Carbon Dioxide 24 BUN 28 H Creatinine 0.81 Glucose 122 H Calcium 9.6 Liver Function 07/28/22 Range/Units 10:16 Total Bilirubin 0.3 (0.2-1.0) mg/dl AST 19 (13-39) U/L ALT 19 (7-52) U/L Alkaline Phosphatase 170 H (34-104) U/L Albumin 4.2 (3.4-5.0) gm/dl Diagnostic Findings Chest X-Ray 07/28/22 10:59 XR chest 1V portable HISTORY: Left arm weakness. neuro deficit, acute stroke suspected COMPARISON: Chest 10/28/2021. FINDINGS: The lungs are clear. Cardiac silhouette is normal in size. No pleural effusions. No pneumothorax. IMPRESSION: No acute process. ACT 112: Negative or not required by law. Electronically signed by: Dannie Lockwood M.D. 07/28/2022 11:[address] 07/28/22 10:[address] DOSE: HISTORY: Left arm weakness. neuro deficit, acute stroke suspected TECHNIQUE: Multiaxial CT images of the head were performed without the use of intravenous contrast. Automated exposure control was utilized for this study. A dose lowering technique was utilized adhering to the principles of ALARA. Comparison: Brain MRI 02/20/2019. Findings: The paranasal sinuses and mastoid air cells are clear. The calvarium and skull base are intact. The ventricles and sulci are within normal limits. There is no mass, hematoma, midline shift, or acute infarct. Impression: No acute intracranial abnormality. ACT 112: Negative or not required by law. Electronically signed by: Dannie Lockwood M.D. 07/28/2022 11:47 AM Head CTA 07/28/22 10:59 HEAD & NECK CTA HISTORY: Left arm weakness. neuro deficit, acute stroke suspected TECHNIQUE: Multiaxial CT images of the head were performed following the intravenous administration of contrast to evaluate the major cerebral vessels. Multiaxial CT images of the neck were also performed following the intravenous administration of contrast to evaluate the major cervical vessels. Maximum intensity projection images were also obtained. A dose lowering technique was utilized adhering to the principles of ALARA. COMPARISON: MRA head and neck 02/20/2019. FINDINGS: There is no mass, hematoma, midline shift, or acute infarct. Visualized intracranial internal carotid arteries, distal vertebral arteries, and basilar a rtery are widely patent. There is no significant stenosis, occlusion, or aneurysm seen within the bilateral ACAs, MCAs, or sap bi developer. The major dural venous sinuses are patent. The aortic arch and proximal great vessels are widely patent. There is no significant stenosis, occlusion, or dissection identified within the bilateral common carotid, internal carotid, or vertebral arteries. IMPRESSION: 1. No significant stenosis, occlusion, or aneurysm within the [place] of [place]. 2. No significant stenosis, occlusion, or dissection identified within the carotid or vertebral arteries. ACT 112: Negative or not required by law. Electronically signed by: Dannie Lockwood M.D. 07/28/2022 11:52 AM Neck CTA 07/28/22 10:59 HEAD & NECK CTA HISTORY: Left arm weakness. neuro deficit, acute stroke suspected TECHNIQUE: Multiaxial CT images of the head were performed following the intravenous administration of contrast to evaluate the major cerebral vessels. Multiaxial CT images of the neck were also performed following the intravenous administration of contrast to evaluate the major cervical vessels. Maximum intensity projection images were also obtained. A dose lowering technique was utilized adhering to the principles of ALARA. COMPARISON: MRA head and neck 02/20/2019. FINDINGS: There is no mass, hematoma, midline shift, or acute infarct. Visualized intracranial internal carotid arteries, distal vertebral arteries, and basilar artery are widely patent. There is no significant stenosis, occlusion, or aneurysm seen within the bilateral ACAs, MCAs, or sap bi developer. The major dural venous sinuses are patent. The aortic arch and proximal great vessels are widely patent. There is no significant stenosis, occlusion, or dissection identified within the bilateral common carotid, internal carotid, or vertebral arteries. IMPRESSION: 1. No significant stenosis, occlusion, or aneurysm within the [place] of [place]. 2. No significant stenosis, occlusion, or dissection identified within the carotid or vertebral arteries. ACT 112: Negative or not required by law. Electronically signed by: Dannie Lockwood M.D. 07/28/2022 11:52 AM Code Status & VTE Plan VTE Prophylaxis Plan VTE Prophylaxis will be ordered: Yes
[2022-07-28] MEDS ORDERED: LORazepam 0.5 MG TAB PO STA (14:31)
[2022-07-28] MEDS ORDERED: PHARMACIST DISCHARGE MED REC CONSULT PRN (14:52)
[2022-07-28] MEDS ORDERED: ACETAMINOPHEN 325 MG TAB PO PRN (14:52)
[2022-07-28] MEDS ORDERED: POLYETHYLENE (MIRALAX) 17 GM PACK PO PRN (14:52)
[2022-07-28] MEDS ORDERED: WARFARIN SOD 5 MG TAB PO SCH (16:00)
[2022-07-28] MEDS: SUCRALFATE 1 GM TAB PO SCH (19:32)
[2022-07-28] MEDS: METOCLOPRAMIDE HCL 10 MG TABLET PO SCH (19:33)
[2022-07-28] MEDS ORDERED: PIPERACILLIN/TAZOBACTAM 4.5 GM in DEXTROSE 5% 100 ML IV STA (21:52)
[2022-07-28] MEDS ORDERED: LACTATED RINGER'S 1,000 ML IV SCH (22:00)
[2022-07-28] MEDS ORDERED: SODIUM CHLORIDE 0.9% 1000ML 1,000 ML IV SCH (22:15)
--- NOTE | 2022-07-28 22:23 | Communication Note ---
Date of Service: July 28, 2022 This 77-year-old lady with complicated abdominal surgical history was seen at bedside after I received message from RN [by radiology] that her CTA chest which was done to rule out aortic dissection came back positive for right upper belly free fluid and free air suggestive of perforation. Patient had hiatal hernia surgery repaired at [place] in October and left abdominal hernia repair in December of last year. Patient came in with bilateral shoulder discomfort and generalized feeling of not well. Patient denies any fever or abdominal pain. At bedside exam patient on room air, hemodynamically stable, patient denies abdominal pain, reports improvement in her bilateral shoulder discomfort. Patient was made strict n.p.o., stat surgical consult placed and discussed with Dr. Caraballo who will be seeing the patient, await further recommendation, currently patient put on n.p.o./IV fluids/broad-spectrum antibiotics/IV PPI. Patient is pain-free. On exam: On room air, vitals stable, no abdominal tenderness, heart and lungs examination fairly WNL. Patient already received today's dose of warfarin, will hold warfarin until further surgical evaluation. Patient was offered if she wants me to inform her family members, she stated that her might not understand completely and wanted to wait until surgery sees her and will let me know at that point if she wants me to call him. For now, she stated she will herself update him.
[2022-07-28 22:34] LABS: Appearance Urine Clear (Clear); Bacteria Urine Automated 1+ (Negative); Bilirubin Urine Negative (Negative); Blood Urine Negative (Negative); Color Urine Yellow; Epithelial Cell Urine Auto >30 /lpf (0-5); Glucose Urine UA Negative (Negative); Ketones Urine Negative (Negative); Leukocyte Esterase Urine Negative (Negative); Nitrite Urine Negative (Negative); Protein Urine Trace (Negative); Urobilinogen Urine Negative (Negative)
[2022-07-28 22:44] LABS: Specific Gravity Urine > 1.030 (1.000-1.030)
--- NOTE | 2022-07-28 22:48 | Surgery Consultation ---
Date of Consultation July 28, 2022 Assessment & Plan (1) Intra-abdominal free air of unknown etiology: 77 yr old woman with history of hiatal hernia repair for intrathoracic stomach now with free air above liver on chest CT. Limited eval of abdomen but no source seen. Given her history, symptoms, most likely source is upper GI - stomach or duodenum. She currently is very stable with no tachycardia, no leukocytosis, normal labs, minimal pain or tenderness on exam. As she has most likely a source in her stomach / duodenum and surgery may be more complicated given prior recent hernia repair, I would recommend considering transfer to [place]. She also would prefer to have her original surgeon if she requires operative intervention. In the interim, it would be helpful to obtain a CT abd/ pelvis with PO contrast to evaluate for leak. She should be kept npo, started on IVF and IV antibiotics. We discussed that some small perforations that have sealed with no further leakage can be managed nonoperatively at times. Yet she is at higher risk of needing surgical intervention given her chronic gastric dysmotility. Discussed with Dr. Ribeiro. Present on Admission?: Yes History of Present Illness Reason for Consultation: free air Requesting Physician: Agustina Ribeiro MD Attending Physician: Rena Milian, History of Present Illness 77 yr old woman s/p laparoscopic repair of large hiatal hernia with intrathoracic stomach by Dr. Christy at [place] in October 2021. Subsequently had an incisional hernia repaired by the same. Notes that she has felt weaker ever since surgery - gets very tired easily, has to rest after almost any activity. Has been able to eat but has to be careful with how she eats - feels food does not always go down easily, must be broken up well, sometimes feels the need to vomit to "empty". Today, while at [employer], felt very dizzy, almost fainted. [place] like there was a heaviness on her shoulders, left arm felt numb. Brought to ER to rule out stroke (has history of stroke and is on anticoagulation). CT chest d one to rule out aortic dissection and this shows free air above liver with some free fluid. Currently, she was standing by her bedside. Heaviness of the shoulders has resolved. No abdominal pain, no chest pain, no nausea. Notes a mild "something" in her left upper quadrant but this is not intense enough to call it pain. Had a normal supper. No change in bowel habits. Able to move from standing to sitting / laying without discomfort. Does still feel overall weak and not like her usual active self. Does take protonix and carafate at home for her stomach symptoms. Allergies Allergy/AdvReac Type Severity Reaction Status Date / Time Sulfa (Sulfonamide Allergy Unknown CAN'T Verified 10/28/21 18:51 Antibiotics) REMEMBER-LONG AGO. buspirone [From BuSpar] AdvReac Mild Vomiting Verified 10/28/21 18:51 Home Medications Medication Instructions Recorded Confirmed Type acetaminophen 500 mg tablet 1,000 mg PO Q8H PRN Pain 07/28/22 07/28/22 History (Acetaminophen Extra Strength) ascorbic acid (vitamin C) 500 mg 500 mg PO DAILY 07/28/22 07/28/22 History tablet aspirin 162 mg tablet,delayed 162 mg PO DAILY 07/28/22 07/28/22 History release atorvastatin 40 mg tablet 40 mg PO DAILY 07/28/22 07/28/22 History cholecalciferol (vitamin D3) 125 125 mcg PO DAILY 07/28/22 07/28/22 History mcg (5,000 unit) tablet ferrous sulfate 324 mg (65 mg 324 mg PO DAILY 07/28/22 07/28/22 History iron) tablet,delayed release fluticasone propionate 50 2 spray intranasal DAILY PRN 07/28/22 07/28/22 History mcg/actuation nasal Allergy Symptoms spray,suspension furosemide 20 mg tablet (Lasix) 20 mg PO BID 07/28/22 07/28/22 History metoclopramide HCl 10 mg tablet 10 mg PO BID 07/28/22 07/28/22 History metoprolol succinate 25 mg 25 mg PO QAM 07/28/22 07/28/22 History tablet,extended release 24 hr pantoprazole 40 mg tablet,delayed 40 mg PO QAM 07/28/22 07/28/22 History release sucralfate 1 gram tablet 1 g PO TID 07/28/22 07/28/22 History topiramate 25 mg tablet 25 mg PO DAILY 07/28/22 07/28/22 History warfarin 5 mg tablet 2.5 mg PO MOWEFRSA@1600 07/28/22 07/28/22 History warfarin 5 mg tablet 5 mg PO SUTUTH@1600 07/28/22 07/28/22 History Patient History Medical History (Updated 07/28/22 @ 22:43 by Zandra Caraballo MD) Anterior communicating artery aneurysm Anxiety Aortic valve sclerosis Arthritis Ascending aorta enlargement Atrial fibrillation Follows with [facility], on coumadin B12 deficiency Chronic diastolic CHF (congestive heart failure) GERD (gastroesophageal reflux disease) Hiatal hernia History of COVID-19 Dx 07/2020, no current issues History of depression Hyperlipidemia Hypertension Nonrheumatic aortic (valve) insufficiency Nonrheumatic mitral valve regurgitation Nonrheumatic tricuspid (valve) insufficiency Overactive bladder hx botox injections (not successful) PAF (paroxysmal atrial fibrillation) Precordial chest pain RLS (restless legs syndrome) Schatzki's ring Senile osteoporosis Stress incontinence TIA (transient ischemic attack) 2019 Urge incontinence of urine Warfarin anticoagulation Surgical History (Updated 07/28/22 @ 22:38 by Zandra Caraballo MD) H/O foot surgery Left x2 History of appendectomy History of cataract surgery R/L History of colonoscopy History of esophagogastroduodenoscopy (EGD) History of herniorrhaphy History of hysterectomy History of tooth extraction Family History Father Family history of diabetes mellitus Brother Family history of diabetes mellitus Other Family history non-contributory No family history of adverse response to anesthesia Social History Smoking Status: Never smoker Tobacco Type: Cigarettes Second Hand Exposure: No; Hx Alcohol Use: No Hx Substance Use: No Preferred Language: Khmer Communication Ability: Effective Heat Treating Bluer Required: No Beliefs That Will Affect Care: None marital status: Current Living Situation: Spouse How many Children do You have: 1 Feels Safe at Home: Yes Safety Concerns: Feels Safe At This Time Assistive Devices: None Review of Systems Constitutional: + weakness; no fever, no chills and no sweats Eyes: no problem reported Ear, Nose, Mouth, Throat: no problem reported Respiratory: + dyspnea on exertion (gets winded easily) Gastrointestinal: as per Subjective / HPI Genitourinary: no problem reported Musculoskeletal: + muscle weakness (left arm, now resolved) Neurologic: + generalized weakness Psychiatric: no problem reported Hematologic / Lymphatic: + problem reported (on coumadin, INR 1.6 subtherapeutic) Physical Exam Constitutional: WD/WN, vitals as above Eyes: PERRL, conjunctivae normal, anicteric sclerae ENMT: external ear and nose normal, oropharynx normal Respiratory: normal respiratory effort, lungs clear to auscultation Cardiovascular: Rate/Rhythm: regular rate and regular rhythm Gastrointestinal (Abdomen): Inspection/Auscultation: abdomen normal to inspection and normal bowel sounds; abdomen not distended and no visible herniation Percussion/Palpation: + abdomen tender (very mild in left upper quadrant) and abdomen soft; no guarding Musculoskeletal: Extremities: extremities normal to inspection Neurologic: awake; no focal motor deficits Psychiatric: A+Ox3, euthymic affect Results & Data ([facility]) Vital Signs (Past 12 Hours) Vital Signs Temp Pulse Pulse Resp BP BP Pulse Ox 07/28/22 19:52 36.9 C 63 18 117/78 98 07/28/22 15:55 66 07/28/22 15:15 07/28/22 14:52 36.6 C 80 18 138/85 95 07/28/22 13:00 78 16 07/28/22 13:01 190/112 H 07/28/22 13:01 72 33 H 07/28/22 13:00 69 21 07/28/22 12:31 67 20 100 07/28/22 12:31 131/92 07/28/22 12:30 73 25 H 99 07/28/22 12:01 71 21 100 07/28/22 12:01 141/85 H 07/28/22 12:00 66 21 99 07/28/22 11:31 165/92 H 07/28/22 11:31 83 22 99 07/28/22 11:30 69 20 99 07/28/22 11:22 76 23 07/28/22 11:42 71 20 156/87 H 97 07/28/22 11:32 07/28/22 10:39 36.8 C 78 20 139/95 98 O2 Del Method 07/28/22 19:52 Room Air 07/28/22 15:55 07/28/22 15:15 Room Air 07/28/22 14:52 Room Air 07/28/22 13:00 07/28/22 13:01 07/28/22 13:01 07/28/22 13:00 07/28/22 12:31 07/28/22 12:31 07/28/22 12:30 07/28/22 12:07/28/22 12:07/28/22 12:00 Room Air 07/28/22 11:31 07/28/22 11:31 Room Air 07/28/22 11:30 Room Air 07/28/22 11:22 07/28/22 11:42 Room Air 07/28/22 11:32 Room Air 07/28/22 10:39 Room Air Laboratory Results 07/28/22 07/28/22 07/28/22 Range/Units 22:20 15:43 12:30 WBC (4.8-10.8) K/ul RBC (3.93-5.22) M/uL Hgb (12.0-16.0) g/dl Hct (34.1-44.9) % MCV (80.0-100.0) fL MCH (25.0-34.0) pg MCHC (32.0-36.0) g/dL RDW Std Deviation (36.4-46.3) fL RDW Coeff of Chen (11.5-14.5) % Plt Count (130-400) K/uL MPV (9.4-12.3) fL Immature Gran % (Auto) % Neut % (Auto) % Lymph % (Auto) % [place] % (Auto) % Eos % (Auto) % Baso % (Auto) % Neut # (Auto) (1.4-6.5) K/uL Lymph # (Auto) (1.2-3.4) K/uL [place] # (Auto) (0.24-0.82) K/uL Eos # (Auto) (0-0.50) K/uL Baso # (Auto) (0-0.2) K/uL Immature Gran # (Auto) (0.00-0.02) K/uL PT (9.0-12.0) Seconds INR (0.9-1.1) APTT (21.0-31.0) Seconds PTT Ratio Sodium (136-145) mmol/L Potassium (3.5-5.1) mmol/L Chloride (98-107) mmol/L Carbon Dioxide (21-32) mmol/L Anion Gap (3-11) BUN (6-23) mg/dl Creatinine (0.6-1.2) mg/dl Est Cr Clr Drug Dosing ml/min Est GFR ( Amer) ml/min Est GFR (Non-Af Amer) ml/min BUN/Creatinine Ratio (10-20) Glucose (70-99(Fasting)) mg/dl Calcium (8.5-10.1) mg/dl Magnesium (1.7-2.4) mg/dl Total Bilirubin (0.2-1.0) mg/dl AST (13-39) U/L ALT (7-52) U/L Alkaline Phosphatase (34-104) U/L Troponin I High Sens (0-14) pg/ml B-Natriuretic Peptide 84 (0-100) pg/ml Total Protein (6.0-8.3) gm/dl Albumin (3.4-5.0) gm/dl Globulin (2.5-4.0) gm/dl Albumin/Globulin Ratio (0.9-2) Vitamin B12 (180-914) pg/ml TSH (0.300-4.500) uIu/ml Urine Color Pending Urine Appearance Pending Urine pH Pending Ur Specific [place] Pending Urine Protein Pending Urine Glucose (UA) Pending Urine Ketones Pending Urine Blood Pending Urine Nitrite Pending Urine Bilirubin Pending Urine Urobilinogen Pending Ur Leukocyte Esterase Pending SARS-CoV-2, RNA, NAAT NEGATIVE (NEGATIVE) Blood Type Antibody Screen 07/28/22 07/28/22 07/28/22 Range/Units 11:22 10:56 10:56 WBC (4.8-10.8) K/ul RBC (3.93-5.22) M/uL Hgb (12.0-16.0) g/dl Hct (34.1-44.9) % MCV (80.0-100.0) fL MCH (25.0-34.0) pg MCHC (32.0-36.0) g/dL RDW Std Deviation (36.4-46.3) fL RDW Coeff of Chen (11.5-14.5) % Plt Count (130-400) K/uL MPV (9.4-12.3) fL Immature Gran % (Auto) % Neut % (Auto) % Lymph % (Auto) % [place] % (Auto) % Eos % (Auto) % Baso % (Auto) % Neut # (Auto) (1.4-6.5) K/uL Lymph # (Auto) (1.2-3.4) K/uL [place] # (Auto) (0.24-0.82) K/uL Eos # (Auto) (0-0.50) K/uL Baso # (Auto) (0-0.2) K/uL Immature Gran # (Auto) (0.00-0.02) K/uL PT (9.0-12.0) Seconds INR (0.9-1.1) APTT (21.0-31.0) Seconds PTT Ratio Sodium (136-145) mmol/L Potassium (3.5-5.1) mmol/L Chloride (98-107) mmol/L Carbon Dioxide (21-32) mmol/L Anion Gap (3-11) BUN (6-23) mg/dl Creatinine (0.6-1.2) mg/dl Est Cr Clr Drug Dosing ml/min Est GFR ( Amer) ml/min Est GFR (Non-Af Amer) ml/min BUN/Creatinine Ratio (10-20) Glucose (70-99(Fasting)) mg/dl Calcium (8.5-10.1) mg/dl Magnesium (1.7-2.4) mg/dl Total Bilirubin (0.2-1.0) mg/dl AST (13-39) U/L ALT (7-52) U/L Alkaline Phosphatase (34-104) U/L Troponin I High Sens (0-14) pg/ml B-Natriuretic Peptide (0-100) pg/ml Total Protein (6.0-8.3) gm/dl Albumin (3.4-5.0) gm/dl Globulin (2.5-4.0) gm/dl Albumin/Globulin Ratio (0.9-2) Vitamin B12 > 1500 H (180-914) pg/ml TSH 1.247 (0.300-4.500) uIu/ml Urine Color Urine Appearance Urine pH Ur Specific [place] Urine Protein Urine Glucose (UA) Urine Ketones Urine Blood Urine Nitrite Urine Bilirubin Urine Urobilinogen Ur Leukocyte Esterase SARS-CoV-2, RNA, NAAT (NEGATIVE) Blood Type AB Positive Antibody Screen NEGATIVE 07/28/22 07/28/22 07/28/22 Range/Units 10:16 10:16 10:16 WBC 5.46 (4.8-10.8) K/ul RBC 4.31 (3.93-5.22) M/uL Hgb 11.6 L (12.0-16.0) g/dl Hct 36.8 (34.1-44.9) % MCV 85.4 (80.0-100.0) fL MCH 26.9 (25.0-34.0) pg MCHC 31.5 L (32.0-36.0) g/dL RDW Std Deviation 48.6 H (36.4-46.3) fL RDW Coeff of Chen 15.5 H (11.5-14.5) % Plt Count 282 (130-400) K/uL MPV 9.9 (9.4-12.3) fL Immature Gran % (Auto) 0.2 % Neut % (Auto) 69.6 % Lymph % (Auto) 19.8 % [place] % (Auto) 7.3 % Eos % (Auto) 2.2 % Baso % (Auto) 0.9 % Neut # (Auto) 3.80 (1.4-6.5) K/uL Lymph # (Auto) 1.08 L (1.2-3.4) K/uL [place] # (Auto) 0.40 (0.24-0.82) K/uL Eos # (Auto) 0.12 (0-0.50) K/uL Baso # (Auto) 0.05 (0-0.2) K/uL Immature Gran # (Auto) 0.01 (0.00-0.02) K/uL PT 16.3 H (9.0-12.0) Seconds INR 1.6 H (0.9-1.1) APTT 29.9 (21.0-31.0) Seconds PTT Ratio 1.1 Sodium 142 (136-145) mmol/L Potassium 4.3 (3.5-5.1) mmol/L Chloride 109 H (98-107) mmol/L Carbon Dioxide 24 (21-32) mmol/L Anion Gap 9 (3-11) BUN 28 H (6-23) mg/dl Creatinine 0.81 (0.6-1.2) mg/dl Est Cr Clr Drug Dosing 75.1 ml/min Est GFR ( Amer) 81.8 ml/min Est GFR (Non-Af Amer) 70.5 ml/min BUN/Creatinine Ratio 34.6 H (10-20) Glucose 122 H (70-99(Fasting)) mg/dl Calcium 9.6 (8.5-10.1) mg/dl Magnesium 2.2 (1.7-2.4) mg/dl Total Bilirubin 0.3 (0.2-1.0) mg/dl AST 19 (13-39) U/L ALT 19 (7-52) U/L Alkaline Phosphatase 170 H (34-104) U/L Troponin I High Sens 4.3 (0-14) pg/ml B-Natriuretic Peptide (0-100) pg/ml Total Protein 7.4 (6.0-8.3) gm/dl Albumin 4.2 (3.4-5.0) gm/dl Globulin 3.2 (2.5-4.0) gm/dl Albumin/Globulin Ratio 1.3 (0.9-2) Vitamin B12 (180-914) pg/ml TSH (0.300-4.500) uIu/ml Urine Color Urine Appearance Urine pH Ur Specific [place] Urine Protein Urine Glucose (UA) Urine Ketones Urine Blood Urine Nitrite Urine Bilirubin Urine Urobilinogen Ur Leukocyte Esterase SARS-CoV-2, RNA, NAAT (NEGATIVE) Blood Type Antibody Screen Diagnostic Findings CT head - no stroke CT chest: no report yet, personally reviewed. Hiatal hernia repair is intact, upper part of stomach appears filled with food, there is free air above the liver with free fluid. Limited exam of abdomen as was a chest CT
[2022-07-28 22:56] LABS: Cast Urine Automated 0 /lpf (0-5); RBC Urine Automated 0-4 /hpf (0-4)
[2022-07-28] MEDS: PANTOprazole 40 MG in SYRINGE 0 ML IV SCH (23:09)
--- NOTE | 2022-07-29 00:07 | Communication Note ---
Date of Service: July 29, 2022 Called [facility] [place] 11 pm, spoke w/ Dr. Giordano, they declined transfer and stated that she needs be managed here in the hospital. Received at call from Dr. David Rodríguez regarding Samantha and I was made aware that there is no free air or fluid in her CT abd/pelvis.
[2022-07-29] MEDS: PIPERACILLIN/TAZOBACTAM 4.5 GM in DEXTROSE 5% 100 ML IV SCH ×3 (04:30→20:15)
[2022-07-29 06:25] LABS: Basophils # (auto) 0.03 K/uL (0-0.2); Basophils % (auto) 0.7 %; Eosinophils # (auto) 0.16 K/uL (0-0.50); Eosinophils % (auto) 3.7 %; Hematocrit (blood only) 31.2 % (34.1-44.9); Hemoglobin 9.8 g/dl (12.0-16.0); Immature Granulocytes # (auto) 0.01 K/uL (0.00-0.02); Immature Granulocytes % (auto) 0.2 %; Lymphocytes # (auto) 1.23 K/uL (1.2-3.4); Lymphocytes % (auto) 28.4 %; Mean Corpuscular Hemoglobin 26.6 pg (25.0-34.0); Mean Corpuscular Hgb Conc 31.4 g/dL (32.0-36.0); Mean Corpuscular Volume 84.8 fL (80.0-100.0); Mean Platelet Volume 9.9 fL (9.4-12.3); Monocytes # (auto) 0.48 K/uL (0.24-0.82); Monocytes % (auto) 11.1 %; Neutrophils # (auto) 2.42 K/uL (1.4-6.5); Neutrophils % (auto) 55.9 %; Platelet Count 238 K/uL (130-400); RDW Coefficient of Variation 15.7 % (11.5-14.5); RDW Standard Deviation 48.3 fL (36.4-46.3); Red Blood Count 3.68 M/uL (3.93-5.22); White Blood Count 4.33 K/ul (4.8-10.8)
[2022-07-29 06:29] LABS: INR 1.5 (0.9-1.1); Prothrombin Time 16.1 Seconds (9.0-12.0)
[2022-07-29 07:09] LABS: BUN Creatinine Ratio 24.4 (10-20); C Reactive Protein 0.88 mg/dl (0-0.5); Calcium 8.4 mg/dl (8.5-10.1); Chol HDL Ratio 2.4 (0-5); Creatinine Clr Calc Pharmacy 78.7 ml/min; Est GFR (African American) 85.6 ml/min; Est GFR (Non-African American) 73.8 ml/min; Potassium 3.8 mmol/L (3.5-5.1)
--- NOTE | 2022-07-29 07:20 | CT Scan Report ---
CT OF THE ABDOMEN AND PELVIS WITH ORAL CONTRAST CLINICAL HISTORY: GI perforation. Possible free air on chest CT. COMPARISON STUDY: Chest CT December 26, 2022. CT of the abdomen and pelvis October 28, 2021. TECHNIQUE: Axial images of the abdomen and pelvis were obtained without IV contrast. Oral contrast wa s administered. Automated exposure control was utilized for the study. A dose lowering technique was utilized adhering to the principles of ALARA. FINDINGS: No free air is present. However, there is pneumatosis of multiple right upper quadrant smal l bowel loops. This accounts for the finding on chest CT of July 28, 2022. Of note, the majority of the small bowel is within the right abdomen which represents a change since prior abdominal CT. No m esenteric or portal venous gas is present. There is no evidence for a bowel obstruction. Calcified gr anulomas within the spleen are present. Low-attenuation bilateral adrenal nodules are unchanged. Thes e are benign. There is no hydronephrosis. There is excreted contrast within the collecting systems, u reters and bladder from recent contrast-enhanced CT. Repair of a hiatal hernia is noted. Large amount of ingested contents within the stomach are present. The stomach is mildly distended. Moderate amoun t stool within the colon and rectum is present. Postoperative findings within the spine are present. There is no lymphadenopathy. There is no ascites. Hyperdense material within the gallbladder is noted . There is no pericholecystic infiltration. There is no biliary or pancreatic ductal dilatation. Sigm oid diverticulosis is noted without evidence for acute diverticulitis. IMPRESSION: 1. No free air. Pneumatosis of multiple small bowel loops which accounts for the finding on chest CT July 28, 2022. This may reflect benign pneumatosis. However, clinical correlation is recommended as bowel ischemia cannot be completely excluded. 2. No bowel obstruction. 3. Large amount of ingested contents within the stomach which is mildly distended. This could be demarcus elated with clinical evidence for gastric outlet obstruction. 4. Moderate amount of stool within the colon and rectum. ACT 112: Negative or not required by law. Electronically signed by: Nitin Bhagat M.D. 07/29/2022 7:19 AM
--- NOTE | 2022-07-29 08:35 | CT Scan Report ---
CT ANGIOGRAPHY OF THE CHEST DISSECTION PROTOCOL CLINICAL HISTORY: patient is very SOB w exert, rule out dissection COMPARISON STUDY: October 28, 2021 and chest radiograph performed earlier today. TECHNIQUE: Before and following the IV administration of 113 mL of Optiray, helical axial images of t he chest were obtained. Maximal intensity projections and sagittal and coronal reformats were viewed on an independent 3D workstation. IV contrast was administered without complication. Automated exp osure control was utilized for the study. A dose lowering technique was utilized adhering to the avery Mcgovern. CT DOSE: 1262.21 mGy.cm FINDINGS: No intramural hematoma or thoracic aortic dissection is noted. There is slight dilatation of the ascending aorta, measuring 3.9 cm in caliber. This is unchanged since CT of October 28, 2021. No central pulmonary emboli are identified. There is mild cardiomegaly. Calcified mediastinal and left h ilar lymph nodes are present. There is no pneumothorax or pleural effusion. No consolidation is ident ified. No acute rib or thoracic spine fracture is present. Visualized portions of the stomach are dis tended and filled with ingested contents. There is pneumatosis involving several right upper quadrant small bowel loops. Apparent extraluminal gas likely reflects gas within the bowel lumen and bowel wa ll. IMPRESSION: 1. No thoracic aortic dissection. 2. No acute intrathoracic findings. 3. Pneumatosis involving several right upper quadrant small bowel loops. This may reflect benign pneu matosis. Bowel ischemia is considered less likely but cannot be excluded by imaging. 4. Distended stomach containing ingested contents. ACT 112: Negative or not required by law. Electronically signed by: Nitin hBagat M.D. 07/29/2022 8:33 AM
[2022-07-29 08:45] LABS: Estimated Average Glucose 111 mg/dl; Hemoglobin A1C 5.5 % (4.5-5.6)
[2022-07-29] MEDS ORDERED: PANTOprazole 40 MG TAB PO SCH (09:00)
[2022-07-29] MEDS ORDERED: LORazepam 0.5 MG TAB PO STA (09:34)
[2022-07-29] MEDS: METOCLOPRAMIDE HCL 10 MG TABLET PO SCH ×2 (09:52→20:15)
[2022-07-29] MEDS: ASPIRIN 81 MG ECTAB PO SCH (09:53)
[2022-07-29] MEDS: ATORVASTATIN 40 MG TAB PO SCH (09:53)
[2022-07-29] MEDS: METOPROLOL SUCC 25MG EXT REL TAB PO SCH (09:53)
[2022-07-29] MEDS: TOPIRAMATE 25 MG TAB PO SCH (09:53)
[2022-07-29] MEDS: PANTOprazole 40 MG in SYRINGE 0 ML IV SCH (09:56)
[2022-07-29] MEDS: SUCRALFATE 1 GM TAB PO SCH ×3 (09:56→20:15)
--- NOTE | 2022-07-29 11:26 | Neurology Consultation ---
Date of Consultation July 29, 2022 Assessment & Plan (1) Generalized weakness: (2) Near syncope: (3) TIA (transient ischemic attack): (4) PAF (paroxysmal atrial fibrillation): Plan patient has some onset of generalized symptoms July 28. She did have a little bit of left upper extremity heaviness which was somewhat focal subjectively, but in the emergency room she had no focal deficits or issues. She had near syncope (lightheadedness). Currently on examination, she has no focal deficits, meningeal signs, or encephalopathy. CT scan of the head and CT angiography of the head and neck were unremarkable. An MRI of the brain is going to be done later today. She has a history of paroxysmal atrial fibrillation on warfarin. She has also been on aspirin daily as well. There was a history of a TIA back in January of 2019. Overall, I am not certain that Her recent symptoms are related to TIA/CVA. This may been more of a global cerebral vascular/cardiovascular phenomenon. She was hypertensive in the emergency room will move this is improved currently. Recommendations: 1. MRI of the brain without contrast. 2. Increase activity as able. 3. I am not certain the patient needs any additional neurologic testing. Overall, I spent a total of 60 minutes with this case including review of records, review of films, direct evaluation the patient at bedside, and discussion of the case with the patient and RN at bedside as well as Dr. Milian, including differential diagnosis and treatment options. History of Present Illness Reason for Consultation: Patient is a 77-year-old, who I was asked to see at the request of Dr. Milian, for neurologic consultation regarding stroke-like symptoms. Requesting Physician: Dr. Milian Attending Physician: Rena Milian, DO History of Present Illness this patient has a history of TIA back in January of 2019 as noted by some transient left-sided numbness. She recovered and has not had any issues since. She has been on aspirin since.Patient was also diagnosed with atrial fibrillation and put on Coumadin as well. She has been stable although has a chronic shortness of breath condition. the patient has some aortic and tricuspid valve insufficiency with moderate tricuspid regurgitation. Proximal ascending thoracic aorta is mildly enlarged. This was last seen on echocardiogram in December of 2020. Patient awoke on the morning of July 28 at 06:00 feeling well. She got herself cleaned up had a protein drink and then went to zoroastrianism starting at 09:00. Around 0930, she had the sudden onset of feeling hot all over followed by a sensation of weakness in all 4 limbs. The left upper extremity then felt have the compared to other limbs. She got up out of the pew and went to the back of the zoroastrianism having some lightheadedness and near syncopal event. She never had actual syncope and was driven to the emergency room by her . Her legs felt heavy but she could walk. She arrived to the emergency room at 10:31 with a temperature of 36.8, pulse 78 and regular, respiratory rate 20, blood pressure 139/95 and O2 saturation 98 percent. In the emergency room she had no focal deficits although she has some tingling in her left upper extremity. CBC was unremarkable. INR was 1.6. Chem profile showed a BUN of 28 and glucose of 122. Alkaline phos was elevated at 170. B12, TSH, and urinalysis were unremarkable. Chest x-ray was unremarkable. CT scan of the head was unremarkable. CT angiography of the head neck showed no vascular anomalies or stenoses. CT scan of the chest showed some free air in the abdomen but a CT of the abdomen and pelvis showed no free air. She has no abdominal complaints. Currently she feels back to baseline now with no deficits or abnormal sensations in her limbs. Blood pressure is 120/74. Allergies Allergy/AdvReac Type Severity Reaction Status Date / Time Sulfa (Sulfonamide Allergy Unknown CAN'T Verified 10/28/21 18:51 Antibiotics) REMEMBER-LONG AGO. buspirone [From BuSpar] AdvReac Mild Vomiting Verified 10/28/21 18:51 Home Medications Medication Instructions Recorded Confirmed Type acetaminophen 500 mg tablet 1,000 mg PO Q8H PRN Pain 07/28/22 07/28/22 History (Acetaminophen Extra Strength) ascorbic acid (vitamin C) 500 mg 500 mg PO DAILY 07/28/22 07/28/22 History tablet aspirin 162 mg tablet,delayed 162 mg PO DAILY 07/28/22 07/28/22 History release atorvastatin 40 mg tablet 40 mg PO DAILY 07/28/22 07/28/22 History cholecalciferol (vitamin D3) 125 125 mcg PO DAILY 07/28/22 07/28/22 History mcg (5,000 unit) tablet ferrous sulfate 324 mg (65 mg 324 mg PO DAILY 07/28/22 07/28/22 History iron) tablet,delayed release fluticasone propionate 50 2 spray intranasal DAILY PRN 07/28/22 07/28/22 History mcg/actuation nasal Allergy Symptoms spray,suspension furosemide 20 mg tablet (Lasix) 20 mg PO BID 07/28/22 07/28/22 History metoclopramide HCl 10 mg tablet 10 mg PO BID 07/28/22 07/28/22 History metoprolol succinate 25 mg 25 mg PO QAM 07/28/22 07/28/22 History tablet,extended release 24 hr pantoprazole 40 mg tablet,delayed 40 mg PO QAM 07/28/22 07/28/22 History release sucralfate 1 gram tablet 1 g PO TID 07/28/22 07/28/22 History topiramate 25 mg tablet 25 mg PO DAILY 07/28/22 07/28/22 History warfarin 5 mg tablet 2.5 mg PO MOWEFRSA@1600 07/28/22 07/28/22 History warfarin 5 mg tablet 5 mg PO SUTUTH@1600 07/28/22 07/28/22 History Patient History Medical History Anterior communicating artery aneurysm Anxiety Aortic valve sclerosis Arthritis Ascending aorta enlargement Atrial fibrillation Follows with S cardio, on coumadin B12 deficiency Chronic diastolic CHF (congestive heart failure) GERD (gastroesophageal reflux disease) Hiatal hernia History of COVID-19 Dx 07/2020, no current issues History of depression Hyperlipidemia Hypertension Nonrheumatic aortic (valve) insufficiency Nonrheumatic mitral valve regurgitation Nonrheumatic tricuspid (valve) insufficiency Overactive bladder hx botox injections (not successful) PAF (paroxysmal atrial fibrillation) Precordial chest pain RLS (restless legs syndrome) Schatzki's ring Senile osteoporosis Stress incontinence TIA (transient ischemic attack) 2019 Urge incontinence of urine Warfarin anticoagulation Surgical History H/O foot surgery Left x2 History of appendectomy History of cataract surgery R/L History of colonoscopy History of esophagogastroduodenoscopy (EGD) History of herniorrhaphy History of hysterectomy History of tooth extraction Family History Father , age 67 of complications of diabetes Family history of diabetes mellitus Brother Family history of diabetes mellitus Mother , age 97 No problems noted. 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 Beliefs That Will Affect Care: None marital status: Current Living Situation: Spouse current occupational status: retired current occupation: retired age 69 from [employer] How many Children do You have: 1 Feels Safe at Home: Yes Safety Concerns: Feels Safe At This Time Assistive Devices: None Review of Systems Constitutional: no fever, no fatigue and no weakness Eyes: no diplopia, no eye pain and no worsening vision Ear, Nose, Mouth, Throat: no ear pain, no tinnitus, no hearing loss, no dizziness, no snoring, no hoarseness and no dysphagia Respiratory: no cough and no dyspnea Cardiovascular: no chest pain, no palpitations and no lightheadedness Gastrointestinal: no abdominal pain, no nausea and no vomiting Genitourinary: no dysuria, no urinary frequency and no urinary incontinence Musculoskeletal: no back pain, no neck pain, no radicular pain, no joint pain and no myalgia Integumentary: no rash and no lesions Neurologic: no gait abnormality, no localized weakness, no generalized weakness, no tingling, no numbness, no tremor(s), no abnormal movements, no headache(s), no abnormal speech, no confusion and no memory loss Psychiatric: no depression, no irritability, no anxiety, no difficulty concen trating, no confusion and no hallucinations Endocrine: no fatigue and no flushing Hematologic / Lymphatic: no easy bleeding and no easy bruising Allergy / Immunological: no urticaria and no problem reported Exam (Neuro) Physical Exam: The patient is right-handed. The patient is awake, alert, and attentive. Speech is normal without any aphasia or dysarthria. The patient can name objects, repeat phrases, and has normal spo ntaneous speech. Mentation and thought processes are intact, with orientation to person, place and time, and normal fund of knowledge. Attention and concentration are normal. Mood and affect are normal and appropriate. General appearance and grooming are normal. Short and long-term memory are intact. Pupils are 4 mm bilaterally and reactive to light. Extraocular eye muscles are intact without nystagmus. Visual acuity and visual thacker seem normal grossly to confrontation. There are no deficits to sensation in the face in all 3 distributions of the fifth cranial nerve bilaterally. Corneal reflexes are positive bilaterally. Facial strength and symmetry was normal bilaterally. Hearing seems normal bilaterally. Palate moves well without asymmetry. There is normal sternocleidomastoid and trapezius (shoulder shrug) strength bilaterally. Tongue is midline with good strength bilaterally. Neck has a full range of motion without discomfort. There are no cervical bruits bilaterally. There are no cranial or ocular bruits. Heart is without murmur. There is a regular rhythm and rate. Cervical, thoracic, and lumbar spine are nontender to palpation. Gait is narrow based, with good arm swing, turns, and stance. With outstretched arms there is no drift. There are no resting, postural, or action tremors. There is no ataxia with finger to nose testing. There is good facility in the hands. No other abnormal involuntary movements are noted. Motor strength is 5/5 diffusely in the arms bilaterally including deltoids, biceps, triceps, brachioradialis, wrist flexors and extensors, motor runner, and intrinsic hand muscles. Motor strength is 5/5 diffusely in the legs bilaterally including hip flexors, quadriceps, hamstrings, gastrocnemius, tibialis anterior, tibialis posterior, and Peroneii muscles. Toe extensors are normal and there is good bulk in the extensor digitorum brevis muscles bilaterally. The limbs have good tone without rigidity or spasticity. There is no atrophy noted in the muscles. Muscle bulk is normal, there is no tenderness to palpation, no myotonia to percussion, and no fasciculations seen. Sensory examination is intact to touch and pin throughout all 4 limbs diffusely. Reflexes are 1/4 in the biceps, triceps, brachioradialis, quadriceps, and Achilles tendons bilaterally. There is no clonus bilaterally. Toes are downgoing with plantar stimulation bilaterally. Peripheral pulses are present and of normal quality distally in all 4 limbs. There is no peripheral edema noted in the limbs. Results & Data ([facility]) Vital Signs (Past 12 Hours) Vital Signs Temp Pulse Resp BP Pulse Ox O2 Del Method 01/02/23 04:19 36.7 C 68 18 120/74 96 Room Air 07/28/22 23:38 36.6 C 67 18 110/74 94 Room Air PG Care Time/CCT Total # of Minutes Spent Total Time Spent with Patient: Total time spent is greater than 50% in coordination of care (as documented) at patient's floor/unit and/or counseling patient: Coding Level of Care Code 48474 Initial Inpt Care Lvl 3 Diagnoses Generalized weakness R53.1 Near syncope R55 TIA (transient ischemic attack) G45.9 PAF (paroxysmal atrial fibrillation) I48.0 Time Spent (min) 60
--- NOTE | 2022-07-29 12:10 | Hospitalist Progress Note ---
Date of Service July 29, 2022 Assessment & Plan (1) TIA (transient ischemic attack): Plan: h/o TIA in 2019 and received DAPT with plavix and ASA x 21 days, then continued on aspirin. Given Zio patch results showing PAF, warfarin was added. Today her symptoms are not exactly like those previous symptoms, but she is describing feeling warm, flushed, presyncopal and with some numbness and weakness. Has also been describing worsening SOB with exertion as described above. Per record review, she has a history of valvular heart disease and ascending aortic enlargement. Worsening valvular disease may be present, order echo which is still pending this morning. Aortic dissection was excluded with CTA overnight. EKG is nonischemic and HS trop was negative. She does have some weight gain and noncompliance with diuretics noted in history. Cont workup based on findings and clinical progress. Neurology consulted. For now will cont ASA and warfarin while awaiting brain MRI. (2) Generalized weakness: Plan: Generalized fatigue and weakness associated with symptoms. Uncertain cause with possibilities noted above B12 and folate are within normal values. TSH is also normal. If there does not appear to be a UTI as this was a contaminated sample. She is having no UTI symptoms. There is no evidence of respiratory infection. ESR is normal with CRP only slightly elevated. Weakness in her legs has resolved. (3) Near syncope: Plan: no overt syncope, seems unusual for TIA. Echo as above. This is improved today. (4) PAF (paroxysmal atrial fibrillation): Plan: In sinus rhythm today. cont warfarin, metoprolol, asa (5) Dyspnea on exertion: Plan: workup as above. (6) Obesity: Plan: lifestyle modifications recommended. DVT proph-warfarin Full Code Dispo-to telemetry Rena Milian DO [facility] Hospitalist Admission and Anticipated Discharge Date Admission Date: July 29, 2022 Subjective 77-year-old female presented with TIA symptoms including left upper extremity numbness. Overnight a CTA revealed no evidence of dissection but there was concern for possible stomach or bowel perforation. General surgery was consulted and tertiary care was recommended however a later film revealed this was not present. She is reporting no abdominal symptoms this morning. She still feels slightly anxious and her breathing is the same. Still dyspneic with exertion including just moving around the bed. She has no return of her numbness or TIA symptoms overnight. I discussed the case with Dr. Cade Layton from neurology and we are encouraging her to proceed with the MRI for better elucidation of the issues. Weakness in her legs has improved. Per Dr. Layton she is performing cerebellar function test without difficulty. Review of Systems Review of Systems: All systems were reviewed and negative except as indicated in HPI above. Physical Exam Physical Exam: CONSTITUTIONAL: WNWD, vitals as above, no acute distress EYES: normal conjunctivae, no scleral icterus ENT: external ear and nose normal, MMM NECK: trachea midline RESPIRATORY: clear to auscultation bilaterally, no crackles, rales or wheezes, normal respiratory effort CARDIOVASCULAR: regular rate and rhythm, S1 and 2 heard without murmurs, gallops or rubs, no JVD, no peripheral edema CHEST: inspection of chest was normal GASTROINTESTINAL: normal bowel sounds, soft, nontender, ND, no guarding MUSCULOSKELETAL: strength 5/5 throughout, head is normocephalic and atraumatic SKIN: warm and dry NEUROLOGIC: CN 2-12 grossly intact, no sensory deficit, normal cognition, no rmal speech, no tremor. No gross focal deficits PSYCHIATRIC: alert cooperative and oriented to person, place and time. Results & Data Results & Data ([facility]) Vital Signs (Past 12 Hours) Vital Signs Temp Pulse Pulse Resp BP Pulse Ox O2 Del Method 07/29/22 11:26 36.6 C 93 H 16 128/86 95 Room Air 07/29/22 08:00 Room Air 07/29/22 04:19 36.7 C 68 18 120/74 96 Room Air Laboratory Results Short CBC 07/29/22 Range/Units 05:53 WBC 4.33 L (4.8-10.8) K/ul Hgb 9.8 L (12.0-16.0) g/dl Hct 31.2 L (34.1-44.9) % Plt Count 238 (130-400) K/uL BMP 07/29/22 05:53 Sodium 140 Potassium 3.8 Chloride 111 H Carbon Dioxide 23 BUN 19 Creatinine 0.78 Glucose 100 H Calcium 8.4 L Urine 07/28/22 Range/Units 22:20 Urine Color Yellow Urine Appearance Clear (Clear) Urine pH 7.0 (4.5-7.5) Ur Specific [place] > 1.030 H (1.000-1.030) Urine Protein Trace H (Negative) Urine Glucose (UA) Negative (Negative) Diagnostic Findings Chest CTA 07/28/22 19:54 CT ANGIOGRAPHY OF THE CHEST DISSECTION PROTOCOL CLINICAL HISTORY: patient is very SOB w exert, rule out dissection COMPARISON STUDY: October 28, 2021 and chest radiograph performed earlier today. TECHNIQUE: Before and following the IV administration of 113 mL of Optiray, helical axial images of the chest were obtained. Maximal intensity projections and sagittal and coronal reformats were viewed on an independent 3D workstation. IV contrast was administered without complication. Automated exposure control was utilized for the study. A dose lowering technique was utilized adhering to the principles of ALARA. CT DOSE: 1262.21 mGy.cm FINDINGS: No intramural hematoma or thoracic aortic dissection is noted. There is slight dilatation of the ascending aorta, measuring 3.9 cm in caliber. This is unchanged since CT of October 28, 2021. No central pulmonary emboli are identified. There is mild cardiomegaly. Calcified mediastinal and left hilar lymph nodes are present. There is no pneumothorax or pleural effusion. No consolidation is identified. No acute rib or thoracic spine fracture is present. Visualized portions of the stomach are distended and filled with ingested contents. There is pneumatosis involving several right upper quadrant small bowel loops. Apparent extraluminal gas likely reflects gas within the bowel lumen and bowel wall. IMPRESSION: 1. No thoracic aortic dissection. 2. No acute intrathoracic findings. 3. Pneumatosis involving several right upper quadrant small bowel loops. This may reflect benign pneumatosis. Bowel ischemia is considered less likely but cannot be excluded by imaging. 4. Distended stomach containing ingested contents. ACT 112: Negative or not required by law. Electronically signed by: Nitin Bhagat M.D. 07/29/2022 8:33 AM Abdomen/Pelvis CT 07/28/22 22:33 CT OF THE ABDOMEN AND PELVIS WITH ORAL CONTRAST CLINICAL HISTORY: GI perforation. Possible free air on chest CT. COMPARISON STUDY: Chest CT December 26, 2022. CT of the abdomen and pelvis October 28, 2021. TECHNIQUE: Axial images of the abdomen and pelvis were obtained without IV contrast. Oral contrast was administered. Automated exposure control was utilized for the study. A dose lowering technique was utilized adhering to the principles of ALARA. FINDINGS: No free air is present. However, there is pneumatosis of multiple right upper quadrant small bowel loops. This accounts for the finding on chest CT of July 28, 2022. Of note, the majority of the small bowel is within the right abdomen which represents a change since prior abdominal CT. No mesenteric or portal venous gas is present. There is no evidence for a bowel obstruction. Calcified granulomas within the spleen are present. Low-attenuation bilateral adrenal nodules are unchanged. These are benign. There is no hydronephrosis. There is excreted contrast within the collecting systems, ureters and bladder from recent contrast-enhanced CT. Repair of a hiatal hernia is noted. Large amount of ingested contents within the stomach are present. The stomach is mildly distended. Moderate amount stool within the colon and rectum is present. Postoperative findings within the spine are present. There is no lymphadenopathy. There is no ascites. Hyperdense material within the gallbladder is noted. There is no pericholecystic infiltration. There is no biliary or pancreatic ductal dilatation. Sigmoid diverticulosis is noted without evidence for acute diverticulitis. IMPRESSION: 1. No free air. Pneumatosis of multiple small bowel loops which accounts for the finding on chest CT July 28, 2022. This may reflect benign pneumatosis. However, clinical correlation is recommended as bowel ischemia cannot be completely excluded. 2. No bowel obstruction. 3. Large amount of ingested contents within the stomach which is mildly distended. This could be correlated with clinical evidence for gastric outlet obstruction. 4. Moderate amount of stool within the colon and rectum. ACT 112: Negative or not required by law. Electronically signed by: Nitin Bhagat M.D. 07/29/2022 7:19 AM Medications Administered Current Inpatient Medications Acetaminophen (Acetaminophen 325 Mg Tab) 650 mg PO Q4H PRN PRN Reason: Pain or Fever Stop: 08/27/22 14:51 Aspirin (Aspirin 81 Mg Ectab) 162 mg PO DAILY [facility] Stop: 08/28/22 08:59 Last Admin: 07/29/22 09:53 Dose: 162 mg Atorvastatin Calcium (Atorvastatin 40 Mg Tab) 40 mg PO DAILY [facility] Stop: 08/28/22 08:59 Last Admin: 07/29/22 09:53 Dose: 40 mg Piperacillin Sod/Tazobactam (Sod 4.5 gm/ Dextrose) 120 mls @ 30 mls/hr IV Q8H [facility]; Protocol Stop: 08/08/22 03:59 Last Infusion: 07/29/22 09:48 Dose: Infused Pantoprazole Sodium 40 mg/ (Syringe) 10 mls @ 5 mls/min IV BID [facility] Stop: 08/27/22 22:14 Last Admin: 07/29/22 09:56 Dose: 5 mls/min Metoclopramide HCl (Metoclopramide Hcl 10 Mg Tablet) 10 mg PO BID [facility] Stop: 08/27/22 20:59 Last Admin: 07/29/22 09:52 Dose: 10 mg Metoprolol Succinate (Metoprolol Succ 25mg Ext Rel Tab) 25 mg PO QAM [facility] Stop: 08/28/22 08:59 Last Admin: 07/29/22 09:53 Dose: 25 mg Miscellaneous Information (Pharmacist Discharge Med Rec Consult) 1 each N/A UD PRN PRN Reason: Consult Stop: 08/27/22 14:51 Polyethylene Glycol (Polyethylene (Miralax) 17 Gm Pack) 17 gm PO DAILY PRN PRN Reason: Constipation Stop: 08/27/22 14:51 Sucralfate (Sucralfate 1 Gm Tab) 1 gm PO TID [facility] Stop: 08/27/22 20:59 Last Admin: 07/29/22 09:56 Dose: Not Given Topiramate (Topiramate 25 Mg Tab) 25 mg PO DAILY [facility] Stop: 08/28/22 08:59 Last Admin: 07/29/22 09:53 Dose: 25 mg Warfarin Sodium (Warfarin Sod 5 Mg Tab) 5 mg PO [id number]@1600 [facility] Stop: 08/29/22 15:59 Warfarin Sodium (Warfarin Sod 2.5 Mg Tab) 2.5 mg PO [id number]@1600 [facility] Stop: 08/28/22 15:59
--- NOTE | 2022-07-29 13:02 | Magnetic Resonance Report ---
MRI OF THE BRAIN WITHOUT CONTRAST CLINICAL HISTORY: TIA symptoms, r/o stroke COMPARISON STUDY: MRI of the brain February 20, 2019. Head CT and CTA of the head July 28, 2022. TECHNIQUE: Utilizing a 1.5 Alina magnet and dedicated coil, multiplanar, multiecho imaging of the bra in was performed without IV contrast. FINDINGS: There are no foci of restricted diffusion to suggest acute infarct. No acute intracranial h emorrhage, midline shift or mass effect is present. Ventricular system is normal. Basal cisterns are patent. There are no extra axial collections. Flow-voids for the major intracranial vessels are prese nt. No intracranial masses are identified on this unenhanced exam. The appearance of the brain is unc hanged since MRI of February 20, 2019. Calvarial signal is normal. There is no evidence for sinusitis. IMPRESSION: No acute intracranial findings. ACT 112: Negative or not required by law. Electronically signed by: Nitin Bhagat M.D. 07/29/2022 1:00 PM
--- NOTE | 2022-07-29 14:43 | Surgery Progress Note ---
Date of Service July 29, 2022 Assessment & Plan (1) Abnormal CT of the abdomen: Plan: No free air on repeat ct of abd/ pelvis - did reveal 1) stomach filled with food c/w her known gastric dysmotility 2) large amount of stool 3) pneumatosis of small intestine loops - likely benign given her overall clinical scenario. Ok to continue diet. miralax changed to daily. advised f/u with her surgeon at [facility] to see if any options exist for her gastric dysmotility. Will sign off - please call with questions. Admission and Anticipated Discharge Date Admission Date: July 29, 2022 Subjective Feeling better. No abdominal pain or tenderness. No nausea or vomiting. Had a very small bowel movement but generally takes miralax at home and has not been on it here. Physical Exam Constitutional: WD/WN, vitals as above Eyes: PERRL, conjunctivae normal, anicteric sclerae ENMT: external ear and nose normal, oropharynx normal Gastrointestinal (Abdomen): Inspection/Auscultation: abdomen normal to inspection and normal bowel sounds; abdomen not distended and no visible herniation Percussion/Palpation: abdomen soft; abdomen nontender and no guarding Musculoskeletal: Extremities: extremities normal to inspection Neurologic: awake; no focal motor deficits Psychiatric: A+Ox3, euthymic affect Results & Data ([facility]) Vital Signs (Past 12 Hours) Vital Signs Temp Pulse Pulse Resp BP Pulse Ox O2 Del Method 07/29/22 14:36 36.6 C 77 16 122/78 96 Room Air 07/29/22 11:26 36.6 C 93 H 16 128/86 95 Room Air 07/29/22 08:00 Room Air 07/29/22 04:19 36.7 C 68 18 120/74 96 Room Air Laboratory Results 07/29/22 07/29/22 07/29/22 Range/Units 05:53 05:53 05:53 WBC (4.8-10.8) K/ul RBC (3.93-5.22) M/uL Hgb (12.0-16.0) g/dl Hct (34.1-44.9) % MCV (80.0-100.0) fL MCH (25.0-34.0) pg MCHC (32.0-36.0) g/dL RDW Std Deviation (36.4-46.3) fL RDW Coeff of Chen (11.5-14.5) % Plt Count (130-400) K/uL MPV (9.4-12.3) fL Immature Gran % (Auto) % Neut % (Auto) % Lymph % (Auto) % [place] % (Auto) % Eos % (Auto) % Baso % (Auto) % Neut # (Auto) (1.4-6.5) K/uL Lymph # (Auto) (1.2-3.4) K/uL [place] # (Auto) (0.24-0.82) K/uL Eos # (Auto) (0-0.50) K/uL Baso # (Auto) (0-0.2) K/uL Immature Gran # (Auto) (0.00-0.02) K/uL ESR 22 (0-30) mm/hr PT 16.1 H (9.0-12.0) Seconds INR 1.5 H (0.9-1.1) Sodium (136-145) mmol/L Potassium (3.5-5.1) mmol/L Chloride (98-107) mmol/L Carbon Dioxide (21-32) mmol/L Anion Gap (3-11) BUN (6-23) mg/dl Creatinine (0.6-1.2) mg/dl Est Cr Clr Drug Dosing ml/min Est GFR ( Amer) ml/min Est GFR (Non-Af Amer) ml/min BUN/Creatinine Ratio (10-20) Glucose (70-99(Fasting)) mg/dl Estimat Average Glucose 111 mg/dl Hemoglobin A1c 5.5 (4.5-5.6) % Calcium (8.5-10.1) mg/dl C-Reactive Protein (0-0.5) mg/dl B-Natriuretic Peptide (0-100) pg/ml Triglycerides (0-150) mg/dl Cholesterol (0-200) mg/dl LDL Cholesterol, Calc mg/dl VLDL Cholesterol, Calc (0-30) mg/dl HDL Cholesterol mg/dl Cholesterol/HDL Ratio (0-5) Vitamin B12 (180-914) pg/ml TSH (0.300-4.500) uIu/ml Urine Color Urine Appearance (Clear) Urine pH (4.5-7.5) Ur Specific Curtis (1.000-1.030) Urine Protein (Negative) Urine Glucose (UA) (Negative) Urine Ketones (Negative) Urine Blood (Negative) Urine Nitrite (Negative) Urine Bilirubin (Negative) Urine Urobilinogen (Negative) Ur Leukocyte Esterase (Negative) Urine WBC (Auto) (0-5) /hpf Urine RBC (Auto) (0-4) /hpf U Hyaline Cast (Auto) (0-5) /lpf U Epithel Cells (Auto) (0-5) /lpf Urine Bacteria (Auto) (Negative) 07/29/22 07/29/22 07/28/22 Range/Units 05:53 05:53 22:20 WBC 4.33 L (4.8-10.8) K/ul RBC 3.68 L (3.93-5.22) M/uL Hgb 9.8 L (12.0-16.0) g/dl Hct 31.2 L (34.1-44.9) % MCV 84.8 (80.0-100.0) fL MCH 26.6 (25.0-34.0) pg MCHC 31.4 L (32.0-36.0) g/dL RDW Std Deviation 48.3 H (36.4-46.3) fL RDW Coeff of Chen 15.7 H (11.5-14.5) % Plt Count 238 (130-400) K/uL MPV 9.9 (9.4-12.3) fL Immature Gran % (Auto) 0.2 % Neut % (Auto) 55.9 % Lymph % (Auto) 28.4 % [place] % (Auto) 11.1 % Eos % (Auto) 3.7 % Baso % (Auto) 0.7 % Neut # (Auto) 2.42 (1.4-6.5) K/uL Lymph # (Auto) 1.23 (1.2-3.4) K/uL [place] # (Auto) 0.48 (0.24-0.82) K/uL Eos # (Auto) 0.16 (0-0.50) K/uL Baso # (Auto) 0.03 (0-0.2) K/uL Immature Gran # (Auto) 0.01 (0.00-0.02) K/uL ESR (0-30) mm/hr PT (9.0-12.0) Seconds INR (0.9-1.1) Sodium 140 (136-145) mmol/L Potassium 3.8 (3.5-5.1) mmol/L Chloride 111 H (98-107) mmol/L Carbon Dioxide 23 (21-32) mmol/L Anion Gap 6 (3-11) BUN 19 (6-23) mg/dl Creatinine 0.78 (0.6-1.2) mg/dl Est Cr Clr Drug Dosing 78.7 ml/min Est GFR ( Amer) 85.6 ml/min Est GFR (Non-Af Amer) 73.8 ml/min BUN/Creatinine Ratio 24.4 H (10-20) Glucose 100 H (70-99(Fasting)) mg/dl Estimat Average Glucose mg/dl Hemoglobin A1c (4.5-5.6) % Calcium 8.4 L (8.5-10.1) mg/dl C-Reactive Protein 0.88 H (0-0.5) mg/dl B-Natriuretic Peptide (0-100) pg/ml Triglycerides 112 (0-150) mg/dl Cholesterol 139 (0-200) mg/dl LDL Cholesterol, Calc 60 mg/dl VLDL Cholesterol, Calc 22 (0-30) mg/dl HDL Cholesterol 57 mg/dl Cholesterol/HDL Ratio 2.4 (0-5) Vitamin B12 (180-914) pg/ml TSH (0.300-4.500) uIu/ml Urine Color Yellow Urine Appearance Clear (Clear) Urine pH 7.0 (4.5-7.5) Ur Specific Curtis > 1.030 H (1.000-1.030) Urine Protein Trace H (Negative) Urine Glucose (UA) Negative (Negative) Urine Ketones Negative (Negative) Urine Blood Negative (Negative) Urine Nitrite Negative (Negative) Urine Bilirubin Negative (Negative) Urine Urobilinogen Negative (Negative) Ur Leukocyte Esterase Negative (Negative) Urine WBC (Auto) 5-10 H (0-5) /hpf Urine RBC (Auto) 0-4 (0-4) /hpf U Hyaline Cast (Auto) 0 (0-5) /lpf U Epithel Cells (Auto) >30 H (0-5) /lpf Urine Bacteria (Auto) 1+ H (Negative) 07/28/22 07/28/22 07/28/22 Range/Units 15:43 10:56 10:56 WBC (4.8-10.8) K/ul RBC (3.93-5.22) M/uL Hgb (12.0-16.0) g/dl Hct (34.1-44.9) % MCV (80.0-100.0) fL MCH (25.0-34.0) pg MCHC (32.0-36.0) g/dL RDW Std Deviation (36.4-46.3) fL RDW Coeff of Chen (11.5-14.5) % Plt Count (130-400) K/uL MPV (9.4-12.3) fL Immature Gran % (Auto) % Neut % (Auto) % Lymph % (Auto) % [place] % (Auto) % Eos % (Auto) % Baso % (Auto) % Neut # (Auto) (1.4-6.5) K/uL Lymph # (Auto) (1.2-3.4) K/uL [place] # (Auto) (0.24-0.82) K/uL Eos # (Auto) (0-0.50) K/uL Baso # (Auto) (0-0.2) K/uL Immature Gran # (Auto) (0.00-0.02) K/uL ESR (0-30) mm/hr PT (9.0-12.0) Seconds INR (0.9-1.1) Sodium (136-145) mmol/L Potassium (3.5-5.1) mmol/L Chloride (98-107) mmol/L Carbon Dioxide (21-32) mmol/L Anion Gap (3-11) BUN (6-23) mg/dl Creatinine (0.6-1.2) mg/dl Est Cr Clr Drug Dosing ml/min Est GFR ( Amer) ml/min Est GFR (Non-Af Amer) ml/min BUN/Creatinine Ratio (10-20) Glucose (70-99(Fasting)) mg/dl Estimat Average Glucose mg/dl Hemoglobin A1c (4.5-5.6) % Calcium (8.5-10.1) mg/dl C-Reactive Protein (0-0.5) mg/dl B-Natriuretic Peptide 84 (0-100) pg/ml Triglycerides (0-150) mg/dl Cholesterol (0-200) mg/dl LDL Cholesterol, Calc mg/dl VLDL Cholesterol, Calc (0-30) mg/dl HDL Cholesterol mg/dl Cholesterol/HDL Ratio (0-5) Vitamin B12 > 1500 H (180-914) pg/ml TSH 1.247 (0.300-4.500) uIu/ml Urine Color Urine Appearance (Clear) Urine pH (4.5-7.5) Ur Specific Curtis (1.000-1.030) Urine Protein (Negative) Urine Glucose (UA) (Negative) Urine Ketones (Negative) Urine Blood (Negative) Urine Nitrite (Negative) Urine Bilirubin (Negative) Urine Urobilinogen (Negative) Ur Leukocyte Esterase (Negative) Urine WBC (Auto) (0-5) /hpf Urine RBC (Auto) (0-4) /hpf U Hyaline Cast (Auto) (0-5) /lpf U Epithel Cells (Auto) (0-5) /lpf Urine Bacteria (Auto) (Negative) Diagnostic Findings CT OF THE ABDOMEN AND PELVIS WITH ORAL CONTRAST CLINICAL HISTORY: GI perforation. Possible free air on chest CT. COMPARISON STUDY: Chest CT December 26, 2022. CT of the abdomen and pelvis October 28, 2021. TECHNIQUE: Axial images of the abdomen and pelvis were obtained without IV contrast. Oral contrast was administered. Automated exposure control was utilized for the study. A dose lowering technique was utilized adhering to the principles of ALARA. FINDINGS: No free air is present. However, there is pneumatosis of multiple righ t upper quadrant small bowel loops. This accounts for the finding on chest CT of July 28, 2022. Of note, the majority of the small bowel is within the right abdomen which represents a change since prior abdominal CT. No mesenteric or portal venous gas is present. There is no evidence for a bowel obstruction. Calcified granulomas within the spleen are present. Low-attenuation bilateral adrenal nodules are unchanged. These are benign. There is no hydronephrosis. There is excreted contrast within the collecting systems, ureters and bladder from recent contrast-enhanced CT. Repair of a hiatal hernia is noted. Large amount of ingested contents within the stomach are present. The stomach is mildly distended. Moderate amount stool within the colon and rectum is present. Postoperative findings within the spine are present. There is no lymphadenopathy. There is no ascites. Hyperdense material within the gallbladder is noted. There is no pericholecystic infiltration. There is no biliary or hernandez creatic ductal dilatation. Sigmoid diverticulosis is noted without evidence for acute diverticulitis. IMPRESSION: 1. No free air. Pneumatosis of multiple small bowel loops which accounts for the finding on chest CT July 28, 2022. This may reflect benign pneumatosis. However, clinical correlation is recommended as bowel ischemia cannot be completely excluded. 2. No bowel obstruction. 3. Large amount of ingested contents within the stomach which is mildly distended. This could be correlated with clinical evidence for gastric outlet obstruction. 4. Moderate amount of stool within the colon and rectum.
[2022-07-29] MEDS: POLYETHYLENE (MIRALAX) 17 GM PACK PO SCH (15:27)
[2022-07-29] MEDS ORDERED: WARFARIN SOD 2.5 MG TAB PO SCH ×2 (16:00)
[2022-07-29] MEDS ORDERED: WARFARIN SOD 2.5 MG TAB PO STA (18:16)
--- NOTE | 2022-07-29 18:48 | Electrocardiogram Report ---
Test Reason : Blood Pressure : / mmHG Vent. Rate : 075 BPM Atrial Rate : 075 BPM P-R Int : 142 ms QRS Dur : 076 ms QT Int : 384 ms P-R-T Axes : 052 018 049 degrees QTc Int : 428 ms Poor data quality, interpretation may be adversely affected Normal sinus rhythm Normal ECG When compared with ECG of 28-OCT-2021 19:09, No significant change was found Confirmed by Abisai Pereyra ([id number]) on 07/29/2022 6:47:43 PM Referred By: REFERRED SELF Confirmed By:Keyon Pereyra
--- NOTE | 2022-07-29 19:02 | Electrocardiogram Report ---
Test Reason : Blood Pressure : / mmHG Vent. Rate : 063 BPM Atrial Rate : 063 BPM P-R Int : 156 ms QRS Dur : 084 ms QT Int : 398 ms P-R-T Axes : 150 -21 -24 degrees QTc Int : 407 ms Unusual P axis, possible ectopic atrial rhythm Abnormal ECG When compared with ECG of 28-JUL-2022 11:02, (unconfirmed) Ectopic atrial rhythm has replaced Sinus rhythm Nonspecific T wave abnormality now evident in Inferior leads T wave amplitude has decreased in Anterior leads Confirmed by Abisai Pereyra ([id number]) on 07/29/2022 7:01:44 PM Referred By: REFERRED SELF Confirmed By:Keyon Pereyra
[2022-07-29] MEDS: PANTOprazole 40 MG TAB PO SCH (20:16)
[2022-07-30] MEDS: PIPERACILLIN/TAZOBACTAM 4.5 GM in DEXTROSE 5% 100 ML IV SCH (03:33)
[2022-07-30 06:15] LABS: Basophils # (auto) 0.04 K/uL (0-0.2); Basophils % (auto) 0.8 %; Eosinophils # (auto) 0.22 K/uL (0-0.50); Eosinophils % (auto) 4.2 %; Hematocrit (blood only) 31.1 % (34.1-44.9); Hemoglobin 9.8 g/dl (12.0-16.0); Immature Granulocytes # (auto) 0.02 K/uL (0.00-0.02); Immature Granulocytes % (auto) 0.4 %; Lymphocytes # (auto) 1.24 K/uL (1.2-3.4); Lymphocytes % (auto) 23.6 %; Mean Corpuscular Hemoglobin 26.8 pg (25.0-34.0); Mean Corpuscular Hgb Conc 31.5 g/dL (32.0-36.0); Mean Platelet Volume 9.8 fL (9.4-12.3); Monocytes # (auto) 0.54 K/uL (0.24-0.82); Monocytes % (auto) 10.3 %; Neutrophils # (auto) 3.19 K/uL (1.4-6.5); Neutrophils % (auto) 60.7 %; Platelet Count 245 K/uL (130-400); RDW Coefficient of Variation 15.8 % (11.5-14.5); RDW Standard Deviation 49.6 fL (36.4-46.3); Red Blood Count 3.66 M/uL (3.93-5.22); White Blood Count 5.25 K/ul (4.8-10.8)
[2022-07-30 06:28] LABS: INR 1.5 (0.9-1.1); Prothrombin Time 16.1 Seconds (9.0-12.0)
[2022-07-30 06:36] LABS: BUN Creatinine Ratio 21.8 (10-20); Calcium 8.1 mg/dl (8.5-10.1); Creatinine Clr Calc Pharmacy 70.1 ml/min; Est GFR (Non-African American) 64.7 ml/min; Potassium 3.8 mmol/L (3.5-5.1)
[2022-07-30] MEDS: SUCRALFATE 1 GM TAB PO SCH ×3 (07:47→21:09)
[2022-07-30] MEDS: METOCLOPRAMIDE HCL 10 MG TABLET PO SCH ×2 (07:47→21:09)
[2022-07-30] MEDS: TOPIRAMATE 25 MG TAB PO SCH (07:48)
[2022-07-30] MEDS: ASPIRIN 81 MG ECTAB PO SCH (07:48)
[2022-07-30] MEDS: PANTOprazole 40 MG TAB PO SCH ×2 (07:48→21:09)
[2022-07-30] MEDS: ATORVASTATIN 40 MG TAB PO SCH (07:48)
[2022-07-30] MEDS: METOPROLOL SUCC 25MG EXT REL TAB PO SCH (07:49)
[2022-07-30] MEDS: POLYETHYLENE (MIRALAX) 17 GM PACK PO SCH (07:51)
--- NOTE | 2022-07-30 09:53 | Pharmacy Report ---
- Date of Service July 30, 2022 - Pharmacy CVA/TIA Medication Review Medications to Prevent Stroke handout has been added to the patients discharge packet. Antiplatelet(s) * Aspirin 162 mg PO AM Cholesterol * High intensity statin: atorvastatin 40 mg daily DVT Prophylaxis * SCD knee Therapeutic Anticoagulation * Hx Afib noted, and patient is currently receiving Warfarin Type 2 Diabetes * Patient does not have T2DM
--- NOTE | 2022-07-30 12:45 | Neurology Progress Note ---
Date of Service July 30, 2022 Assessment & Plan (1) Generalized weakness: (2) Near syncope: (3) TIA (transient ischemic attack): (4) PAF (paroxysmal atrial fibrillation): Plan This patient had the onset of some generalized symptoms July 28. She did have a little bit of left upper extremity heaviness which was somewhat focal subjectively, but in the emergency room she had no focal deficits or issues. She had near syncope (lightheadedness). Today she has no symptoms or weakness. CT scan of the head and CT angiography of the head and neck were unremarkable. MRI of the brain was unremarkable as well She has a history of paroxysmal atrial fibrillation on warfarin. She has also been on aspirin daily as well. There was a history of a TIA back in January of 2019. Overall, I am not certain that her recent symptoms are related to TIA/CVA. This may been more of a global cerebral vascular/cardiovascular phenomenon. She was hypertensive in the emergency room and this is improved currently. Recommendations: 1. I am not certain the patient needs any additional neurologic testing or treatment at this time. 2. Please contact me if I can be of further assistance on this case. Overall, I spent a total of 25 minutes with this case including review of records, review of MRI films, direct evaluation the patient at bedside, and discussion of the case with the patient and RN at bedside, as well as Dr. Milian, including differential diagnosis and treatment options. Admission and Anticipated Discharge Date Admission Date: July 29, 2022 Subjective Patient is doing very well with no new or continued symptoms. She feels back to baseline. Nursing reports no new issues. Blood pressure is 101/66 and she is afebrile. Laboratory studies today reveal the anemia on CBC and a reasonable Chem profile although the calcium was slightly low at 8.1. MRI of the brain showed no stroke or acute changes. I reviewed these films and she has little in the way of small vessel ischemic disease and an old nature. There is no significant atrophy. Results & Data ([facility]) Vital Signs (Past 12 Hours) Vital Signs Temp Pulse Pulse Resp BP Pulse Ox O2 Del Method 07/30/22 11:27 37.1 C 93 H 16 101/66 97 Room Air 07/30/22 07:50 37.1 C 79 16 98/66 L 95 Room Air 07/30/22 07:37 76 01/03/23 03:20 36.6 C 68 18 120/76 93 Room Air Exam (Neuro) Physical Exam: She is awake and alert. Speech is without aphasia or dysarthria. Mood and affect are normal appropriate. Thought processes are intact with good long and short-term memory to conversation. Extraocular eye muscles are intact without nystagmus. There is no drift in the arms and there are no tremors. Strength is symmetrical in the limbs. Stance sitting is normal. PG Care Time/CCT Total # of Minutes Spent Total Time Spent with Patient: Total time spent is greater than 50% in coordination of care (as documented) at patient's floor/unit and/or counseling patient: Coding Level of Care Code 25565 Subseq Hosp Care Lvl 2 Diagnoses Generalized weakness R53.1 Near syncope R55 TIA (transient ischemic attack) G45.9 PAF (paroxysmal atrial fibrillation) I48.0 Time Spent (min) 25
--- NOTE | 2022-07-30 12:54 | Electrocardiogram Report ---
Test Reason : Blood Pressure : / mmHG Vent. Rate : 085 BPM Atrial Rate : 085 BPM P-R Int : 166 ms QRS Dur : 080 ms QT Int : 382 ms P-R-T Axes : 026 -06 023 degrees QTc Int : 454 ms Normal sinus rhythm Normal ECG When compared with ECG of 29-JUL-2022 05:13, Sinus rhythm has replaced Ectopic atrial rhythm Confirmed by Rodolfo Pitt ([id number]) on 07/30/2022 12:54:13 PM Referred By: REFERRED SELF Confirmed By:Rodolfo Pitt
[2022-07-30] MEDS ORDERED: PHYTONADIONE 5 MG in DEXTROSE 5% 50 ML IV ONE (15:28)
--- NOTE | 2022-07-30 15:30 | Hospitalist Progress Note ---
Date of Service July 30, 2022 Assessment & Plan (1) TIA (transient ischemic attack): Plan: h/o TIA in 2019 and received DAPT with plavix and ASA x 21 days, then continued on aspirin. Given Zio patch results showing PAF, warfarin was added. Today her symptoms are not exactly like those previous symptoms, but she is describing feeling warm, flushed, presyncopal and with some numbness and weakness. Has also been describing worsening SOB with exertion as described above. Per record review, she has a history of valvular heart disease and ascending aortic enlargement. Worsening valvular disease may be present, order echo which is still pending this morning. Aortic dissection was excluded with CTA overnight. EKG is nonischemic and HS trop was negative. She does have some weight gain and noncompliance with diuretics noted in history. Cont workup based on findings and clinical progress. Neurology consulted. MR brain was normal. Neurology uncertain about etiology of her initial numbness, however, etiologies may include but are not limited to some type of global cerebral vascular/cardiovascular phenomenon versus anxiety. Continue aspirin and warfarin (currently on hold) without changes. (2) Dyspnea on exertion: Plan: Echo doesn't reveal a cause for her dyspnea. With her severe GERD and significant debris in her stomach there is concern that her severe acid reflux, which she can taste as it comes up the back of her throat, may be influencing her breathing and functional status. She is s/p hiatal hernia repair at [facility] in October 2021 and since that time, she has noticed her dyspnea symptoms worsening. EGD in am. (3) Generalized weakness: Plan: Generalized fatigue and weakness associated with symptoms. Uncertain cause with possibilities noted above B12 and folate are within normal values. TSH is also normal. There is no UTI and she is having no UTI symptoms. There is no evidence of respiratory infection. ESR is normal with CRP only slightly elevated making vasculitis/connective tissue disease unlikely. Weakness in her legs has resolved. (4) Near syncope: Plan: no overt syncope, seems unusual for TIA. Echo as above. This was present during initial prehospital symptoms but has not been an issue since. (5) PAF (paroxysmal atrial fibrillation): Plan: Sinus rhythm. cont warfarin, metoprolol, asa (6) Obesity: Plan: lifestyle modifications recommended. DVT proph-warfarin reversed for procedure in am. SCDs. Full Code Dispo-to telemetry DO Archana Novaer Hospitalist Admission and Anticipated Discharge Date Admission Date: July 29, 2022 Subjective 77-year-old female presented for left upper extremity numbness and concern for initial TIA symptoms. Although symptoms had resolved she had persistent dyspnea with exertion and increased fatigue with very minimal activity, especially since her hiatal hernia repair performed in October 2021. During the work-up this admission, imaging revealed some abnormalities in her stomach and specifically there is a significant amount of debris present in her stomach. She remains constipated despite being off iron, and her acid reflux remains severe. She is using Carafate Protonix and other remedies provided to her by her outpatient GI provider. Her acid reflux was very bad last night. I am now concerned that her acid reflux may be the cause of her worsened shortness of breath. Her echo cardiogram is unrevealing. Her lungs are clear to auscultation and chest imaging reveals no pulmonary etiology. I spoke with the GI team tonight and they will proceed with EGD in a.m. Patient was updated at bedside. Notably she is on warfarin and received 5 mg vitamin K to reverse her INR which is already subtherapeutic at 1.5. Review of Systems Review of Systems: All systems were reviewed and negative except as indicated in HPI above. Physical Exam Physical Exam: CONSTITUTIONAL: WNWD, vitals as above, no acute distress EYES: normal conjunctivae, no scleral icterus ENT: external ear and nose normal, MMM NECK: trachea midline RESPIRATORY: clear to auscultation bilaterally, no crackles, rales or wheezes, normal respiratory effort CARDIOVASCULAR: regular rate and rhythm, S1 and 2 heard without murmurs, gallops or rubs, no JVD, no peripheral edema CHEST: inspection of chest was normal GASTROINTESTINAL: normal bowel sounds, soft, nontender, ND, no guarding MUSCULOSKELETAL: strength 5/5 throughout, head is normocephalic and atraumatic SKIN: warm and dry NEUROLOGIC: CN 2-12 grossly intact, no sensory deficit, normal cognition, normal speech, no tremor. No gross focal deficits PSYCHIATRIC: alert cooperative and oriented to person, place and time. Results & Data Results & Data ([facility]) Vital Signs (Past 12 Hours) Vital Signs Temp Pulse Pulse Resp BP Pulse Ox O2 Del Method 07/30/22 14:56 66 07/30/22 11:27 37.1 C 93 H 16 101/66 97 Room Air 07/30/22 07:50 37.1 C 79 16 98/66 L 95 Room Air 07/30/22 07:37 76 Laboratory Results Short CBC 07/30/22 Range/Units 05:51 WBC 5.25 (4.8-10.8) K/ul Hgb 9.8 L (12.0-16.0) g/dl Hct 31.1 L (34.1-44.9) % Plt Count 245 (130-400) K/uL BMP 07/30/22 05:51 Sodium 140 Potassium 3.8 Chloride 111 H Carbon Dioxide 23 BUN 19 Creatinine 0.87 Glucose 107 H Calcium 8.1 L Medications Administered Current Inpatient Medications Acetaminophen (Acetaminophen 325 Mg Tab) 650 mg PO Q4H PRN PRN Reason: Pain or Fever Stop: 08/27/22 14:51 Aspirin (Aspirin 81 Mg Ectab) 162 mg PO DAILY JAYLEEN Stop: 08/28/22 08:59 Last Admin: 07/30/22 07:48 Dose: 162 mg Atorvastatin Calcium (Atorvastatin 40 Mg Tab) 40 mg PO DAILY JAYLEEN Stop: 08/28/22 08:59 Last Admin: 07/30/22 07:48 Dose: 40 mg Phytonadione 5 mg/ Dextrose 50.5 mls @ 101 mls/hr IV ONE ONE Stop: 07/30/22 15:57 Metoclopramide HCl (Metoclopramide Hcl 10 Mg Tablet) 10 mg PO BID JAYLEEN Stop: 08/27/22 20:59 Last Admin: 07/30/22 07:47 Dose: 10 mg Metoprolol Succinate (Metoprolol Succ 25mg Ext Rel Tab) 25 mg PO QAM JAYLEEN Stop: 08/28/22 08:59 Last Admin: 07/30/22 07:49 Dose: 25 mg Pantoprazole Sodium (Pantoprazole 40 Mg Tab) 40 mg PO BID JAYLEEN Stop: 08/28/22 20:59 Last Admin: 07/30/22 07:48 Dose: 40 mg Polyethylene Glycol (Polyethylene (Miralax) 17 Gm Pack) 17 gm PO DAILY JAYLEEN Stop: 08/28/22 14:59 Last Admin: 07/30/22 07:51 Dose: 17 gm Sucralfate (Sucralfate 1 Gm Tab) 1 gm PO TID JAYLEEN Stop: 08/27/22 20:59 Last Admin: 07/30/22 13:24 Dose: 1 gm Topiramate (Topiramate 25 Mg Tab) 25 mg PO DAILY [facility] Stop: 08/28/22 08:59 Last Admin: 07/30/22 07:48 Dose: 25 mg Warfarin Sodium (Warfarin Sod 5 Mg Tab) 5 mg PO DAILY@1600 [facility] Stop: 08/29/22 15:59
[2022-07-30] MEDS ORDERED: WARFARIN SOD 5 MG TAB PO SCH ×2 (16:00)
[2022-07-31 06:48] LABS: Basophils # (auto) 0.04 K/uL (0-0.2); Basophils % (auto) 0.8 %; Eosinophils # (auto) 0.22 K/uL (0-0.50); Eosinophils % (auto) 4.2 %; Hematocrit (blood only) 31.8 % (34.1-44.9); Hemoglobin 10.1 g/dl (12.0-16.0); Immature Granulocytes # (auto) 0.02 K/uL (0.00-0.02); Immature Granulocytes % (auto) 0.4 %; Lymphocytes # (auto) 1.15 K/uL (1.2-3.4); Mean Corpuscular Hemoglobin 26.9 pg (25.0-34.0); Mean Corpuscular Hgb Conc 31.8 g/dL (32.0-36.0); Mean Corpuscular Volume 84.6 fL (80.0-100.0); Mean Platelet Volume 9.8 fL (9.4-12.3); Monocytes # (auto) 0.46 K/uL (0.24-0.82); Monocytes % (auto) 8.8 %; Neutrophils # (auto) 3.33 K/uL (1.4-6.5); Neutrophils % (auto) 63.8 %; Platelet Count 244 K/uL (130-400); RDW Coefficient of Variation 15.7 % (11.5-14.5); RDW Standard Deviation 48.6 fL (36.4-46.3); Red Blood Count 3.76 M/uL (3.93-5.22); White Blood Count 5.22 K/ul (4.8-10.8)
[2022-07-31 06:54] LABS: INR 1.2 (0.9-1.1); Prothrombin Time 12.6 Seconds (9.0-12.0)
[2022-07-31 07:11] LABS: BUN Creatinine Ratio 26.2 (10-20); Calcium 8.4 mg/dl (8.5-10.1); Creatinine Clr Calc Pharmacy 94.3 ml/min; Est GFR (Non-African American) 86.2 ml/min; Potassium 3.9 mmol/L (3.5-5.1)
--- NOTE | 2022-07-31 08:04 | Hospitalist Progress Note ---
Date of Service July 31, 2022 Assessment & Plan (1) TIA (transient ischemic attack): Plan: h/o TIA in 2019 and received DAPT with plavix and ASA x 21 days, then continued on aspirin. Given Zio patch results showing PAF, warfarin was added. Her symptoms are not exactly like those previous symptoms, but she is describing feeling warm, flushed, presyncopal and with some numbness and weakness. Has also been describing worsening SOB with exertion as described above. Per record review, she has a history of valvular heart disease and ascending aortic enlargement. Echo ordered and reviewed. Aortic dissection was excluded with CTA. EKG is nonischemic and HS trop was negative. She does have some weight gain and noncompliance with diuretics noted in history. Cont workup based on findings and clinical progress. Neurology consulted. MR brain was normal. Neurology uncertain about etiology of her initial numbness, however, etiologies may include but are not limited to some type of global cerebral vascular/cardiovascular phenomenon versus anxiety. Continue aspirin and warfarin (currently on hold) without changes. 07/31 -patient had another brief episode of left upper extremity numbness today in the bathroom. She was seen previously by me, and had no symptoms whatsoever. After returning back to bed, symptoms already improving. Patient has been n.p.o. for her EGD today. We will give gentle fluids. Discussed with neurology over the phone, will continue to monitor her symptoms. (2) Dyspnea on exertion: Plan: Echo doesn't reveal a cause for her dyspnea. With her severe GERD and significant debris in her stomach there is concern that her severe acid reflux, which she can taste as it comes up the back of her throat, may be influencing her breathing and functional status. She is s/p hiatal hernia repair at [facility] in October 2021 and since that time, she has noticed her dyspnea symptoms worsening. EGD today (07/31/22) (3) Generalized weakness: Plan: Generalized fatigue and weakness associated with symptoms. Uncertain cause with possibilities noted above B12 and folate are within normal values. TSH is also normal. There is no UTI and she is having no UTI symptoms. There is no evidence of respiratory infection. ESR is normal with CRP only slightly elevated making vasculitis/connective tissue disease unlikely. Weakness in her legs has resolved. (4) Near syncope: Plan: no overt syncope, seems unusual for TIA. Echo as above. (5) PAF (paroxysmal atrial fibrillation): Plan: Sinus rhythm. cont warfarin, metoprolol, asa (6) Obesity: Plan: lifestyle modifications recommended. DVT proph-warfarin reversed for procedure in am. SCDs. Full Code Dispo-to telemetry Admission and Anticipated Discharge Date Admission Date: July 29, 2022 Subjective Pt seen in follow up of severe GERD, hx of hiatal hernia repair, initially admitted for possible TIA During her admission, patient continues to be weak and have dyspnea on exertion, seems worsened after her surgery Plan for EGD today Currently laying in bed, in no acute distress. Patient reports that she is feeling much better since she came to the hospital. She does report having nausea this morning. Denies fevers chills headache weakness numbness. Denies abdominal pain. Denies chest pain shortness of breath. She is anxious about getting her EGD Update: After patient was seen by me, she was in the bathroom and again had episode of left arm numbness. Patient reports that she has these episodes at home. Now it is improving. Reviewed neurology note, possibly due to lower blood pressure. Checked orthostatics, currently orthostatics are okay. Will discuss further with neurology. Patient's symptoms overall improving already. Review of Systems Review of Systems: All systems reviewed & are unremarkable except as noted in Subjective Physical Exam Physical Exam: CONSTITUTIONAL: WNWD, in no acute distress EYES: normal conjunctivae, no scleral icterus ENT: external ear and nose normal, MMM NECK: trachea midline RESPIRATORY: clear to auscultation bilaterally, no crackles, rales or wheezes, normal respiratory effort CARDIOVASCULAR: regular rate and rhythm, S1 and 2 heard without murmurs, gallops or rubs, no JVD, no peripheral edema CHEST: inspection of chest was normal GASTROINTESTINAL: normal bowel sounds, soft, nontender, ND, no guarding MUSCULOSKELETAL: strength 5/5 throughout, head is normocephalic and atraumatic SKIN: warm and dry NEURO/PSYCH:Awake and alert, answers questions appropriately, speech fluent, no facial asymmetry, moves extremities. Results & Data Results & Data ([facility]) Vital Signs (Past 12 Hours) Vital Signs Temp Pulse Pulse Resp BP Pulse Ox O2 Del Method 07/31/22 07:21 37.1 C 76 20 123/75 93 Room Air 07/31/22 07:18 65 07/31/22 03:45 37 C 77 18 120/78 94 Room Air 07/30/22 23:43 71 07/30/22 22:52 37.4 C 69 20 116/75 95 Room Air Laboratory Results 07/31/22 07/31/22 07/31/22 Range/Units 06:12 06:12 06:12 WBC 5.22 (4.8-10.8) K/ul RBC 3.76 L (3.93-5.22) M/uL Hgb 10.1 L (12.0-16.0) g/dl Hct 31.8 L (34.1-44.9) % MCV 84.6 (80.0-100.0) fL MCH 26.9 (25.0-34.0) pg MCHC 31.8 L (32.0-36.0) g/dL RDW Std Deviation 48.6 H (36.4-46.3) fL RDW Coeff of Chen 15.7 H (11.5-14.5) % Plt Count 244 (130-400) K/uL MPV 9.8 (9.4-12.3) fL Immature Gran % (Auto) 0.4 % Neut % (Auto) 63.8 % Lymph % (Auto) 22.0 % Whiteside % (Auto) 8.8 % Eos % (Auto) 4.2 % Baso % (Auto) 0.8 % Neut # (Auto) 3.33 (1.4-6.5) K/uL Lymph # (Auto) 1.15 L (1.2-3.4) K/uL Whiteside # (Auto) 0.46 (0.24-0.82) K/uL Eos # (Auto) 0.22 (0-0.50) K/uL Baso # (Auto) 0.04 (0-0.2) K/uL Immature Gran # (Auto) 0.02 (0.00-0.02) K/uL PT 12.6 H (9.0-12.0) Seconds INR 1.2 H (0.9-1.1) Sodium 140 (136-145) mmol/L Potassium 3.9 (3.5-5.1) mmol/L Chloride 112 H (98-107) mmol/L Carbon Dioxide 22 (21-32) mmol/L Anion Gap 6 (3-11) BUN 17 (6-23) mg/dl Creatinine 0.65 (0.6-1.2) mg/dl Est Cr Clr Drug Dosing 94.3 ml/min Est GFR ( Amer) 100.0 ml/min Est GFR (Non-Af Amer) 86.2 ml/min BUN/Creatinine Ratio 26.2 H (10-20) Glucose 95 (70-99(Fasting)) mg/dl Calcium 8.4 L (8.5-10.1) mg/dl Medications Administered Current Inpatient Medications Acetaminophen (Acetaminophen 325 Mg Tab) 650 mg PO Q4H PRN PRN Reason: Pain or Fever Stop: 08/27/22 14:51 Aspirin (Aspirin 81 Mg Ectab) 162 mg PO DAILY [facility] Stop: 08/28/22 08:59 Last Admin: 07/30/22 07:48 Dose: 162 mg Atorvastatin Calcium (Atorvastatin 40 Mg Tab) 40 mg PO DAILY [facility] Stop: 08/28/22 08:59 Last Admin: 07/30/22 07:48 Dose: 40 mg Metoclopramide HCl (Metoclopramide Hcl 10 Mg Tablet) 10 mg PO BID [facility] Stop: 08/27/22 20:59 Last Admin: 07/30/22 21:09 Dose: 10 mg Metoprolol Succinate (Metoprolol Succ 25mg Ext Rel Tab) 25 mg PO QAM [facility] Stop: 08/28/22 08:59 Last Admin: 07/30/22 07:49 Dose: 25 mg Pantoprazole Sodium (Pantoprazole 40 Mg Tab) 40 mg PO BID [facility] Stop: 08/28/22 20:59 Last Admin: 07/30/22 21:09 Dose: 40 mg Polyethylene Glycol (Polyethylene (Miralax) 17 Gm Pack) 17 gm PO DAILY [facility] Stop: 08/28/22 14:59 Last Admin: 07/30/22 07:51 Dose: 17 gm Sucralfate (Sucralfate 1 Gm Tab) 1 gm PO TID [facility] Stop: 08/27/22 20:59 Last Admin: 07/30/22 21:09 Dose: 1 gm Topiramate (Topiramate 25 Mg Tab) 25 mg PO DAILY [facility] Stop: 08/28/22 08:59 Last Admin: 07/30/22 07:48 Dose: 25 mg Warfarin Sodium (Warfarin Sod 5 Mg Tab) 5 mg PO DAILY@1600 [facility] Stop: 08/29/22 15:59
[2022-07-31] MEDS: SUCRALFATE 1 GM TAB PO SCH ×2 (08:12→15:14)
[2022-07-31] MEDS: METOPROLOL SUCC 25MG EXT REL TAB PO SCH (08:12)
[2022-07-31] MEDS: PANTOprazole 40 MG TAB PO SCH (08:12)
[2022-07-31] MEDS: ATORVASTATIN 40 MG TAB PO SCH (08:12)
[2022-07-31] MEDS: TOPIRAMATE 25 MG TAB PO SCH (08:12)
[2022-07-31] MEDS: METOCLOPRAMIDE HCL 10 MG TABLET PO SCH (08:13)
[2022-07-31] MEDS: POLYETHYLENE (MIRALAX) 17 GM PACK PO SCH (08:15)
--- NOTE | 2022-07-31 09:27 | Anesthesiology Consultation ---
Date of Service July 31, 2022 Assessment & Plan (1) Encounter for pre-operative examination: History Surgery Operation Date: 07/31/22 17:15 Proposed Procedures p Esophagogastroduodenoscopy Dr Kelly - Imani Gaston MD Height/Weight Height: 5 ft 7 in Weight: 110.5 kg Allergies Allergy/AdvReac Type Severity Reaction Status Date / Time Sulfa (Sulfonamide Allergy Unknown CAN'T Verified 10/28/21 18:51 Antibiotics) REMEMBER-LONG AGO. buspirone [From BuSpar] AdvReac Mild Vomiting Verified 10/28/21 18:51 Medications Home Medications Medication Instructions Recorded Confirmed Last Taken acetaminophen 500 mg tablet 1,000 mg PO Q8H PRN Pain 07/28/22 07/28/22 Unknown (Acetaminophen Extra Strength) ascorbic acid (vitamin C) 500 mg 500 mg PO DAILY 07/28/22 07/28/22 Unknown tablet aspirin 162 mg tablet,delayed 162 mg PO DAILY 07/28/22 07/28/22 Unknown release atorvastatin 40 mg tablet 40 mg PO DAILY 07/28/22 07/28/22 Unknown cholecalciferol (vitamin D3) 125 125 mcg PO DAILY 07/28/22 07/28/22 Unknown mcg (5,000 unit) tablet ferrous sulfate 324 mg (65 mg 324 mg PO DAILY 07/28/22 07/28/22 Unknown iron) tablet,delayed release fluticasone propionate 50 2 spray intranasal DAILY PRN 07/28/22 07/28/22 Unknown mcg/actuation nasal Allergy Symptoms spray,suspension furosemide 20 mg tablet (Lasix) 20 mg PO BID 07/28/22 07/28/22 Unknown metoclopramide HCl 10 mg tablet 10 mg PO BID 07/28/22 07/28/22 Unknown metoprolol succinate 25 mg 25 mg PO QAM 07/28/22 07/28/22 Unknown tablet,extended release 24 hr pantoprazole 40 mg tablet,delayed 40 mg PO QAM 07/28/22 07/28/22 Unknown release sucralfate 1 gram tablet 1 g PO TID 07/28/22 07/28/22 Unknown topiramate 25 mg tablet 25 mg PO DAILY 07/28/22 07/28/22 Unknown warfarin 5 mg tablet 2.5 mg PO MOWEFRSA@1600 07/28/22 07/28/22 Unknown warfarin 5 mg tablet 5 mg PO SUTUTH@1600 07/28/22 07/28/22 Unknown Active Medications Generic Name Dose Route Start Last Admin Trade Name Cecilia PRN Reason Stop Dose Admin Aspirin 162 mg 07/29/22 09:00 07/30/22 07:48 Aspirin 81 Mg Ectab PO 08/28/22 08:59 162 mg DAILY JAYLEEN Administration Atorvastatin Calcium 40 mg 07/29/22 09:00 07/31/22 08:12 Atorvastatin 40 Mg Tab PO 08/28/22 08:59 40 mg DAILY JAYLEEN Administration Metoclopramide HCl 10 mg 07/28/22 21:00 07/31/22 08:13 Metoclopramide Hcl 10 Mg Tablet PO 08/27/22 20:59 10 mg BID JAYLEEN Administration Metoprolol Succinate 25 mg 07/29/22 09:00 07/31/22 08:12 Metoprolol Succ 25mg Ext Rel Tab PO 08/28/22 08:59 25 mg QAM JAYLEEN Administration Pantoprazole Sodium 40 mg 07/29/22 21:00 07/31/22 08:12 Pantoprazole 40 Mg Tab PO 08/28/22 20:59 40 mg BID JAYLEEN Administration Polyethylene Glycol 17 gm 07/29/22 15:00 07/31/22 08:15 Polyethylene (Miralax) 17 Gm Pack PO 08/28/22 14:59 Not Given DAILY JAYLEEN Sucralfate 1 gm 07/28/22 21:00 07/31/22 08:12 Sucralfate 1 Gm Tab PO 08/27/22 20:59 1 gm TID JAYLEEN Administration Topiramate 25 mg 07/29/22 09:00 07/31/22 08:12 Topiramate 25 Mg Tab PO 08/28/22 08:59 25 mg DAILY JAYLEEN Administration Past Medical History Medical History (Updated 07/31/22 @ 09:27 by Jazlyn Raines MD) Anterior communicating artery aneurysm Anxiety Aortic valve sclerosis Arthritis Ascending aorta enlargement Atrial fibrillation Follows with [facility] cardio, on coumadin B12 deficiency Chronic diastolic CHF (congestive heart failure) CVA (cerebral vascular accident) Dysphagia Dyspnea on exertion Generalized weakness GERD (gastroesophageal reflux disease) Hiatal hernia History of COVID-19 Dx 07/2020, no current issues History of depression Hyperlipidemia Hypertension Left-sided weakness Near syncope Nonrheumatic aortic (valve) insufficiency Nonrheumatic mitral valve regurgitation Nonrheumatic tricuspid (valve) insufficiency Obesity Overactive bladder hx botox injections (not successful) PAF (paroxysmal atrial fibrillation) Precordial chest pain RLS (restless legs syndrome) Schatzki's ring Senile osteoporosis Stress incontinence TIA (transient ischemic attack) 2019 Urge incontinence of urine Warfarin anticoagulation Past Family History Family History Father , age 67 of complications of diabetes Family history of diabetes mellitus Brother Family history of diabetes mellitus Mother , age 97 No problems noted. Other Family history non-contributory No family history of adverse response to anesthesia Past Surgical History Surgical History (Updated 07/31/22 @ 09:26 by Jazlyn Raines MD) H/O foot surgery Left x2 History of appendectomy History of cataract surgery R/L History of colonoscopy History of esophagogastroduodenoscopy (EGD) History of herniorrhaphy History of hysterectomy History of repair of hiatal hernia History of tooth extraction Social History Smoking Status: Never smoker Hx Alcohol Use: No alcohol intake frequency: holidays/special occasions only Hx Substance Use: No substance use type: does not use Physical Exam Vital Signs Last Vital Signs Temp 37.1 C 07/31/22 07:21 Pulse 76 07/31/22 07:21 Resp 20 07/31/22 07:21 BP 123/75 07/31/22 07:21 Pulse Ox 93 07/31/22 07:21 O2 Del Method 07/31/22 07:21 Testing Laboratory Results 07/31/22 06:12 07/31/22 06:12 PT 12.6 Seconds (9.0-12.0) H 07/31/22 06:12 INR 1.2 (0.9-1.1) H 07/31/22 06:12 APTT 29.9 Seconds (21.0-31.0) 07/28/22 10:16 Hemoglobin A1c 5.5 % (4.5-5.6) 07/29/22 05:53 Urine Color Yellow 07/28/22 22:20 Urine Appearance Clear (Clear) 07/28/22 22:20 Urine pH 7.0 (4.5-7.5) 07/28/22 22:20 Ur Specific Mcgrady > 1.030 (1.000-1.030) H 07/28/22 22:20 Urine Protein Trace (Negative) H 07/28/22 22:20 Urine Glucose (UA) Negative (Negative) 07/28/22 22:20 Urine Ketones Negative (Negative) 07/28/22 22:20 Urine Nitrite Negative (Negative) 07/28/22 22:20 Ur Leukocyte Esterase Negative (Negative) 07/28/22 22:20 Urine WBC (Auto) 5-10 /hpf (0-5) H 07/28/22 22:20 Urine RBC (Auto) 0-4 /hpf (0-4) 07/28/22 22:20 U Hyaline Cast (Auto) 0 /lpf (0-5) 07/28/22 22:20 U Epithel Cells (Auto) >30 /lpf (0-5) H 07/28/22 22:20 Urine Bacteria (Auto) 1+ (Negative) H 07/28/22 22:20 Blood Type AB Positive 07/28/22 11:22 Antibody Screen NEGATIVE 07/28/22 11:22 07/28/22 22:20 Urine Culture - Final Urine,Straight Cath More than three types of organisms present, all high counts mixed probable skin kaitlynn - No further identifications or sensitivities to follow. Electrocardiogram Date: 07/30/22 Normal sinus rhythm Normal ECG When compared with ECG of 29-JUL-2022 05:13, Sinus rhythm has replaced Ectopic atrial rhythm Confirmed by Rodolfo Pitt ([id number]) on 07/30/2022 12:54:13 PM Chest X-Ray Date: 07/28/22 IMPRESSION: No acute process.
--- NOTE | 2022-07-31 09:38 | Gastrointestinal Consultation ---
Date of Consultation July 31, 2022 Assessment & Plan (1) GERD (gastroesophageal reflux disease): (2) Gastroparesis: (3) Dysphagia: Plan Suspect her symptoms may be related to esophageal and gastric dysmotility secondary to hx of paraesophageal hernia repair. Constipation may also contribute. Will arranged EGD to r/o strictural issues of the esophagus and reflux esophagitis as she has a hx of Schatzki ring and GERD. Will plan for EGD today. Further recommendations to follow. Supervising Physician Co-Signing Physician Notes Attg add: I interviewed and examined pt, reviewed chart and labs. Pt with ongoing symptoms that may be c/w GI dysmotility. EGD today. History of Present Illness Reason for Consultation: Severe reflux, history of hiatal hernia surgery Requesting Physician: Dr. Milian Attending Physician: Orlin Delarosa MD History of Present Illness Ms. Samantha Hendrickson is a 77-year-old female patient of Dr. Verna Luo with a history of depression, GERD, Schatski's ring, GERD, Schatzki ring, gastroparesis, constipation, on warfarin for P-Afib (most recent dose Friday 07/28; INR 1.2 today), hiatal hernia S/P lap HH repair w mesh for organoaxial vol[place] [facility] [place] then incisional hernia repair there in December. Well instructed on 07/28/2022, she suddenly felt nausea had hot flashes felt like somebody was sitting on her shoulders had weakness and left arm tingling she was brought to the emergency department and worked up for neuro, cardiac and vascular issues which were negative. During work-up, pneumatosis of several bowel loops of the small intestines was seen. This was reviewed by surgery did not feel that surgical procedures were warranted. Because CT scan on arrival suggested a distended debris-filled stomach it was thought that her symptoms may have been caused by GERD or gastroparesis. We were contacted yesterday by her primary hospitalist and asked to provide EGD. The patient is seen and examined while she is resting in bed in the hospital. She is awake alert oriented and comfortable. She tells me that she has ongoing problems with dysphagia always feeling like any dry solid foods get stuck at the base of the neck.This occurs, she feels the need to belch or vomit but is unable. She admits to having had a larger meal than usual on but drank only a protein drink for breakfast on the morning that her symptoms began. She is also had ongoing problems with constipation,now resolved since her hospitalization w the use of Miralax. For gastroparesis, she is maintained on [id number] BID. For reflux, she is currently on Pantoprazole 40mg BID. She denies any abdominal pain or typical symptoms of GERD. Allergies Allergy/AdvReac Type Severity Reaction Status Date / Time Sulfa (Sulfonamide Allergy Unknown CAN'T Verified 07/31/22 12:49 Antibiotics) REMEMBER-LONG AGO. buspirone [From BuSpar] AdvReac Mild Vomiting Verified 07/31/22 12:49 Home Medications Medication Instructions Recorded Confirmed Type acetaminophen 500 mg tablet 1,000 mg PO Q8H PRN Pain 07/28/22 07/28/22 History (Acetaminophen Extra Strength) ascorbic acid (vitamin C) 500 mg 500 mg PO DAILY 07/28/22 07/28/22 History tablet aspirin 162 mg tablet,delayed 162 mg PO DAILY 07/28/22 07/28/22 History release atorvastatin 40 mg tablet 40 mg PO DAILY 07/28/22 07/28/22 History cholecalciferol (vitamin D3) 125 125 mcg PO DAILY 07/28/22 07/28/22 History mcg (5,000 unit) tablet ferrous sulfate 324 mg (65 mg 324 mg PO DAILY 07/28/22 07/28/22 History iron) tablet,delayed release fluticasone propionate 50 2 spray intranasal DAILY PRN 07/28/22 07/28/22 History mcg/actuation nasal Allergy Symptoms spray,suspension furosemide 20 mg tablet (Lasix) 20 mg PO BID 07/28/22 07/28/22 History metoclopramide HCl 10 mg tablet 10 mg PO BID 07/28/22 07/28/22 History metoprolol succinate 25 mg 25 mg PO QAM 07/28/22 07/28/22 History tablet,extended release 24 hr pantoprazole 40 mg tablet,delayed 40 mg PO QAM 07/28/22 07/28/22 History release sucralfate 1 gram tablet 1 g PO TID 07/28/22 07/28/22 History topiramate 25 mg tablet 25 mg PO DAILY 07/28/22 07/28/22 History warfarin 5 mg tablet 2.5 mg PO MOWEFRSA@1600 07/28/22 07/31/22 History warfarin 5 mg tablet 5 mg PO SUTUTH@1600 07/28/22 07/31/22 History Patient History Medical History (Updated 07/31/22 @ 10:05 by CHINO Haywood) Anterior communicating artery aneurysm Anxiety Aortic valve sclerosis Arthritis Ascending aorta enlargement Atrial fibrillation Follows with [facility] cardio, on coumadin B12 deficiency Chronic diastolic CHF (congestive heart failure) CVA (cerebral vascular accident) Dysphagia Dyspnea on exertion Generalized weakness GERD (gastroesophageal reflux disease) Hiatal hernia History of COVID-19 Dx 07/2020, no current issues History of depression Hyperlipidemia Hypertension Left-sided weakness Near syncope Nonrheumatic aortic (valve) insufficiency Nonrheumatic mitral valve regurgitation Nonrheumatic tricuspid (valve) insufficiency Obesity Overactive bladder hx botox injections (not successful) PAF (paroxysmal atrial fibrillation) Precordial chest pain RLS (restless legs syndrome) Schatzki's ring Senile osteoporosis Stress incontinence TIA (transient ischemic attack) 2019 Urge incontinence of urine Warfarin anticoagulation Surgical History (Updated 07/31/22 @ 09:26 by Jazlyn Raines MD) H/O foot surgery Left x2 History of appendectomy History of cataract surgery R/L History of colonoscopy History of esophagogastroduodenoscopy (EGD) History of herniorrhaphy History of hysterectomy History of repair of hiatal hernia History of tooth extraction Family History Father , age 67 of complications of diabetes Family history of diabetes mellitus Brother Family history of diabetes mellitus Mother , age 97 No problems noted. 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 How many Children do You have: 1 Feels Safe at Home: Yes Safety Concerns: Feels Safe At This Time Assistive Devices: Glasses Review of Systems Review of Systems: ROS: Gen: + episode of weakness prior to admission; No fevers, or weight loss Eyes: No eye redness, or pain, no recent vision changes Resp: No SOB, no cough Cardio: No palpitations/irregular beats, no chest pain GI: No abdominal pain, no nausea/vomiting : Denies pain on urination Skin: No jaundice, itching or new rashes Physical Exam Constitutional: WD/WN, vitals as above + obese Eyes: PERRL, conjunctivae normal, anicteric sclerae ENMT: external ear and nose normal, oropharynx normal Neck: trachea midline, no thyromegaly Respiratory: normal respiratory effort, lungs clear to auscultation Cardiovascular: RRR, no murmur, no edema Gastrointestinal (Abdomen): normal bowel sounds, soft, nontender, no hepatosplenomegaly Musculoskeletal: no cyanosis or clubbing, extremities motor strength 5/5 Skin: no rashes, warm and dry Neurologic: PERRL, EOMI, accommodation nl, no face palsy, no dysarthria Psychiatric: A+Ox3, euthymic affect Lymphatic: no cervical or axillary lymphadenopathy Results & Data ([facility]) Vital Signs (Past 12 Hours) Vital Signs Temp Pulse Pulse Resp BP Pulse Ox O2 Del Method 07/31/22 07:21 37.1 C 76 20 123/75 93 Room Air 07/31/22 07:18 65 07/31/22 03:45 37 C 77 18 120/78 94 Room Air 07/30/22 23:43 71 07/30/22 22:52 37.4 C 69 20 116/75 95 Room Air Laboratory Results WBC 5, Hb 10, HCT 31, PLT 244, PT 12.6, INR 1.2, NA 140, K3.9, CL 112, CO2 22, BUN 17, CR 0.65 Diagnostic Findings CTAP w oral, no IV contrast 07/28/22: 1. No free air. Pneumatosis of multiple small bowel loops which accounts for the finding on chest CT July 28, 2022. This may reflect benign pneumatosis. However, clinical correlation is recommended as bowel ischemia Cannot be completely excluded. 2. No bowel obstruction. 3. Large amount of ingested contents within the stomach which is mildly distended. This could be correlated with clinical evidence for gastric outlet obstruction. 4. Moderate amount of stool within the colon and rectum. CTA Chest 07/28/22: 1. No thoracic aortic dissection. 2. No acute intrathoracic findings. 3. Pneumatosis involving several right upper quadrant small bowel loops. This may reflect benign pneumatosis. Bowel ischemia is considered less likely but cannot be excluded by imaging. 4. Distended stomach containing ingested contents. CTA Neck : 1. No significant stenosis, occlusion, or aneurysm within the [place]. 2. No significant stenosis, occlusion, or dissection identified within the carotid or vertebral arteries. MRI Brain 07/29/22: No acute intracranial findings. CTA head and neck 07/28/22: 1. No significant stenosis, occlusion, or aneurysm within the [place]. 2. No significant stenosis, occlusion, or dissection identified within the carotid or vertebral arteries CXR 07/28/22: No acute process.
[2022-07-31] MEDS ORDERED: PROMETHAZINE HCL 6.25 MG in SODIUM CHLORIDE 0.9% 50 ML IV STA (10:13)
[2022-07-31] MEDS: SODIUM CHLORIDE 0.9% 1000ML 1,000 ML IV SCH (12:08)
--- NOTE | 2022-07-31 12:52 | History & Physical Bridge Note ---
Date of Service July 31, 2022 History & Physical Bridge Note I have examined the patient, reviewed the History & Physical and in the interval since the performance of the History & Physical I have noted the following changes of clinical significance: no changes noted
[2022-07-31] MEDS ORDERED: LIDOCAINE 2% MPF LOCAL 5 ML VIAL INFIL ONE (13:07)
[2022-07-31] MEDS ORDERED: KETAMINE 50 MG/5 ML SYRINGE ONE (13:07)
[2022-07-31] MEDS ORDERED: PROPOFOL IV EMULSION 10 MG/ML 20 ML VIAL IV ONE (13:07)
[2022-07-31] MEDS ORDERED: ONDANSETRON INJ 2 MG/ML 2 ML VIAL ONE (13:34)
--- NOTE | 2022-07-31 13:44 | Anesthesiology Progress Note ---
Date of Service July 31, 2022 Anesthesia Post Procedure Vital Signs Vital Signs: Temp Pulse Pulse Resp BP Pulse Ox O2 Del Method 07/31/22 13:31 97 H 16 129/76 97 Room Air 07/31/22 12:51 36.8 C 97 H 20 150/99 H 97 Room Air 07/31/22 11:38 36.7 C 69 20 131/78 96 Room Air 07/31/22 07:21 37.1 C 76 20 123/75 93 Room Air 07/31/22 07:18 65 07/31/22 03:45 37 C 77 18 120/78 94 Room Air 07/30/22 23:43 71 07/30/22 22:52 37.4 C 69 20 116/75 95 Room Air 07/30/22 18:35 36.5 C 73 20 143/82 H 95 Room Air 07/30/22 15:54 36.8 C 69 16 133/89 95 Room Air 07/30/22 14:56 66 Transfer of Care Handoff Completed per policy Notes Mental Status: alert / awake / arousable and participated in evaluation Patient Amnestic to Procedure: Yes Nausea / Vomiting: adequately controlled Pain: adequately controlled Airway Patency, RR, SpO2: stable & adequate BP & HR: stable & adequate Hydration State: stable & adequate Anesthetic Complications: no major complications apparent and Pt Satisfied with anesthetic care
--- NOTE | 2022-07-31 15:05 | GI REPORT ---
Patient Name: Samantha Hendrickson Procedure Date: 07/31/2022 12:58 PM Date of : 1945 Admit Type: Inpatient Age: 77 Gender: Female Attending MD: Imani Gaston MD, Procedure: Upper GI endoscopy Providers: Iamni Gaston MD Referring MD: Orlin Delarosa Md Indications: Chest pain (non cardiac) Medicines: See the Anesthesia note for documentation of the administered medications Complications: No immediate complications. Estimated Blood Loss: Estimated blood loss: none. Procedure: Pre-Anesthesia Assessment: - ASA Grade Assessment: III - A patient with severe systemic disease. After obtaining informed consent, the endoscope was passed under direct vision. Throughout the procedure, the patient's blood pressure, pulse, and oxygen saturations were monitored continuously. The Scope was introduced through the mouth, with the intention of advancing to the duodenum. The scope was advanced to the gastric cardia before the procedure was aborted. Medications were given. The upper GI endoscopy was accomplished without difficulty. The patient tolerated the procedure well. Findings: The esophagus was grossly normal. There was a very large amount of food in the stomach, and the procedure was aborted. Recommendation: - Discharge patient to floor. - Clear liquids today. - Begin IV erythromycin 250 mg IV q 8 hours x 3. Jonathan Collado MD 07/31/2022 3:04:40 PM This report has been signed electronically. Note Initiated On: 07/31/2022 12:58 PM Number of Addenda: 0 I attest to the content of the Intraoperative Record and orders documented therein, exceptions below {[id number]}
[2022-07-31] MEDS: METOCLOPRAMIDE HCL INJ 5 MG/ML 2 ML VIAL IV SCH (16:05)
[2022-07-31] MEDS ORDERED: METOCLOPRAMIDE HCL 10 MG TABLET PO SCH (16:30)
[2022-07-31] MEDS: ERYTHROMYCIN 250 MG in SODIUM CHLORIDE 0.9% 250 ML IV SCH (20:53)
[2022-08-01] MEDS: SODIUM CHLORIDE 0.9% 1000ML 1,000 ML IV SCH (05:09)
[2022-08-01 07:49] LABS: Hematocrit (blood only) 32.7 % (34.1-44.9); Mean Corpuscular Hemoglobin 26.8 pg (25.0-34.0); Mean Corpuscular Hgb Conc 30.6 g/dL (32.0-36.0); Mean Corpuscular Volume 87.7 fL (80.0-100.0); Platelet Count 248 K/uL (130-400); RDW Coefficient of Variation 15.7 % (11.5-14.5); RDW Standard Deviation 50.1 fL (36.4-46.3); Red Blood Count 3.73 M/uL (3.93-5.22); White Blood Count 5.27 K/ul (4.8-10.8)
[2022-08-01 08:09] LABS: BUN Creatinine Ratio 24.6 (10-20); Calcium 8.1 mg/dl (8.5-10.1); Creatinine Clr Calc Pharmacy 100.1 ml/min; Est GFR (African American) 102.1 ml/min; Est GFR (Non-African American) 88.1 ml/min; Potassium 3.9 mmol/L (3.5-5.1)
--- NOTE | 2022-08-01 08:21 | Neurology Progress Note ---
Date of Service August 01, 2022 Assessment & Plan (1) Generalized weakness: (2) Near syncope: (3) TIA (transient ischemic attack): (4) PAF (paroxysmal atrial fibrillation): Plan This patient had the onset of some generalized symptoms July 28. She did have a little bit of left upper extremity heaviness which was somewhat focal subjectively, but in the emergency room she had no focal deficits or issues. She had near syncope (lightheadedness). on July 31, she had a similar episode that only lasted a few seconds after going to the bathroom around mid day. Today she has no symptoms or weakness. Neurologic examination was. CT scan of the head and CT angiography of the head and neck were unremarkable. MRI of the brain was unremarkable as well . Echocardiogram showed mild LVH and some mild valvular regurgitations She has a history of paroxysmal atrial fibrillation on warfarin. She has also been on aspirin daily as well. There was a history of a TIA back in January of 2019. Overall, I am not certain that her recent symptoms are related to TIA/CVA. These symptoms are more reminiscent of global cerebral vascular/cardiovascular phenomenon. She was hypertensive in the emergency room and this is improved currently, however, she had some hypertension medially following the episode July 31. Recommendations: 1. I am not certain the patient needs any additional neurologic testing or treatment at this time. 2. Keep up fluids to avoid dehydration. 3. Continue 81 mg aspirin tablet daily. She is also warfarin her history of paroxysmal fibrillation 4. Please contact me if I can be of further assistance on this case. Overall, I spent a total of 35 minutes with this case including review of records, direct evaluation the patient at bedside, and discussion of the case with the patient and RN at bedside, as well as Dr. Delarosa, including differential diagnosis and treatment options. Admission and Anticipated Discharge Date Admission Date: July 29, 2022 Subjective Patient had an episode yesterday morning, around noon, while in the bathroom. She was finished and then was washing her hands when she had the sudden onset of a generalized sense of weakness and shakiness in her hands. She was not lightheaded and did not have vertigo. The left upper extremity had a little bit of dysesthesias to it and possible weakness. I talked to the RN felt that her neurologic function was fairly good and she had good strength. The patient believes that the whole episode lasted only seconds. NIH stroke scale was 0. Patient then underwent orthostasis blood pressure reading, and had no significant change of blood pressure or pulse. cardiac monitoring showed no dysrhythmia or atrial fibrillation. Patient's symptoms resolved and she has had no further episodes since. Blood pressure this morning is 122/76. She has no neck. Laboratory studies revealed some mild anemia on CBC. Chem profile reveals mildly low calcium 8.1 Results & Data ([facility]) Vital Signs (Past 12 Hours) Vital Signs Temp Pulse Pulse Resp BP Pulse Ox O2 Del Method 08/01/22 01:38 36.7 C 83 20 122/76 93 Room Air 07/31/22 23:15 66 07/31/22 22:23 36.7 C 76 20 111/76 96 Room Air 07/31/22 20:18 Room Air Exam (Neuro) Physical Exam: the patient is awake and alert. Speech is without aphasia or dysarthria. Mood is normal and affect is appropriate. She is anxious, this episode as she states it is her second event ( the 1st was the event that brought her into the hospital). Thought processes are intact with good long and short-term memory to conversation. Extraocular eye muscles are intact without nystagmus. There is no facial droop and tongue is midline. With outstretched arms there is no drift. There is no significant ataxia or tremor of her resting, postural, or action nature. Strength seems symmetrical in all 4 limbs. PG Care Time/CCT Total # of Minutes Spent Total Time Spent with Patient: Total time spent is greater than 50% in coordination of care (as documented) at patient's floor/unit and/or counseling patient: Coding Level of Care Code 87431 SUB INP/OBS CARE 2/35MIN Diagnoses Generalized weakness R53.1 Near syncope R55 TIA (transient ischemic attack) G45.9 PAF (paroxysmal atrial fibrillation) I48.0 Time Spent (min) 35
[2022-08-01] MEDS: METOCLOPRAMIDE HCL INJ 5 MG/ML 2 ML VIAL IV SCH (09:02)
[2022-08-01] MEDS: ATORVASTATIN 40 MG TAB PO SCH (09:04)
[2022-08-01] MEDS: POLYETHYLENE (MIRALAX) 17 GM PACK PO SCH (09:07)
[2022-08-01] MEDS: TOPIRAMATE 25 MG TAB PO SCH (09:07)
[2022-08-01] MEDS: METOPROLOL SUCC 25MG EXT REL TAB PO SCH (09:07)
--- NOTE | 2022-08-01 09:59 | Hospitalist Progress Note ---
Date of Service August 01, 2022 Assessment & Plan (1) TIA (transient ischemic attack): Plan: h/o TIA in 2019 and received DAPT with plavix and ASA x 21 days, then continued on aspirin. Given Zio patch results showing PAF, warfarin was added. Her symptoms are not exactly like those previous symptoms, but she is describing feeling warm, flushed, presyncopal and with some numbness and weakness. Has also been describing worsening SOB with exertion as described above. Per record review, she has a history of valvular heart disease and ascending aortic enlargement. Echo ordered and reviewed. Aortic dissection was excluded with CTA. EKG is nonischemic and HS trop was negative. She does have some weight gain and noncompliance with diuretics noted in history. Cont workup based on findings and clinical progress. Neurology consulted. MR brain was normal. Neurology uncertain about etiology of her initial numbness, however, etiologies may include but are not limited to some type of global cerebral vascular/cardiovascular phenomenon versus anxiety. Continue aspirin and warfarin (currently on hold) without changes. 07/31 -patient had another brief episode of left upper extremity numbness today in the bathroom. She was seen previously by me, and had no symptoms whatsoever. After returning back to bed, symptoms already improving. Patient has been n.p.o. for her EGD today. We will give gentle fluids. Discussed with neurology over the phone, will continue to monitor her symptoms. 08/01 - symptoms completely resolved. Patient also seen by neurology. Likely secondary to blood pressure changes. No new imaging recommended. Continue aspirin and warfarin. (2) Dyspnea on exertion: Plan: Echo doesn't reveal a cause for her dyspnea. With her severe GERD and significant debris in her stomach there is concern that her severe acid reflux, which she can taste as it comes up the back of her throat, may be influencing her breathing and functional status. She is s/p hiatal hernia repair at [facility] in October 2021 and since that time, she has noticed her dyspnea symptoms worsening. EGD yesterday (07/31/22) -gastroparesis noted. GI recommends to increase Reglan to QID, patient also started on IV erythromycin for now while inpt. Plan for close GI follow-up. (3) Generalized weakness: Plan: Generalized fatigue and weakness associated with symptoms. Uncertain cause with possibilities noted above B12 and folate are within normal values. TSH is also normal. There is no UTI and she is having no UTI symptoms. There is no evidence of respiratory infection. ESR is normal with CRP only slightly elevated making vasculitis/connective tissue disease unlikely. Weakness in her legs has resolved. (4) Near syncope: Plan: no overt syncope, seems unusual for TIA. Echo as above. (5) PAF (paroxysmal atrial fibrillation): Plan: Sinus rhythm. cont warfarin, metoprolol, asa (6) Obesity: Plan: lifestyle modifications recommended. DVT proph-warfarin reversed for procedure in am. SCDs. Full Code Dispo- plan to DC home, close PCP and GI follow up Admission and Anticipated Discharge Date Admission Date: July 29, 2022 Subjective Pt seen in follow up of severe GERD, hx of hiatal hernia repair, initially admitted for possible TIA Currently laying in bed, in no acute distress. Had EGD yesterday. Currently denies any complaints. Discussed with GI her symptoms of gastroparesis and findings of EGD. She is eager for discharge. Denies fevers chills chest pain shortness of breath any weakness or numbness, denies any headache. Denies abdominal pain. Discussed with GI and neurology today. Review of Systems Review of Systems: All systems reviewed & are unremarkable except as noted in Subjective Physical Exam Physical Exam: CONSTITUTIONAL: WNWD, in no acute distress EYES: normal conjunctivae, no scleral icterus ENT: external ear and nose normal, MMM NECK: trachea midline RESPIRATORY: clear to auscultation bilaterally, no crackles, rales or wheezes, normal respiratory effort CARDIOVASCULAR: regular rate and rhythm, S1 and 2 heard without murmurs, gallops or rubs, no JVD, no peripheral edema CHEST: inspection of chest was normal GASTROINTESTINAL: normal bowel sounds, soft, nontender, ND, no guarding MUSCULOSKELETAL: strength 5/5 throughout, head is normocephalic and atraumatic SKIN: warm and dry NEURO/PSYCH:Awake and alert, answers questions appropriately, speech fluent, no facial asymmetry, moves extremities. Results & Data Results & Data ([facility]) Vital Signs (Past 12 Hours) Vital Signs Temp Pulse Pulse Resp BP Pulse Ox O2 Del Method 08/01/22 01:38 36.7 C 83 20 122/76 93 Room Air 07/31/22 23:15 66 07/31/22 22:23 36.7 C 76 20 111/76 96 Room Air Laboratory Results 08/01/22 08/01/22 Range/Units 07:01 07:01 WBC 5.27 (4.8-10.8) K/ul RBC 3.73 L (3.93-5.22) M/uL Hgb 10.0 L (12.0-16.0) g/dl Hct 32.7 L (34.1-44.9) % MCV 87.7 (80.0-100.0) fL MCH 26.8 (25.0-34.0) pg MCHC 30.6 L (32.0-36.0) g/dL RDW Std Deviation 50.1 H (36.4-46.3) fL RDW Coeff of Chen 15.7 H (11.5-14.5) % Plt Count 248 (130-400) K/uL MPV 10.0 (9.4-12.3) fL Sodium 141 (136-145) mmol/L Potassium 3.9 (3.5-5.1) mmol/L Chloride 117 H (98-107) mmol/L Carbon Dioxide 18 L (21-32) mmol/L Anion Gap 6 (3-11) BUN 15 (6-23) mg/dl Creatinine 0.61 (0.6-1.2) mg/dl Est Cr Clr Drug Dosing 100.1 ml/min Est GFR ( Amer) 102.1 ml/min Est GFR (Non-Af Amer) 88.1 ml/min BUN/Creatinine Ratio 24.6 H (10-20) Glucose 89 (70-99(Fasting)) mg/dl Calcium 8.1 L (8.5-10.1) mg/dl Magnesium 2.0 (1.7-2.4) mg/dl Medications Administered Current Inpatient Medications Acetaminophen (Acetaminophen 325 Mg Tab) 650 mg PO Q4H PRN PRN Reason: Pain or Fever Stop: 08/27/22 14:51 Last Admin: 07/31/22 10:42 Dose: 650 mg Aspirin (Aspirin 81 Mg Ectab) 162 mg PO DAILY [facility] Stop: 08/28/22 08:59 Last Admin: 07/30/22 07:48 Dose: 162 mg Atorvastatin Calcium (Atorvastatin 40 Mg Tab) 40 mg PO DAILY [facility] Stop: 08/28/22 08:59 Last Admin: 08/01/22 09:04 Dose: 40 mg Heparin Sodium (Porcine) (Heparin Sod 5,000 Unit/0.5 Ml Vial) 5,000 units SQ Q12 [facility] Stop: 08/31/22 09:59 Sodium Chloride (Nss 1000ml) 1,000 mls @ 80 mls/hr IV .[id number] [facility] Stop: 08/30/22 11:59 Last Admin: 08/01/22 05:09 Dose: 80 mls/hr Erythromycin Lactobionate 250 (mg/ Sodium Chloride) 255 mls @ 250 mls/hr IV TID JAYLEEN Stop: 08/02/22 20:59 Last Infusion: 07/31/22 21:57 Dose: Infused Metoclopramide HCl (Metoclopramide Hcl Inj 5 Mg/Ml 2 Ml Vial) 5 mg IV BID [facility] Stop: 08/30/22 15:29 Last Admin: 08/01/22 09:02 Dose: 5 mg Metoprolol Succinate (Metoprolol Succ 25mg Ext Rel Tab) 25 mg PO QAM JAYLEEN Stop: 08/28/22 08:59 Last Admin: 08/01/22 09:07 Dose: 25 mg Polyethylene Glycol (Polyethylene (Miralax) 17 Gm Pack) 17 gm PO DAILY [facility] Stop: 08/28/22 14:59 Last Admin: 08/01/22 09:07 Dose: 17 gm Topiramate (Topiramate 25 Mg Tab) 25 mg PO DAILY [facility] Stop: 08/28/22 08:59 Last Admin: 08/01/22 09:07 Dose: 25 mg Warfarin Sodium (Warfarin Sod 5 Mg Tab) 5 mg PO DAILY@1600 [facility] Stop: 08/29/22 15:59
[2022-08-01] MEDS ORDERED: HEPARIN SOD 5,000 UNIT/0.5 ML VIAL SQ SCH (10:30)
[2022-08-01] MEDS: ERYTHROMYCIN 250 MG in SODIUM CHLORIDE 0.9% 250 ML IV SCH (10:48)
--- NOTE | 2022-08-01 11:23 | Discharge Summary ---
Date of Service August 01, 2022 Admission HPI Per Admitting Provider 77 yo F with h/o TIA who is on coumadin for atrial fibrillation presents with new RUE numbness. Started feeling generalized malaise, then felt discomfort spread across her shoulders. Moved into her left arm with a sense of numbness-"it was not like I felt with my last TIA." Got nauseous when she went to the CT scan. No vomiting. [place] overwhelmingly warm-better when removd coat and sweater while at [facility] wh en symptoms began. [place] presyncopal, and "I just don't feel right." [place] fine yesterday and last night Had a strange, horrible pain in her right head last night that was sharp and lasted only seconds. INR is 1.6 today +constipation new for over 1 week-has been taking miralax Had surgery in October for a hiatal hernia-had come to [facility] and was lifeflighted at that time. Follows with GI after this and for severe GERD, on carafate, protonix, etc. Today both legs feel very heavy and she is having trouble moving them around She had significant difficulty moving around, and became very winded with just moving to the bedside reports she gets very winded easily with just a few steps Pt states that just standing to apply her makeup will cause her to need to go lay down. Can barely climb a flight of stairs Very tough to walk into [facility] today; she has modified her like so she doesn't have to walk very far these days. This has likely become worse since just after the surgery this spring. Admission Exam Per Admitting Provider CONSTITUTIONAL: WNWD, vitals as above, generally appears anxious/uncomfortable. EYES: normal conjunctivae, no scleral icterus ENT: external ear and nose normal, MMM NECK: trachea midline RESPIRATORY: clear to auscultation bilaterally, no crackles, rales or wheezes, normal respiratory effort CARDIOVASCULAR: regular rate and rhythm, S1 and 2 heard without murmurs, gallops or rubs, no JVD, no peripheral edema CHEST: inspection of chest was normal GASTROINTESTINAL: normal bowel sounds, soft, nontender, ND, no guarding MUSCULOSKELETAL: strength 5/5 throughout, head is normocephalic and atraumatic SKIN: warm and dry NEUROLOGIC: DTRs could not be elicited bilaterally in patellar tendons. CN 2- 12 grossly intact, no sensory deficit, normal cognition, normal speech, no tremor. She had some difficulty performing finger to nose test and Prasanna test with both hands. Did not walk her as she is a fall risk. Notably very winded when she maneuvered back into bed just after sitting on the bedside for a few moments. PSYCHIATRIC: alert cooperative and oriented to person, place and time. Principal Diagnosis weakness/numbness GERD Gastroparesis Discharge Exam CONSTITUTIONAL: WNWD, in no acute distress EYES: normal conjunctivae, no scleral icterus ENT: external ear and nose normal, MMM NECK: trachea midline RESPIRATORY: clear to auscultation bilaterally, no crackles, rales or wheezes, normal respiratory effort CARDIOVASCULAR: regular rate and rhythm, S1 and 2 heard without murmurs, gallops or rubs, no JVD, no peripheral edema CHEST: inspection of chest was normal GASTROINTESTINAL: normal bowel sounds, soft, nontender, ND, no guarding MUSCULOSKELETAL: strength 5/5 throughout, head is normocephalic and atraumatic SKIN: warm and dry NEURO/PSYCH:Awake and alert, answers questions appropriately, speech fluent, no facial asymmetry, moves extremities. Discharge Data Allergies Allergy/AdvReac Type Severity Reaction Status Date / Time Sulfa (Sulfonamide Allergy Unknown CAN'T Verified 07/31/22 12:49 Antibiotics) REMEMBER-LONG AGO. buspirone [From BuSpar] AdvReac Mild Vomiting Verified 07/31/22 12:49 Consultations 07/28/22 13:17 ED Decision to Admit Stat 07/28/22 14:52 Consult Neurology Routine 07/28/22 21:37 Consult General Surgery Stat 07/30/22 15:26 Consult Gastroenterology Routine Procedures Performed Operation Date: 07/31/22 17:15 Actual Procedures p Esophagogastroduodenoscopy - Imani Gaston MD Ordered Studies 07/28/22 10:59 CT angio head w con Stat CT angio neck with con Stat CT head/brain wo con Stat IMPRESSION: 1. No significant stenosis, occlusion, or aneurysm within the [place]. 2. No significant stenosis, occlusion, or dissection identified within the carotid or vertebral arteries. 07/28/22 19:54 CT angio chest dissec wo/w con Urgent IMPRESSION: 1. No thoracic aortic dissection. 2. No acute intrathoracic findings. 3. Pneumatosis involving several right upper quadrant small bowel loops. This may reflect benign pneumatosis. Bowel ischemia is considered less likely but cannot be excluded by imaging. 4. Distended stomach containing ingested contents. 07/28/22 22:33 CT abd pelvis oral con only Stat IMPRESSION: 1. No free air. Pneumatosis of multiple small bowel loops which accounts for the finding on chest CT July 28, 2022. This may reflect benign pneumatosis. However, clinical correlation is recommended as bowel ischemia cannot be completely excluded. 2. No bowel obstruction. 3. Large amount of ingested contents within the stomach which is mildly distended. This could be correlated with clinical evidence for gastric outlet obstruction. 4. Moderate amount of stool within the colon and rectum. 07/29/22 00:00 MR brain wo con Routine FINDINGS: There are no foci of restricted diffusion to suggest acute infarct. No acute intracranial hemorrhage, midline shift or mass effect is present. Ventricular system is normal. Basal cisterns are patent. There are no extra axial collections. Flow-voids for the major intracranial vessels are present. No intracranial masses are identified on this unenhanced exam. The appearance of the brain is unchanged since MRI of February 20, 2019. Calvarial signal is normal. There is no evidence for sinusitis. IMPRESSION: No acute intracranial findings. Hospital Course (1) TIA (transient ischemic attack): h/o TIA in 2019 and received DAPT with plavix and ASA x 21 days, then continued on aspirin. Given Zio patch results showing PAF, warfarin was added. Her symptoms are not exactly like those previous symptoms, but she is describing feeling warm, flushed, presyncopal and with some numbness and weakness. Has also been describing worsening SOB with exertion as described above. Per record review, she has a history of valvular heart disease and ascending aortic enlargement. Echo ordered and reviewed. Aortic dissection was excluded with CTA. EKG is nonischemic and HS trop was negative. She does have some weight gain and noncompliance with diuretics noted in history. Cont workup based on findings and clinical progress. Neurology consulted. MR brain was normal. Neurology uncertain about etiology of her initial numbness, however, etiologies may include but are not limited to some type of global cerebral vascular/cardiovascular phenomenon versus anxiety. Continue aspirin and warfarin (currently on hold) without changes. 07/31 -patient had another brief episode of left upper extremity numbness today in the bathroom. She was seen previously by me, and had no symptoms whatsoever. After returning back to bed, symptoms already improving. Patient has been n.p.o. for her EGD today. We will give gentle fluids. Discussed with neurology over the phone, will continue to monitor her symptoms. 1/ - symptoms completely resolved. Patient also seen by neurology. Likely secondary to blood pressure changes. No new imaging recommended. Continue aspirin and warfarin. Patient received gentle IV fluids. Recommend to stop Lasix for now. Follow-up with PCP about any medication changes. (2) Dyspnea on exertion: Echo doesn't reveal a cause for her dyspnea. With her severe GERD and significant debris in her stomach there is concern that her severe acid reflux, which she can taste as it comes up the back of her throat, may be influencing her breathing and functional status. She is s/p hiatal hernia repair at [facility] in October 2021 and since that time, she has noticed her dyspnea symptoms worsening. EGD yesterday (07/31/22) - food in stomach/gastroparesis noted. GI recommends to increase Reglan to QID, patient also started on IV erythromycin for now while inpt. Plan for close GI follow-up. (3) Generalized weakness: Generalized fatigue and weakness associated with symptoms. Uncertain cause with possibilities noted above B12 and folate are within normal values. TSH is also normal. There is no UTI and she is having no UTI symptoms. There is no evidence of respiratory infection. ESR is normal with CRP only slightly elevated making vasculitis/connective tissue disease unlikely. Weakness in her legs has resolved. (4) Near syncope: no overt syncope, seems unusual for TIA. Echo as above. (5) PAF (paroxysmal atrial fibrillation): Sinus rhythm. cont warfarin, metoprolol, asa (6) Obesity: lifestyle modifications recommended. Total Time Total Time Spent Total Time Spent (In Minutes): 40 Discharge Plan Discharge Items Patient Disposition: Home - Self-Care Reason For Visit: TIA Discharge Diagnosis: weakness/numbness GERD Gastroparesis Condition on Discharge: Good Activity: Resume your previous activity Non-emergency contact: Primary Care Provider and Clothes Drier Repairer Call non-emergency contact if: you have any medication questions, your symptoms worsen and your pain is not controlled Follow-up/Referrals: Myron Cristobal MD [Primary Care Provider] - (Date & Time 08/05/2022 2:00 PM Provider Severino Lozada MD Department [facility] ) Diet: Other - See Diet Comment Addtl Attending Provider Instructions: Follow-up with your primary care doctor, the appointment was scheduled for you for August 05. As discussed, you will need to follow-up with gastroenterology. They will be contacting you about the appointment. For now increase Reglan from twice a day to 4 times a day. Change your diet to mostly liquid, easy to swallow. Never eat too much at once. Recommend not to take Lasix. Discuss with your primary care provider any further medication changes. Pending Studies at Discharge: No Stand-Alone Forms: My [facility], Medications to Prevent Stroke Medications and DC Order Prescriptions: Continued sucralfate 1 gram tablet 1 g PO TID ascorbic acid (vitamin C) 500 mg Tablet 500 mg PO DAILY metoprolol succinate 25 mg tablet extended release 24 hr 25 mg PO QAM topiramate 25 mg tablet 25 mg PO DAILY warfarin 5 mg tablet 2.5 mg PO MOWEFRSA@1600 atorvastatin 40 mg tablet 40 mg PO DAILY acetaminophen [Acetaminophen Extra Strength] 500 mg Tablet 1,000 mg PO Q8H PRN (Reason: Pain) pantoprazole 40 mg tablet,delayed release (DR/EC) 40 mg PO QAM aspirin 162 mg Tablet,Delayed Release (Dr/Ec) 162 mg PO DAILY warfarin 5 mg tablet 5 mg PO SUTUTH@1600 fluticasone propionate 50 mcg/actuation spray,suspension 2 spray INTRANASAL DAILY PRN (Reason: Allergy Symptoms) cholecalciferol (vitamin D3) 125 mcg (5,000 unit) Tablet 125 mcg PO DAILY furosemide [Lasix] 20 mg Tablet 20 mg PO BID ferrous sulfate 324 mg (65 mg iron) Tablet,Delayed Release (Dr/Ec) 324 mg PO DAILY Changed metoclopramide HCl 10 mg tablet 10 mg PO QID Qty: 30 0RF Discharge Orders: Discharge Order (Routine); Ordered 08/01/22 Ordered By: Orlin Delarosa Admission Data Admit Date/Time: 07/29/22 09:33 Attending Provider: Orlin Delarosa Admit Provider: Rena Milian Primary Care Provider: Myron Cristobal Other Providers: Rena Milian ; Levi Lopez ; Zandra Caraballo ; Imani Gaston Other Interventions: Discharge Summary Assessment (RN) Last Done: 07/31/22 13:54
--- NOTE | 2022-08-01 11:43 | Gastroenterology Progress Note ---
Date of Service August 01, 2022 Assessment & Plan (1) GERD (gastroesophageal reflux disease): (2) Gastroparesis: (3) Dysphagia: Plan Suspect her symptoms are due to esophageal and gastric dysmotility secondary to hx of paraesophageal hernia repair. Constipation may also contribute. Full liquid diet. May have only small tastes of soft solid foods such as a part on an egg or noodles. Puree fruits and vegetables. Please discharge on Emcin 250 mg TID for 2 weeks. Will follow up in Gi clinic. Will arrange OP GI f/u to consider G Poem procedure which as discussed w pt today. Our office will call pt w an appt. Admission and Anticipated Discharge Date Admission Date: July 29, 2022 Supervising Physician Co-Signing Physician Notes Attg add: I interviewed and examined pt, reviewed chart and labs. Pt cherelle clears. Recs as above. Subjective 77, female, GERD, Gastroparesis, dysphagia. EGD yesterday aborted due to food debris in the esophagus. Today, tolerating a full liquid diet well. Asking to go home. Review of Systems Review of Systems: ROS: Gen: + episode of weakness prior to admission; No fevers, or weight loss Eyes: No eye redness, or pain, no recent vision changes Resp: No SOB, no cough Cardio: No palpitations/irregular beats, no chest pain GI: No abdominal pain, no nausea/vomiting : Denies pain on urination Skin: No jaundice, itching or new rashes Physical Exam Constitutional: WD/WN, vitals as above + obese Eyes: PERRL, conjunctivae normal, anicteric sclerae ENMT: external ear and nose normal, oropharynx normal Neck: trachea midline, no thyromegaly Respiratory: normal respiratory effort, lungs clear to auscultation Cardiovascular: RRR, no murmur, no edema Gastrointestinal (Abdomen): normal bowel sounds, soft, nontender, no hepatosplenomegaly Musculoskeletal: no cyanosis or clubbing, extremities motor strength 5/5 Skin: no rashes, warm and dry Neurologic: PERRL, EOMI, accommodation nl, no face palsy, no dysarthria Psychiatric: A+Ox3, euthymic affect Lymphatic: no cervical or axillary lymphadenopathy Results & Data ([facility]) Vital Signs (Past 12 Hours) Vital Signs Temp Pulse Resp BP Pulse Ox O2 Del Method 08/01/22 11:16 36.5 C 67 19 127/73 97 Room Air 08/01/22 01:38 36.7 C 83 20 122/76 93 Room Air Laboratory Results WBC 5.2, Hb 10, Hct 32, Plts 248, Na 141, K 3.9, Cl 117, BUN 15, Cr 0.61, plts 89 Diagnostic Findings CTAP w IV/oral contrast 07/28/22: 1. No free air. Pneumatosis of multiple small bowel loops which accounts for the finding on chest CT July 28, 2022. This may reflect benign pneumatosis. H owever, clinical correlation is recommended as bowel ischemia cannot be completely excluded. 2. No bowel obstruction. 3. Large amount of ingested contents within the stomach which is mildly distended. This could be correlated with clinical evidence for gastric outlet obstruction. 4. Moderate amount of stool within the colon and rectum.
== END 2022-08-01 12:46 | disposition home or self-care (01) ==
LOC: ED 10:30 → 2N 10:30 → SUATTDRO 07-29 09:33